=== PATIENT | female | born 1970 | race Caucasian/White ===

== ENCOUNTER 2021-01-05 11:32 | Emergency (ER) | payer BC, SELFPAY ==
[2021-01-05 11:35] VITALS: BP 139/71; PULSE 85; RESP 17; TEMP 36; O2SAT 96; BMI 34.3
--- NOTE | 2021-01-05 12:05 | US_ITS ---
STUDY: ABDOMINAL ULTRASOUND - RIGHT UPPER QUADRANT REASON FOR VISIT: Female, 50 years old. Right upper quadrant pain for 3 weeks TECHNIQUE: Ultrasound evaluation of the right upper quadrant was performed with real-time and static youngblood-scale imaging. TECHNICAL QUALITY: Adequate. COMPARISON: None. FINDINGS: Liver: The liver measures 18 cm. There is increased echogenicity of the liver. The bile ducts are within normal limits. There is hepatic color flow. The direction of portal flow is hepatopetal. There is no demonstrated mass lesion. Gallbladder: Normal distended gallbladder. The gallbladder wall measures 2 mm. There is a negative sonographic Huitron''s sign. There is no pericholecystic fluid. There are no gallstones. Common Bile Duct (C.B.D.): The common bile duct measures 4 mm. Pancreas: Normal size of the head, body and tail of the pancreas. There is normal echogenicity of the pancreas. There is no demonstrated pancreatic mass or cyst. Right Kidney: Normal size of the right kidney. The right kidney measures 10 x 5.2 x 4.2 cm. Normal renal cortex. The right cortex measures 1.7 cm. There is no demonstrated renal mass or cyst. There is no right hydronephrosis. US/Gallbladder IMPRESSION: 1. No acute findings. 2. Hepatomegaly and steatosis. Electronically Signed: Mounika Johnson MD at 14:52 EDT Tel , Service support ,
--- NOTE | 2021-01-05 12:07 | EX.ED.DYSGE1 ---
HPI History of Present Illness Chief Complaint: Flank Pain Informant: patient Narrative Narrative: 50-year-old female presenting with right side pain. Patient states this has been ongoing for the past 3 weeks. She went to urgent care and was told that she did not have a urinary tract infection. She was started on Pyridium which she states did not improve her symptoms. She has pain in her right abdomen that worsens with eating. She has a history of previous hysterectomy and appendectomy. She has discomfort when she tries to urinate, denies hematuria. She has had intermittent fevers. She has nausea, vomiting. She denies other complaints. PFSH PFSH Home Medications fluoxetine [Prozac] 10 mg PO DAILY 01/05/21 [History Last Taken Unknown] gabapentin 300 mg PO QHS PRN 01/05/21 [History Last Taken Unknown] hydrocodone-acetaminophen 1 tab PO Q6H PRN PRN 3 Days #10 tablet 01/05/21 [Rx Last Taken Unknown] ondansetron 4 mg PO Q8H PRN PRN #10 tab 01/05/21 [Rx Last Taken Unknown] trazodone 50 mg PO QHS 01/05/21 [History Last Taken Unknown] Allergy/AdvReac Type Severity Reaction Status Date / Time phenazopyridine Allergy Nausea/Vom/ Verified 01/05/21 11:34 [From Pyridium] Diarrhea Sulfa (Sulfonamide Allergy Hives Verified 01/05/21 11:34 Antibiotics) Surgical History (Updated 01/05/21 @ 12:23 by Silvia Villalobos) History of hysterectomy Hx of appendectomy Social History Smoking Status: Never smoker ROS [facility] ED Constitutional Constitutional ED: Reports fever(s) Eyes Eyes: Denies change in vision ENT ENT ED: Denies rhinorrhea or sore throat Cardiovascular Cardiovascular: Denies chest pain or palpitations Respiratory/Chest Respiratory/Chest: Denies cough or dyspnea Gastrointestinal Gastrointestinal: Reports abdominal pain, diarrhea, nausea and vomiting Genitourinary Genitourinary ED: Reports dysuria and urinary frequency; Denies hematuria Musculoskeletal Musculoskeletal: Denies myalgias Integumentary Denies rash Neurologic Neurologic: Denies headache(s) EXAM Physical Exam Const Vital Signs: 01/05/21 11:35 01/05/21 12:22 Temperature 96.8 F L Temperature Source Temporal Pulse Rate 85 Respiratory Rate 17 Respiratory Effort Normal Non-Labored Respiratory Pattern Normal Blood Pressure 139/71 H Blood Pressure Mean 93 Pulse Ox 96 Oxygen Delivery Method Room Air Positive well nourished and well developed General Appearance ED: well developed HEENT Reports normocephalic and head/scalp atraumatic Eyes PERRL and EOMs intact bilaterally Neck supple General: Negative for tenderness Chest Wall inspection of chest normal Resp normal respiratory effort and clear to auscultation bilaterally Cardio regular rate and regular rhythm GI non-distended GI Narrative: Right upper quadrant tenderness with no guarding or rebound Palpation: soft; Negative for guarding or rebound tenderness present no CVA tenderness Back/Spine no CVA tenderness Extremity normal to inspection Neuro oriented x3 Sensorium / Orientation: alert Psych mental status grossly normal MDM MDM MDM Narrative Medical decision making narrative: Patient was given morphine, Zofran, IV fluids. AST 46, ALT 68. Patient states her liver enzymes have been elevated in the past. Gallbladder ultrasound is unremarkable. On reevaluation she is resting comfortably. Advised to follow-up with Dr. Livingston. Advised return to ED if worsening complaints. Lab Data Attestation: I reviewed the patient's lab results. Labs: Laboratory Results - last 24 hr 01/05/21 01/05/21 01/05/21 12:20 12:20 13:20 WBC 8.8 RBC 4.94 Hgb 14.4 Hct 43.1 MCV 87.2 MCH 29.1 MCHC 33.4 RDW Std Deviation 39.2 RDW Coeff of Ingrid 12.2 Plt Count 321 MPV 10.6 Immature Gran % (Auto) 0.100 Neut % (Auto) 54.8 Lymph % (Auto) 35.7 Bond % (Auto) 6.6 Eos % (Auto) 2.1 Baso % (Auto) 0.7 Absolute Neuts (auto) 4.8 Absolute Lymphs (auto) 3.13 Nucleated RBC % 0 Sodium 141 Potassium 3.8 Chloride 109 H Carbon Dioxide 24.0 Anion Gap 8 BUN 11 Creatinine 0.74 Estim Creat Clear Calc 93.99 Est GFR (MDRD) Af Amer 107 Est GFR (MDRD) Non-Af 88 BUN/Creatinine Ratio 14.9 Glucose 87 Calcium 9.1 Total Bilirubin 0.50 AST 46 H ALT 68 H Alkaline Phosphatase 80 Total Protein 7.1 Albumin 3.6 Globulin 3.5 Albumin/Globulin Ratio 1.0 Lipase 82 Urine Color Yellow Urine Clarity Clear Urine pH 6.0 Ur Specific [place] 1.030 Urine Protein Negative Urine Glucose (UA) Normal Urine Ketones Negative Urine Occult Blood Negative Urine Nitrite Negative Urine Bilirubin Negative Urine Urobilinogen Normal Ur Leukocyte Esterase Negative Urine RBC 0 SEEN Urine WBC 0 SEEN Ur Squamous Epith Cells 0 SEEN Urine Bacteria 0 SEEN Urine Mucus 0 SEEN Radiography Diagnostic Testing: Radiology Impression Gallbladder Ultrasound 01/05/21 12:05 IMPRESSION: 1. No acute findings. 2. Hepatomegaly and steatosis. Electronically Signed: Mounika Johnson MD at 14:52 EDT Tel , Service support , Discharge Plan Triage Chief Complaint: Flank Pain ED Provider: Ana De La Cruz Dx/Rx/DC Orders Clinical Impression: Abdominal pain, RUQ Prescriptions: New hydrocodone-acetaminophen [hydrocodone-acetaminophen] 1 TABLET tablet 1 tab PO Q6H PRN PRN (Reason: Pain) 3 Days Qty: 10 RF: 0 ondansetron [ondansetron] 4 MG tablet 4 mg PO Q8H PRN PRN (Reason: Nausea) Qty: 10 RF: 0 No Action trazodone 50 mg Tablet 50 mg PO QHS RF: 0 fluoxetine [Prozac] 10 mg Tablet 10 mg PO DAILY RF: 0 gabapentin 300 mg Capsule 300 mg PO QHS PRN (Reason: Pain) RF: 0 Primary Care Provider: Care Physician,No Primary Referrals: Irene Livingston MD [STAFF PHYSICIAN] - Care Physician,No Primary [Primary Care Provider] - Disposition Disposition: Home, self care
[2021-01-05] MEDS: Ondansetron 4 MG/2 ML Vial IV (12:18)
[2021-01-05] MEDS: Morphine 4 MG/ML Syringe IV (12:18)
[2021-01-05 12:43] LABS: Absolute Lymphocyte Count 3.13 X10^3/uL (0.83-4.51); Absolute Neutrophil Count 4.8 X10^3/uL (2.0-7.7); Basophil# 0.06 X10^3/uL; Basophil% 0.7 % (0-1); Eosinophil# 0.18 X10^3/uL; Eosinophils% 2.1 % (0-5); Hematocrit 43.1 % (37-47); Hemoglobin 14.4 g/dL (12.0-15.0); Lymphocyte # 3.13 X10^3/ul (0.83-4.51); Lymphocyte % 35.7 % (19-41); Mean Corp Hgb Conc 33.4 g/dL (32-36); Mean Corpuscular Hgb 29.1 pg (27.0-32.0); Mean Corpuscular Volume 87.2 fL (81-99); Mean Platelet Vol. 10.6 fl (6.2-12.0); Monocyte# 0.58 X10^3/uL; Monocyte% 6.6 % (0-10); NRBC Flagged by Analyzer 0 % (0-5); Neutrophil % 54.8 % (47-70); Platelet Count 321 K/mm3 (150-450); RBC Distribution Width CV 12.2 % (11.6-14.6); RBC Distribution Width SD 39.2 fl (35.1-43.9); Red Blood Count 4.94 M/mm3 (4.2-5.4); White Blood Count 8.8 K/mm3 (4.4-11.0)
[2021-01-05 13:00] LABS: AST(SGOT) 46 U/L (15-37); Alanine Aminotransfer ALT/SGPT 68 U/L (13-56); Albumin, Serum 3.6 g/dL (3.2-5.0); Alkaline Phosphatase 80 U/L (45-117); Anion Gap 8 (5-15); BUN 11 mg/dL (7-18); BUN/Creat Ratio 14.9 RATIO (10-20); Calcium,Total 9.1 mg/dL (8.5-10.1); Chloride 109 mmol/L (98-107); Creatinine, Serum 0.74 mg/dL (0.55-1.02); EST Glomerular Filtration Rate 88 mL/min (>60); Est Glom Filt Rate - Afr Amer 107 mL/min (>60); Estimated Creatinine Clearance 93.99 ml/min; Globulin 3.5 g/dL (2.2-4.2); Glucose 87 mg/dL (74-106); Lipase 82 U/L (73-393); Potassium 3.8 mmol/L (3.5-5.1); Protein, Total 7.1 g/dL (6.4-8.2); Sodium Level 141 mmol/L (136-145)
[2021-01-05 13:25] LABS: Bacteria 0 SEEN /hpf (None Seen); Mucous, Urine 0 SEEN /hpf (<or=2+); Red Blood Cells-Urine 0 SEEN /hpf (0-5); Squamous Epithelial Cells - UA 0 SEEN /hpf (5-10); White Blood Cells 0 SEEN /hpf (0-5)
[2021-01-05 13:36] LABS: Color, Urine Yellow (Yellow); Glucose, Dipstick Normal (Normal); Ketone-Dipstick Negative (Negative); Leukocyte Esterase-Dipstick Negative /ul (Negative); Nitrite-Dipstick Negative (Negative); Occult Blood-Urine Negative /ul (Negative); Protein-Dipstick Negative (Negative); Urine Bilirubin Dipstick Negative (Negative); Urine Clarity Clear (Clear); Urine Urobilinogen Normal (Normal)
[2021-01-05 15:33] VITALS: BP 122/64; PULSE 56; RESP 16; O2SAT 99
== END 2021-01-05 15:34 | disposition home or self-care (01) ==
PROVIDERS: Emergency Provider Emergency Medicine
DX: R10.11 Right upper quadrant pain (principal); Z90.710 Acquired absence of both cervix and uterus; Z90.49 Acquired absence of other specified parts of digestive tract
CPT/HCPCS: 76705; 80053; 81001; 83690; 85025; 96361; 96374; 96375; 99283; J7030; J2405

== ENCOUNTER 2021-01-19 17:38 | Emergency (ER) | payer BC, SELFPAY ==
[2021-01-19 17:38] VITALS: BP 144/73; PULSE 60; RESP 22; TEMP 36.8; O2SAT 98; BMI 36.1
--- NOTE | 2021-01-19 17:55 | RAD_ITS ---
STUDY: X-RAY - RIGHT ELBOW REASON FOR EXAM: Female, 50 years old. trauma TECHNIQUE: 2 view(s) of the elbow. COMPARISON: None. FINDINGS: Extremely limited by extensive overlying artifact. Complete elbow dislocation. Ulna and radius are dorsal and lateral to normal position. No fractures are seen but fractures cannot be excluded because of the extreme degree of artifact. Diffuse soft tissue swelling. RAD/Elbow 2 Views IMPRESSION: Markedly limited by extreme artifact. Complete dislocation of the elbow. No gross displaced fractures. Electronically Signed: Hussain Holcomb MD at 19:19 EDT , Service support ,
--- NOTE | 2021-01-19 17:55 | RAD_ITS ---
STUDY: X-RAY - RIGHT HUMERUS REASON FOR EXAM: Female, 50 years old. trauma TECHNIQUE: 2 view(s) of the humerus. COMPARISON: None. FINDINGS: Limited by marked overlying artifact. Complete dislocation of the elbow. No gross displaced fractures. Marked soft tissue swelling. RAD/Humerus min 2 Views IMPRESSION: Markedly limited by severe overlying artifact. No gross fractures are seen. Electronically Signed: Hussain Holcomb MD at 19:21 EDT , Service support ,
--- NOTE | 2021-01-19 18:01 | EDS_ITS ---
HPI History of Present Illness HPI Narrative: 50-year-old female history of chronic pain on gabapentin. Was at home moving a grill when she fell landed awkwardly on her right arm complaining primarily of right elbow pain but also upper arm and forearm pain. Denies other injuries. Did not hit her head. No LOC. Chief Complaint: Upper Extremity Injury Informant: patient and spouse/S.O. Occured/Mechanism Mechanism/Context: Yes blunt trauma Onset/Context/Timing Onset: Today Context: Sudden Onset Timing: Continuous Quality of Pain: Sharp Current Severity: Moderate Maximum Severity: Severe Narrative Prior similar symptoms: No Recent Illness/Hospitalization: No PFSH PFSH Home Medications fluoxetine [Prozac] 10 mg PO DAILY 01/05/21 [History Last Taken Unknown] gabapentin 300 mg PO QHS PRN 01/05/21 [History Last Taken Unknown] trazodone 50 mg PO QHS 01/05/21 [History Last Taken Unknown] Allergy/AdvReac Type Severity Reaction Status Date / Time phenazopyridine Allergy Nausea/Vom/ Verified 01/19/21 17:45 [From Pyridium] Diarrhea Sulfa (Sulfonamide Allergy Hives Verified 01/05/21 11:34 Antibiotics) Surgical History History of hysterectomy Hx of appendectomy Social History Smoking Status: Never smoker ROS ROS ED ROS Narrative Patient denies recent illness. Review of Systems ROS Unobtainable: Denies due to encephalopathy Constitutional Constitutional ED: Denies frequent falls Eyes Eyes: Denies change in vision ENT ENT ED: Denies ear pain or sore throat Cardiovascular Cardiovascular: Denies chest pain or palpitations Respiratory/Chest Respiratory/Chest: Denies dyspnea Gastrointestinal Gastrointestinal: Denies abdominal pain, diarrhea, nausea or vomiting Genitourinary Genitourinary ED: Denies dysuria Musculoskeletal Musculoskeletal: Denies myalgias Integumentary Denies rash Neurologic Neurologic: Denies headache(s) Psychiatric Psychiatric: Denies depression Endocrine Endocrinology: Denies polyuria Hematologic/Lymphatic Hematologic/Lymphatic: Denies easy bruising Allergic/Immunologic Allergic/Immunologic ED: Denies urticaria EXAM Physical Exam Narrative Exam Narrative: Middle-aged female no acute distress. Vital signs stable afebrile. Complaint of pain in her right arm she is in air splint. H EENT exam atraumatic. Pupils round reactive light. Lungs are clear. Chest nontender. Abdomen soft nontender. Heart regular rhythm no murmur. Girdle intact. Left upper and both lower extremities are nontender normal range of motion no deformities. Back nontender. Right upper extremity in an air splint by the paramedics. Appears to have a deformity of the right elbow. Her right hand appears to be neurovascularly intact with cap refill and touch sensation. Const Vital Signs: 01/19/21 17:38 Temperature 98.3 F Temperature Source Oral Pulse Rate 60 Respiratory Rate 22 H Blood Pressure 144/73 H Blood Pressure Mean 96 Pulse Ox 98 Oxygen Delivery Method Room Air Positive well nourished and well developed General Appearance ED: well developed HEENT normocephalic and atraumatic; Negative for trauma or tenderness Eyes PERRL and EOMs intact bilaterally Neck full ROM and supple General: Negative for tenderness Chest Wall inspection of chest normal Resp normal respiratory effort and clear to auscultation bilaterally Cardio regular rate, regular rhythm and no murmurs GI non-tender, non-distended and no masses Auscultation: normoactive bowel sounds Palpation: soft Back/Spine no CVA tenderness Cervical Spine: Negative for cervical spine tenderness Thoracic Spine / Upper Back: Negative for thoracic spinal tenderness Extremity normal to inspection and full ROM Extremity Narrative: Extremities are unremarkable except the right upper extremity appears to have deformity to right elbow. She will remain in the air splint until the x-rays are obtained. Right hand appears to be neurovascularly intact. General Extremety ED: Negative for edema General Extremity: Negative for edema Neuro oriented x3 Sensorium / Orientation: alert, oriented to person, oriented to place and oriented to time Psych mental status grossly normal Skin Lesions: no lesions Rashes: no rashes MDM MDM MDM Narrative Medical decision making narrative: I suspect the patient either has a fractured or dislocated right elbow. X-rays of the right humerus, elbow and forearm are being obtained. She will be treated with IV morphine and Zofran for pain. Consciously sedated with IV propofol. Receiving oxygen and on the athletic monitor. Elbow was reduced. Seems still partially subluxed on the film and was resedated and rereduced. The dislocation appears unstable. Patient was placed in a posterior splint at about 80 degrees of flexion and some supination of the wrist. Repeat films were obtained and appears much improved. This was all discussed with Dr. Mehul Barragan of orthopedics who will see the patient in follow-up. He did review her last films after the splinting and the prereduction films. Patient be discharged to home to ice, elevate Motrin and [place] for pain. Procedures Upper Extremity Splints Upper Extremity Splint: Orthoglass and Long arm Splint Fabrication: Fabricated Location: Right Other Procedures Procedure(s): Conscious sedation for about 10 minutes by ER using propofol. Right elbow dislocation reduction by ER Discharge Plan Triage Chief Complaint: Upper Extremity Injury ED Provider: Ralph Maki Dx/Rx/DC Orders Prescriptions: No Action trazodone 50 mg Tablet 50 mg PO QHS RF: 0 fluoxetine [Prozac] 10 mg Tablet 10 mg PO DAILY RF: 0 gabapentin 300 mg Capsule 300 mg PO QHS PRN (Reason: Pain) RF: 0 Primary Care Provider: Care Physician,No Primary
[2021-01-19] MEDS: Ondansetron 4 MG/2 ML Vial IV ×2 (18:05→20:17)
[2021-01-19] MEDS: morphine 8 MG/ML Syringe IV ×2 (18:05→19:01)
--- NOTE | 2021-01-19 18:45 | RAD_ITS ---
STUDY: X-RAY - RIGHT RADIUS AND ULNA REASON FOR EXAM: Female, 50 years old. trauma TECHNIQUE: 2 view(s) of the forearm. COMPARISON: None. FINDINGS: Limited by extreme degree of overlying artifact. Dislocation at the elbow. Grossly normal appearance of the wrist. No gross fractures. IMPRESSION: No gross fractures of the radius and ulna although there is marked limitations from extreme overlying artifact. Electronically Signed: Hussain Holcomb MD at 19:20 EDT , Service support , RAD/Forearm 2 Views
[2021-01-19 19:22] VITALS: BP 132/74; PULSE 56; RESP 15; O2SAT 96
[2021-01-19 19:28] VITALS: BP 137/78; BP 139/70; BP 148/81; BP 156/85; PULSE 54; PULSE 55; PULSE 60; PULSE 68; RESP 17; RESP 18; O2SAT 100; O2SAT 94
--- NOTE | 2021-01-19 19:38 | RAD_ITS ---
STUDY: X-RAY - RIGHT ELBOW REASON FOR EXAM: Female, 50 years old. post reduction TECHNIQUE: Single view(s) of the elbow. COMPARISON: None. FINDINGS: A single oblique lateral view of the right elbow is seen. Continued complete dislocation of the elbow joints. Electronically Signed: Hussain Holcomb MD at 19:57 EDT , Service support , RAD/Elbow 2 Views
--- NOTE | 2021-01-19 19:47 | RAD_ITS ---
STUDY: X-RAY - RIGHT ELBOW REASON FOR EXAM: Female, 50 years old. reduction TECHNIQUE: 2 view(s) of the elbow. COMPARISON: Radiographs from earlier today. FINDINGS: Continued dislocation of the radiohumeral and ulnohumeral joints although positioning is improved prior exam. Tiny faint calcific densities anterior to the elbow joints are consistent with tiny fractures. Continued elbow effusion. IMPRESSION: Continued elbow dislocations although improved since prior study. RAD/Elbow 2 Views IMPRESSION: Normal x-ray examination of the elbow. Electronically Signed: Hussain Holcomb MD at 20:26 EDT , Service support ,
[2021-01-19 20:00] VITALS: BP 121/75; PULSE 51; RESP 16; O2SAT 95
[2021-01-19] MEDS: morphine 8 MG/ML Syringe 6 MG IV (20:18)
[2021-01-19 21:06] VITALS: BP 98/70; PULSE 62; RESP 18; O2SAT 94
--- NOTE | 2021-01-19 21:08 | RAD_ITS ---
STUDY: X-RAY - RIGHT ELBOW REASON FOR EXAM: Female, 50 years old. post reduction TECHNIQUE: 2 view(s) of the elbow. COMPARISON: Numerous prior radiographs of the same day. FINDINGS: Grossly normal appearance of the articulations at the elbow. No residual dislocation. No displaced fractures are seen. IMPRESSION: Reduction of previous dislocation. No major displaced fractures are seen. Electronically Signed: Hussain Holcomb MD at 21:34 EDT , Service support , RAD/Elbow 2 Views
[2021-01-19 21:32] VITALS: BP 106/58; PULSE 63; RESP 16; O2SAT 93
== END 2021-01-19 21:57 | disposition home or self-care (01) ==
PROVIDERS: Emergency Provider Emergency Medicine
DX: S53.104A Unspecified dislocation of right ulnohumeral joint, initial encounter (principal); W19.XXXA Unspecified fall, initial encounter; Y93.89 Activity, other specified; Y92.009 Unspecified place in unspecified non-institutional (private) residence as the place of occurrence of the external cause; Y99.9 Unspecified external cause status
CPT/HCPCS: 24600; 73060; 73070; 73090; 96374; 96375; 96376; 99152; 99153; 99285; A4216; J2405

== ENCOUNTER 2021-07-18 18:03 | Emergency (ER) | payer BC, SELFPAY ==
[2021-07-18 18:04] VITALS: BP 171/157; PULSE 111; RESP 18; TEMP 36.3; O2SAT 99; BMI 34.0
--- NOTE | 2021-07-18 18:51 | CT_ITS ---
STUDY: CT ABDOMEN AND PELVIS WITH CONTRAST REASON FOR EXAM: Female, 50 years old. Hemorrhagic colitis pain nausea vomiting diarrhea RADIATION DOSAGE (If Supplied By Facility): CTDIvol = ( 18.71 ) mGy, DLP = ( 1305.38 ) mGycm TECHNIQUE: CT images were obtained from the dome of the diaphragm to the symphysis pubis without oral contrast. IV 100mL [id number]-[id number] was administered. Sagittal and coronal images were reconstructed. Individualized dose optimization techniques were used for this CT. COMPARISON: None. FINDINGS: The visualized lung bases are unremarkable. The visualized portions of the heart are within normal limits. Liver is moderately enlarged with a subcentimeter segment 8 subcapsular benign cyst. Normal gallbladder and extrahepatic biliary system. Spleen is mildly enlarged. Normal pancreas. Normal bilateral adrenal glands. Normal right kidney. Normal left kidney. There is no intestinal obstruction. Bowel is normal. Appendix is removed. Normal abdominal aorta. Normal inferior vena cava. Normal retroperitoneum. Normal urinary bladder. Uterus is removed. Normal abdominal wall. Normal osseous structures. CT/Abdomen/Pelvis W IV Cont ONLY IMPRESSION: Unremarkable abdomen, no acute or chronic disease. Electronically Signed: Mounika Johnson MD at 20:00 EST Tel , Service support ,
[2021-07-18] MEDS: Morphine 4 MG/ML Syringe IV (19:01)
[2021-07-18] MEDS: Ondansetron 4 MG/2 ML Vial IV (19:01)
[2021-07-18 19:21] LABS: Absolute Lymphocyte Count 3.89 X10^3/uL (0.83-4.51); Absolute Neutrophil Count 7.5 X10^3/uL (2.0-7.7); Basophil# 0.09 X10^3/uL; Basophil% 0.7 % (0-1); Eosinophil# 0.15 X10^3/uL; Eosinophils% 1.2 % (0-5); Hematocrit 42.9 % (37-47); Hemoglobin 14.5 g/dL (12.0-15.0); Lymphocyte # 3.89 X10^3/ul (0.83-4.51); Lymphocyte % 30.8 % (19-41); Mean Corp Hgb Conc 33.8 g/dL (32-36); Mean Corpuscular Hgb 28.9 pg (27.0-32.0); Mean Corpuscular Volume 85.6 fL (81-99); Mean Platelet Vol. 10.4 fl (6.2-12.0); Monocyte# 0.95 X10^3/uL; Monocyte% 7.5 % (0-10); NRBC Flagged by Analyzer 0 % (0-5); Neutrophil # 7.53 X10^3/uL (2.7-7.7); Neutrophil % 59.6 % (47-70); Platelet Count 382 K/mm3 (150-450); RBC Distribution Width CV 12.5 % (11.6-14.6); RBC Distribution Width SD 38.8 fl (35.1-43.9); Red Blood Count 5.01 M/mm3 (4.2-5.4); White Blood Count 12.6 K/mm3 (4.4-11.0)
[2021-07-18 19:29] LABS: ALB/GLOB Ratio 0.9 RATIO (0.9-2.4); AST(SGOT) 40 U/L (15-37); Alanine Aminotransfer ALT/SGPT 63 U/L (13-56); Albumin, Serum 3.7 g/dL (3.2-5.0); Alkaline Phosphatase 105 U/L (45-117); Anion Gap 6 (5-15); BUN 9 mg/dL (7-18); Calcium,Total 9.2 mg/dL (8.5-10.1); Chloride 109 mmol/L (98-107); Creatinine, Serum 0.75 mg/dL (0.55-1.02); EST Glomerular Filtration Rate 87 mL/min (>60); Est Glom Filt Rate - Afr Amer 105 mL/min (>60); Estimated Creatinine Clearance 92.74 ml/min; Globulin 4.2 g/dL (2.2-4.2); Glucose 98 mg/dL (74-106); Lipase 114 U/L (73-393); Potassium 3.7 mmol/L (3.5-5.1); Protein, Total 7.9 g/dL (6.4-8.2); Sodium Level 139 mmol/L (136-145)
[2021-07-18] MEDS: metroNIDAZOLE 500 MG/100 ML BAG 100 MG IV (19:39)
[2021-07-18] MEDS: 0.9% Normal Saline 1,000 ML 1000 ML IV (19:39)
[2021-07-18 19:51] LABS: Lactic Acid 1.1 mmol/L (0.4-1.9)
--- NOTE | 2021-07-18 20:30 | EDS_ITS ---
HPI HPI - GI History of Present Illness Chief Complaint: Abd Pain Informant: patient Abdominal Pain/Flank Pain Onset: Today and Hours Context: Sudden Onset Timing: Continuous Quality: Aching and Cramping Location: Diffuse Current Severity: Mild Maximum Severity: Moderate Worsened by: - (Diarrhea) Relieved by: Nothing Nausea/Vomiting/Emesis GI Symptom: Positive for Nausea; Negative for Vomiting Diarrhea/Melena/Hematochezia GI Symptom: Positive for Diarrhea, Melena and Hematochezia Onset: Today and Hours Stool Quality: Positive for BRB per rectum; Negative for Loose Severity: Moderate Episodes: 3 Associated Symptoms Associated Symptoms: Negative for Dysuria, Frequency and Hematuria Narrative Narrative: Patient is a middle-aged woman who presents with diffuse abdominal pain associate with nausea. She now reports 3 bloody dark red bowel movements. First episode was several hours prior to presentation. She does report mild lightheadedness with standing. She denies shortness of breath. Denies chest disc omfort. Denies history of Crohn's disease or ulcerative colitis. She denies history of irritable bowel syndrome. She denies history of diverticulosis. She endorses history of depression. Prior similar symptoms: No Recent Illness/Hospitalization: No PFSH PFSH Medical History no medical history no medical history Home Medications fluoxetine [Prozac] 10 mg PO DAILY 01/05/21 [History Last Taken Unknown] gabapentin 300 mg PO QHS PRN 01/05/21 [History Last Taken Unknown] trazodone 50 mg PO QHS 01/05/21 [History Last Taken Unknown] hydrocodone-acetaminophen 1 tab PO Q4H PRN 5 Days #20 tab 01/19/21 [Rx Last Taken Unknown] Allergy/AdvReac Type Severity Reaction Status Date / Time phenazopyridine Allergy Nausea/Vom/ Verified 07/18/21 18:04 [From Pyridium] Diarrhea Sulfa (Sulfonamide Allergy Hives Verified 07/18/21 18:04 Antibiotics) Surgical History History of hysterectomy Hx of appendectomy Social History (Updated 07/18/21 @ 20:[address] Paul Holden MD) household members: spouse Smoking Status: Never smoker substance use type: does not use ROS ROS ED Constitutional Constitutional ED: Denies chills, fever(s), subjective, sweats or weight loss ENT ENT ED: Denies ear pain, rhinorrhea or sore throat Cardiovascular Cardiovascular: Denies chest pain, orthopnea, palpitations, paroxysmal nocturnal dyspnea or racing heartbeat Respiratory/Chest Respiratory/Chest: Denies cough, dyspnea, dyspnea on exertion, orthopnea or paroxysmal nocturnal dyspnea Gastrointestinal Gastrointestinal: Reports abdominal pain, diarrhea and nausea; Denies constipation or melena Genitourinary Genitourinary ED: Denies dysuria, hematuria or urinary frequency Musculoskeletal Musculoskeletal: Denies arthralgias, back pain, myalgias or neck pain Integumentary Denies rash Neurologic Neurologic: Reports weakness; Denies paresthesias Psychiatric Psychiatric: Reports depression Endocrine Endocrinology: Denies polydipsia, polyphagia or polyuria Hematologic/Lymphatic Hematologic/Lymphatic: Denies easy bleeding or easy bruising EXAM Physical Exam Const Vital Signs: 07/18/21 18:04 07/18/21 21:59 Temperature 97.4 F L Temperature Source Temporal Pulse Rate 111 H 78 Respiratory Rate 18 14 Blood Pressure 171/157 H 110/65 Blood Pressure Mean 161 80 Pulse Ox 99 97 Oxygen Delivery Method Room Air Room Air Positive well nourished, well developed and obese General Appearance ED: well developed and NAD; Negative for pallor Nutritional Appearance: obese HEENT Reports TM's clear and moist mucous membranes normocephalic and atraumatic Tympanic Membrane ED: Yes TM's clear Eyes PERRL and EOMs intact bilaterally General Eye ED: Negative for pale conjunctiva or scleral icterus Neck no lymphadenopathy, supple and no JVD General: Negative for tenderness Resp normal respiratory effort and clear to auscultation bilaterally GI no masses; Negative for non-tender or non-distended GI Narrative: There is no fissures or fistulas noted. There are external hemorrhoids. There is no active bright red blood. Rectal exam reveals maroon- colored material. Auscultation: hyperactive bowel sounds; Negative for normoactive bowel sounds Palpation: soft and tender; Negative for guarding, rigid, hepatomegaly, splenomegaly or rebound tenderness present Back/Spine no CVA tenderness Cervical Spine: Negative for cervical spine tenderness Thoracic Spine / Upper Back: Negative for thoracic spinal tenderness Lumbar Spine / Lower Back: Negative for lumbar spinal tenderness Extremity full ROM General Extremety ED: Negative for edema or tenderness General Extremity: Negative for edema Neuro CN's II-XII intact bilaterally and moves all extremities Sensorium / Orientation: alert, oriented to person, oriented to place and oriented to time Psych mental status grossly normal and thought process normal Skin no wounds General Skin Exam: Negative for jaundice or pallor Lesions: no lesions Rashes: no rashes MDM MDM MDM Narrative Medical decision making narrative: Patient presents with abdominal symptoms b loody diarrhea. She is tender concerned she may have ischemic colitis. Infectious colitis needs to be retained as well. CT of the abdomen was obtained as well as blood work CBC to assess H&H. Realizing that the H&H may not accommodate for 12 to 24 hours. White count is elevated 12.6. BMP to assess renal function and anion gap. Lactate to assess for adequacy of perfusion. Patient did receive a liter of normal saline. She was medicated with Zofran and morphine. She received 40 mg ciprofloxacin IV piggyback and 500 mg of metronidazole IV piggyback. Per radiology read there is no evidence of dive rticular disease either. Patient was reassessed at 2200. She states her pain has subsided significantly after receiving 4 mg of morphine and nausea improved with Zofran. Since patient does have maroon-colored blood hospitalist was called for admission and GI consult. Lab Data Attestation: I reviewed the patient's lab results. Labs: Laboratory Results - last 24 hr 07/18/21 07/18/21 07/18/21 18:30 18:30 19:00 WBC 12.6 H RBC 5.01 Hgb 14.5 Hct 42.9 MCV 85.6 MCH 28.9 MCHC 33.8 RDW Std Deviation 38.8 RDW Coeff of Ingrid 12.5 Plt Count 382 MPV 10.4 Immature Gran % (Auto) 0.200 Neut % (Auto) 59.6 Lymph % (Auto) 30.8 [place] % (Auto) 7.5 Eos % (Auto) 1.2 Baso % (Auto) 0.7 Absolute Neuts (auto) 7.5 Absolute Lymphs (auto) 3.89 Nucleated RBC % 0 Sodium 139 Potassium 3.7 Chloride 109 H Carbon Dioxide 24.0 Anion Gap 6 BUN 9 Creatinine 0.75 Estim Creat Clear Calc 92.74 Est GFR (MDRD) Af Amer 105 Est GFR (MDRD) Non-Af 87 BUN/Creatinine Ratio 12.0 Glucose 98 Lactic Acid 1.1 Calcium 9.2 Total Bilirubin 0.50 AST 40 H ALT 63 H Alkaline Phosphatase 105 Total Protein 7.9 Albumin 3.7 Globulin 4.2 Albumin/Globulin Ratio 0.9 Lipase 114 Radiography Diagnostic Testing: Clinical Impression(s) from Imaging Studies Abdomen/Pelvis CT 07/18/21 18:51 IMPRESSION: Unremarkable abdomen, no acute or chronic disease. Electronically Signed: Mounika Johnson MD at 20:00 EST Tel , Service support , Discharge Plan Triage Chief Complaint: Abd Pain ED Provider: Paul Holden Dx/Rx/DC Orders Clinical Impression: Acute lower gastrointestinal bleeding, Bloody diarrhea Prescriptions: No Action trazodone 50 mg Tablet 50 mg PO QHS RF: 0 fluoxetine [Prozac] 10 mg Tablet 10 mg PO DAILY RF: 0 gabapentin 300 mg Capsule 300 mg PO QHS PRN (Reason: Pain) RF: 0 hydrocodone-acetaminophen 5-325 mg tablet 1 tab PO Q4H PRN (Reason: pain) 5 Days Qty: 20 RF: 0 Primary Care Provider: Michael Barragan Referrals: Michael Barragan MD [Primary Care Provider] -
[2021-07-18] MEDS: Ciprofloxacin 400 MG/200 ML BAG 200 MG IV (20:38)
[2021-07-18 21:59] VITALS: BP 110/65; PULSE 78; RESP 14; O2SAT 97
--- NOTE | 2021-07-18 22:12 | HP.PCM.HOS_ITS ---
HPI - General General Date of Admission: 07/18/21 Date of Service: 07/18/21 Chief Complaint: N/V/D, eventually bloody. HPI Narrative The patient is a 50 y/o F w/ PMHx: Anxiety and Depression, Obesity who presents to the [facility] 07/18/21 with history of onset early in the morning at approximately 2 AM episode of nausea, emesis and at that time normal-appearing colored diarrhea with abdominal cramping which seemed to subside with AM rep orted mild amount of white blood on the toilet paper when she went to the bathroom but no stooling at that time with a recurrent episode at approximately noon with sensation of need to use the bathroom with bloody dark appearing stool at that time with a recurrent event in the evening eventually prompting ED evaluation. Patient did report associated lightheadedness but no dyspnea associated. She denies ever having had IBS prior. She notes having had prior EGD for GERD type symptoms. Patient notes that her for the last week has had Covid type symptoms but seems to have been improving recently and she believes that her son recently was also exposed to Covid. 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 She denies any recent fever, chills, headache, sore throat, body aches, cough or dyspnea. Patient has been vaccinated against COVID with Moderna series. She states that her son and have not been vaccinated. Patient of note does have hemorrhoids however she denied any pain at the rectal region or any enlargement of her hemorrhoids. Work-up in the ED included T 97.4, heart rate initially 111 with most recent repeat 78, BP initially 171/157 with most recent repeat 110/65, respiratory rate 18, 99% on room air, CBC with WC 12.6, hemoglobin 14.5, platelets 3 2 without marked shift, CMP with chloride 109, AST/LT 40/63 otherwise unremarkable, lipase 114, type and screen pending per ED, CT abdomen pelvis with no acute intra- abdominal findings. [facility] Medical History (Updated 07/18/21 @ 23:[address] Susanne Rojas MD) Anxiety and depression Obesity Medical History no medical history Home Medications fluoxetine [Prozac] 10 mg PO DAILY 01/05/21 [History Last Taken Unknown] gabapentin 300 mg PO QHS PRN 01/05/21 [History Last Taken Unknown] trazodone 50 mg PO QHS 01/05/21 [History Last Taken Unknown] hydrocodone-acetaminophen 1 tab PO Q4H PRN 5 Days #20 tab 01/19/21 [Rx Last Taken Unknown] Allergy/AdvReac Type Severity Reaction Status Date / Time phenazopyridine Allergy Nausea/Vom/ Verified 07/18/21 18:04 [From Pyridium] Diarrhea Sulfa (Sulfonamide Allergy Hives Verified 07/18/21 18:04 Antibiotics) Family History (Updated 07/18/21 @ 23:[address] Susanne Rojas MD) Mother Diabetes Cancer Father Diabetes Cancer Surgical History (Updated 07/18/21 @ 23:[address] Susanne Rojas MD) History of hysterectomy History of surgery on arm Hx of appendectomy Social History (Updated 07/18/21 @ 23:[address] Susanne Rojas MD) household members: spouse Smoking Status: Never smoker alcohol intake: never substance use type: does not use ROS ROS Narrative Admission Review of Systems: CONSTITUTIONAL: No weight loss, fever, chills, + weakness or fatigue. HEENT: Eyes: No visual loss, blurred vision, double vision or yellow sclerae. Ears, Nose, Throat: No hearing loss, sneezing, congestion, runny nose or sore throat. SKIN: No rash or itching, lesions, wounds. CARDIOVASCULAR: + Lightheadedness, No chest pain, chest pressure or chest discomfort, palpitations, edema, orthopnea, syncopal events. RESPIRATORY: No shortness of breath, cough or sputum, wheezing, hemoptysis. GASTROINTESTINAL: + anorexia, nausea, vomiting, diarrhea, abdominal pain, dark blood stools, worsened dyspepsia, No melena. GENITOURINARY: No dysuria, frequency, urgency or retention. NEUROLOGICAL: + lightheadedness. No headache, syncope, paralysis, ataxia, numbness or tingling in the extremities, focal weakness, change in bowel or bladder control, seizure. MUSCULOSKELETAL: + muscle, back pain, joint pain or stiffness. HEMATOLOGIC: + anemia, bleeding or bruising. LYMPHATICS: No enlarged nodes. No history of splenectomy. PSYCHIATRIC: + history of depression or anxiety. ENDOCRINOLOGIC: No reports of sweating, cold or heat intolerance. No polyuria or polydipsia. ALLERGIES: No history of asthma, hives, eczema or rhinitis. Vital Signs Vital Signs Vital Signs: 07/18/21 18:04 07/18/21 21:59 Temperature 97.4 F L Temperature Source Temporal Pulse Rate 111 H 78 Respiratory Rate 18 14 Blood Pressure 171/157 H 110/65 Blood Pressure Mean 161 80 Pulse Ox 99 97 Oxygen Delivery Method Room Air Room Air Weight Weight: 230 lb 2.601 oz Body Mass Index (BMI) 34.0 Physical Exam Narrative Physical Examination: General: Awake, alert, oriented x 3 and cooperative, seated upright in the ED bed, no obvious discomfort, mild irritability. Skin: Normal color, normal turgor, no icterus, no cyanosis. HEENT: AT/NC, EOMI, PERRLA, mildly dry MM, no carotid bruits or JVD noted. Lungs: Diminished, greater bases, appropriate effort no rales, ronchi or wheezing. Heart: Regular rate and rhythm; no gallop, rub audible. Abdomen: Soft, obese, no rebound or guarding, mild generalized discomfort, no obvious distention, distant mildly hyperactive bowel sounds, unable to discern HSM given habitus. Extremities: No cyanosis, clubbing, or edema. Neurological: Patient awake, alert, oriented as noted, cognitive function intact; pupils equally reactive to light and accommodation, cranial nerves II- XII grossly normal, moving all 4 extremities, no focal deficits, strength preserved. Psychiatric: Affect appears mildly irritable, fatigued, no acute evidence of depressive or anxiety feelings. Results Lab / Micro Data Result Diagrams: 07/18/21 18:30 07/18/21 18:30 Labs: Laboratory Results - last 24 hr 07/18/21 18:30: WBC 12.6 H, RBC 5.01, Hgb 14.5, Hct 42.9, MCV 85.6, MCH 28.9, MCHC 33.8, RDW Std Deviation 38.8, RDW Coeff of Ingrid 12.5, Plt Count 382, MPV 10.4, Immature Gran % (Auto) 0.200, Neut % (Auto) 59.6, Lymph % (Auto) 30.8, [place] % (Auto) 7.5, Eos % (Auto) 1.2, Baso % (Auto) 0.7, Absolute Neuts (auto) 7.5, Absolute Lymphs (auto) 3.89, Nucleated RBC % 0 07/18/21 18:30: Sodium 139, Potassium 3.7, Chloride 109 H, Carbon Dioxide 24.0, Anion Gap 6, BUN 9, Creatinine 0.75, Estim Creat Clear Calc 92.74, Est GFR (MDRD) Af Amer 105, Est GFR (MDRD) Non-Af 87, BUN/Creatinine Ratio 12.0, Glucose 98, Calcium 9.2, Total Bilirubin 0.50, AST 40 H, ALT 63 H, Alkaline Phosphatase 105, Total Protein 7.9, Albumin 3.7, Globulin 4.2, Albumin/Globulin Ratio 0.9, Lipase 114 07/18/21 19:00: Lactic Acid 1.1 Radiology Impression Abdomen/Pelvis CT 07/18/21 18:51 IMPRESSION: Unremarkable abdomen, no acute or chronic disease. Electronically Signed: Mounika Johnson MD at 20:00 EST Tel , Service support , Assessment & Plan Assessment/Plan (1) Bloody diarrhea: PLAN: The patient is a 50 y/o F w/ PMHx: Anxiety and Depression, Obesity who presents to the [facility] 07/18/21 with history of onset early in the morning at approximately 2 AM episode of nausea, emesis and at that time normal-appeari ng colored diarrhea with abdominal cramping eventually becoming dark and bloody prompting evaluation. 1. Acute GI Bleed w/ possibly infectious gastroenteritis: Will admit to medical surgical floor, maintain on IVFs, trend H+Hs, maintain n.p.o. status until clinically improved, maintain on IV PPI, if recurrent diarrhea will obtain C. difficile as well as enteric pathogen, to be cautious will also obtain Covid PCR given history of significant exposure and will request GI consultation given concern for concurrent GI bleed per discussion and preference of patient. 2. Elevated LFTs: Admission AST/ALT 40/63, potentially related with #1, will continue treatment and evaluation and repeat CMP in AM. 3. Anxiety and depression: We will continue patient home Prozac as well as nightly sleeping regimen, previously trazodone but notes she is on a new regimen, awaiting clarification. 4. Obesity: Weight loss and lifestyle changes encouraged. 5. DVT prophylaxis: SCDs, defer any chemoprophylaxis given acute presentation as noted. Charges/Coding Visit Charges OBSV E&M: 08134 Initial observation care L3
[2021-07-18 22:29] VITALS: BP 110/65; PULSE 78; RESP 14; TEMP 36.3; O2SAT 97
[2021-07-19 00:05] VITALS: PULSE 86
--- NOTE | 2021-07-19 00:13 | ED.RN ---
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 Pt. stated, I want to go home. take this out of me. Pointing to the IV. Nurse asked why is that. Pt. stated they didn't want to be here. Nurse said okay, let me talk to the doctor. Nurse brought back AMA form. Pt. refused a copy to take home. Pt. stated I don't need a copy. I'm not going to . My vitals are fine. I don't know why I'm even here. Pt. then walked out.
[2021-07-19 08:59] LABS: Probe Check PASS; Specimen Processing Control PASS
== END 2021-07-19 00:17 | disposition left against medical advice (07) ==
PROVIDERS: Family Medicine; Emergency Provider Emergency Medicine; PCP Family Medicine
DX: K92.1 Melena (principal); E66.9 Obesity, unspecified; Z90.710 Acquired absence of both cervix and uterus; Z90.89 Acquired absence of other organs
CPT/HCPCS: 74177; 80053; 83605; 83690; 85025; 86850; 86900; 86901; 87635; 96365; 96367; 96375; 99285; J7030; J7050; Q9967; U0005; A4216; J0744; J2405; U0003

== ENCOUNTER 2021-11-07 07:40 | Outpatient (CLI) | payer BC, SELFPAY ==
--- NOTE | 2021-11-07 08:01 | BI_ITS ---
MAMMOGRAPHY - BILATERAL SCREENING REASON FOR EXAM: Female, 51 years old. Routine annual screening examination. PERTINENT HISTORY: Aunt with breast cancer. TECHNIQUE: Digital bilateral breast naya (3D mammographic acquisition) in the CC and MLO projections. 2-D mediolateral oblique (MLO) and craniocaudad (CC) views of both breasts were obtained. CAD: Full Field Digital Mammography with Computer Added Detection was performed. COMPARISON: Comparison is made with prior outside examination dated 10/28/2015. FINDINGS: Breast Composition: The breasts are heterogeneously dense, which may obscure small masses. There are no dominant masses or suspicious calcifications. No other significant abnormalities are identified. There has been no significant change since the prior study. BI/SCRN MAMM (CAD)W/NAYA BILAT IMPRESSION: Stable bilateral screening mammogram. Yearly follow-up mammogram recommended. (A) ASSESSMENT CATEGORY: BIRADS Category 1: Negative. A letter regarding these results will be sent to the patient by the facility within 30 days. Approximately 10% of breast cancers are not detected by mammography. A normal mammogram should not delay biopsy of a clinically suspicious abnormality. [id number] Electronically Signed: Nitesh Rojas MD at 9:17 EST ,
== END 2021-11-07 23:59 | disposition home or self-care (01) ==
PROVIDERS: PCP Family Medicine; Visit Provider Nurse Practitioner Family
DX: Z12.31 Encounter for screening mammogram for malignant neoplasm of breast (principal); Z80.3 Family history of malignant neoplasm of breast
CPT/HCPCS: 77063; 77067

== ENCOUNTER → 2022-06-26 | Outpatient (CLI) | payer OTHER, SELFPAY ==
[2022-06-26 21:50] LABS: Absolute Lymphocyte Count 4.16 X10^3/uL (0.83-4.51); Absolute Neutrophil Count 5.6 X10^3/uL (2.0-7.7); Basophil% 0.9 % (0-1); Eosinophils% 2.8 % (0-5); Hematocrit 44.7 % (37-47); Hemoglobin 15.1 g/dL (12.0-15.0); Lymphocyte # 4.16 X10^3/ul (0.83-4.51); Lymphocyte % 38.2 % (19-41); Mean Corp Hgb Conc 33.8 g/dL (32-36); Mean Corpuscular Hgb 29.4 pg (27.0-32.0); Mean Corpuscular Volume 87.1 fL (81-99); Mean Platelet Vol. 10.9 fl (6.2-12.0); Monocyte# 0.68 X10^3/uL; Monocyte% 6.3 % (0-10); NRBC Flagged by Analyzer 0 % (0-5); Neutrophil # 5.61 X10^3/uL (2.7-7.7); Neutrophil % 51.5 % (47-70); Platelet Count 389 K/mm3 (150-450); RBC Distribution Width CV 12.6 % (11.6-14.6); RBC Distribution Width SD 39.8 fl (35.1-43.9); Red Blood Count 5.13 M/mm3 (4.2-5.4); White Blood Count 10.9 K/mm3 (4.4-11.0)
[2022-06-26 22:08] LABS: AST(SGOT) 110 U/L (15-37); Alanine Aminotransfer ALT/SGPT 111 U/L (13-56); Albumin, Serum 4.1 g/dL (3.2-5.0); Alkaline Phosphatase 137 U/L (45-117); Anion Gap 7 (5-15); BUN 10 mg/dL (7-18); Calcium,Total 9.1 mg/dL (8.5-10.1); Chloride 107 mmol/L (98-107); Cholesterol 250 mg/dL (200); Creatinine, Serum 0.62 mg/dL (0.55-1.02); EST Glomerular Filtration Rate 106 mL/min (>60); Est Glom Filt Rate - Afr Amer 128 mL/min (>60); Globulin 4.2 g/dL (2.2-4.2); Glucose 97 mg/dL (74-106); High Density Lipoprotein 49 mg/dL; Potassium 4.1 mmol/L (3.5-5.1); Protein, Total 8.3 g/dL (6.4-8.2); Sodium Level 138 mmol/L (136-145); T4 Free Direct 0.86 ng/dL (0.76-1.46); Thyroid Stim Hormone (TSH) 1.81 uIU/mL (0.358-3.74); Triglycerides 193 mg/dL; Very Low Density Lipoprotein 39 mg/dL (5-40)
[2022-06-29 08:12] LABS: PTHIN 106.3 pg/mL (18.4-80.1)
== END | disposition home or self-care (01) ==
PROVIDERS: PCP Family Medicine; Visit Provider Nurse Practitioner
DX: R63.5 Abnormal weight gain (principal); R03.0 Elevated blood-pressure reading, without diagnosis of hypertension
CPT/HCPCS: 80053; 80061; 83970; 84439; 84443; 85025

== ENCOUNTER → 2022-07-06 | Outpatient (CLI) | payer OTHER, SELFPAY ==
--- NOTE | 2022-07-06 07:12 | MRI_ITS ---
STUDY: MRI BRAIN WITH AND WITHOUT CONTRAST REASON FOR EXAM: Female, 51 years old. elevated PTHIN,large weight gain HTN, N V TECHNIQUE: Standardized multiplanar fat and water weighted pulse sequences were obtained. IV 23ml clariscan was administered for the contrast portion of the examination. COMPARISON: None. FINDINGS: Normal size of the ventricles and extra-axial spaces for the patient''s age. Normal white matter tracts of the supratentorial brain. Normal bilateral basal ganglia. Normal thalami. There is no extra-axial fluid accumulation. Normal flow voids within the major intracranial circulation suggesting patency by spin echo criteria. Normal venous enhancement. There is no enhancing intra-axial or extra-axial abnormality. There is mild asymmetric prominence of the right lateral aspect of the pituitary however there is homogeneous signal intensity and enhancement. Normal, infundibular stalk, optic chiasm and hypothalamus. Normal tectal plate and pineal gland. Normal midbrain, krzysztof and medulla. Normal cerebellum. Normal basal cisterns. Normal bilateral temporal bones. Normal bilateral internal auditory canals. No demonstrated orbital abnormality, within the constraints of a routine brain study. Normal visualized paranasal sinuses. Normal calvarium and skull base. Normal visualized soft tissue structures. Normal visualized upper cervical spine. Incidental finding of a small partially enhancing extradural lesion in the left middle cranial fossa approximately 2.35 x 1 cm of indeterminate etiology. Meningioma may be considered. Metastatic disease not entirely excluded. MRI/Brain W/WO Contrast IMPRESSION: Mild asymmetric appearance to the pituitary without well-defined nodule. Functioning microadenoma not entirely excluded Incidental finding of small extradural lesion in the left middle cranial fossa which partially enhances of uncertain etiology possibly meningioma although metastatic disease not entirely excluded.. CT of the brain with and without contrast utilizing bone windows would be helpful for further assessment Electronically Signed: Ahmet Gil MD at 16:50 EST ,
== END | disposition home or self-care (01) ==
PROVIDERS: PCP Nurse Practitioner; Referring Provider Nurse Practitioner; Visit Provider Nurse Practitioner
DX: D35.2 Benign neoplasm of pituitary gland (principal); R03.0 Elevated blood-pressure reading, without diagnosis of hypertension; R63.5 Abnormal weight gain
CPT/HCPCS: 70553; A9585

== ENCOUNTER → 2024-01-06 | Outpatient (CLI) | payer OTHER, SELFPAY | END | disposition home or self-care (01) | PROVIDERS: PCP Nurse Practitioner; Referring Provider Nurse Practitioner; Visit Provider Nurse Practitioner | DX: N30.90 Cystitis, unspecified without hematuria (principal) | CPT/HCPCS: 87086; 87088 ==

== ENCOUNTER → 2024-07-17 | Outpatient (CLI) | payer OTHER, SELFPAY ==
[2024-07-17 22:14] LABS: Absolute Lymphocyte Count 2.95 X10^3/uL (0.83-4.51); Absolute Neutrophil Count 4.7 X10^3/uL (2.0-7.7); Basophil# 0.07 X10^3/uL; Basophil% 0.9 % (0-1); Eosinophil# 0.11 X10^3/uL; Eosinophils% 1.3 % (0-5); Hematocrit 42.3 % (37-47); Hemoglobin 13.9 g/dL (12.0-15.0); Lymphocyte # 2.95 X10^3/ul (0.83-4.51); Lymphocyte % 35.9 % (19-41); Mean Corp Hgb Conc 32.9 g/dL (32-36); Mean Corpuscular Hgb 27.9 pg (27.0-32.0); Mean Corpuscular Volume 84.9 fL (81-99); Mean Platelet Vol. 10.8 fl (6.2-12.0); Monocyte# 0.42 X10^3/uL; Monocyte% 5.1 % (0-10); NRBC Flagged by Analyzer 0 % (0-5); Neutrophil # 4.65 X10^3/uL (2.7-7.7); Neutrophil % 56.6 % (47-70); Platelet Count 351 K/mm3 (150-450); RBC Distribution Width CV 13.1 % (11.6-14.6); RBC Distribution Width SD 39.8 fl (35.1-43.9); Red Blood Count 4.98 M/mm3 (4.2-5.4); White Blood Count 8.2 K/mm3 (4.4-11.0)
[2024-07-17 22:32] LABS: ALB/GLOB Ratio 1.3 RATIO (0.9-2.4); AST(SGOT) 23 U/L (15-37); Alanine Aminotransfer ALT/SGPT 30 U/L (13-56); Albumin, Serum 4.4 g/dL (3.2-5.0); Alkaline Phosphatase 79 U/L (45-117); Anion Gap 6 (5-15); BUN 11 mg/dL (7-18); BUN/Creat Ratio 13.9 RATIO (10-20); Calcium,Total 9.6 mg/dL (8.5-10.1); Chloride 111 mmol/L (98-107); Cholesterol 233 mg/dL (200); Creatinine, Serum 0.79 mg/dL (0.55-1.02); EST Glomerular Filtration Rate 80 mL/min (>60); Est Glom Filt Rate - Afr Amer 97 mL/min (>60); Globulin 3.4 g/dL (2.2-4.2); Glucose 109 mg/dL (74-106); High Density Lipoprotein 64 mg/dL; Potassium 3.7 mmol/L (3.5-5.1); Protein, Total 7.8 g/dL (6.4-8.2); Sodium Level 141 mmol/L (136-145); Triglycerides 131 mg/dL; Very Low Density Lipoprotein 26 mg/dL (5-40)
[2024-07-17 22:53] LABS: Hemoglobin A1c 5.4 % (3.8-5.6)
== END | disposition home or self-care (01) ==
PROVIDERS: PCP Nurse Practitioner; Referring Provider Nurse Practitioner; Visit Provider Nurse Practitioner
DX: R73.9 Hyperglycemia, unspecified (principal); F51.01 Primary insomnia; E78.00 Pure hypercholesterolemia, unspecified
CPT/HCPCS: 80053; 80061; 83036; 85025

== ENCOUNTER → 2024-11-24 | Outpatient (CLI) | payer OTHER, SELFPAY | END | disposition home or self-care (01) | PROVIDERS: PCP Nurse Practitioner; Referring Provider Nurse Practitioner; Visit Provider Nurse Practitioner | DX: N30.90 Cystitis, unspecified without hematuria (principal) | CPT/HCPCS: 87077; 87086; 87088; 87186 ==

== ENCOUNTER → 2024-12-11 | Outpatient (CLI) | payer OTHER, SELFPAY | END | disposition home or self-care (01) | LOC: MFPLAB 22:10 → LABSPEC 22:11 | PROVIDERS: PCP Nurse Practitioner; Referring Provider Nurse Practitioner; Visit Provider Nurse Practitioner | DX: N30.90 Cystitis, unspecified without hematuria (principal) | CPT/HCPCS: 87086; 87088 ==

== ENCOUNTER → 2025-07-11 | Outpatient (CLI) | payer OTHER, SELFPAY ==
--- OUTSIDE RECORDS SUMMARY | 2025-07-11 22:38 | XMS RPT_ITS | CCD ---
Author Organization [facility] CliniSymt Care Team Providers Care Slide Fastener Repairer Name Role Phone CHAS MCKENZIE Unavailable Unavailable SEVEN CAMERON Unavailable Unavailable IMCA Unavailable Unavailable MACCALLUMNIKHIL Unavailable Unavailable HERNAN FUNEZ Unavailable Unavailable HERNAN FUNEZ Unavailable Unavailable MACCALLUM, NIKHIL Lara Unavailable Unavailable HadamSamreen Unavailable Unavailable MacCallum, Nikhil Unavailable Unavailable MacCallum, Nikhil Lara Unavailable Unavailable Raul Cooper Unavailable Unavailable Vannesa Pereaerie A Unavailable Unavailable Mac AmauryNikhil Primary Care Provider Unavailable Primary Care Provider Michael Griffin MD Primary Care Provider Michael Barragan MD Primary Care Provider Rojas Loya CNP Primary Care Provider [phone] Nikhil Wetzel Unavailable [phone] Unavailable Unavailable Nikhil Wetzel MD Primary Care Provider [phone] Rashard, Dr. Nikhil Burroughs Primary Care Jaquelinev ailwillie Wetzel, Dr. Nikhil Burroughs Referring Unav ailable MD SAMREEN PEREA Attending Unavailabl e MacCallum, Dr. Nikhil Burroughs Referring Unav ailable MacCallum, Dr. Nikhil Burroughs Primary Care Jaquelinev MD SAMREEN Avelar Attending Unavailabl e MacCallum, Dr. Nikhil Burroughs Referring Unav ailable Ronnylum, Dr. Nikhil Burroughs Primary Care MD SAMREEN Kumar Attending Unavailabl e MacCallum, Dr. Nikhil Burroughs Referring Unav ailable MacCallum, Dr. Nikhil Burroughs Primary Care MD SAMREEN Kumar Attending UnavailMD SAMREEN Stauffer Attending Unavailabl e MacCallum, Dr. Nikhil Burroughs Primary Care Unav MD SAMREEN Avelar Referring Unavailabl e MACCALLUM, NIKHIL Lara Primary Care Unavailable Loya USER EXPERIENCE TEAM LEAD, Rojas Lara Primary Care Provider [phone] DANDY, BRENNAN A Attending Unavailable LOYA, ROJAS L Primary Care Unavailable DANDY, BRENNAN A Referring Unavailable LOYA, ROJAS L Primary Care Unavailable DANDY, BRENNAN A Referring Unavailable DANDY, BRENNAN A Attending Unavailable LOYA, ROJAS L Referring Unavailable LOYA, ROJAS L Primary Care Unavailable DANDY, BRENNAN A Attending Unavailable LOYA, ROJAS L Referring Unavailable LOYA, ROJAS L Primary Care Unavailable FREDA MCALLISTER Attending Unavailabl e Nikhil Wetzel MD Primary Care Provider Un available SAMREEN PEREA Attending Unavailable MACCALLUMNIKHIL Primary Care Unavailable SAMREEN PEREA Attending Unavailable MACCALLUMNIKHIL Primary Care Unavailable HADAMSAMREEN Attending Unavailable MACCALLUMNIKHIL Primary Care Unavailable MacNikhil levi MD Primary Care Provider Loya WASHCLOTH FOLDER-C, Rojas Primary Care Provider Loya WASHCLOTH FOLDER-C, Rojas Attending Provider Loya WASHCLOTH FOLDER-C, Rojas Referring Provider [phone] Ayaz Lucio Attending Provider [phone] Loya WASHCLOTH FOLDER, Rojas Referring Unavailable Loya WASHCLOTH FOLDER, Rojas Attending Unavailable Loya WASHCLOTH FOLDER, Rojas Primary Care Unavailable Loya WASHCLOTH FOLDER, Rojas Primary Care Unavailable Loya WASHCLOTH FOLDER, Rojas Referring Unavailable Loya WASHCLOTH FOLDER, Rojas Attending Unavailable Loya WASHCLOTH FOLDER, Rojas Primary Care Unavailable Loya WASHCLOTH FOLDER, Rojas Referring Unavailable Loya WASHCLOTH FOLDER, Rojas Attending Unavailable Loya WASHCLOTH FOLDER, Rojas Primary Care Unavailable Loya WASHCLOTH FOLDER, Rojas Referring Unavailable Ayaz Lucio Attending Unavailable Loya WASHCLOTH FOLDER, Rojas Referring Unavailable Loya WASHCLOTH FOLDER, Rojas Attending Unavailable Loya WASHCLOTH FOLDER, Rojas Primary Care Unavailable Allergies Allergy Classification Reported Allergen(s) Allergy Type Date of Onset Reaction(s) Facility Acetaminophen / oxyCODONE (1 source) Acetaminophen / oxyCODONE Drug Allergy 02-22-20 21 Other (See Comments) [facility] Phenazopyridine (3 sources) Phenazopyridine Drug Allergy 01-20-20 21 Hives, Nausea And Vomiting [facility] Sulfonamides (antibiotic) (3 sources) Sulfonamides (Antibiotic) Drug Allergy 08-26-20 06 Hives [facility] (12 sources) Sulfonamides (Antibiotic); Translations: [SULFA (SULFONAMIDE ANTIBIOTICS)] Propensity to adverse reactions (disorder) 08-26-20 06 [facility] (11 sources) Sulfonamides (Antibiotic); Translations: [sulfa] Allergy to drug (finding) [facility] Work Phone: (14 sources) Acetaminophen / oxyCODONE; Translations: [OXYCODONE-ACETAMI NOPHEN] Drug Allergy 02-22-20 21 Other (See Comments), Other [facility] (20 sources) Phenazopyridine; Translations: [PHENAZOPYRIDINE] Drug Allergy 01-20-20 [facility] (15 sources) Sulfonamides (Antibiotic) Propensity to adverse reactions to drug 08-26-20 06 [facility] (10 sources) oxyCODONE; Translations: [OXYCODONE] Drug Allergy 01-08-[address] [facility] (1 source) Phenazopyridine Drug Allergy 07-18-20 [facility] Repository Medications Current Medications Medication Drug Class(es) Dates Sig (Normalized) Sig (Original) acetaminophen 500 mg oral tablet (7 sources) Start: 01-07-2023 End: 01-17-2023 take 2 tablets by mouth every eight hours acetaminophen (Tylenol Extra Strength) 500 MG tablet Take 2 tablets (1,000 mg) by mouth in the morning and 2 tablets (1,000 mg) at noon and 2 tablets (1,000 mg) before bedtime. Do all this for 10 days. 60 tablet 0 01/07/2023 01/17/2023 Active Start: 01-07-2023 End: 01-07-2023 acetaminophen (Ofirmev) inje ction Start: 03-24-2021 acetaminophen (TYLENOL) tablet 1,000 mg Start: 02-19-2021 take 2 tablets by mo uth three times daily as needed for pain acetaminophen (TYLENOL) 500 MG tablet Take 2 tablets by mouth 3 times daily as needed for Pain 180 tablet 0 02/19/2021 Active Start: 02-19-2021 acetaminophen (TYLENOL) tablet 1,000 mg amoxicillin 875 mg / clavulanate 125 mg oral tablet (5 sources) Penicillin-class Antibacterial Start: 12-11-2024 Amoxicillin-Pot Clavulanate 875-125 mg tablet Active 1 {tbl} PO TWICE A DAY December 11, 2024 12:00am Start: 10-26-2022 End: 12-17-2022 Amoxicillin-Pot Clavulanate 875-125 mg tablet Discontinued 1 {tbl} PO TWICE A DAY October 26, 2022 1:00am December 17, 2022 5:10pm ciprofloxacin 500 mg oral tablet (6 sources) Quinolone Antimicrobial Start: 11-24-2024 take 1 tablet by mouth twice daily Ciprofloxacin Hcl (Cipro) 500 mg tablet Active 500 mg PO TWICE A DAY November 24, 2024 12:00am Start: 01-06-2024 End: 07-17-2024 take 1 tablet by mouth twice daily Ciprofloxacin Hcl (Cipro) 500 mg tablet Discontinued 500 mg PO TWICE A DAY January 06, 2024 12:00am July 17, 2024 4:38pm ergocalciferol 1.25 mg oral capsule (1 source) Provitamin D2 Compound Start: 06-15-2023 End: 10-05-2023 take 1 capsule by mouth every week ergocalciferol (Vitamin D-2) 1.25 MG (13800 UT) capsule Indications: Vitamin D deficiency Take 1 capsule (50,000 Units) by mouth 1 (one) time per week. 12 capsule 1 06/15/2023 10/05/2023 Discontinued (Side effects) fluconazole 150 mg oral tablet (5 sources) Azole Antifungal Start: 12-11-2024 Fluconazole 150 mg tablet Active 150 mg PO Every 3 Days December 11, 2024 12:00am december repeat second dose 72 hrs after first dose if symptoms persist Start: 11-23-2022 End: 12-17-2022 Fluconazole 150 mg tablet Di scontinued 150 mg PO Every 3 Days November 23, 2022 12:00am December 17, 2022 5:11pm may repeat second dose 72 hrs after first dose if symptoms persist 1 ml hydrALAZINE hydrochloride 20 mg/ml injection (2 sources) Arteriolar Vasodilator Start: 03-24-2021 hydrALAZINE (APRESOLINE) injection 5 mg Start: 02-19-2021 hydrALAZINE (A PRESOLINE) injection 5 mg ibuprofen 600 mg oral tablet (2 sources) Nonsteroidal Anti-inflammatory Drug Start: 02-19-2021 take 1 tablet by mouth three times daily as needed for pain ibuprofen (ADVIL;MOTRIN) 600 MG tablet Take 1 tablet by mouth 3 times daily as needed for Pain 90 tablet 0 02/19/2021 Active labetalol hydrochloride 5 mg/ml injectable solution (2 sources) beta-Adrenergic Jacky Start: 03-24-2021 labetalol (NORMODYNE;TRANDATE ) injection 5 mg Start: 02-19-2021 labetalol (NOR MODYNE;TRANDATE) injection 5 mg 2 ml midazolam 1 mg/ml injection (1 source) Benzodiazepine Start: 03-24-2021 midazolam (KAM SED) injection 2 mg oxyCODONE hydrochloride 5 mg oral tablet (2 sources) Opioid Agonist Start: 03-20-2021 End: 03-27-2021 oxyCODONE (ROXICODONE) 5 MG immediate release tablet Indications: Closed fracture dislocation of elbow, right, with routine healing, subsequent encounter Take 1 tablet by mouth every 6 hours as needed for Pain for up to 7 days. Intended supply: 7 days. Take lowest dose possible to manage pain 28 tablet 0 03/20/2021 03/27/2021 Active Start: 02-19-2021 End: 02-26-2021 oxyCODONE (ROXICODONE) 5 MG immediate release tablet Indications: Closed fracture dislocation of right elbow with routine healing, subsequent encounter Take 1 tablet by mouth every 6 hours as needed for Pain for up to 7 days. Intended supply: 7 days. Take lowest dose possible to manage pain 28 tablet 0 02/19/2021 02/26/2021 Active 24 hr phentermine 15 mg / topiramate 92 mg extended release oral capsule (20 sources) Sympathomimetic Amine Anorectic Start: 05-19-2024 take 30-30.9 capsules by mouth once daily phentermine-topiramate (Qsymia) 11.25-69 mg capsule, ER multiphase 24 hr Indications: Class 1 obesity due to excess calories with serious comorbidity and body mass index (BMI) of 30.0 to 30.9 in adult Take 1 capsule by mouth once daily. 30 capsule 2 05/19/2024 Active Start: 05-05-2024 take 1 capsule by mo uth once daily phentermine-topiramate (Qsymia) 3.75-23 mg capsule, ER multiphase 24 hr Indications: Obesity without serious comorbidity, unspecified classification, unspecified obesity type Take 1 capsule by mouth once daily. 30 capsule 05/05/2024 Active Start: 10-05-2023 End: 09-08-2024 take 30-30.9 capsules by mouth once daily phentermine-topiramate (Qsymia) 15-92 mg capsule, ER multiphase 24 hr Indications: Prediabetes , Class 1 obesity due to excess calories without serious comorbidity with body mass index (BMI) of 30.0 to 30.9 in adult Take 1 capsule by mouth once daily. 30 capsule 3 08/09/2024 09/08/2024 Active Start: 08-17-2023 take 30-30.9 capsule s by mouth once daily phentermine-topiramate (Qsymia) 11.25-69 mg capsule, ER multiphase 24 hr Indications: Class 1 obesity due to excess calories with serious comorbidity and body mass index (BMI) of 30.0 to 30.9 in adult Take 1 capsule by mouth once daily. 30 capsule 2 08/17/2023 Active Start: 09-07-2022 End: 12-11-2024 Phentermine-Topiramate (Qsym ia) 7.5-46 mg capsule, ER multiphase 24 hr Discontinued 1 NMA PO DAILY October 26, 2022 1:00am December 11, 2024 6:21pm Start: 09-07-2022 take 1 capsule by mo uth once daily Qsymia 3.75-23 MG Oral Capsule Extended Release 24 Hour TAKE 1 CAPSULE Daily Quantity: 14 Refills: 0 Ordered: 07-Sep-2022 Samreen Perea MD Start : 07-Sep-2022 Active bmi 38 Start: 09-07-2022 take 1 capsule by mo uth once daily Qsymia 11.25-69 MG Oral Capsule Extended Release 24 Hour TAKE 1 CAPSULE Daily Quantity: 1 Refills: 2 Ordered: 23-Apr-2023 Samreen Perea MD Start : 07-Sep-2022 Active bmi 38 Start: 10-02-2019 take 1 capsule by [facility] once daily Qsymia 7.5-46 MG Oral Capsule Extended Release 24 Hour TAKE 1 CAPSULE Daily Quantity: 30 Refills: 0 Samreen Perea MD Start : 02-Oct-2019 Active Start: 10-02-2019 take 1 capsule by [facility] once daily Qsymia 3.75-23 MG Oral Capsule Extended Release 24 Hour TAKE 1 CAPSULE Daily Quantity: 14 Refills: 0 Samreen Perea MD Start : 02-Oct-2019 Active 1 ml promethazine hydrochloride 25 mg/ml injection (2 sources) Phenothiazine Start: 03-24-2021 End: 03-24-2021 promethazine (PHENERGAN) injection 6.25 mg Start: 02-19-2021 End: 02-19-2021 promethazine (PHENERGAN) inj ection 6.25 mg semaglutide, weight loss, (Wegovy) 0.25 mg/0.5 mL pen injector (2 sources) Start: 05-05-2024 semaglutide, w eight loss, (Wegovy) 0.25 mg/0.5 mL pen injector Indications: Obesity without serious comorbidity, unspecified classification, unspecified obesity type Inject 0.25 mg under the skin every 7 days. 2 mL 05/05/2024 Active traMADol hydrochloride 50 mg oral tablet (2 sources) Opioid Agonist Start: 01-07-2023 End: 01-12-2023 take 1 tablet by mouth every six hours as needed for pain traMADol (Ultram) 50 MG tablet Indications: Closed fracture dislocation of right elbow joint, sequela Take 1 tablet (50 mg) by mouth every 6 hours as needed for severe pain (7-10) for up to 5 days. 20 tablet 0 01/07/2023 01/12/2023 Active zolpidem tartrate 10 mg oral tablet (20 sources) gamma-Aminobut yric Acid-ergic Agonist Start: 06-26-2022 End: 01-30-2025 take 1 tablet by mouth at bedtime Zolpidem (Ambien) 10 mg tablet Active 10 mg PO AT BEDTIME January 30, 2025 5:49pm Start: 10-23-2020 take 1-2 tablets by mouth at bedtime as needed Zolpidem Tartrate 5 MG Oral Tablet TAKE 1 TO 2 TABLETS BY MOUTH AT BEDTIME NEEDED Quantity: 60 Refills: 2 Ordered: 23-Oct-2020 Nikhil Wetzel MD Start : 23-Oct-2020 Active Completed/Discontinued Medications Medication Drug Class(es) Dates Sig (Normalized) Sig (Original) acetaminophen 325 mg / HYDROcodone bitartrate 5 mg oral tablet (4 sources) Opioid Agonist Start: 01-19-2021 End: 06-26-2022 Hydrocodone-Acetami nophen 5-325 mg tablet Discontinued 1 {tbl} PO Q4H as needed for pain 16 01January 19, 2021 June 26, 2022 4:21pm Start: 01-19-2021 End: 06-26-2022 take 1 tablet by mouth every four hours Hydrocodone-Acetaminophen Discontinued 1 TABLET PO Q4H 16 01January 19, 2021 June 26, 2022 3:21pm ALPRAZolam 0.25 mg disintegrating oral tablet (3 sources) Benzodiazepine Start: 01-07-2023 End: 01-07-2023 ALPRAZolam (Xanax) disintegrating tablet 0.25 mg Start: 03-24-2021 ALPRAZolam (NI RAVAM) dissolvable tablet 0.25 mg calcium chloride 0.0014 meq/ ml / potassium chloride 0.004 meq/ml / sodium chloride 0.103 meq/ml / sodium lactate 0.028 meq/ml injectable solution (7 sources) Start: 01-07-2023 End: 01-07-2023 lactated ringers infusion Start: 03-24-2021 lactated ringe rs infusion Start: 02-19-2021 lactated ringe rs infusion ceFAZolin 2000 mg injection (2 sources) Cephalosporin Antibacterial Start: 01-07-2023 End: 01-07-2023 ceFAZolin in dextrose 4% (Ancef) IVPB 2,000 mg Start: 03-24-2021 End: 03-24-2021 ceFAZolin (ANCEF) 2000 mg in dextrose 4 % 100 mL IVPB (premix) 1 ml dexamethasone phosphate 10 mg/ml injection (1 source) Corticosteroid Start: 01-07-2023 End: 01-07-2023 dexAMETHasone (PF) (Decadron) injection dexmedetomidine (Precedex) injection (1 source) Start: 01-07-2023 End: 01-07-2023 dexmedetomidine (Precedex) injection 1 ml diphenhydrAMINE hydrochloride 50 mg/ml cartridge (4 sources) Histamine-1 Receptor Antagonist Start: 01-07-2023 End: 01-07-2023 diphenhydrAMINE (BENADryl) injection 12.5 mg Start: 03-24-2021 End: 03-24-2021 diphenhydrAMINE (BENADRYL) i njection 12.5 mg Start: 02-19-2021 End: 02-19-2021 diphenhydrAMINE (BENADRYL) i njection 12.5 mg doxepin hydrochloride 100 mg oral capsule (19 sources) Tricyclic Antidepressant Start: 03-03-2022 End: 06-26-2022 take 1 capsule by mouth at bedtime Doxepin 100 mg capsule Discontinued 100 mg PO AT BEDTIME June 26, 2022 12:00am June 26, 2022 4:31pm Start: 12-02-2021 take 1 capsule by mo uth once daily doxepin (SINEQUAN) 100 MG capsule Take 1 capsule by mouth nightly 90 capsule 0 12/02/2021 Active Start: 03-19-2021 take 1 capsule by mo uth once daily doxepin (SINEQUAN) 100 MG capsule Take 1 capsule by mouth nightly 30 capsule 0 03/19/2021 Active DULoxetine 30 mg delayed release oral capsule (15 sources) Serotonin and Norepinephrine Reuptake Inhibitor Start: 06-09-2023 End: 07-17-2024 take 1 capsule by mouth once daily Duloxetine 30 mg capsule,delayed release(DR/EC) Discontinued 30 mg PO DAILY October 01, 2023 2:16pm July 17, 2024 4:40pm 10 ml esmolol hydrochloride 10 mg/ml injection (1 source) beta-Adrenergic Jacky Start: 01-07-2023 End: 01-07-2023 esmolol (Brevibloc) injection esomeprazole 20 mg delayed release oral capsule (17 sources) Proton Pump Inhibitor Start: 11-30-2019 take 1 capsule by mouth once daily NexIUM 24HR 20 MG Oral Capsule Delayed Release TAKE 1 CAPSULE ONCE DAILY. Quantity: 0 Refills: 0 Ordered: 30-Nov-2019 DO Start : 30-Nov-2019 Active Start: 01-16-2010 esomeprazole m ag trihydrate(NEXIUM 40 MG CAP) Take one(1) capsule daily. 0 01/16/2010 Active take 10 mg by mouth once daily before breakfast esomeprazole (NexIUM) 10 MG packet Take 10 mg by mouth every morning (before breakfast). Active Comment on above: Take one(1) capsule daily. famotidine 20 mg oral tablet (4 sources) Histamine-2 Receptor Antagonist Start: 01-07-2023 End: 01-07-2023 famotidine (Pepcid) tablet 20 mg Start: 03-24-2021 End: 03-24-2021 famotidine (PEPCID) tablet 2 0 mg Start: 02-19-2021 End: 02-19-2021 famotidine (PEPCID) tablet 2 0 mg 2 ml fentaNYL 0.05 mg/ml injection (6 sources) Opioid Agonist Start: 01-07-2023 End: 01-07-2023 fentaNYL (Sublimaze) injection 50 mcg Start: 01-07-2023 End: 01-07-2023 fentaNYL (Sublimaze) injecti on 25 mcg Start: 03-24-2021 fentaNYL (SUBL IMAZE) injection 50 mcg Start: 03-24-2021 fentaNYL (SUBL IMAZE) injection 25 mcg FLUoxetine 10 mg oral tablet (20 sources) Serotonin Reuptake Inhibitor Start: 03-03-2022 take 1 capsule by mouth once daily FLUoxetine (PROzac) 20 MG capsule Take 1 capsule by mouth daily. 03/03/2022 Active Start: 12-02-2021 take 1 capsule by mo ut once daily FLUoxetine (PROZAC) 20 MG capsule Take 1 capsule by mouth daily 90 capsule 0 12/02/2021 Active Start: 03-19-2021 take 1 capsule by mo uth once daily FLUoxetine (PROZAC) 20 MG capsule Take 1 capsule by mouth daily 30 capsule 1 03/19/2021 Active Start: 01-05-2021 End: 06-09-2023 take 1 tablet by mouth once daily Fluoxetine 10 mg tablet Discontinued 10 mg PO DAILY June 26, 2022 4:32pm June 09, 2023 4:18pm Start: 10-24-2018 take 1 capsule by mo ut once daily FLUoxetine HCl - 10 MG Oral Capsule TAKE 1 CAPSULE BY MOUTH EVERY DAY Quantity: 90 Refills: 3 Ordered: 19-Dec-2020 Nikhil Wetzel MD Start : 24-Oct-2018 Active gabapentin 300 mg oral capsule (20 sources) Anti-epileptic Agent Start: 06-09-2023 End: 07-17-2024 take 2 capsules by mouth at bedtime Gabapentin 300 mg capsule Discontinued 600 mg PO AT BEDTIME 180 January 06, 2024 3:20pm July 17, 2024 4:43pm Start: 01-07-2023 gabapentin (Ne urontin) capsule 100 mg Start: 03-24-2021 gabapentin (NE URONTIN) capsule 100 mg Start: 02-14-2019 End: 06-09-2023 take 1 capsule by mouth at bedtime as needed for pain Gabapentin 300 mg Capsule Discontinued 300 mg PO AT BEDTIME as needed for Pain January 05, 2021 12:00am June 26, 2022 4:33pm Start: 02-14-2019 take 1 capsule by [facility] three times daily Gabapentin 300 MG Oral Capsule take 1 capsule by mouth 3 times a day Quantity: 75 Refills: 1 Ordered: 14-Feb-2021 Nikhil Wetzel MD Start : 14-Feb-2019 Active gadoterate Meglumine (DOTARE M) 5 MMOL/10ML injection 3-60 mL (2 sources) Start: 08-08-2023 End: 08-08-2023 gadoterate Meglumine (DOTARE M) 5 MMOL/10ML injection 3-60 mL Start: 08-16-2022 End: 08-16-2022 gadoterate Meglumine (DOTARE M) 5 MMOL/10ML injection 3-60 mL 1 ml HYDROmorphone hydrochloride 1 mg/ml cartridge (6 sources) Opioid Agonist Start: 01-07-2023 End: 01-07-2023 HYDROmorphone (Dilaudid) 1 MG/ML injection - Pyxis ADS Override Pull Start: 01-07-2023 End: 01-07-2023 HYDROmorphone (Dilaudid) inj ection 0.5 mg Start: 03-24-2021 HYDROmorphone (DILAUDID) injection 0.5 mg Start: 03-24-2021 HYDROmorphone (DILAUDID) injection 0.25 mg hydrOXYzine hydrochloride 10 mg oral tablet (18 sources) Antihistamine Start: 06-09-2023 End: 11-24-2024 take 1 tablet by mouth three to four times daily as needed for anxiety Hydroxyzine Hcl 10 mg tablet Discontinued 10 mg PO 3 to 4 times per day as needed for anxiety October 01, 2023 2:16pm July 17, 2024 4:43pm 2 ml ketorolac tromethamine 30 mg/ml prefilled syringe (3 sources) Nonsteroidal Anti-inflammatory Drug, Cyclooxygenase Inhibitor Start: 02-08-2019 Ketorolac Tromethamine 60 MG/2ML Intramuscular Solution INJECT 2 ML Intramuscular Refills: 0 Nikhil Wetzel MD Start : 08-Feb-2019 Admin Requested labetalol (Normodyne,Trandate ) injection 5 mg (2 sources) Start: 01-07-2023 End: 01-07-2023 labetalol (Normodyne,Trandat e) injection 5 mg 10 ml lidocaine hydrochloride 20 mg/ml injection (3 sources) Antiarrhythmic, Amide Local Anesthetic Start: 01-07-2023 End: 01-07-2023 lidocaine PF (Xylocaine) 2 % injection Start: 03-24-2021 End: 03-24-2021 lidocaine PF 1 % injection 1 mL Start: 02-19-2021 End: 02-19-2021 lidocaine PF 1 % injection 1 mL 1 ml LORazepam 2 mg/ml injection (20 sources) Benzodiazepine Start: 01-07-2023 End: 01-07-2023 LORazepam (Ativan) injection 0.5 mg Start: 07-09-2022 End: 12-17-2022 take 1 tablet by mouth once daily as needed for anxiety Lorazepam 0.5 mg tablet Discontinued 0.5 mg PO DAILY as needed for anxiety July 09, 2022 1:00am December 17, 2022 5:11pm Start: 02-19-2021 LORazepam (ATI VAN) injection 0.5 mg 1 ml meperidine hydrochloride 25 mg/ml cartridge (3 sources) Opioid Agonist Start: 01-07-2023 End: 01-07-2023 meperidine (Demerol) injection 12.5 mg Start: 03-24-2021 meperidine (DE MEROL) injection 12.5 mg 2 ml ondansetron 2 mg/ml injection (5 sources) Serotonin-3 Receptor Antagonist Start: 01-07-2023 End: 01-07-2023 ondansetron (Zofran) injection 4 mg Start: 01-07-2023 End: 01-07-2023 ondansetron (Zofran) injecti on Start: 03-24-2021 End: 03-24-2021 ondansetron (ZOFRAN) injecti on 4 mg Start: 02-19-2021 End: 02-19-2021 ondansetron (ZOFRAN) injecti on 4 mg 20 ml propofol 10 mg/ml injection (1 source) General Anesthetic Start: 01-07-2023 End: 01-07-2023 Propofol (Diprivan) injection rimegepant 75 mg disintegrating oral tablet (6 sources) Start: 12-22-2022 End: 01-06-2024 take 1 tablet by mouth once as needed for headache Rimegepant (Nurtec Odt) 75 mg tablet,disintegra ting Discontinued 75 mg PO ONCE as needed for migraine headache December 22, 2022 12:00am January 06, 2024 3:18pm as a single dose rocuronium bromide 10 mg/ml injectable solution (1 source) Nondepolarizing Neuromuscular Jacky Start: 01-07-2023 End: 01-07-2023 rocuronium (ZeMuron) injection 20 ml sodium chloride 9 mg/ml injection (20 sources) Start: 08-08-2023 End: 08-08-2023 Sodium chloride (PF) 0.9 % injection 1-100 mL Start: 01-07-2023 End: 01-07-2023 sodium chloride 0.9 % bolus 500 mL Start: 01-07-2023 End: 01-07-2023 sodium chloride 0.9 % infusi on Start: 01-07-2023 End: 01-07-2023 sodium chloride 0.9% (NS) fl ush 10 mL Start: 08-16-2022 End: 08-16-2022 Sodium chloride (PF) 0.9 % i njection 1-100 mL Start: 01-01-2022 0.9 % sodium c hloride infusion Start: 03-24-2021 End: 03-24-2021 0.9 % sodium chloride bolus Start: 03-24-2021 0.9 % sodium c hloride infusion Start: 03-24-2021 sodium chlorid e flush 0.9 % injection 5-40 mL Start: 02-19-2021 End: 02-19-2021 0.9 % sodium chloride bolus Start: 02-19-2021 0.9 % sodium c hloride infusion Start: 02-19-2021 sodium chlorid e flush 0.9 % injection 5-40 mL 2 ml sugammadex 100 mg/ml injection (1 source) Start: 01-07-2023 End: 01-07-2023 sugammadex (Bridion) injection traZODone hydrochloride 50 mg oral tablet (20 sources) Serotonin Reuptake Inhibitor Start: 06-18-2023 End: 11-24-2024 take 1 tablet by mouth at bedtime Trazodone 50 mg tablet Discontinued 50 mg PO AT BEDTIME July 17, 2024 4:41pm November 24, 2024 3:32pm Start: 01-05-2021 End: 06-26-2022 take 1 tablet by mouth at bedtime Trazodone 50 mg Tablet Discontinued 50 mg PO AT BEDTIME January 05, 2021 12:00am June 26, 2022 4:22pm Start: 10-24-2018 take 1 tablet by pat th at bedtime traZODone HCl - 100 MG Oral Tablet take 1 tablet by mouth at bedtime Quantity: 90 Refills: 3 Ordered: 09-Jul-2020 Nikhil Wetzel MD Start : 24-Oct-2018 Active Comment on above: Take 50 mg by mouth daily at bedtime. Problems Active Problems Problem Classification Problem Date Documented Da te Episodic/Chronic Abdominal pain (4 sources) Right upper quadrant pain; Translations: [Right upper quadrant pain] 01-06-2021 Episodic Anxiety disorders (17 sources) Anxiety; Translations: [Anxiety disorder, unspecified] Onset: 1 03-19-2021 Chronic Diabetes mellitus without complication (20 sources) Hyperglycemia; Translations: [Other abnormal glucose] Onset: 3 Episodic Disorders of lipid metabolism (3 sources) Hypercholesterolemia; Translations: [Pure hypercholesterolemia, unspecified] 07-17-2024 Chronic Esophageal disorders (12 sources) Gastroesophageal reflux disease without esophagitis; Translations: [Gastro-esophageal reflux disease without esophagitis] Onset: 2 06-14-2022 Chronic Fracture of upper limb (8 sources) Closed fracture dislocation elbow joint ; Translations: [Unspecified fracture of lower end of right humerus, subsequent encounter for fracture with routine healing] Episodic Gastrointestinal hemorrhage (4 sources) Acute lower gastrointestinal hemorrhage; Translations: [Gastrointestinal hemorrhage, unspecified] 07-18-2021 Episodic Genitourinary symptoms and ill-defined conditions (5 sources) Dysuria; Translations: [Dysuria] 01-06-2024 Episodic Headache; including migraine (6 sources) Refractory migraine without aura; Translations: [Migraine without aura, intractable, without status migrainosus] 12-17-2022 Chronic Joint disorders and dislocations; trauma-related (8 sources) Dislocation of elbow joint; Translations: [Unspecified dislocation of right ulnohumeral joint, initial encounter] 01-19-2021 Episodic Malaise and fatigue (4 sources) Fatigue; Translations: [Other fatigue] 06-26-2022 Episodic Menopausal disorders (4 sources) Menopausal symptom; Translations: [Menopausal and female climacteric states] Onset: 7 04-16-2017 Chronic Miscellaneous mental health disorders (14 sources) Primary insomnia; Translations: [Primary insomnia] Onset: 1 03-19-2021 Chronic Mood disorders (20 sources) Mild depression; Translations: [Recurrent major depression in partial remission] Onset: 1 03-19-2021 Chronic Nausea and vomiting (4 sources) Nausea and vomiting; Translations: [Nausea with vomiting, unspecified] 06-29-2022 Episodic Nutritional deficiencies (14 sources) Vitamin D deficiency; Translations: [Unspecified vitamin D deficiency] Onset: 3 Chronic Other and unspecified benign neoplasm (5 sources) Neoplasm of meninges; Translations: [Benign neoplasm of meninges, unspecified] 08-08-2023 Chronic Other and unspecified benign neoplasm (2 sources) Benign neoplasm of meninges, unspecified; Translations: [Benign neoplasm of meninges, unspecified] Onset: 3 Chronic Other and unspecified benign neoplasm (4 sources) Pituitary adenoma; Translations: [Benign neoplasm of pituitary gland] 06-29-2022 Episodic Comment on above: discussed with liudmila Bone and ordered MRI with and without contrast.stop all meds except for the ones needed . Will call with results izzy when arrive Other circulatory disease (4 sources) Elevated blood-pressure reading without diagnosis of hypertension; Translations: [Elevated blood-pressure reading, without diagnosis of hypertension] 06-26-2022 Episodic Other connective tissue disease (3 sources) Bursitis; Translations: [Bursopathy, unspecified] 06-09-2023 Episodic Other endocrine disorders (2 sources) Disorder of pituitary gland; Translations: [Disorder of pituitary gland, unspecified] Chronic Other endocrine disorders (2 sources) Disorder of pituitary gland, unspecified; Translations: [Disorder of pituitary gland, unspecified] Onset: 3 Chronic Other endocrine disorders (7 sources) Hormone increase; Translations: [Unspecified endocrine disorder] Episodic Other gastrointestinal disorders (4 sources) Hemorrhagic diarrhea ; Translations: [Diarrhea, unspecified] 07-18-2021 Episodic Other liver diseases (20 sources) Steatosis of liver; Translations: [Other chronic nonalcoholic liver disease] Onset: 2 06-14-2022 Chronic Other nutritional; endocrine; and metabolic disorders (16 sources) Obesity; Translations: [Obesity, unspecified] Onset: 3 10-05-2023 Chronic Other nutritional; endocrine; and metabolic disorders (2 sources) Obesity caused by energy imbalance; Translations: [Class 1 obesity due to excess calories without serious comorbidity with body mass index (BMI) of 30.0 to 30.9 in adult] 08-09-2024 Chronic Other nutritional; endocrine; and metabolic disorders (2 sources) Other obesity due to excess calories; Translations: [Other obesity due to excess calories] Onset: 3 Chronic Other nutritional; endocrine; and metabolic disorders (2 sources) Body mass index (BMI) 30.0-30.9, adult; Translations: [Body mass index (BMI) 30.0-30.9, adult] Onset: 3 Chronic Other nutritional; endocrine; and metabolic disorders (2 sources) Obesity, unspecified; Translations: [Obesity, unspecified] Onset: 3 Chronic Other nutritional; endocrine; and metabolic disorders (4 sources) Abnormal weight gain; Translations: [Abnormal weight gain] 06-26-2022 Episodic Other screening for suspected conditions (not mental disorders or infectious disease) (20 sources) Liver function tests abnormal; Translations: [Measurement finding above reference range] Onset: 3 05-11-2023 Episodic Other upper respiratory infections (3 sources) Acute maxillary sinusitis; Translations: [Acute maxillary sinusitis, unspecified] 10-26-2022 Episodic Otitis media and related conditions (3 sources) Acute right otitis media; Translations: [Otitis media, unspecified, right ear] 10-26-2022 Episodic Residual codes; unclassified (20 sources) Insomnia; Translations: [Insomnia, unspecified] Onset: 3 05-11-2023 Episodic Comment on above: Added by Problem Lis t Migration; 2013-08-05; Unclassified (1 source) Unknown / UNK(Unknown) Onset: 7 Unclassified (1 source) Obesity, class 1; Translations: [Obesity, class 1] Onset: 3 Urinary tract infections (4 sources) Cystitis; Translations: [Cystitis, unspecified without hematuria] Onset: 5 01-06-2024 Episodic Past or Other Problems Problem Classification Problem Date Documented Date Episodic/Chronic Immunizations and screening for infectious disease (1 source) Other specified abnormal immunological findings in serum; Translations: [OTH SPEC ABN IMMUNLGIC FIND SERUM] Onset: 06-26-2017 Episodic Mood disorders (4 sources) Mood disorders Onset: 07-30-2022 Resolved: 08-20-2022 07-30-2022 Other and unspecified benign neoplasm (12 sources) Adenomatous polyp of rectum; Translations: [Benign neoplasm of rectum] Onset: 01-02-2022 06-14-2022 Episodic Other nervous system disorders (11 sources) Postoperative pain ; Translations: [Other acute postprocedural pain] Onset: 02-22-2021 02-22-2021 Episodic Other non-traumatic joint disorders (2 sources) Pain in unspecified joint; Translations: [PAIN IN UNSPECIFIED JOINT] Onset: 06-26-2017 Episodic Spondylosis; intervertebral disc disorders; other back problems (11 sources) Bilateral sciatica; Translations: [Sciatica] Onset: 05-11-2023 05-11-2023 Episodic Spondylosis; intervertebral disc disorders; other back problems (3 sources) Bilateral sciatica; Translations: [Bilateral sciatica] Superficial injury; contusion (12 sources) Abrasion of right ear, initial encounter; Translations: [Abrasion or friction burn of face, neck, and scalp except eye, without mention of infection] Onset: 03-03-2022 06-14-2022 Episodic Unclassified (1 source) Sprain of unspecified ligament of left ankle, initial encounter Onset: 08-17-2017 Unclassified (1 source) Obesity, class 1; Translations: [Obesity, class 1] Onset: 08-09-2024 NEGATED: Highlighted row has not occurred!Residual codes; unclassified (16 sources) Disease Episodic Results Test Name Value Interpretation Reference Range Facility Urine Cultureon 12-13-2024 [facility] Mixed Gram Pos Gram Neg Org [place] Count 80,000-100,000 [facility] Mixed contaminants. Submit a new specimen if indicated. Normal [facility] Comment on above: Performed By: #### M 100.2200 #### [facility] [address] [place], [address] Laboratory - Chemistry and C hemistry - challengeOrdered By: Rojas Loay on 12-11-2024 Bilirubin Ql (U) Negative [facility] Glucose Ql (U) Negative [facility] Ketones Ql (U) Negative [facility] pH (U) 6.0 [pH] [facility] Specific gravity (U) [Rel density] <1.005 [facility] Urobilinogen (U) [Mass/Vol] 0.7655277 mg/dL [facility] Laboratory - Hematology and Cell countsOrdered By: Rojas Loya on 12-11-2024 Hemoglobin Ql (U) Negative [facility] Laboratory - Specimen inform ationOrdered By: Rojas Loya on 12-11-2024 Clarity (U) Clear [facility] Color (U) YELLOW [facility] Laboratory - UrinalysisOrder ed By: Rojas Loya on 12-11-2024 Nitrite Ql (U) Negative [facility] Protein Ql (U) Negative [facility] No Panel InformationOrdered By: Rojas Loya on 12-11-2024 Urine Leukocytes Negatve [facility] Urine Non-Hemolyzed Blood [facility] Urine cultureOrdered By: Hiram Loya on 12-11-2024 Bacteria identified Cx Nom (U) Mixed Gram Pos & Gram Neg Org Abnormal [facility] Office Visit Reporton 2024 Office Visit Report [facility] [address] [place] [address] OFFICE VISIT Date of Service: 11/28/24 MR#: [id number] Acct: [id number] Patient: IRENE VILLAGRAN Rep #: [id number] : 1970 Provider: THANG Lopez Age/Sex: 54/F [place] [facility] Status: Signed Intake Vital Signs 11/24/24 15:30 11/28/24 08:26 Height 5 ft 5 ft Intake Visit Reasons: HAIR COLLECTION DRUG SCREEN/SELF PAY Allergies Sulfa (Sulfonamide Antibiotics) Allergy (Verified 07/18/21 18:04) Hives Office Procedures [facility] Billing Sheet Testing Hair Collection Drug Screen: Yes 12/04/24 0644 Date Ayaz DESIR Cosigner Signature: Date (if applicable) CC: Normal [facility] Urine Cultureon 11-27-2024 [facility] Escherichia coli [place] Count 11,000-25,000 Escherichia coli: REACTION Ampicillin Islt PETERSON 4 Ampicillin+Sulbac Islt PETERSON <=2 S Cefepime Islt PETERSON <=0.12 S cefTRIAXone Islt PETERSON <=0.25 S Ciprofloxacin Islt PETERSON <=0.06 S B-Lactamase Extended Susc Islt NEG Gentamicin Islt PETERSON <=1 S levoFLOXacin Islt PETERSON <=0.12 S Meropenem Islt PETERSON <=0.25 S Nitrofurantoin Islt PETERSON <=16 S Pip+Tazo Islt PETERSON <=4 S TMP SMX Islt PETERSON <=20 S Normal [facility] Comment on above: Performed By: #### M 100.3550 #### [facility] [address] [place], [address] Laboratory - Chemistry and C hemistry - challengeOrdered By: Rojas Loya on 11-24-2024 Bilirubin Ql (U) Negative [facility] Glucose Ql (U) Negative [facility] Ketones Ql (U) Negative [facility] pH (U) 6.0 [pH] [facility] Specific gravity (U) [Rel density] 1.020 [facility] Urobilinogen (U) [Mass/Vol] 0.0536251 mg/dL [facility] Laboratory - Hematology and Cell countsOrdered By: Rojas Loya on 11-24-2024 Hemoglobin Ql (U) Negative [facility] Laboratory - Specimen inform ationOrdered By: Rojas Loya on 11-24-2024 Clarity (U) Clear [facility] Color (U) [place] [facility] Laboratory - UrinalysisOrder ed By: Rojas Loya on 11-24-2024 Nitrite Ql (U) Positive [facility] Protein Ql (U) Negative [facility] No Panel InformationOrdered By: Rojas Loya on 11-24-2024 Urine Leukocytes Positive [facility] Urine Non-Hemolyzed Blood Negative [facility] Urine cultureOrdered By: Hiram Loya on 11-24-2024 Bacteria identified Cx Nom (U) Escherichia coli Abnormal [facility] 36on 08-29-2024 36 S: Patient spoke wit h [facility] nurse regarding sore throat. B: Onset of symptoms 08/23/24. MELVIN 03/20. A: Nasal congestion, R ear pain, sore throat, headache, 101.0 last night. Taking Meli [place] day and night severe cold med. R: Referred to for eval, No available appointments today. Patient understands care advice. No further needs at this time. Patient instructed to call back with new or worsening symptoms. Reason for Disposition All other earaches (Exceptions: Brief ear pain lasting < 1 hour, and earache occurring during air travel.) Protocols used: [id number] Normal [facility] CBC W/Diff, Automatedon 11-1 Absolute Lymph 2.95 X10 3/uL Normal 0.83-4.51 [facility] Comment on above: Performed By: #### L 100.0100, L500.4100, L500.4050, [id number] #### [facility] [address] [place], [address] Absolute Neut 4.7 X10 3/uL Normal 2.0-7.7 [facility] Comment on above: Performed By: #### L 100.0100, L500.4100, L500.4050, [id number] #### [facility] [address] [place], [address] Basophils/100 WBC (Bld) 0.9 % Normal 0-1 [facility] Comment on above: Performed By: #### L 100.0100, L500.4100, L500.4050, [id number] #### [facility] [address] [place], [address] Eosinophils/100 WBC (Bld) 1.3 % Normal 0-5 [facility] Comment on above: Performed By: #### L 100.0100, L500.4100, L500.4050, [id number] #### [facility] [address] [place], [address] Erythrocyte distribution width (RBC) [Ratio] 13.1 % Normal 11.6-14.6 [facility] Comment on above: Performed By: #### L 100.0100, L500.4100, L500.4050, [id number] #### [facility] [address] [place], [address] Hematocrit (Bld) [Volume fraction] 42.3 % Normal 37-47 [facility] Comment on above: Performed By: #### L 100.0100, L500.4100, L500.4050, [id number] #### [facility] [address] [place], [address] Hemoglobin (Bld) [Mass/Vol] 13.9 g/dL Normal 12.0-15.0 [facility] Comment on above: Performed By: #### L 100.0100, L500.4100, L500.4050, [id number] #### [facility] [address] [place], [address] IG% 0.200 Normal 0.0-0.9 [facility] Comment on above: Result Comment: IG% - Immature Granulocytes (promyelocytes, myelocytes and metamyelocytes) > 1% indicates that a LEFT SHIFT is Present. Performed By: #### L 100.0100, L500.4100, L500.4050, [id number] #### [facility] [address] [place], [address] Lymphocytes/100 WBC (Bld) 35.9 % Normal 19-41 [facility] Comment on above: Performed By: #### L 100.0100, L500.4100, L500.4050, [id number] #### [facility] [address] [place], [address] MCH (RBC) [Entitic mass] 27.9 pg Normal 27.0-32.0 [facility] Comment on above: Performed By: #### L 100.0100, L500.4100, L500.4050, [id number] #### [facility] [address] [place], [address] MCHC (RBC) [Mass/Vol] 32.9 g/dL Normal 32-36 [facility] Comment on above: Performed By: #### L 100.0100, L500.4100, L500.4050, [id number] #### [facility] [address] [place], [address] MCV (RBC) [Entitic vol] 84.9 fL Normal 81-99 [facility] Comment on above: Performed By: #### L 100.0100, L500.4100, L500.4050, [id number] #### [facility] [address] [place], [address] Monocytes/100 WBC (Bld) 5.1 % Normal 0-10 [facility] Comment on above: Performed By: #### L 100.0100, L500.4100, L500.4050, [id number] #### [facility] [address] [place], [address] Neutrophils/100 WBC (Bld) 56.6 % Normal 47-70 [facility] Comment on above: Performed By: #### L 100.0100, L500.4100, L500.4050, [id number] #### [facility] [address] [place], [address] Nucleated RBC (Bld) [#/Vol] 0 10*3/uL Normal 0-5 [facility] Comment on above: Performed By: #### L 100.0100, L500.4100, L500.4050, [id number] #### [facility] [address] [place], [address] Platelet mean volume (Bld) [Entitic vol] 10.8 fL Normal 6.2-12.0 [facility] Comment on above: Performed By: #### L 100.0100, L500.4100, L500.4050, [id number] #### [facility] [address] [place], [address] Platelets (Bld) [#/Vol] 351 10*3/uL Normal 150-450 [facility] Comment on above: Performed By: #### L 100.0100, L500.4100, L500.4050, [id number] #### [facility] [address] [place], [address] RBC (Bld) [#/Vol] 4.98 10*6/uL Normal 4.2-5.4 [facility] Comment on above: Performed By: #### L 100.0100, L500.4100, L500.4050, [id number] #### [facility] [address] [place], [address] RDW SD 39.8 fl Normal 35.1-43.9 [facility] Comment on above: Performed By: #### L 100.0100, L500.4100, L500.4050, [id number] #### [facility] [address] [place], [address] WBC (Bld) [#/Vol] 8.2 10*3/uL Normal 4.4-11.0 [facility] Comment on above: Performed By: #### L 100.0100, L500.4100, L500.4050, [id number] #### [facility] [address] [place], [address] Comprehensive Metabolic Prof [place] 07-17-2024 Albumin [Mass/Vol] 4.4 g/dL Normal 3.2-5.0 [facility] Comment on above: Performed By: #### L 100.0100, L500.4100, L500.4050, [id number] #### [facility] [address] [place], [address] Albumin/Globulin [Mass ratio] 1.3 {ratio} Normal 0.9-2.4 [facility] Comment on above: Performed By: #### L 100.0100, L500.4100, L500.4050, [id number] #### [facility] [address] [place], [address] ALK P 79 U/L Normal 45-117 [facility] Comment on above: Performed By: #### L 100.0100, L500.4100, L500.4050, [id number] #### [facility] [address] [place], [address] ALT [Catalytic activity/Vol] 30 U/L Normal 13-56 [facility] Comment on above: Performed By: #### L 100.0100, L500.4100, L500.4050, [id number] #### [facility] [address] [place], [address] AST [Catalytic activity/Vol] 23 U/L Normal 15-37 [facility] Comment on above: Performed By: #### L 100.0100, L500.4100, L500.4050, [id number] #### [facility] [address] [place], [address] Bilirubin [Mass/Vol] 0.60 mg/dL Normal 0.20-1.00 [facility] Comment on above: Result Comment: For patients on eltrombopag therapy, use of Dimension Stevenson TBIL is not recommended. Performed By: #### L 100.0100, L500.4100, L500.4050, [id number] #### [facility] [address] [place], [address] BUN/CRE 13.9 RATIO Normal 10-20 [facility] Comment on above: Performed By: #### L 100.0100, L500.4100, L500.4050, [id number] #### [facility] [address] [place], [address] CA,Total 9.6 mg/dL Normal 8.5-10.1 [facility] Comment on above: Performed By: #### L 100.0100, L500.4100, L500.4050, [id number] #### [facility] [address] [place], [address] Chloride [Moles/Vol] 111 mmol/L High 98-107 [facility] Comment on above: Performed By: #### L 100.0100, L500.4100, L500.4050, [id number] #### [facility] [address] [place], [address] CO2 [Moles/Vol] 23.0 mmol/L Normal 21.0-32.0 [facility] Comment on above: Performed By: #### L 100.0100, L500.4100, L500.4050, [id number] #### [facility] [address] [place], [address] Creatinine [Mass/Vol] 0.79 mg/dL Normal 0.55-1.02 [facility] Comment on above: Result Comment: The validity of the calculated GFR GFRAA in patients over 70 years has not been determined. Clinical correlation is essential. Performed By: #### L 100.0100, L500.4100, L500.4050, [id number] #### [facility] [address] [place], [address] EST GFR - AA 97 mL/min Normal >60 [facility] Comment on above: Result Comment: Afri can Serbian GFR Calc Performed By: #### L 100.0100, L500.4100, L500.4050, [id number] #### [facility] [address] [place], [address] GAP 6 Normal 5-15 [facility] Comment on above: Performed By: #### L 100.0100, L500.4100, L500.4050, [id number] #### [facility] [address] [place], [address] GFR/1.73 sq M.predicted among non-blacks MDRD (S/P/Bld) [Vol rate/Area] 80 mL/min/{1.73_m2} Normal >60 [facility] Comment on above: Result Comment: Non- GFR Calc Performed By: #### L 100.0100, L500.4100, L500.4050, [id number] #### [facility] [address] [place], [address] Globulin (S) [Mass/Vol] 3.4 g/dL Normal 2.2-4.2 [facility] Comment on above: Performed By: #### L 100.0100, L500.4100, L500.4050, [id number] #### [facility] [address] [place], [address] Glucose [Mass/Vol] 109 mg/dL High 74-106 [facility] Comment on above: Result Comment: Fast ing Glucose result from 100 to 125 mg/dL suggests IMPAIRED HOMEOSTASIS per A.D.A. criteria. Performed By: #### L 100.0100, L500.4100, L500.4050, [id number] #### [facility] [address] [place], [address] Potassium [Moles/Vol] 3.7 mmol/L Normal 3.5-5.1 [facility] Comment on above: Performed By: #### L 100.0100, L500.4100, L500.4050, [id number] #### [facility] [address] [place], [address] Sodium [Moles/Vol] 141 mmol/L Normal 136-145 [facility] Comment on above: Performed By: #### L 100.0100, L500.4100, L500.4050, [id number] #### [facility] [address] [place], [address] T PROT 7.8 g/dL Normal 6.4-8.2 [facility] Comment on above: Performed By: #### L 100.0100, L500.4100, L500.4050, [id number] #### [facility] [address] [place], [address] Urea nitrogen [Mass/Vol] 11 mg/dL Normal - [facility] Comment on above: Performed By: #### L 100.0100, L500.4100, L500.4050, [id number] #### [facility] [address] [place], [address] Hemoglobin A1con 07-17-2024 HbA1c (Bld) [Mass fraction] 5.4 % Normal 3.8-5.6 [facility] Comment on above: Result Comment: Norm al < 5.7 % Prediabetic 5.7 - 6.4 % Diabetic >or= 6.5 % Please note range changes. Performed By: #### L 100.0100, L500.4100, L500.4050, [id number] #### [facility] [address] [place], [address] Lipid Profileon 07-17-2024 Cholesterol [Mass/Vol] 233 mg/dL High 200 [facility] Comment on above: Result Comment: <200 mg/dL Desirable 200-240 mg/dL Borderline >240 mg/dL High Risk Performed By: #### L 100.0100, L500.4100, L500.4050, [id number] #### [facility] [address] [place], [address] Cholesterol in HDL [Mass/Vol] 64 mg/dL Normal [facility] Comment on above: Result Comment: The drugs N-Acetylcysteine and Metamizole may falsely depress this assay. Reference Range HDL <40 mg/dL Low HDL Cholesterol HDL >or= 60 mg/dL High HDL Cholesterol Performed By: #### L 100.0100, L500.4100, L500.4050, [id number] #### [facility] [address] [place], [address] Cholesterol in LDL [Mass/Vol] 143 mg/dL High 0-130 [facility] Comment on above: Performed By: #### L 100.0100, L500.4100, L500.4050, [id number] #### [facility] [address] [place], [address] Cholesterol in VLDL [Mass/Vol] 26 mg/dL Normal 5-40 [facility] Comment on above: Performed By: #### L 100.0100, L500.4100, L500.4050, [id number] #### [facility] [address] [place], [address] Triglyceride [Mass/Vol] 131 mg/dL Normal [facility] Comment on above: Result Comment: The drugs N-Acetylcysteine and Metamizole may falsely depress this assay. Serum Triglycerides Reference Interval Normal <150 mg/dL Borderline high 150 - 199 mg/dL High 200 - 499 mg/dL Very High > or = 500 mg/dL Performed By: #### L 100.0100, L500.4100, L500.4050, L501.9985 #### [facility] [address] [place], [address] Urine Cultureon 01-08-2024 [facility] Mixed Gram Positive Organisms [place] Count 25,000-50,000 MIXC Mixed contaminants. Submit a new specimen if indicated. Normal [facility] Comment on above: Performed By: #### M 100.2200 #### [facility] [address] [place], [address] MRI BRAIN WITH AND WITHOUT C ONTRASTon 08-10-2023 MRI BRAIN WITH AND WITHOUT CONTRAST EXAM: MRI BRAIN WITH AND WITHOUT CONTRAST COMPARISON: Prior MRI brain and pituitary 08-16-2022 and 07-06-2022 CLINICAL INDICATIONS: Hx small meningioma, follow up exam Technique: High-resolution multiplanar MR images were obtained through the brain both before and after intravenous contrast Images obtained on a 1.5 T magnet FINDINGS: No acute intracranial hemorrhage, infarction, mass, or mass-effect. There are no focal or diffuse parenchymal lesions. No abnormal extra-axial enhancement. No meningioma is seen. Sella turcica is normal in size. Gland is normal in signal intensity and enhancement. Suprasellar cistern appears normal. Ventricles are normal in size and position. No hydrocephalus. No cerebellar tonsillar ectopia. No extra-axial collections. DWI: No abnormal restricted diffusion or acute infarction SWI: No microbleeds Paranasal sinuses, mastoids, and middle ear complexes are clear. After contrast administration there is no abnormal parenchymal, ependymal, or leptomeningeal enhancement. IMPRESSION: 1. No acute intracranial hemorrhage, infarction, mass, or mass-effect 2. Essentially normal MRI of the brain 3. No extra-axial meningioma is seen. 4. No macroadenoma. Amarilis Casiano M.D. This report has been electronically signed and verified by the Radiologist whose name is printed above. / This report contains privileged and confidential information and is intended solely for the use of the individual or entity to which it is addressed. If you are not the intended recipient of this report, you are hereby notified that any copying, distribution, dissemination or action taken in relation to the contents of this report is strictly prohibited and may be unlawful. If you have received this report in error, please notify the sender immediately at [phone] and permanently delete the original report and destroy any copies or printouts. Normal [facility] Calcidiolon 06-14-2023 25-hydroxyvitamin D3 [Mass/Vol] 14 ng/mL Low 30-100 [facility] Comment on above: Order Comment: Defic iency: < 20 ng/ml Insufficiency: 20-29 ng/ml Sufficiency: 30-100 ng/ml This assay accurately quantifies the sum of Vitamin D3, 25-Hydroxy and Vitamin D2,25-Hydroxy. Performed By: #### 1 989-3 #### DEUCE Lara ([id number]) [facility] ([facility]) [address] [place] [address] Comprehensive metabolic 2000 panelon 06-14-2023 Albumin BCP dye [Mass/Vol] 4.7 g/dL Normal 3.4-5.0 [facility] Comment on above: Performed By: #### 2 4323-8 #### DEUCE Lara ([id number]) [facility] ([facility]) [address] [place] [address] ALP [Catalytic activity/Vol] 70 U/L Normal 33-110 [facility] Comment on above: Performed By: #### 2 4323-8 #### DEUCE Lara ([id number]) [facility] ([facility]) [address] [place] [address] ALT With P-5'-P [Catalytic activity/Vol] 14 U/L Normal 7-45 [facility] Comment on above: Result Comment: Flaquita ents treated with Sulfasalazine may generate falsely decreased results for ALT. Performed By: #### 2 4323-8 #### DEUCE Lara ([id number]) [facility] ([facility]) [address] [place] [address] Anion gap [Moles/Vol] 13 mmol/L Normal 10-20 [facility] Comment on above: Performed By: #### 2 4323-8 #### DEUCE Lara ([id number]) [facility] ([facility]) [address] [place] [address] AST With P-5'-P [Catalytic activity/Vol] 15 U/L Normal 9-39 [facility] Comment on above: Performed By: #### 2 4323-8 #### DEUCE Lara ([id number]) [facility] ([facility]) [address] [place] [address] Bilirubin [Mass/Vol] 0.5 mg/dL Normal 0.0-1.2 [facility] Comment on above: Performed By: #### 2 4323-8 #### DEUCE Lara ([id number]) [facility] ([facility]) [address] [place] [address] Calcium [Mass/Vol] 9.7 mg/dL Normal 8.6-10.6 [facility] Comment on above: Performed By: #### 2 4323-8 #### DEUCE Lara ([id number]) [facility] ([facility]) [address] [place] [address] Chloride [Moles/Vol] 108 mmol/L High 98-107 [facility] Comment on above: Performed By: #### 2 4323-8 #### DEUCE Lara ([id number]) [facility] ([facility]) [address] [place] [address] CO2 [Moles/Vol] 23 mmol/L Normal 21-32 [facility] Comment on above: Performed By: #### 2 4323-8 #### DEUCE Lara ([id number]) [facility] ([facility]) [address] [place] [address] Creatinine [Mass/Vol] 0.75 mg/dL Normal 0.50-1.05 [facility] Comment on above: Performed By: #### 2 4323-8 #### DEUCE Lara ([id number]) [facility] ([facility]) [address] [place] [address] GFR/1.73 sq M.predicted MDRD (S/P/Bld) [Vol rate/Area] mL/min/{1.73_m2} Normal >60 [facility] Comment on above: Result Comment: Calc ulations of estimated GFR are performed using the 2020 CKD-EPI Study Refit equation without the race variable for the IDMS-Traceable creatinine methods. https://jasn.asnjournals.org/content/early/ASN.183083 6054 Performed By: #### 2 4323-8 #### DEUCE Lara ([id number]) [facility] ([facility]) [address] [place] [address] Glucose [Mass/Vol] 85 mg/dL Normal 74-99 [facility] Comment on above: Performed By: #### 2 4323-8 #### DEUCE Lara ([id number]) [facility] ([facility]) [address] [place] [address] Potassium [Moles/Vol] 4.4 mmol/L Normal 3.5-5.3 [facility] Comment on above: Performed By: #### 2 4323-8 #### DEUCE Lara ([id number]) [facility] ([facility]) [address] [place] [address] Protein [Mass/Vol] 7.0 g/dL Normal 6.4-8.2 [facility] Comment on above: Performed By: #### 2 4323-8 #### DEUCE Lara ([id number]) [facility] ([facility]) [address] [place] [address] Sodium [Moles/Vol] 140 mmol/L Normal 136-145 [facility] Comment on above: Performed By: #### 2 4323-8 #### DEUCE Lara ([id number]) [facility] ([facility]) [address] [place] [address] Urea nitrogen [Mass/Vol] 13 mg/dL Normal 6-23 [facility] Comment on above: Performed By: #### 2 4323-8 #### DEUCE Lara ([id number]) [facility] ([facility]) [address] [place] [address] HbA1c (Bld) [Mass fraction]o n 06-14-2023 Average glucose Estimated from glycated hemoglobin (Bld) [Mass/Vol] 100 mg/dL Normal Not Established [facility] Comment on above: Order Comment: Diagn osis of Diabetes-Adults Non-Diabetic: < or = 5.6% Increased risk for developing diabetes: 5.7-6.4% Diagnostic of diabetes: > or = 6.5% Monitoring of Diabetes Age (y)....................... Therapeutic Goal (%) Adults: >18.........................<7.0 Pediatrics: 13-18...................<7.5 Pediatrics: 7-12....................<8.0 Pediatrics: 0-6..................... 7.5-8.5 [employer]. Diabetes Care 33(S1)Aug 2009 Performed By: #### 4 548-4 #### DEUCE Lara ([id number]) [facility] ([facility]) [address] [place], [place] [id number] Hemoglobin A1c/Hemoglobin.to elizabeth 06-14-2023 HbA1c (Bld) [Mass fraction] 5.1 % Normal see below [facility] Comment on above: Order Comment: Diagn osis of Diabetes-Adults Non-Diabetic: < or = 5.6% Increased risk for developing diabetes: 5.7-6.4% Diagnostic of diabetes: > or = 6.5% Monitoring of Diabetes Age (y)....................... Therapeutic Goal (%) Adults: >18.........................<7.0 Pediatrics: 13-18...................<7.5 Pediatrics: 7-12....................<8.0 Pediatrics: 0-6..................... 7.5-8.5 [employer]. Diabetes Care 33(S1)Aug 2009 Performed By: #### 4 548-4 #### DEUCE Lara ([id number]) [facility] ([facility]) [address] [place] [address] Office Visiton 03-16-2023 Follow-up visit Diagnoses/Problems Obesity (278.00) (E66.9) Prediabetes (790.29) (R73.03) Vitamin D deficiency (268.9) (E55.9) Patient Discussion/Summary follow up in 3 months keep up the good work!! continue qsymia Provider Impressions 52-year-old here for evaluation of weight gain/obesity also with fatty liver pre dm d def. We reviewed her course. Will continue qsymia and keep up efforts with eating and exercise. She is doing great and now down 50 lbs Follow up in 3 months. Reassured her she is doing great. Labs last time looked great beyond d She is to call with concerns. Chief Complaint patient is here for a follow up to weight gain--cmb History of Present Eqdalbk54-clso-kmg here for f/u weight gain fatty liver Pre dm and d def. Since last visit still doing great on qsymia...down another 20 lbs. Doing fine on it at step up dose, tolerating it ok. On d 2000 iu a day .She denies any chest pain, shortness of breath, nausea, vomiting, diarrhea, constipation, fevers, or chills I have personally reviewed the OARRS report for Tamara Villagran. This report is scanned into the electronic medical record. I have considered the risks of abuse, dependence, addiction and diversion. I believe that it is clinically appropriate for Tamara Villagran to be prescribed this medication. I have reviewed her OARRS that includes Vape/THC products. I do not feel this will interfere with her appropriate usage of qsymia. 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 Mild depression (311) (F32.A) Obesity (278.00) (E66.9) Prediabetes (790.29) (R73.03) Vitamin D deficiency (268.9) (E55.9) Surgical History History of Appendectomy History of Hysterectomy Social History Never smoker No alcohol use Single Allergies sulfa Recorded By: Silvia Salas; 10/10/2013 3:07:12 PM Current Meds Medication NameInstruction FLUoxetine HCl - 10 MG Oral CapsuleTAKE 1 CAPSULE BY MOUTH EVERY DAY Gabapentin 300 MG Oral Capsuletake 1 capsule by mouth 3 times a day Ketorolac Tromethamine 60 MG/2ML Intramuscular SolutionINJECT 2 ML Intramuscular NexIUM 24HR 20 MG Oral Capsule Delayed ReleaseTAKE 1 CAPSULE ONCE DAILY. Qsymia 11.25-69 MG Oral Capsule Extended Release 24 HourTAKE 1 CAPSULE Daily Qsymia 3.75-23 MG Oral Capsule Extended Release 24 HourTAKE 1 CAPSULE Daily Zolpidem Tartrate 5 MG Oral TabletTAKE 1 TO 2 TABLETS BY MOUTH AT BEDTIME NEEDED Vitals Vital Signs Recorded: [id number] 11:23AM Heart Rate76 Lpjxormtily21 Esvcqkbm063 Munqkugje55 Height5 ft 8 in Pckbvj796 lb 6.4 oz BMI Npzbmuxwrt70.78 kg/m2 BSA Calculated2.05 Physical Exam CONSTITUTIONAL: Overweight female in no acute distress HEENT: Moist mucus membranes, Eyes: no proptosis, no lid lag, no lid retraction NECK: Normal thyroid gland. No cervical lymphadenopathy CHEST: Clear to auscultation bilaterally HEART: Regular rate and rhythm. No murmurs, rubs, or gallops ABDOMEN: Benign SKIN: Normal EXT: No clubbing, cyanosis, edema NEUROLOGIC: Normal reflexes bilaterally, no tremor Signatures Electronically signed by : Samreen Perea MD; Mar 16 2023 11:39AM EST (Author) Normal [facility] Airwayon 01-07-2023 ANATOLIY Gayle CRNA 01/07/2023 7:47 AM Airway Date/Time: 01/07/2023 7:32 AM Urgency: scheduled Airway not difficult General Information and Staff Patient location during procedure: Procedural Anesthesiologist: Vern Gilbert MD Resident/SHIP'S CARPENTER: ANATOLIY Gayle CRNA Performed: [employer] Indications and Patient Condition Indications for airway management: anesthesia Sedation level: Asleep Preoxygenated: yes Patient position: sniffing MILS not maintained throughout Mask difficulty assessment: 1 - vent by mask Final Airway Details Final airway type: endotracheal airway Successful airway: ETT Cuffed: yes Successful intubation technique: direct laryngoscopy Facilitating devices/methods: intubating stylet Endotracheal tube insertion site: oral Blade: Gutierrez Blade size: #3 ETT size (mm): 7.0 Cormack-Lehane Classification: grade IIa - partial view of glottis Placement verified by: chest auscultation and capnometry Measured from: lips ETT to lips (cm): 21 Number of attempts at approach: 1 Ventilation between attempts: BVM Number of other approaches attempted: 0 [facility] XR Wrist - right 3 Viewson 0 12-22-2022 3v right wrist show no acute findings. [facility] Radiology Study observation (narrative) [facility] COMPREHENSIVE PANELon 2022 Albumin [Mass/Vol] 4.7 g/dL Normal 3.4 - 5.0 [facility] Comment on above: Performed By: #### C MP #### [facility] [address] [place] [address] ALP [Catalytic activity/Vol] 92 U/L Normal 33 - 110 [facility] Comment on above: Performed By: #### C MP #### [facility] [address] [place] [address] ALT [Catalytic activity/Vol] 39 U/L Normal 7 - 45 [facility] Comment on above: Result Comment: Flaquita ents treated with Sulfasalazine may generate falsely decreased results for ALT. Performed By: #### C MP #### [facility] [address] [place] [address] Anion gap [Moles/Vol] 12 mmol/L Normal 10 - 20 [facility] Comment on above: Performed By: #### C MP #### [facility] [address] [place] [address] AST [Catalytic activity/Vol] 31 U/L Normal 9 - 39 [facility] Comment on above: Performed By: #### C MP #### [facility] [address] [place] [address] Bilirubin [Mass/Vol] 0.9 mg/dL Normal 0.0 - 1.2 [facility] Comment on above: Performed By: #### C MP #### [facility] [address] [place] [address] Calcium [Mass/Vol] 10.1 mg/dL Normal 8.6 - 10.6 [facility] Comment on above: Performed By: #### C MP #### [place] [address] [place] [address] Chloride [Moles/Vol] 111 mmol/L High 98 - 107 [facility] Comment on above: Performed By: #### C MP #### [facility] [address] [place] [address] Creatinine [Mass/Vol] 0.81 mg/dL Normal 0.50 - 1.05 [facility] Comment on above: Performed By: #### C MP #### [facility] [address] [place] [address] GFR/1.73 sq M.predicted among non-blacks MDRD (S/P/Bld) [Vol rate/Area] 87 mL/min/{1.73_m2} Normal >90 [facility] Comment on above: Result Comment: CALC ULATIONS OF ESTIMATED GFR ARE PERFORMED USING THE 2020 CKD-EPI STUDY REFIT EQUATION WITHOUT THE RACE VARIABLE FOR THE IDMS-TRACEABLE CREATININE METHODS. https://jasn.asnjournals.org/content/early/ASN.278737 9095 Performed By: #### C MP #### [facility] [address] [place] [address] Glucose [Mass/Vol] 99 mg/dL Normal 74 - 99 [facility] Comment on above: Performed By: #### C MP #### [facility] [address] [place] [address] HCO3 (Bld) [Moles/Vol] 24 mmol/L Normal 21 - 32 [facility] Comment on above: Performed By: #### C MP #### [facility] [address] [place] [address] Potassium [Moles/Vol] 4.4 mmol/L Normal 3.5 - 5.3 [facility] Comment on above: Performed By: #### C MP #### [facility] [address] [place] [address] Protein [Mass/Vol] 7.1 g/dL Normal 6.4 - 8.2 [facility] Comment on above: Performed By: #### C MP #### [facility] [address] [place] [address] Sodium [Moles/Vol] 143 mmol/L Normal 136 - 145 [facility] Comment on above: Performed By: #### C MP #### [facility] [address] [place] [address] Urea nitrogen [Mass/Vol] 11 mg/dL Normal 6 - 23 [facility] Comment on above: Performed By: #### C MP #### [facility] [address] [place] [address] HEMOGLOBIN A1Con 12-14-2022 Glucose [Mass/Vol] 108 mg/dL Normal [facility] Comment on above: Performed By: #### H BA1E #### [facility] [address] [place] [address] HbA1c (Bld) [Mass fraction] 5.4 % Normal [facility] Comment on above: Result Comment: Diag nosis of Diabetes-Adults Non-Diabetic: < or = 5.6% Increased risk for developing diabetes: 5.7-6.4% Diagnostic of diabetes: > or = 6.5% . Monitoring of Diabetes Age (y) Therapeutic Goal (%) Adults: >18 <7.0 Pediatrics: 13-18 <7.5 7-12 <8.0 0- 6 7.5-8.5 [employer]. Diabetes Care 33(S1), Aug 2009. Performed By: #### H BA1E #### [facility] [address] [place] [address] Hemoglobin A1Con 12-14-2022 Glucose [Mass/Vol] 108 mg[facility] Work Phone: HbA1c (Bld) [Mass fraction] 5.4 % [facility] DO Work Phone: Comment on above: Diagnosis of Diabete s-Adults Non-Diabetic: < or = 5.6% Increased risk for developing diabetes: 5.7-6.4% Diagnostic of diabetes: > or = 6.5%. Monitoring of Diabetes Age (y) Therapeutic Goal (%) Adults: >18 <7.0 Pediatrics: 13-18 <7.5 7-12 <8.0 0- 6 7.5-8.5 [employer]. Diabetes Care 33(S1), Aug 2009. Laboratory - Chemistry and C hemistry - challengeon 12-14-2022 Albumin BCP dye [Mass/Vol] 4.7 g/dL 3.4 - 5.0 [facility] 100 DO Work Phone: ALP [Catalytic activity/Vol] 92 U/L 33 - 110 [facility] 100 DO Work Phone: ALT With P-5'-P [Catalytic activity/Vol] 39 U/L 7 - 45 [place] [address] DO Work Phone: Comment on above: Patients treated wit h Sulfasalazine may generate falsely decreased results for ALT. Anion gap [Moles/Vol] 12 mmol/L 10 - 20 [facility] 100 DO Work Phone: AST With P-5'-P [Catalytic activity/Vol] 31 U/L 9 - 39 [facility] 100 DO Work Phone: Bilirubin [Mass/Vol] 0.9 mg/dL 0.0 - 1.2 [facility] 100 DO Work Phone: Calcium [Mass/Vol] 10.1 mg/dL 8.6 - 10.6 [facility] 100 DO Work Phone: Chloride [Moles/Vol] 111 mmol/L above high threshold 98 - 107 [facility] 100 DO Work Phone: CO2 [Moles/Vol] 24 mmol/L 21 - 32 [facility] 100 DO Work Phone: Creatinine [Mass/Vol] 0.81 mg/dL See Below [facility] 100 DO Work Phone: Comment on above: Reference Range: 0.5 0 - 1.05 Glucose [Mass/Vol] 99 mg/dL 74 - 99 [facility] 100 DO Work Phone: Potassium [Moles/Vol] 4.4 mmol/L 3.5 - 5.3 [facility] 100 DO Work Phone: Protein [Mass/Vol] 7.1 g/dL 6.4 - 8.2 [facility] 100 DO Work Phone: Sodium [Moles/Vol] 143 mmol/L 136 - 145 [facility] 100 DO Work Phone: Urea nitrogen [Mass/Vol] 11 mg/dL 6 - 23 [facility] 100 DO Work Phone: No Panel Informationon 12-14 87 {mL/min/1.73m2} >90 [facility] 100 DO Work Phone: Comment on above: CALCULATIONS OF CANDY MATED GFR ARE PERFORMED USING THE 2020 CKD-EPI STUDY REFIT EQUATION WITHOUT THE RACE VARIABLE FOR THE IDMS-TRACEABLE CREATININE METHODS.https://jasn.asnjournals.org/content/early// N.2596585602 Office Visiton 12-14-2022 Follow-up visit Diagnoses/Problems Prediabetes (790.29) (R73.03) Vitamin D deficiency (268.9) (E55.9) Obesity (278.00) (E66.9) Orders Prediabetes Comprehensive Metabolic Panel; Status:Active; Requested for:[id number]; Hemoglobin A1C; Status:Active; Requested for:[id number]; Vitamin D deficiency Vitamin D 25-Hydroxy; Status:Active; Requested for:[id number]; Patient Discussion/Summary blood work today follow up in 3 months keep up the good work!! continue qsymia Provider Impressions 52-year-old here for evaluation of weight gain/obesity also with fatty liver pre dm d def. We reviewed her course.. Will continue qsymia and keep up efforts with eating and exercise as tolerated Follow up in 3 months. Reassured her she is doing great. labs today.She is to call with concerns. Chief Complaint Patient here for Qysmia follow visit History of Present Rryzzag89-xcrk-dds here for f/u weight gain fatty liver Pre dm and d def. Since last visit still doing great on qsymia...down another 7 lbs. Doing fine on the qsymia, tolerating it ok. On d 1999 iu a day .She denies any chest pain, shortness of breath, nausea, vomiting, diarrhea, constipation, fevers, or chills I have personally reviewed the OARRS report for Tamara Villagran. This report is scanned into the electronic medical record. I have considered the risks of abuse, dependence, addiction and diversion. I believe that it is clinically appropriate for Tamara Villagran to be prescribed this medication. I have reviewed her OARRS that includes Vape/THC products. I do not feel this will interfere with her appropriate usage of qsymia. Review of Systems comprehensive review of systems otherwise negative Active Problems Bilateral sciatica (724.3) (M54.31,M54.32) Elevated liver function tests (790.6) (R79.89) Elevated parathyroid hormone (259.9) (E34.9) Fatty liver (571.8) (K76.0) Hyperglycemia (790.29) (R73.9) Insomnia (780.52) (G47.00) Added by Problem List Migration; 2013-08-05 Mild depression (311) (F32.A) Obesity (278.00) (E66.9) Prediabetes (790.29) (R73.03) Vitamin D deficiency (268.9) (E55.9) Surgical History History of Appendectomy History of Hysterectomy Social History Never smoker No alcohol use Single Allergies sulfa Recorded By: Silvia Salas; 10/10/2013 3:07:12 PM Current Meds Medication NameInstruction FLUoxetine HCl - 10 MG Oral CapsuleTAKE 1 CAPSULE BY MOUTH EVERY DAY Gabapentin 300 MG Oral Capsuletake 1 capsule by mouth 3 times a day Ketorolac Tromethamine 60 MG/2ML Intramuscular SolutionINJECT 2 ML Intramuscular LORazepam 0.5 MG Oral TabletTAKE 1 TABLET BY MOUTH EVERY DAY NEEDED FOR ANXIETY NexIUM 24HR 20 MG Oral Capsule Delayed ReleaseTAKE 1 CAPSULE ONCE DAILY. Qsymia 3.75-23 MG Oral Capsule Extended Release 24 HourTAKE 1 CAPSULE Daily Qsymia 7.5-46 MG Oral Capsule Extended Release 24 HourTAKE 1 CAPSULE Daily Zolpidem Tartrate 5 MG Oral TabletTAKE 1 TO 2 TABLETS BY MOUTH AT BEDTIME NEEDED Vitals Vital Signs Recorded: [id number] 11:43AM Powzgxulhix34 F Heart Rate84 Cpofkibqfcw70 Hslylmin157 Gwgfpnzxl34 Height5 ft 8 in Nopicb654 lb BMI Fcozllakva88.06 kg/m2 BSA Calculated2.14 Physical Exam CONSTITUTIONAL: Overweight female in no acute distress HEENT: Moist mucus membranes, Eyes: no proptosis, no lid lag, no lid retraction NECK: Normal thyroid gland. No cervical lymphadenopathy CHEST: Clear to auscultation bilaterally HEART: Regular rate and rhythm. No murmurs, rubs, or gallops ABDOMEN: Benign SKIN: Normal EXT: No clubbing, cyanosis, edema NEUROLOGIC: Normal reflexes bilaterally, no tremor Signatures Electronically signed by : Samreen Perea MD; Dec 14 2022 12:00PM EST (Author) Normal [facility] VITAMIN D, 25-HYDROXYon 11-28 VITAMIN D, 25-HYDROXY 17 ng/mL Abnormal [facility] Comment on above: Result Comment: . DEFICIENCY: < 20 NG/ML INSUFFICIENCY: 20-29 NG/ML SUFFICIENCY: 30-100 NG/ML THIS ASSAY ACCURATELY QUANTIFIES THE SUM OF VITAMIN D3, 25-HYDROXY AND VIT D2,25-HYDROXY. Performed By: #### V TDOH #### [facility] [address] [place] [address] Vitamin D 25-Hydroxyon 12-14 25-hydroxyvitamin D3 [Mass/Vol] 17 ng/mL Abnormal [facility] Work Phone: Comment on above: .DEFICIENCY: < 20 NG /MLINSUFFICIENCY: 20-29 NG/MLSUFFICIENCY: 30-100 NG/MLTHIS ASSAY ACCURATELY QUANTIFIES THE SUM OFVITAMIN D3, 25-HYDROXY AND VIT D2,25-HYDROXY. Office Visiton 11-16-2022 Follow-up visit Diagnoses/Problems Prediabetes (790.29) (R73.03) Vitamin D deficiency (268.9) (E55.9) Fatty liver (571.8) (K76.0) Patient Discussion/Summary continue qsymia follow up in one month keep up efforts on eating and exercise Provider Impressions 52-year-old here for evaluation of weight gain also with fatty liver pre dm d def. We reviewed her course.. Will continue qsymia and keep up efforts with eating and exercise as tolerated Follow up in one month Next visit will do labs and move out f/u visit.She is to call with concerns. Chief Complaint patient is here for a follow up to weight gain--cmb History of Present Wcpdzwk58-ksef-hwq here for f/u weight gain fatty liver Pre dm and d def. Since last visit doing great on qsymia....really intensified eating efforts....down 13 lbs. Doing fine on the qsymia, tolerating it much better lately. On d 1999 iu a day .She denies any chest pain, shortness of breath, nausea, vomiting, diarrhea, constipation, fevers, or chills I have personally reviewed the OARRS report for Tamara Villagran. This report is scanned into the electronic medical record. I have considered the risks of abuse, dependence, addiction and diversion. I believe that it is clinically appropriate for Tamara Villagran to be prescribed this medication. I have reviewed her OARRS that includes Vape/THC products. I do not feel this will interfere with her appropriate usage of qsymia. Review of Systems comprehensive review of systems otherwise negative Active Problems Bilateral sciatica (724.3) (M54.31,M54.32) Elevated liver function tests (790.6) (R79.89) Elevated parathyroid hormone (259.9) (E34.9) Fatty liver (571.8) (K76.0) Hyperglycemia (790.29) (R73.9) Insomnia (780.52) (G47.00) Added by Problem List Migration; 2013-08-05 Mild depression (311) (F32.A) Obesity (278.00) (E66.9) Prediabetes (790.29) (R73.03) Vitamin D deficiency (268.9) (E55.9) Surgical History History of Appendectomy History of Hysterectomy Social History Never smoker No alcohol use Single Allergies sulfa Recorded By: Silvia Salas; 10/10/2013 3:07:12 PM Current Meds Medication NameInstruction FLUoxetine HCl - 10 MG Oral CapsuleTAKE 1 CAPSULE BY MOUTH EVERY DAY Gabapentin 300 MG Oral Capsuletake 1 capsule by mouth 3 times a day Ketorolac Tromethamine 60 MG/2ML Intramuscular SolutionINJECT 2 ML Intramuscular LORazepam 0.5 MG Oral TabletTAKE 1 TABLET BY MOUTH EVERY DAY NEEDED FOR ANXIETY NexIUM 24HR 20 MG Oral Capsule Delayed ReleaseTAKE 1 CAPSULE ONCE DAILY. Qsymia 3.75-23 MG Oral Capsule Extended Release 24 HourTAKE 1 CAPSULE Daily Qsymia 7.5-46 MG Oral Capsule Extended Release 24 HourTAKE 1 CAPSULE Daily Zolpidem Tartrate 5 MG Oral TabletTAKE 1 TO 2 TABLETS BY MOUTH AT BEDTIME NEEDED Vitals Vital Signs Recorded: 16Nov2022 11:14AM Ycbyimhabxb39.1 F Heart Rate76 Dkwedrxpkdq93 Yhrylufq701 Hvozjtspk57 Height5 ft 8 in Bgfcss098 lb BMI Xnyowswhry72.12 kg/m2 BSA Calculated2.17 Physical Exam CONSTITUTIONAL: Overweight female in no acute distress HEENT: Moist mucus membranes, Eyes: no proptosis, no lid lag, no lid retraction NECK: Normal thyroid gland. No cervical lymphadenopathy CHEST: Clear to auscultation bilaterally HEART: Regular rate and rhythm. No murmurs, rubs, or gallops ABDOMEN: Benign SKIN: Normal EXT: No clubbing, cyanosis, edema NEUROLOGIC: Normal reflexes bilaterally, no tremor Signatures Electronically signed by : Samreen Perea MD; Nov 16 2022 11:31AM EST (Author) Normal [employer] Office Visiton 10-19-2022 Follow-up visit Diagnoses/Problems Prediabetes (790.29) (R73.03) Vitamin D deficiency (268.9) (E55.9) Obesity (278.00) (E66.9) Patient Discussion/Summary continue qsymia follow up in one month work on eating and exercise Provider Impressions 51-year-old here for evaluation of weight gain also with fatty liver pre dm d def. We reviewed her course.. Will continue qsymia and keep up efforts with eating and exercise as tolerated Follow up in one month She is to call with concerns. Chief Complaint patient is here for a follow up to with gain--cmb History of Present Hwdqmxj03-aiks-ffh here for f/u weight gain fatty liver Pre dm and d def. Since last visit started qsymia....doing great and down 10 lbs. feels fine. Initially a little sick on it but doing fine now. started d 1999 iu a day .She denies any chest pain, shortness of breath, nausea, vomiting, diarrhea, constipation, fevers, or chills I have personally reviewed the OARRS report for Tamara Villagran. This report is scanned into the electronic medical record. I have considered the risks of abuse, dependence, addiction and diversion. I believe that it is clinically appropriate for Tamara Villagran to be prescribed this medication. I have reviewed her OARRS that includes Vape/THC products. I do not feel this will interfere with her appropriate usage of qsymia. Review of Systems comprehensive review of systems otherwise negative Active Problems Bilateral sciatica (724.3) (M54.31,M54.32) Elevated liver function tests (790.6) (R79.89) Elevated parathyroid hormone (259.9) (E34.9) Fatty liver (571.8) (K76.0) Hyperglycemia (790.29) (R73.9) Insomnia (780.52) (G47.00) Added by Problem List Migration; 2013-08-05 Mild depression (311) (F32.A) Obesity (278.00) (E66.9) Surgical History History of Appendectomy History of Hysterectomy Social History Never smoker No alcohol use Single Allergies sulfa Recorded By: Silvia Salas; 10/10/2013 3:07:12 PM Current Meds Medication NameInstruction FLUoxetine HCl - 10 MG Oral CapsuleTAKE 1 CAPSULE BY MOUTH EVERY DAY Gabapentin 300 MG Oral Capsuletake 1 capsule by mouth 3 times a day Ketorolac Tromethamine 60 MG/2ML Intramuscular SolutionINJECT 2 ML Intramuscular LORazepam 0.5 MG Oral TabletTAKE 1 TABLET BY MOUTH EVERY DAY NEEDED FOR ANXIETY NexIUM 24HR 20 MG Oral Capsule Delayed ReleaseTAKE 1 CAPSULE ONCE DAILY. Qsymia 3.75-23 MG Oral Capsule Extended Release 24 HourTAKE 1 CAPSULE Daily Qsymia 7.5-46 MG Oral Capsule Extended Release 24 HourTAKE 1 CAPSULE Daily Zolpidem Tartrate 5 MG Oral TabletTAKE 1 TO 2 TABLETS BY MOUTH AT BEDTIME NEEDED Vitals Vital Signs Recorded: [id number] 10:07AM Yvzxkchudcu74.4 F Heart Rate92 Fwohydegwqm23 Lgbuxztl024 Lrizcjlqv75 Height5 ft 8 in Qqagio574 lb 9.6 oz BMI Fmakixmrxe76.04 kg/m2 BSA Calculated2.22 Physical Exam CONSTITUTIONAL: Overweight female in no acute distress HEENT: Moist mucus membranes, Eyes: no proptosis, no lid lag, no lid retraction NECK: Normal thyroid gland. No cervical lymphadenopathy CHEST: Clear to auscultation bilaterally HEART: Regular rate and rhythm. No murmurs, rubs, or gallops ABDOMEN: Benign SKIN: Normal EXT: No clubbing, cyanosis, edema NEUROLOGIC: Normal reflexes bilaterally, no tremor Signatures Electronically signed by : Samreen Perea MD; Oct 19 2022 10:32AM EST (Author) Normal [employer] COMPREHENSIVE PANELon 2022 Albumin [Mass/Vol] 4.6 g/dL Normal 3.4 - 5.0 [facility] Comment on above: Performed By: #### C MP #### [facility] [address] [place] [address] ALP [Catalytic activity/Vol] 102 U/L Normal 33 - 110 [facility] Comment on above: Performed By: #### C MP #### [facility] [address] [place] [address] ALT [Catalytic activity/Vol] 65 U/L High 7 - 45 [facility] Comment on above: Result Comment: Flaquita ents treated with Sulfasalazine may generate falsely decreased results for ALT. Performed By: #### C MP #### [facility] [address] [place] [address] Anion gap [Moles/Vol] 12 mmol/L Normal 10 - 20 [facility] Comment on above: Performed By: #### C MP #### [facility] [address] [place] [address] AST [Catalytic activity/Vol] 49 U/L High 9 - 39 [facility] Comment on above: Performed By: #### C MP #### [facility] [address] [place] [address] Bilirubin [Mass/Vol] 0.5 mg/dL Normal 0.0 - 1.2 [facility] Comment on above: Performed By: #### C MP #### [facility] [address] [place] [address] Calcium [Mass/Vol] 9.5 mg/dL Normal 8.6 - 10.6 [facility] Comment on above: Performed By: #### C MP #### [facility] [address] [place] [address] Chloride [Moles/Vol] 106 mmol/L Normal 98 - 107 [facility] Comment on above: Performed By: #### C MP #### [facility] [address] [place] [address] Creatinine [Mass/Vol] 0.67 mg/dL Normal 0.50 - 1.05 [facility] Comment on above: Performed By: #### C MP #### [facility] [address] [place] [address] eGFR FEMALE >90 Normal >90 [facility] Comment on above: Result Comment: CALC ULATIONS OF ESTIMATED GFR ARE PERFORMED USING THE 2020 CKD-EPI STUDY REFIT EQUATION WITHOUT THE RACE VARIABLE FOR THE IDMS-TRACEABLE CREATININE METHODS. https://jasn.asnjournals.org/content/early//ASN.111961 6761 Performed By: #### C MP #### [facility] [address] [place] [address] Glucose [Mass/Vol] 208 mg/dL High 74 - 99 [facility] Comment on above: Performed By: #### C MP #### [facility] [address] [place] [address] HCO3 (Bld) [Moles/Vol] 25 mmol/L Normal 21 - 32 [facility] Comment on above: Performed By: #### C MP #### [facility] [address] [place] [address] Potassium [Moles/Vol] 4.3 mmol/L Normal 3.5 - 5.3 [facility] Comment on above: Performed By: #### C MP #### [facility] [address] [place] [address] Protein [Mass/Vol] 7.0 g/dL Normal 6.4 - 8.2 [facility] Comment on above: Performed By: #### C MP #### [facility] [address] [place] [address] Sodium [Moles/Vol] 139 mmol/L Normal 136 - 145 [facility] Comment on above: Performed By: #### C MP #### [facility] [address] [place] [address] Urea nitrogen [Mass/Vol] 12 mg/dL Normal 6 - 23 [facility] Comment on above: Performed By: #### C MP #### [facility] [address] [place] [address] HEMOGLOBIN A1Con 09-07-2022 Glucose [Mass/Vol] 134 mg/dL Normal [facility] Comment on above: Performed By: #### H BA1E #### [facility] [address] [place] [address] HbA1c (Bld) [Mass fraction] 6.3 % Abnormal [facility] Comment on above: Result Comment: Diag nosis of Diabetes-Adults Non-Diabetic: < or = 5.6% Increased risk for developing diabetes: 5.7-6.4% Diagnostic of diabetes: > or = 6.5% . Monitoring of Diabetes Age (y) Therapeutic Goal (%) Adults: >18 <7.0 Pediatrics: 13-18 <7.5 7-12 <8.0 0- 6 7.5-8.5 [employer]. Diabetes Care 33(S1), Aug 2009. Performed By: #### H BA1E #### [facility] [address] [place] [address] Hemoglobin A1Con 09-07-2022 Glucose [Mass/Vol] 134 mg/dL [facility] Work Phone: HbA1c (Bld) [Mass fraction] 6.3 % Abnormal [facility] Work Phone: Comment on above: Diagnosis of Diabete s-Adults Non-Diabetic: < or = 5.6% Increased risk for developing diabetes: 5.7-6.4% Diagnostic of diabetes: > or = 6.5%. Monitoring of Diabetes Age (y) Therapeutic Goal (%) Adults: >18 <7.0 Pediatrics: 13-18 <7.5 7-12 <8.0 0- 6 7.5-8.5 [employer]. Diabetes Care 33(S1), Aug 2009. Laboratory - Chemistry and C hemistry - challengeon 09-07-2022 Albumin BCP dye [Mass/Vol] 4.6 g/dL 3.4 - 5.0 [facility] DO Work Phone: ALP [Catalytic activity/Vol] 102 U/L 33 - 110 [facility] DO Work Phone: ALT With P-5'-P [Catalytic activity/Vol] 65 U/L above high threshold 7 - 45 [facility] Work Phone: Comment on above: Patients treated wit h Sulfasalazine may generate falsely decreased results for ALT. Anion gap [Moles/Vol] 12 mmol/L 10 - 20 [facility] Work Phone: AST With P-5'-P [Catalytic activity/Vol] 49 U/L above high threshold 9 - 39 [facility] Work Phone: Bilirubin [Mass/Vol] 0.5 mg/dL 0.0 - 1.2 [facility] [facility] DO Work Phone: Calcium [Mass/Vol] 9.5 mg/dL 8.6 - 10.6 -[facility] [facility] DO Work Phone: Chloride [Moles/Vol] 106 mmol/L 98 - 107 [facility] [facility] DO Work Phone: CO2 [Moles/Vol] 25 mmol/L 21 - 32 [facility] Work Phone: Creatinine [Mass/Vol] 0.67 mg/dL See Below [facility] DO Work Phone: Comment on above: Reference Range: 0.5 0 - 1.05 Glucose [Mass/Vol] 208 mg/dL above high threshold 74 - 99 [facility] DO Work Phone: Potassium [Moles/Vol] 4.3 mmol/L 3.5 - 5.3 [facility] DO Work Phone: Protein [Mass/Vol] 7.0 g/dL 6.4 - 8.2 [facility] DO Work Phone: Sodium [Moles/Vol] 139 mmol/L 136 - 145 [facility] DO Work Phone: Urea nitrogen [Mass/Vol] 12 mg/dL 6 - 23 -[facility] DO Work Phone: No Panel Informationon 09-07 >90 >90 -[facility] DO Work Phone: Comment on above: CALCULATIONS OF CANDY MATED GFR ARE PERFORMED USING THE 2020 CKD-EPI STUDY REFIT EQUATION WITHOUT THE RACE VARIABLE FOR THE IDMS-TRACEABLE CREATININE METHODS.https://jasn.asnjournals.org/content/early// N.0855015096 Office Visiton 09-07-2022 Follow-up visit Diagnoses/Problems Elevated parathyroid hormone (259.9) (E34.9) Hyperglycemia (790.29) (R73.9) Obesity (278.00) (E66.9) Orders Elevated parathyroid hormone Comprehensive Metabolic Panel; Status:Active; Requested for:07Sep2022; Parathormone Intact, Serum; Status:Active; Requested for:07Sep2022; Vitamin D 25-Hydroxy; Status:Active; Requested for:07Sep2022; Hyperglycemia Hemoglobin A1C; Status:Active; Requested for:07Sep2022; Obesity Start: Qsymia 3.75-23 MG Oral Capsule Extended Release 24 Hour; TAKE 1 CAPSULE Daily Formulary Override Reason: Drug has been unsuccessful in the past Start: Qsymia 7.5-46 MG Oral Capsule Extended Release 24 Hour; TAKE 1 CAPSULE Daily Formulary Override Reason: Drug has been unsuccessful in the past Patient Discussion/Summary labs today restart qsymia follow up in one month work on eating and exercise Provider Impressions 51-year-old here for evaluation of weight gain also with fatty liver and hyperglycemia as well as increased pth. We reviewed her course.. Will restart qsymia and do labs for pth and recheck a1c today.. Continue to work on eating and exercise as tolerated Follow up in one month She is to call with concerns. Chief Complaint Patient is here for weight gain--cmb History of Present Tlenwkk79-xjuj-xxo here for f/u weight gain fatty liver and hyperglycemia. Since last visit in 11/2019 went off qsymia. Now up 20 lbs and very frustrated. Saw Silviano Loya CNP and was sent for basic labs that showed elevated PTH....advised to have pit mri for ? reason. MRI showed asymmetry....referred to [facility].....MRI repeated and negative and full pituitary labs all normal. 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 Tracked eating but still no success. .She denies any chest pain, shortness of breath, nausea, vomiting, diarrhea, constipation, fevers, or chills I have personally reviewed the OARRS report for Tamara Villagran. This report is scanned into the electronic medical record. I have considered the risks of abuse, dependence, addiction and diversion. I believe that it is clinically appropriate for Tamara Villagran to be prescribed this medication. I have reviewed her OARRS that includes Vape/THC products. I do not feel this will interfere with her appropriate usage of qsymia. Review of Systems comprehensive review of systems otherwise negative Active Problems Bilateral sciatica (724.3) (M54.31,M54.32) Elevated liver function tests (790.6) (R79.89) Fatty liver (571.8) (K76.0) Hyperglycemia (790.29) (R73.9) Insomnia (780.52) (G47.00) Added by Problem List Migration; 2013-08-05 Mild depression (311) (F32.A) Obesity (278.00) (E66.9) Surgical History History of Appendectomy History of Hysterectomy Social History Never smoker No alcohol use Single Allergies sulfa Recorded By: Silvia Salas; 10/10/2013 3:07:12 PM Current Meds Medication NameInstruction FLUoxetine HCl - 10 MG Oral CapsuleTAKE 1 CAPSULE BY MOUTH EVERY DAY Gabapentin 300 MG Oral Capsuletake 1 capsule by mouth 3 times a day Ketorolac Tromethamine 60 MG/2ML Intramuscular SolutionINJECT 2 ML Intramuscular LORazepam 0.5 MG Oral TabletTAKE 1 TABLET BY MOUTH EVERY DAY NEEDED FOR ANXIETY NexIUM 24HR 20 MG Oral Capsule Delayed ReleaseTAKE 1 CAPSULE ONCE DAILY. traZODone HCl - 100 MG Oral Tablettake 1 tablet by mouth at bedtime Zolpidem Tartrate 5 MG Oral TabletTAKE 1 TO 2 TABLETS BY MOUTH AT BEDTIME NEEDED Vitals Vital Signs Recorded: 07Sep2022 10:29AM Iwhxjeypnee21.2 F Heart Rate83 Xxitehyflpu02 Duqzighh612 Cmnmafspg36 Height5 ft 8 in Rdjhah697 lb BMI Fbpfwbious23.47 kg/m2 BSA Calculated2.26 Physical Exam CONSTITUTIONAL: Overweight female in no acute distress HEENT: Moist mucus membranes, Eyes: no proptosis, no lid lag, no lid retraction NECK: Normal thyroid gland. No cervical lymphadenopathy CHEST: Clear to auscultation bilaterally HEART: Regular rate and rhythm. No murmurs, rubs, or gallops ABDOMEN: Benign SKIN: Normal EXT: No clubbing, cyanosis, edema NEUROLOGIC: Normal reflexes bilaterally, no tremor Signatures Electronically signed by : Samreen Perea MD; Sep 07 2022 11:06AM EST (Author) Normal [employer] PARATHYROID HORMONE,INTACTon 09-07-2022 PARATHYROID HORMONE,INTACT 52.3 pg/mL Normal 18.5 - 88.0 [facility] Comment on above: Performed By: #### P TH #### [facility] [address] [place] [address] [place] Parathormone Intact, Serumon 09-07-2022 Parathyrin.intact [Mass/Vol] 52.3 pg/mL See Below [facility] DO Work Phone: Comment on above: Reference Range: 18. 5 - 88.0 VITAMIN D, 25-HYDROXYon VITAMIN D, 25-HYDROXY 21 ng/mL Abnormal [facility] Comment on above: Result Comment: . DEFICIENCY: < 20 NG/ML INSUFFICIENCY: 20-29 NG/ML SUFFICIENCY: 30-100 NG/ML THIS ASSAY ACCURATELY QUANTIFIES THE SUM OF VITAMIN D3, 25-HYDROXY AND VIT D2,25-HYDROXY. Performed By: #### V TDOH #### [facility] [address] [place] [address] Vitamin D 25-Hydroxyon 09-07 25-hydroxyvitamin D3 [Mass/Vol] 21 ng/mL Abnormal [facility] DO Work Phone: Comment on above: .DEFICIENCY: < 20 NG /MLINSUFFICIENCY: 20-29 NG/MLSUFFICIENCY: 30-100 NG/MLTHIS ASSAY ACCURATELY QUANTIFIES THE SUM OFVITAMIN D3, 25-HYDROXY AND VIT D2,25-HYDROXY. MRI PITUITARY WITH AND WITHO UT CONTRASTon 08-20-2022 MRI PITUITARY WITH AND WITHOUT CONTRAST EXAM: MRI PITUITARY WITH AND WITHOUT CONTRAST, 08/16/2022 10:46 AM COMPARISON: No prior studies available for comparison. CLINICAL INDICATIONS: Pituitary lesion. Possible surgery. E23.7:Pituitary lesion Age: 51 years Gender: Female TECHNIQUE: Precontrast sagittal T1-weighted and coronal T1-weighted and T2-weighted and postcontrast sagittal and coronal T1-weighted, thin-section images were obtained through the region of the sella with attention to the pituitary gland. Type: gadoterate Meglumine (DOTAREM) 5 MMOL/10ML injection 3-60 mL Dose: 25 mL FINDINGS: The sella is normal in size. The pituitary gland is normal in height. No focal pituitary lesion is convincingly identified. The pituitary stalk is midline and unremarkable. The optic chiasm and suprasellar cistern appear unremarkable. Cavernous sinuses appear normal. No significant signal abnormality is identified in the remainder of the visualized brain. Ventricles are normal in size. High-riding left jugular bulb. Extracranial structures are otherwise unremarkable. IMPRESSION: No convincing pituitary abnormality. High-riding left jugular bulb. Normal [facility] GROWTH HORMONEOrdered By: Vanessa Correa on 08-06-2022 Interpretation and review of laboratory results Normal [facility] Somatotropin [Mass/Vol] ng/mL NINF - 8.00 ng/mL [facility] INSULIN-LIKE GROWTH FACTOR 1 Ordered By: Tanja Miranda on 08-05-2022 Insulin-like growth factor-I [Mass/Vol] 83.8 ng/mL 53.0 - 234.0 ng/mL [facility] Interpretation and review of laboratory results Normal [facility] ACTHOrdered By: Braden Feng on 07-31-2022 Corticotropin (P) [Mass/Vol] 15.4 pg/mL 9.0 - 50.0 pg/mL [facility] Interpretation and review of laboratory results Normal [facility] CALCIUMon 07-30-2022 Calcium [Mass/Vol] 9.3 mg/dL 8.6 - 10. 5 mg/dL [facility] Interpretation and review of laboratory results Normal [facility] CORTISOLon 07-30-2022 Cortisol [Mass/Vol] 10.48 ug/dL [facility] Interpretation and review of laboratory results Normal [facility] FSHon 07-30-2022 Follitropin Qn 76.3 m[IU]/mL mIU/mL [facility] Comment on above: Reference Range: Adult Male: <18.1 mIU/Ml Adult Female: Follicular: 2.5-10.2 mIU/Ml Midcycle: 3.4-33.4 mIU/Ml Luteal: 1.5-9.1 mIU/mL : <0.3 mIU/mL Post Menopausal: 23.0-116.3 mIU/mL [facility] 07-30-2022 Lutropin Qn 67.76 m[IU]/mL mIU/mL [facility] Comment on above: Reference Range: Females: Follicular phase 1.9-12.5 mIU/Ml Midcycle peak 8.7-76.3 mIU/Ml Luteal phase 0.5-16.9 mIU/Ml <0.1-1.5 mIU/Ml Postmenopausal 15.9-54.0 mIU/Ml Contraceptives 0.7-5.6 mIU/Ml Males: 20 - 70 years 1.5-9.3 mIU/Ml > 70 years 3.1-4.6 mIU/Ml Children: <0.1-6.0 mIU/Ml No Panel Informationon 07-30 [facility] PROLACTINon 07-30-2022 Prolactin [Mass/Vol] 19.7 ng/mL [facility] Comment on above: Reference Range: Females Non: 2.8-29.2 ng/mL : 9.7-208.5 ng/mL Postmenopausal: 1.8-20.3 ng/mL <2 years: 3.3-14.7 ng/mL 2-5 years: 1.0-12.8 ng/mL 6-10 years: 1.2-11.4 ng/mL 11-17 years: 1.4-14.3 ng/mL Males: 2.1-17.7 ng/mL [facility] PTH INTACTOrdered By: Lin Pace on 07-30-2022 Interpretation and review of laboratory results Abnormal [facility] Parathyrin.intact [Mass/Vol] 73.4 pg/mL High 14.0 - 72.0 pg/mL [facility] T4 FREEon 07-30-2022 Free T4 [Mass/Vol] 0.94 ng/dL 0.89 - 1. 76 ng/dL [facility] Interpretation and review of laboratory results Normal [facility] TSHon 07-30-2022 Interpretation and review of laboratory results Normal [facility] TSH Qn 2.059 m[IU]/L [facility] VITAMIN D (25-HYDROXY,TOTAL) on 07-30-2022 Interpretation and review of laboratory results Abnormal [facility] Vitamin D+Metabolites [Mass/Vol] 14.7 ng/mL Low 30.0 - 100.0 ng/mL [facility] Comment on above: <10 Deficiency 10-29 Insufficiency 30-100 Optimal Level >100 Possible Toxicity Vitamin D values hav e been shown to be falsely decreased in lipemic samples and should be interpreted with caution. [facility] Absolute lymphocyte counton 06-26-2022 Lymphocytes Auto (Unsp spec) [#/Vol] 4.16 10*3/uL 0.83-4.51 [facility] Work Phone: Basophil percentageon 2021 Basophils/100 WBC (Bld) 0.9 % 0-1 [facility] Work Phone: Bilirubin [Mass/Vol] 0.40 mg/dL 0.20-1.00 [facility] Work Phone: Comment on above: For patients on eltr ombopag therapy, use of Dimension Stevenson TBIL is not recommended. Chloride [Moles/Vol] 107 mmol/L 98-107 [facility] Work Phone: Cholesterol [Mass/Vol] 250 mg/dL <200 [facility] Work Phone: [phone] Comment on above: <200 mg/dL Desirable 200-240 mg/dL Borderline >240 mg/dL High Risk Eosinophils/100 WBC (Bld) 2.8 % 0-5 [facility] Work Phone: Glucose [Mass/Vol] 97 mg/dL 74-106 [facility] Work Phone: [phone] Neutrophils (Bld) [#/Vol] 5.6 10*3/uL 2.0-7.7 [facility] Work Phone: Neutrophils/100 WBC (Bld) 51.5 % 47-70 [facility] Work Phone: Potassium [Moles/Vol] 4.1 mmol/L 3.5-5.1 [facility] Work Phone: Protein [Mass/Vol] 8.3 g/dL 6.4-8.2 [facility] Work Phone: Sodium [Moles/Vol] 138 mmol/L 136-145 [facility] Work Phone: Triglyceride [Mass/Vol] 193 mg/dL <199 [facility] Work Phone: Comment on above: The drugs N-Acetylcy steine and Metamizole may falsely depress this assay.Serum Triglycerides Reference Interval Normal <150 mg/dL Borderline high 150 - 199 mg/dL High 200 - 499 mg/dL Very High > or = 500 mg/dL WBC (Bld) [#/Vol] 10.9 10*3/uL 4.4-11.0 [facility] Work Phone: Blood erythrocytes count (nu mber/volume)on 06-26-2022 RBC (Bld) [#/Vol] 5.13 10*6/uL 4.2-5.4 [facility] Work Phone: Blood hemoglobin measurement (mass/volume)on 06-26-2022 Hemoglobin (Bld) [Mass/Vol] 15.1 g/dL 12.0-15.0 [facility] Work Phone: Blood lymphocytes/100 leukoc yteson 06-26-2022 Lymphocytes/100 WBC (Bld) 38.2 % 19-41 [facility] Work Phone: Blood monocytes/100 leukocyt eson 06-26-2022 Monocytes/100 WBC (Bld) 6.3 % 0-10 [facility] Work Phone: Blood platelet mean volumeon 06-26-2022 Platelet mean volume (Bld) [Entitic vol] 10.9 fL 6.2-12.0 [facility] Work Phone: Determination of erythrocyte mean corpuscular volume (MCV)on 06-26-2022 MCV (RBC) [Entitic vol] 87.1 fL 81-99 [facility] Work Phone: Hematocrit Auto (Bld) [Volum e fraction]on 06-26-2022 Hematocrit (Bld) [Volume fraction] 44.7 % 37-47 [facility] Work Phone: Laboratory - Chemistry and C hemistry - challengeon 06-26-2022 ALP [Catalytic activity/Vol] 137 U/L 45-117 [facility] Work Phone: ALT [Catalytic activity/Vol] 111 U/L 13-56 [facility] Work Phone: CO2 [Moles/Vol] 24.0 mmol/L 21.0-32.0 [facility] Work Phone: Free T4 [Mass/Vol] 0.86 ng/dL 0.76-1.46 [facility] Work Phone: Globulin (S) [Mass/Vol] 4.2 g/dL 2.2-4.2 [facility] Work Phone: Urea nitrogen/Creatinine [Mass ratio] 16.0 mg/mg 10-20 [facility] Work Phone: Laboratory - Hematology and Cell countson 06-26-2022 Erythrocyte distribution width (RBC) [Entitic vol] 39.8 fL 35.1-43.9 [facility] Work Phone: Erythrocyte distribution width (RBC) [Ratio] 12.6 % 11.6-14.6 [facility] Work Phone: Immature granulocytes/100 WBC (Bld) 0.300 % 0.0-0.9 [facility] Work Phone: Comment on above: IG% - Immature Granu locytes (promyelocytes, myelocytes and metamyelocytes) > 1% indicates that a LEFT SHIFT is Present. MCH (RBC) [Entitic mass] 29.4 pg 27.0-32.0 [facility] Work Phone: Nucleated RBC/100 WBC (Bld) [Ratio] 0 % 0-5 [facility] Work Phone: MCHC Auto (RBC) [Mass/Vol]on 06-26-2022 MCHC (RBC) [Mass/Vol] 33.8 g/dL 32-36 [facility] Work Phone: No Panel Informationon 06-26 Estimated GFR (MDRD) Amer 128 mL/min >60 [facility] Work Phone: Comment on above: GFR Calc Estimated GFR (MDRD) Non-Af Amer 106 mL/min >60 [facility] Work Phone: Comment on above: Non- GFR Calc Parathyroid Hormone (Intact) 106.3 pg/mL 18.4-80.1 [facility] Work Phone: Thyroid Stimulating Hormone (TSH) 1.81 uIU/mL 0.358-3.74 [facility] Work Phone: Platelets bldon 06-26-2022 Platelets (Bld) [#/Vol] 389 10*3/uL 150-450 [facility] Work Phone: Serum or plasma albumin sherry urement (mass/volume)on 06-26-2022 Albumin [Mass/Vol] 4.1 g/dL 3.2-5.0 [facility] Work Phone: Serum or plasma albumin/glob ulin mass ratioon 06-26-2022 Albumin/Globulin [Mass ratio] 1.0 {ratio} 0.9-2.4 [facility] Work Phone: Serum or plasma calcium sherry urement (mass/volume)on 06-26-2022 Calcium [Mass/Vol] 9.1 mg/dL 8.5-10.1 [facility] Work Phone: Serum or plasma cholesterol in HDL measurement (mass/volume)on 06-26-2022 Cholesterol in HDL [Mass/Vol] 49 mg/dL >40 [facility] Work Phone: Comment on above: The drugs N-Acetylcy steine and Metamizole may falsely depress this assay. Reference Range HDL <40 mg/dL Low HDL Cholesterol HDL >or= 60 mg/dL High HDL Cholesterol Serum or plasma cholesterol in VLDL measurement (mass/volume)on 06-26-2022 Cholesterol in VLDL [Mass/Vol] 39 mg/dL 5-40 [facility] Work Phone: Serum or plasma creatinine m easurement (mass/volume)on 06-26-2022 Creatinine [Mass/Vol] 0.62 mg/dL 0.55-1.02 [facility] Work Phone: Comment on above: The validity of the calculated GFR & GFRAA in patients over 70 years has not been determined. Clinical correlation is essential. Serum or plasma low density lipoprotein (LDL) cholesterol measurement (mass/volume)on 06-26-2022 Cholesterol in LDL [Mass/Vol] 162 mg/dL 0-130 [facility] Work Phone: Serum or plasma urea nitroge n measurement (mass/volume)on 06-26-2022 Urea nitrogen [Mass/Vol] 10 mg/dL 7-18 [facility] Work Phone: Thin prep Papanicolaou smear with manual screeningon 06-26-2022 Thin prep Papanicolaou smear with manual screening 110 U/L 1537 [facility] Work Phone: Thin prep Papanicolaou smear with manual screening 7 5-15 [facility] Work Phone: HM COLONOSCOPYon 01-01-2022 Ordered by an unspecified provider. [facility] ENDOSCOPY REPORTon 2021 Ordered by an unspecified provider. [facility] Surgical Pathologyon 022 Surgical Pathology [id number] [facility] PATHOLOGY AND LABORATORY MEDICINE [address] [place] [address] [phone] Fax - FINAL SURGICAL PATHOLOGY REPORT NAME: IRENE VILLAGRAN : 1970 51 Y F BILLING NO.: [id number] LOCATION: [facility] PROCEDURE 01/01/2022 DATE: SURGEON: TORIN SKINNER MD RECEIVED 01/01/2022 DATE: ATTENDING: TORIN SKINNER MD REPORT DATE: 01/06/2022 COPIES TO: DIAGNOSIS: A. STOMACH, ANTRUM, BIOPSY - MILD CHRONIC INACTIVE GASTRITIS Comment: Negative for H. pylori, intestinal metaplasia, dysplasia, or malignancy B. 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 Much of the polyp shows increased cytologic atypia. There is a small area of cribriforming, compatible with focal high-grade dysplasia. The specimen has fragmented somewhat on sectioning and processing, limiting interpretation of the margin. Where interpretable, the margin of excision appears negative for high-grade dysplasia. Invasive malignancy is not identified. HCK/HCK Signature> YEYO VEGA M.D. CLINICAL INFORMATION: Follow-up gastroesophageal reflux disease SPECIMEN: (A) GASTRIC BIOPSY (B) COLON POLYP, BIOPSY GROSS DESCRIPTION: A. Received in formalin labeled stomach antrum are multiple fragments of pink-bush tissue that aggregate to 0.4 x 0.3 x 0.2 cm. The specimen is completely submitted as is in one cassette. B. Received in formalin labeled rectum polyp is a polypoid segment of pink tissue that measures 1 x 0.5 x 0.3 cm. The specimen is bisected and completely submitted in one cassette. CJPT/JAF Disclaimer: The following statement applies to all immunohistochemistry, in situ hybridization, molecular studies, and immunofluorescence testing. The use of one or more reagents in the above tests is regulated as an analyte specific reagent (ASR). These tests were developed and their performance characteristics determined by the clinical laboratories of [facility]. They have not been cleared by the US Food and Drug Administration (FDA). The FDA has determined that such clearance or approval is not necessary. All the above immunostains were performed on paraffin embedded tissue. Appropriate positive and negative controls (where applicable) were run in parallel with the patient's specimen; these controls showed expected staining pattern, with acceptable intensity of staining. Immunohistochemical assays have not been validated on decalcified tissues. Results should be interpreted with caution given the raised possibility of false negativity on decalcified specimens. Case reviewed at [facility] [address] [place] [address]. DEPARTMENT OF PATHOLOGY AND LABORATORY MEDICINE [place], [place] [address] [email or web address] [email or web address] [facility] XR ELBOW MINIMUM 3 VIEWS RIG HTon 04-12-2021 XR ELBOW MINIMUM 3 VIEWS RIGHT ORIGINAL EXAMINATION: THREE XRAY VIEWS OF THE RIGHT ELBOW 04/12/2021 12:35 am COMPARISON: CT right elbow 01/23/2021 HISTORY: ORDERING SYSTEM PROVIDED HISTORY: Pain Reason for Exam: pain FINDINGS: A prosthetic radial head is demonstrated. The hardware appears intact with no evidence of loosening and is in appropriate alignment with the capitellum. There is a lucency extending longitudinally through the medial epicondyle which could represent a nondisplaced fracture.. Numerous osseous fragments are seen within the joint space which may be related to prior injury versus dystrophic calcification. Elevation of the fat pads suggests a large joint effusion. No dislocation. Lucencies through the distal humerus and proximal ulna from prior hardware. IMPRESSION: Lucency extending through the medial epicondyle of the humerus could represent a nondisplaced fracture, correlation with patient physical exam findings is suggested. If there is further clinical concern, a CT of the elbow could be considered. Nondisplaced fracture through the medial epicondyle. No dislocation. The radial head prosthesis is intact and in appropriate alignment with no evidence of loosening. Large joint effusion. I have personally reviewed the images of this examination and agree with the resident's findings and interpretation. Interpreted by: Brennan Sarabia Preliminary Report By: Irina Paul Electronically signed By Brennan Sarabia Dictated Date: 04/12/2021 12:52:51 AM Prelim Date: 04/12/2021 1:01:14 AM Sign Date: 04/12/2021 1:11:30 AM Ordering Provider: GREGORIO LEON [facility] ([place]) OPERATIVE REPORTOrdered By: Scanning on 03-24-2021 [facility] Work Phone: Op Noteon 03-24-[address] [facility] [address] [address] Dept: [phone] Loc: [phone] Operative Report Patient Name: Irene Gutierrez Date of : 1970 Date of Surgery: 03/25/21 Pre-operative diagnosis: Right elbow fracture dislocation Post-operative diagnosis: Same Procedure(s): Removal external fixator right elbow under anesthesia Surgeon: Seven Gutierrez M.D. Engine Lathe Operator(s): Arun Enriquez M.D. and Ino Daniel M.D. Anesthesia: General EBL: Minimal IVF: Crystalloid Clinical History/Indication for Surgery The patient is a 50 y.o. year old female who was presents for planned removal of her external fixator from right elbow. Pt was given opportunity to ask questions and consider her options. She ultimately elected to proceed with surgery. No guarantees were given or implied. Operative Narration The patient was identified in the pre-operative holding area. The surgical site was identified and marked. Informed consent was obtained. The patient was then brought to the operating room and placed supine on the operating table. Anesthesia was administered and care of the head, neck, and airway was maintained by the anesthesia staff throughout the entire procedure. All bony prominences were identified and padded. The frame was loosened by loosening all the nuts of the frame. Lateral fluoro was utilized and under live imaging the elbow was put through a range of motion and at no time was any instability seen. The clamps were then removed followed by the pins using a T-handled prabhjot. Final images were saved at max flexion and max extension. A compressive dressing was applied followed by a sling. Once the patient was awakened from anesthesia, they were transported to the PACU in stable condition, having tolerated surgery well with no immediate complications. Postoperative Plan PT for elbow ROM This operative report was prepared and signed by Seven Gutierrez MD at 03/25/21, 7:50 PM Normal [facility] OPERATIVE REPORTOrdered By: 3m Scanning on 02-19-2021 [facility] Work Phone: Op Noteon 02-19-[address] [facility] [address] [id number] Dept: [phone] Loc: [phone] Operative Report Patient Name: Irene Gutierrez Date of : 1970 Date of Surgery: 02/19/21 Pre-operative diagnosis: Right terrible triad elbow fracture dislocation Post-operative diagnosis: Same Procedure(s): Revision open reduction internal fixation of right terrible triad elbow fracture dislocation with application of elbow spanning external fixator and radial head replacement Surgeon: Seven Gutierrez M.D. Engine Lathe Operator(s): Arun Enriquez M.D. and Rosaura Hutchison M.D. Anesthesia: General EBL: Minimal IVF: Crystalloid Medications: Two grams of Cefazolin were given. Implants: Synthes RHR, large ex fix Clinical History/Indication for Surgery The patient is a 50 y.o. year old female who was presents for operative treatment of the right terrible triad elbow fracture dislocation which was repaired 2 weeks ago but patient presented to the office at first postoperative visit with gross failure of her repair and redislocation of the elbow. Recommendation was made for revision ORIF with repair of damaged structures and application of elbow spanning external fixator to maintain reduction. We discussed this will result in significant stiffness which will require extensive physical therapy bracing and potentially even scar excision in the future but priority acutely was for stability of the elbow. Pt was given opportunity to ask questions and consider her options. She ultimately elected to proceed with surgery. No guarantees were given or implied. Operative Narration The patient was identified in the pre-operative holding area. The surgical site was identified and marked. Informed consent was obtained. The patient was then brought to the operating room and placed supine on the operating table. Anesthesia was administered and care of the head, neck, and airway was maintained by the anesthesia staff throughout the entire procedure. All bony prominences were identified and padded. A tourniquet was applied to the operative extremity which was then prepped and draped in the usual sterile fashion. A surgical timeout was performed. Antibiotics were confirmed to have been given. After exsanguination the tourniquet was inflated. The previous lateral incision was opened and the prior lateral collateral ligament repair was found to be grossly failed. The suture anchors were intact and the sutures were still tied and intact to the anchor however these have pulled through the tissue. The coronoid suture repair had completely failed. The elbow was redislocated in a posterior position. The radial head now had a much larger defect given additional impaction which had occurred secondary to the redislocation. Because of this the decision was made to perform a radial head replacement. A small oscillating saw was used to cut the radial neck with appropriate retraction in place. A small separate subcutaneous incision was made over the ulnar shaft to allow drilling into the coronoid base 2 separate tunnels were made and a #2 Ethibond was weaved into the anterior capsule and both limbs of the suture were then pulled through the coronoid base and were ultimately tied over the ulnar shaft to reapproximate the anterior capsule to the anterior coronoid. The radial head was sized and ultimately placed with a 6.5 mm stem and a 19+3 radial head. 2 separate suture anchors were placed into the lateral epicondyle these were used to imbricate and repair of the lateral ligamentous and fascial structures back to the lateral distal humerus. 0 Vicryl was used to close the remaining capsule and fascia. To ulnar shaft external fixator pins were placed. These were 4 mm pins. 2 lateral distal humerus pins were placed. These were 5 mm pins which were predrilled. The most distal pin was placed through the open incision and the second pin was placed percutaneously through a separate stab incision. X-ray confirmed the appropriate depth of all pins and that the elbow was concentrically reduced. The external fixator was assembled with all bars and clamps locked tightly. The skin incision was irrigated and closed with 2-0 Vicryl and bela on skin a bulky compressive dressing was then applied and the patient was extubated and taken to PACU in stable condition. Postoperative Plan F/u 2wks This operative report was prepared and signed by Seven Gutierrez MD at 02/19/21, 6:42 PM Normal [facility] CT ELBOW W/O CONTRAST RIGHTo n 01-24-2021 CT ELBOW W/O CONTRAST RIGHT ORIGINAL CT ELBOW W/O CONTRAST RIGHT CLINICAL STATEMENT: LATERAL DISC LOCATION RIGHT ULNOHUMERAL JOINT COMPARISON: None FINDINGS: This exam was performed according to our departmental dose-optimization program which includes automated exposure control, adjustment of the mA and/or kVp according to patient size and/or use of iterative reconstruction technique where applicable. Numerous fracture fragments seen within and around the joint spaces of the elbow. There appears to be a comminuted fracture along the lateral side of the radial head with some displaced bone fragments. The radial head is aligned with the capitellum. The ulna and trochlea appear aligned. There are small fracture fragments displaced from the coronoid process of the ulna. There is likely a fracture through the supracondylar portion of the humerus as noted on the sagittal reformatted images, image 43. There is mild angulation of the medial humeral condylar process. There appear to be small fracture fragments arising from the medial humeral condyle/trochlea A joint effusion visualized. IMPRESSION: 1. Numerous small fracture fragments within and around the joint space. There appear to be fractures involving the radial head, coronoid process of the ulna and distal humerus. The evaluation is suboptimal due to positioning difficulties Interpreted By: Mehul Nugent MD Preliminary Report By: Mehul Nugent MD Electronically Signed By: Mehul Nugent MD Dictated Date: 01/24/2021 9:38:52 AM Prelim Date: 01/24/2021 9:38:52 AM Sign Date: 01/24/2021 9:53:17 AM Ordering Provider:Ayaz Barragan [facility] ([place] CNCOon 03-27-2019 CNCO Letter Text Normal [facility] CNCOon 03-01-2019 CNCO Letter Text Normal [facility] CNOVon 02-28-2019 CNOV Office Visit (NUAGAK ) IRENE GUTIERREZ ([id number]) 1970 F Date Time Provider Department 02/28/19 1:40 PM CARL ROBERTSON During your visit today, we recorded the following information about you: Pulse Respiration Blood pressure Weight 79/minute 17/minute 114/74 100.2 kg Height 1.753 m Carl Robertson MD 03/20/2019 6:00 PM Signed NEUROSURGERY NEW PATIENT PCP: Nikhil San MD REFERRING PROVIDER: self Final recommendations will be communicated back to the requesting physician by way of the shared medical record, or letter to requesting physician via [place] mail. CHIEF COMPLAINT: bilateral sciatica pain, buldging disc SUBJECTIV HISTORY OF PRESENT ILLNESS: Irene Gutierrez is a 48 year old right-handed female presenting mother. Patient c/o lower back pain since beginning of January. Patient went to PCP and her gave her lumbar sterios injection without effectiveness so he ordered an MRI lumbar. He reported to her she had a buldging disc at L4-5. She self referred herself r/t he did not give any orders for anything. Patient has had history of lower back pain since 2005 fall off and on. Patient has a history of spinal fractures in 2015 and 2016 r/t falls. Patient has had 3 steroid injections in the last to lower spine with effective results. No recent PT. No pain management. Denies bowel or bladder incontinence or retention. PAIN EVALUATION 02/28/2019 Pain Level: 10 Pain Location: ? both legs lower back pain both legs lower back pain Description: Numbness;Burning numbness in back/both legs burn numbness in back/both legs burn Duration Units: Weeks Frequency: Continuous Intervention: ? nothinhg helps with pain nothinhg helps with pain ACTIVE PROBLEM LIST Symptomatic Menopausal Or Female Climacteric States PAST MEDICAL HISTORY Diagnosis Date - Female infertility of unspecified origin - GERD (gastroesophageal reflux disease) - Headache - Hemorrhoids PAST SURGICAL HISTORY Procedure Laterality Date - LAPAROSCOPIC APPENDECTOMY 08/2016 c/b postop abscess req CT-drainage - S PK LAVH [id number] 2010 RSO FAMILY HISTORY Problem Relation Age of Onset - Hypertension Maternal Grandmother - Diabetes Maternal Grandmother - Breast Cancer Maternal Aunt - Cancer Maternal Grandfather prostate and bone - Cervical Cancer Sister Social History Socioeconomic History Marital status: Single Spouse name: Vern Number of children: 1 Years of education: 12 Highest education level: Not on file Social Needs Financial resource strain: Not on file Food insecurity - worry: Not on file Food insecurity - inability: Not on file Transportation needs - medical: Not on file Transportation needs - non-medical: Not on file Occupational History 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 Other Topics Concerns: Service: Not Asked Blood Transfusions: Not Asked Caffeine Concern: Not Asked Occupational Exposure: Not Asked Hobby Hazards: Not Asked Sleep Concern: Not Asked Stress Concern: Not Asked Weight Concern: Not Asked Special Diet: Not Asked Back Care: Not Asked Exercise: Yes active, not formal Bike Helmet: Not Asked Seat Belt: Not Asked Self-Exams: Not Asked Social History Narrative Not on file ALLERGIES Allergen Reactions - Sulfa (Sulfonamide * REVIEW OF SYSTEMS: Review of Systems Eyes: Negative for blurred vision. Respiratory: Positive for shortness of breath.? Cardiovascular: Negative for chest pain. Negative for leg swelling. Gastrointestinal: Negative for constipation, positive for diarrhea, nausea?and negative forvomiting. Genitourinary: Negative for dysuria. Skin: Negative for itching. Neurological: Positive for headaches. Negative for dizziness, tingling?and weakness. Endo/Heme/Allergies: Negative for bruising/bleeding easily. Psychiatric/Behavioral : Negative for depression?and suicidal ideas. ROS entered by: Aleyda Orta RN OBJECTIVE: PHYSICAL EXAM BP 114/74 Pulse 79 Resp 17 Ht 5' 9 (1.75m) Wt 221 lb (100.2kg) SpO2 96% LMP 01/01/2010 BMI 32.62 kg/(m2). GENERAL APPEARANCE: Well nourished, well developed, and no apparent distress. NEURO PSYCH: Patient oriented to person, place, and time. Mood pleasant. Benign affect. CARDIOVASCULAR: Palpable pulses. No edema noted. No varicosities. RESPIRATORY: Unlabored respirations, no audible wheezes MUSCULOSKELETAL VISUAL INSPECTION CERVICAL: WNL THORACIC: WNL LUMBAR: WNL PALPATION: No tenderness to palpation MUSCLE BULK: Normal and symmetrical in the upper AND lower extremities. MUSCLE TONE: Normal. MOTOR: 5/5 in all muscle groups. SENSORY: Normal sensory exam GAIT: Normal. Able to walk on toes and heels. Able to do tandem. Romberg negative. REFLEXES: +2 to bilateral U/L extremities. LONG TRACT SIGNS: No clonus . No Hoffmans. STRAIGHT LEG TEST: Ipsilateral: Negative. Contralateral: Negative. DATA REVIEW Imaging and outside records reviewed Images reviewed with the patient MRI [place] 02/10/2019 Does not demonstrate any areas of central or foraminal stenosis. ASSESSMENT/PLAN 1. Chronic left-sided low back pain, unspecified whether sciatica present 48-year-old woman with a history of old thoracic fracture secondary to fall in 2017. Presents with them worsening back pain as well as radiation to bilateral thighs. MRI of lumbar spine is unremarkable with no area of central foraminal stenosis. This study however does not go high enough to include injured levels. We will arrange for a CT of thoracic spine to reassess the fracture. I have asked the patient to bring her old imaging to be able to compare. In the meantime I am also sending her to physical therapy as well as pain management team's to help manage her pain. I will see her back once the CT and x-rays are completed. - CONSULT TO PAIN MGT ANESTHESIA - CONSULT TO PHYSICAL THERAPY - XR THORACIC LIMITED 2V AP/LAT; Future - XR LUMBAR MOTION 4V AP/LAT/ FLEX/EXT; Future 2. Closed fracture of thoracic vertebra, unspecified fracture morphology, unspecified thoracic vertebral level, sequela As above 3. Other fracture of unspecified thoracic vertebra, initial encounter for closed fracture (HCC) As above - CT THORACIC SPINE WO IVCON; Future Carl Robertson MD Thank you for the consult. The majority of the visit was spent counseling and/or coordinating care for the patient. The patient was counseled regarding above. Total face to face time was 45 minutes. Referring Provider: NIKHIL SAN [[id number]] Allergies As of Date: 02/28/2019 Noted Allergy Reaction SULFA (SULFONAMIDE ANTIBIOTICS) 08/26/2006 Date Reviewed: 02/28/2019 Reviewed by: Carl Robertson - Fully Assessed Reason for Visit: New Patient Evaluation [154] Cmt: Discuss MRI done at [facility] Primary Visit Diagnosis:Chronic left-sided low back pain, unspecified whether sciatica present [M54.5, G89.29] Other Visit Diagnoses:Closed fracture of thoracic vertebra, unspecified fracture morphology, unspecified thoracic vertebral level, sequela [S22.009S] Other fracture of unspecified thoracic vertebra, initial encounter for closed fracture (HCC) [S22.008A] Order(s):CONSULT TO PAIN MGT ANESTHESIA [292506] Order #: [id number]: 1 CONSULT TO PHYSICAL THERAPY [9032] Order #: [id number]: 1 CT THORACIC SPINE WO IVCON [3608780] Order #: [id number] FUTURE XR THORACIC LIMITED 2V AP/LAT [0524719] Order #: [id number] FUTURE XR LUMBAR MOTION 4V AP/LAT/ FLEX/EXT [5621299] Order #: [id number] FUTURE Prescriptions as of 02/28/2019 Sig: FLUOXETINE 10 MG CAPSULE Take 10 mg by mouth once sabiha* TRAZODONE 50 MG TABLET Take 50 mg by mouth daily at * NAPROXEN 375 MG TABLET Take 1 tablet by mouth twice * Patient not taking: Reported on 02/28/2019 NEXIUM 40 MG CAPSULE,DELAYED * Take one(1) capsule daily. Problem List As Of Date 02/28/2019 Noted Resolved Symptomatic menopausal or female climacteric st*INVALID FOR* Disposition: Return in about 2 weeks (around 03/14/2019). Follow-up and Disposition History Recorded Encounter Status:Closed by CARL ROBERTSON on 03/20/19 [facility] [place] 02-28-2019 [facility] Telephone (MICHAELGlaukos) IRENE GUTIERREZ ([id number]) 1970 F Date Time Provider Department 02/28/19 CARL ROBERTSON During your visit today, we recorded the following information about you: Oralia Adhikari 02/28/2019 3:03 PM Signed A request was submitted to the referral team to schedule the patient for physical therapy/pain management. Oralia Adhikari 05/11/2019 3:44 PM Signed Allergies As of Date: 02/28/2019 Noted Allergy Reaction SULFA (SULFONAMIDE ANTIBIOTICS) 08/26/2006 Date Reviewed: 02/28/2019 Reviewed by: Carl Robertson - Fully Assessed Reason for Visit: Internal Referrals/resources [908] Cmt: Pain Mgmt/Physical Therapy Prescriptions as of 02/28/2019 Sig: FLUOXETINE 10 MG CAPSULE Take 10 mg by mouth once sabiha* NAPROXEN 375 MG TABLET Take 1 tablet by mouth twice * Patient not taking: Reported on 02/28/2019 TRAZODONE 50 MG TABLET Take 50 mg by mouth daily at * NEXIUM 40 MG CAPSULE,DELAYED * Take one(1) capsule daily. Problem List As Of Date 02/28/2019 Noted Resolved Symptomatic menopausal or female climacteric st*INVALID FOR* Encounter Status:Closed by ORALIA ADHIKARI on 02/28/19 [facility] 02-28-2019 PROGRESS HNO ID: [id number] Author: Carl Robertson Service: ? Author Type: Physician Type: Progress Notes Filed: 03/20/2019 6:00 PM Note Text: NEUROSURGERY NEW PATIENT PCP: Nikhil San MD REFERRING PROVIDER: self Final recommendations will be communicated back to the requesting physician by way of the shared medical record, or letter to requesting physician via US mail. CHIEF COMPLAINT: bilateral sciatica pain, buldging disc SUBJECTIV HISTORY OF PRESENT ILLNESS: Irene Gutierrez is a 48 year old right-handed female presenting mother. Patient c/o lower back pain since beginning of January. Patient went to PCP and her gave her lumbar sterios injection without effectiveness so he ordered an MRI lumbar. He reported to her she had a buldging disc at L4-5. She self referred herself r/t he did not give any orders for anything. Patient has had history of lower back pain since 2005 fall off and on. Patient has a history of spinal fractures in 2015 and 2017 r/t falls. Patient has had 3 steroid injections in the last to lower spine with effective results. No recent PT. No pain management. Denies bowel or bladder incontinence or retention. PAIN EVALUATION 02/28/2019 Pain Level: 10 Pain Location: ? both legs lower back pain both legs lower back pain Description: Numbness;Burning numbness in back/both legs burn numbness in back/both legs burn Duration Units: Weeks Frequency: Continuous Intervention: ? nothinhg helps with pain nothinhg helps with pain ACTIVE PROBLEM LIST Symptomatic Menopausal Or Female Climacteric States PAST MEDICAL HISTORY Diagnosis Date - Female infertility of unspecified origin - GERD (gastroesophageal reflux disease) - Headache - Hemorrhoids PAST SURGICAL HISTORY Procedure Laterality Date - LAPAROSCOPIC APPENDECTOMY 08/2016 c/b postop abscess req CT-drainage - S PK LAVH [id number] 2010 RSO FAMILY HISTORY Problem Relation Age of Onset - Hypertension Maternal Grandmother - Diabetes Maternal Grandmother - Breast Cancer Maternal Aunt - Cancer Maternal Grandfather prostate and bone - Cervical Cancer Sister Social History Socioeconomic History Marital status: Single Spouse name: Vern Number of children: 1 Years of education: 12 Highest education level: Not on file Social Needs Financial resource strain: Not on file Food insecurity - worry: Not on file Food insecurity - inability: Not on file Transportation needs - medical: Not on file Transportation needs - non-medical: Not on file Occupational History 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 Other Topics Concerns: Service: Not Asked Blood Transfusions: Not Asked Caffeine Concern: Not Asked Occupational Exposure: Not Asked Hobby Hazards: Not Asked Sleep Concern: Not Asked Stress Concern: Not Asked Weight Concern: Not Asked Special Diet: Not Asked Back Care: Not Asked Exercise: Yes active, not formal Bike Helmet: Not Asked Seat Belt: Not Asked Self-Exams: Not Asked Social History Narrative Not on file ALLERGIES Allergen Reactions - Sulfa (Sulfonamide * REVIEW OF SYSTEMS: Review of Systems Eyes: Negative for blurred vision. Respiratory: Positive for shortness of breath.? Cardiovascular: Negative for chest pain. Negative for leg swelling. Gastrointestinal: Negative for constipation, positive for diarrhea, nausea?and negative forvomiting. Genitourinary: Negative for dysuria. Skin: Negative for itching. Neurological: Positive for headaches. Negative for dizziness, tingling?and weakness. Endo/Heme/Allergies: Negative for bruising/bleeding easily. Psychiatric/Behavioral : Negative for depression?and suicidal ideas. ROS entered by: Aleyda Orta RN OBJECTIVE: PHYSICAL EXAM BP 114/74 Pulse 79 Resp 17 Ht 5' 9 (1.75m) Wt 221 lb (100.2kg) SpO2 96% LMP 01/01/2010 BMI 32.62 kg/(m2). GENERAL APPEARANCE: Well nourished, well developed, and no apparent distress. NEURO PSYCH: Patient oriented to person, place, and time. Mood pleasant. Benign affect. CARDIOVASCULAR: Palpable pulses. No edema noted. No varicosities. RESPIRATORY: Unlabored respirations, no audible wheezes MUSCULOSKELETAL VISUAL INSPECTION CERVICAL: WNL THORACIC: WNL LUMBAR: WNL PALPATION: No tenderness to palpation MUSCLE BULK: Normal and symmetrical in the upper AND lower extremities. MUSCLE TONE: Normal. MOTOR: 5/5 in all muscle groups. SENSORY: Normal sensory exam GAIT: Normal. Able to walk on toes and heels. Able to do tandem. Romberg negative. REFLEXES: +2 to bilateral U/L extremities. LONG TRACT SIGNS: No clonus . No Hoffmans. STRAIGHT LEG TEST: Ipsilateral: Negative. Contralateral: Negative. DATA REVIEW Imaging and outside records reviewed Images reviewed with the patient MRI [place] 02/10/2019 Does not demonstrate any areas of central or foraminal stenosis. ASSESSMENT/PLAN 1. Chronic left-sided low back pain, unspecified whether sciatica present 48-year-old woman with a history of old thoracic fracture secondary to fall in 2017. Presents with them worsening back pain as well as radiation to bilateral thighs. MRI of lumbar spine is unremarkable with no area of central foraminal stenosis. This study however does not go high enough to include injured levels. We will arrange for a CT of thoracic spine to reassess the fracture. I have asked the patient to bring her old imaging to be able to compare. In the meantime I am also sending her to physical therapy as well as pain management team's to help manage her pain. I will see her back once the CT and x-rays are completed. - CONSULT TO PAIN MGT ANESTHESIA - CONSULT TO PHYSICAL THERAPY - XR THORACIC LIMITED 2V AP/LAT; Future - XR LUMBAR MOTION 4V AP/LAT/ FLEX/EXT; Future 2. Closed fracture of thoracic vertebra, unspecified fracture morphology, unspecified thoracic vertebral level, sequela As above 3. Other fracture of unspecified thoracic vertebra, initial encounter for closed fracture (HCC) As above - CT THORACIC SPINE WO IVCON; Future Carl Robertson MD Thank you for the consult. The majority of the visit was spent counseling and/or coordinating care for the patient. The patient was counseled regarding above. Total face to face time was 45 minutes. Normal [facility] ANKLE 3V AP/LAT/OBL LEFTon 1 2-19-2017 ANKLE 3V AP/LAT/OBL LEFT Performed at [facility] APPROVED BY: Mary Garcia MD EXAM TITLE: ANKLE 3V AP/LAT/OBL LEFT DATE: 08/17/2017 18:20 INDICATION: Left ankle pain secondary to injury COMPARISON: None. FINDINGS: There is no fracture or dislocation. Joint spaces are maintained. The soft tissues are normal. IMPRESSION: Within normal limits. Normal [facility] FOOT 3V AP/LAT/OBL LEFTon FOOT 3V AP/LAT/OBL LEFT Performed at [facility] APPROVED BY: Mary Garcia MD EXAM TITLE: FOOT 3V AP/LAT/OBL LEFT DATE: 08/17/2017 18:20 INDICATION: Left foot pain secondary to injury COMPARISON: None. FINDINGS: There is no fracture or dislocation. Joint spaces are preserved and the soft tissues are normal. IMPRESSION: Within normal limits Normal [facility] C3 Complementon 06-25-2017 C3, Complement 185 mg/dL High 90-180 [facility] Comment on above: Result Comment: Test Performed by [facility],[address] [place] [address]BgynyefDarin Bone M.D., Ph.D., Director of [phone], CLIA [id number] Performed By: #### E SR ####[place] [id number] [place] - ASSISTANT HEAD CASHIER Antibodyon 017 ASSISTANT HEAD CASHIER Antibody <1.0 Normal <1.0 [facility] Comment on above: Result Comment: Test Performed by [facility],[address] [place] [address] 19[address]AuraxzxDarin Bone M.D., Ph.D., Director of [phone], CLIA [id number] Performed By: #### C BCDIFF ####[address] [address] [place]KE - Sm ([place]) Antibodyon 06-25-2017 Sm Antibody <1.0 Normal <1.0 [facility] Comment on above: Result Comment: Test Performed by [facility],[place],[address] [place], [place] [address]JwemyzbDarin Bone M.D., Ph.D., Director of [phone], CLIA [id number] Performed By: #### C BCDIFF ####[address] [address] Anti DNA DSon 06-23-2017 DNA (DS) Antibody 1 IU/mL Normal <=4 [facility] Comment on above: Result Comment: Valu e Interpretation or=10 IU/mL: PositiveTest Performed by [facility],[place],[address] [place] [address]GjgwaleDarin Bone M.D., Ph.D., Director of [phone], CLIA [id number] Performed By: #### C BCDIFF ####[address] [address] C4 Complementon 06-23-2017 C4, Serum 32 mg/dL Normal 16-47 [facility] Comment on above: Result Comment: Test Performed by [facility],[address] [place] [address]GbmmrdkDarin Bone M.D., Ph.D., Director of [phone], CLIA [id number] Performed By: #### Bryan BCDIFF ####[address] [address] CCP IgG Abon 06-23-2017 Cyclic Citrullinated Peptide (CCP)Ab IgG <16 Normal <20 [facility] Comment on above: Result Comment: Nega tive: <20Weak Positive: 20 - 39Moderate Positive: 40 - 59Strong Positive: >59Test Performed by [facility],[place],[address] [place], [place] [address]FostfcdDarin Bone M.D., Ph.D., Director of [phone], CLIA [id number] Performed By: #### C BCDIFF ####[place] [id number] [place] [address] Rheumatoid Factoron 06-23-20 17 Rheumatoid Factor 9 IU/mL Normal <14 [facility] Comment on above: Result Comment: Test Performed by [employer],[address] [place] [address]95[address]UbqgegrDarin Bone M.D., Ph.D., Director of [phone], CLIA [id number] Performed By: #### C BCDIFF ####[place] [address] ANAon 06-20-2017 Additional Testing SEE BELOW Normal [facility] Comment on above: Result Comment: Not indicatedTest Performed by [employer]),[employer] [place],[address] [place] [address]TigllpvDarin Bone M.D., Ph.D., Director of [phone], CLIA [id number] Performed By: #### C BCDIFF ####[place] [address] JONATHAN Screen, IFA Negative Normal [facility] Comment on above: Result Comment: JONATHAN IFA is a first line screen for detecting thepresence of up to approximately 150 autoantibodies invarious autoimmune diseases. A negative JONATHAN IFA resultsuggests JONATHAN-associated autoimmune diseases are notpresent at this time.Visit Physician FAQs for interpretation of allantibodies in the [place], prevalence, and associationwith diseases at:[email or web address] Performed By: #### C BCDIFF ####[place] [address] ANCA Screen with Reflex to T iteron 06-20-2017 ANCA Screen Negative Normal Negative [facility] Comment on above: Result Comment: ANCA Screen includes evaluation for p-ANCA, c-ANCA andatypical p-ANCA. A positive ANCA screen reflexes totiter and pattern(s), e.g., cytoplasmic pattern(c-ANCA), perinuclear pattern (p-ANCA), or atypicalp-ANCA pattern. c-ANCA and p-ANCA are observed invasculitis, whereas atypical p-ANCA is observed in IBD(Inflammatory Bowel Disease). Atypical p-ANCA isdetected in about 55% to 80% of patients withulcerative colitis but only 5% to 25% of patients withCrohn's disease.Test Performed by [employer],[address] [place] [address]LguapjuDarin Bone M.D., Ph.D., Director of [phone], CLIA [id number] Performed By: #### E SR ####[place] [address] Hepatitis C Antibodyon 06-20 Additional Testing SEE BELOW Normal [facility] Comment on above: Result Comment: Not indicatedTest Performed by [employer] [place],[address] [place] [address] 880[address]CqktttqDarin Bone M.D., Ph.D., Director of [phone], CLIA [id number] Performed By: #### C BCDIFF ####[place] [address] Hepatitis C Antibody Nonreactive Normal Nonreactive [facility] Comment on above: Performed By: #### C BCDIFF ####[place] [id number] Signal to Cutoff 0.04 ratio Normal <1.00 [facility] Comment on above: Performed By: #### C BCDIFF ####[place] [id number] Anti Smooth Muscle Abon 05-31 Actin Antibody IgG <20 Normal <20 [facility] Comment on above: Result Comment: Refe rence Range: <20 U: Negative>or=20 U: PositiveAntibodies recognizing actin are the main componentof smooth muscle antibodies associated with auto-immune liver disease. Actin antibodies are found inapproximately 75% of patients with autoimmunehepatitis (AIH) type 1, approximately 65% of patientswith autoimmune cholangitis, approximately 30% ofpatients with primary biliary cirrhosis andapproximately 2% of healthy controls. High values areclosely correlated with AIH type 1.Test Performed by [employer] [place],[facility] [place] [facility],[address] [place] [address]85[address]Vakujhasanti Bone M.D., Ph.D., Director of [phone], [facility] [id number] Performed By: #### C BCDIFF ####[address] [address] BROOKE - Extractable Nuclear Ab son 06-18-2017 ASSISTANT HEAD CASHIER Antibodies <0.2 Normal 0.0-0.9 [facility] Comment on above: Order Comment: Lab D irector: Raoul Lovett PhD, Phone: [phone] Performed By: #### C BCDIFF ####[address] [address] [place] Antibodies <0.2 Normal 0.0-0.9 [facility] Comment on above: Order Comment: Lab D irector: Raoul Lovett PhD, Phone: [phone] Performed By: #### C BCDIFF ####[address] [address] CBC with Diffon 06-16-2017 Basophils Auto #/vol (Bld) 0.1 x(10)3/cumm Normal 0.0-0.1 [facility] Comment on above: Performed By: #### C BCDIFF ####[address] [address] Basophils/100 WBC Auto (Bld) 1.0 % Normal 0.0-1.0 [facility] Comment on above: Performed By: #### C BCDIFF ####[address] [address] Eosinophils 0.1 x(10)3/cumm Normal 0.0-0.4 [facility] Comment on above: Performed By: #### C BCDIFF ####[facility] [address] [place] [address] Eosinophils/100 leukocytes 1.7 % Normal 0.0-6.1 [facility] Comment on above: Performed By: #### C BCDIFF ####[facility] [place] [address] Erythrocyte distribution width Auto Ratio (RBC) 12.9 % Normal 11.1-15.3 [facility] Comment on above: Performed By: #### C BCDIFF ####[facility] [place] [address] Erythrocyte morphology Normal [facility] Comment on above: Performed By: #### C BCDIFF ####[address] [address] Erythrocytes (RBC) 4.93 X(10)6/cumm Normal 3.90-5.10 [facility] Comment on above: Performed By: #### C BCDIFF ####[address] [address] Erythrocytes (RBC) Normal [facility] Comment on above: Performed By: #### C BCDIFF ####[address] [address] Hematocrit (HCT) 41.7 % Normal 34.6-45.0 [facility] Comment on above: Performed By: #### C BCDIFF ####[address] [address] Hemoglobin mass conc (Bld) 14.2 g/dL Normal 11.5-15.5 [facility] Comment on above: Performed By: #### C BCDIFF ####[address] [address] Lymphocytes 3.9 x(10)3/cumm High 0.8-2.9 [facility] Comment on above: Performed By: #### C BCDIFF ####[address] [address] Lymphocytes/100 leukocytes 44.5 % High 12.2-42.6 [facility] Comment on above: Performed By: #### C BCDIFF ####[address] [address] MCH 28.8 pg Normal 27.2-33.6 [facility] Comment on above: Performed By: #### C BCDIFF ####[address] [address] MCHC mass conc (RBC) 34.1 g/dL Normal 32.9-35.3 [facility] Comment on above: Performed By: #### C BCDIFF ####[place] [address] MCV 84.6 fL Normal 81.3-96.7 [facility] Comment on above: Performed By: #### C BCDIFF ####[place] [address] Monocytes 0.5 x(10)3/cumm Normal 0.2-0.8 [facility] Comment on above: Performed By: #### C BCDIFF ####[place] [id number] Monocytes/100 leukocytes 5.9 % Normal 3.3-11.6 [facility] Comment on above: Performed By: #### C BCDIFF ####[place] [id number] Neutrophils 4.1 x(10)3/cumm Normal 1.3-7.4 [facility] Comment on above: Performed By: #### C BCDIFF ####[place] [id number] Platelet mean volume (PMV) 9.0 fL Normal 6.4-10.0 [facility] Comment on above: Performed By: #### C BCDIFF ####[place] [id number] Platelets 379 x(10)3/cumm High 138-367 [facility] Comment on above: Performed By: #### C BCDIFF ####[address] [address] Plt Morph Normal [facility] Comment on above: Performed By: #### C BCDIFF ####[facility] [place] [address] Segmented Neutrophils/100 leukocytes 46.9 % Normal 44.9-78.8 [facility] Comment on above: Performed By: #### C BCDIFF ####[address] [address] WBC (Leukocytes) 8.8 x(10)3/cumm Normal 3.6-10.3 [facility] Comment on above: Performed By: #### C BCDIFF ####[facility] [place] [address] WBC Morph Normal [facility] Comment on above: Performed By: #### C BCDIFF ####[address] [address] Comprehensive Metabolic Pane [facility] 06-16-2017 Alanine aminotransferase (ALT) 111 U/L [facility] 12-78 [facility] Comment on above: Performed By: #### C MP ####[address] [address] Albumin 4.7 g/dL Normal 3.4-5.0 [facility] Comment on above: Performed By: #### C MP ####[address] [address] Alkaline phosphatase (ALP) 87 U/L Normal 45-117 [facility] Comment on above: Performed By: #### C MP ####[address] [address] Anion gap 13 mmol/L Normal [facility] Comment on above: Performed By: #### C MP ####[address] [address] Aspartate aminotransferase (AST) 61 U/L High 15-37 [facility] Comment on above: Performed By: #### C MP ####[address] [address] Bili, Total 0.5 mg/dL Normal 0.2-1.0 [facility] Comment on above: Performed By: #### C MP ####[address] [address] C02 24 mmol/L Normal 21-32 [facility] Comment on above: Performed By: #### C MP ####[address] [address] Calcium 10.0 mg/dL Normal 8.5-10.1 [facility] Comment on above: Performed By: #### C MP ####[address] [address] Chloride 103 mmol/L Normal 98-107 [facility] Comment on above: Performed By: #### C MP ####[place] [id number] Creatinine 0.86 mg/dL Normal 0.60-1.30 [facility] Comment on above: Performed By: #### C MP ####[place] [id number] eGFR (non-black) mL/min/{1.73_m2} Normal >=60 [facility] Comment on above: Performed By: #### C MP ####[address] [address] Glucose mass conc 79 mg/dL Normal 74-106 [facility] Comment on above: Performed By: #### C MP ####[address] [address] Potassium molar conc 4.0 mmol/L Normal 3.5-5.1 [facility] Comment on above: Performed By: #### C MP ####[address] [address] Prot Total 8.7 gm/dL High 6.4-8.2 [facility] Comment on above: Performed By: #### C MP ####[address] [address] Sodium 140 mmol/L Normal 136-145 [facility] Comment on above: Performed By: #### C MP ####[address] [place], [place] [address] Urea nitrogen 13 mg/dL Normal - [facility] Comment on above: Performed By: #### C MP ####[place] [address] Sed Rate - Westergrenon 05-30 Sed Rate 12 mm/hr Normal 0-20 [facility] Comment on above: Performed By: #### E SR ####[place] [address] Urinalysison 06-16-2017 Bili Qual Negative Normal NEGATIVE [facility] Comment on above: Performed By: #### U A ####[place] [address] Blood Negative Normal NEGATIVE [facility] Comment on above: Performed By: #### U A ####[place] [address] Glucose mass conc Norm Normal NORMAL [facility] Comment on above: Performed By: #### U A ####[place] [id number] pH of blood 5 [pH] Normal 5.0-9.0 [facility] Comment on above: Performed By: #### U A ####[place] [id number] Prot Urine Negative Normal NEGATIVE [facility] Comment on above: Performed By: #### U A ####[place] [address] SG 1.020 Normal 1.005-1.030 [facility] Comment on above: Performed By: #### U A ####[address] [address] Urine, character Hazy Normal [facility] Comment on above: Performed By: #### U A ####[place] [id number] Urine, color Yellow [facility] Comment on above: Performed By: #### U A ####[place] [id number] Urine, ketones presence 50 mg/dL Abnormal NEGATIVE [facility] Comment on above: Performed By: #### U A ####[facility] [place] [address] Urine, nitrite presence Negative Normal NEGATIVE [facility] Comment on above: Performed By: #### U A ####[facility] [place] [id number] Urine, urobilinogen Norm Normal NORMAL [facility] Comment on above: Performed By: #### U A ####[facility] [place] [address] WBC (Leukocytes) Negative Normal NEGATIVE [facility] Comment on above: Performed By: #### U A ####[address] [address] XR Ankle left 3 plus viewon 06-16-2017 XR Ankle left 3 plus view LEFT FOOT AND ANKLE:CLINICAL INDICATION: Pain for one year with positive antinuclear antibody.TECHNIQUE: AP, Lat, Oblique foot plus AP, lateral and oblique ankleCOMPARISON: None.FINDINGS: There is no evidence for fracture or dislocation. No bone lesion isidentified. There is no soft tissue abnormality.IMPRESSION : Normal left foot and ankle.RIGHT FOOT AND ANKLE:TECHNIQUE: AP, Lat, Oblique foot plus AP, lateral and oblique ankleCOMPARISON: None.FINDINGS: There is no evidence for fracture or dislocation. No bone lesion isidentified. There is no soft tissue abnormality.IMPRESSION : Normal right foot and ankle.BILATERAL HANDS:TECHNIQUE: PA, Lat, and oblique views of the right and left handCOMPARISON: None.FINDINGS: There is no fracture or dislocation. No arthritic change isidentified. No bone lesion is identified. There is no soft tissue abnormality.IMPRESSION : Normal hands.Report Dictated on Workstation: [id number] cated by: Sally Patel: 06/17/2017 04:17Read by: Yonatan RAE: 06/17/2017 04:20 Normal [facility] XR Ankle right 3 viewson XR Ankle right 3 views LEFT FOOT AND ANKLE:CLINICAL INDICATION: Pain for one year with positive antinuclear antibody.TECHNIQUE: AP, Lat, Oblique foot plus AP, lateral and oblique ankleCOMPARISON: None.FINDINGS: There is no evidence for fracture or dislocation. No bone lesion isidentified. There is no soft tissue abnormality.IMPRESSION : Normal left foot and ankle.RIGHT FOOT AND ANKLE:TECHNIQUE: AP, Lat, Oblique foot plus AP, lateral and oblique ankleCOMPARISON: None.FINDINGS: There is no evidence for fracture or dislocation. No bone lesion isidentified. There is no soft tissue abnormality.IMPRESSION : Normal right foot and ankle.BILATERAL HANDS:TECHNIQUE: PA, Lat, and oblique views of the right and left handCOMPARISON: None.FINDINGS: There is no fracture or dislocation. No arthritic change isidentified. No bone lesion is identified. There is no soft tissue abnormality.IMPRESSION : Normal hands.Report Dictated on Workstation: [id number] cated by: Sally Patel: 06/17/2017 04:17Read by: AHMET PATEL, KATEYate: 06/17/2017 04:20 [facility] XR Foot Left complete 3 plus viewson 06-16-2017 XR Foot Left complete 3 plus views LEFT FOOT AND ANKLE:CLINICAL INDICATION: Pain for one year with positive antinuclear antibody.TECHNIQUE: AP, Lat, Oblique foot plus AP, lateral and oblique ankleCOMPARISON: None.FINDINGS: There is no evidence for fracture or dislocation. No bone lesion isidentified. There is no soft tissue abnormality.IMPRESSION : Normal left foot and ankle.RIGHT FOOT AND ANKLE:TECHNIQUE: AP, Lat, Oblique foot plus AP, lateral and oblique ankleCOMPARISON: None.FINDINGS: There is no evidence for fracture or dislocation. No bone lesion isidentified. There is no soft tissue abnormality.IMPRESSION : Normal right foot and ankle.BILATERAL HANDS:TECHNIQUE: PA, Lat, and oblique views of the right and left handCOMPARISON: None.FINDINGS: There is no fracture or dislocation. No arthritic change isidentified. No bone lesion is identified. There is no soft tissue abnormality.IMPRESSION : Normal hands.Report Dictated on Workstation: [id number] cated by: Sally Patel: 06/17/2017 04:17Read by: AHMET PATEL, KATEYate: 06/17/2017 04:20 [facility] XR Foot Right complete 3 plu s viewson 06-16-2017 XR Foot Right complete 3 plus views LEFT FOOT AND ANKLE:CLINICAL INDICATION: Pain for one year with positive antinuclear antibody.TECHNIQUE: AP, Lat, Oblique foot plus AP, lateral and oblique ankleCOMPARISON: None.FINDINGS: There is no evidence for fracture or dislocation. No bone lesion isidentified. There is no soft tissue abnormality.IMPRESSION : Normal left foot and ankle.RIGHT FOOT AND ANKLE:TECHNIQUE: AP, Lat, Oblique foot plus AP, lateral and oblique ankleCOMPARISON: None.FINDINGS: There is no evidence for fracture or dislocation. No bone lesion isidentified. There is no soft tissue abnormality.IMPRESSION : Normal right foot and ankle.BILATERAL HANDS:TECHNIQUE: PA, Lat, and oblique views of the right and left handCOMPARISON: None.FINDINGS: There is no fracture or dislocation. No arthritic change isidentified. No bone lesion is identified. There is no soft tissue abnormality.IMPRESSION : Normal hands.Report Dictated on Workstation: [id number] cated by: Sally Patel: 06/17/2017 04:17Read by: Yonatan RAE: 06/17/2017 04:20 [facility] XR Hand Left 3 plus viewson 06-16-2017 XR Hand Left 3 plus views LEFT FOOT AND ANKLE:CLINICAL INDICATION: Pain for one year with positive antinuclear antibody.TECHNIQUE: AP, Lat, Oblique foot plus AP, lateral and oblique ankleCOMPARISON: None.FINDINGS: There is no evidence for fracture or dislocation. No bone lesion isidentified. There is no soft tissue abnormality.IMPRESSION : Normal left foot and ankle.RIGHT FOOT AND ANKLE:TECHNIQUE: AP, Lat, Oblique foot plus AP, lateral and oblique ankleCOMPARISON: None.FINDINGS: There is no evidence for fracture or dislocation. No bone lesion isidentified. There is no soft tissue abnormality.IMPRESSION : Normal right foot and ankle.BILATERAL HANDS:TECHNIQUE: PA, Lat, and oblique views of the right and left handCOMPARISON: None.FINDINGS: There is no fracture or dislocation. No arthritic change isidentified. No bone lesion is identified. There is no soft tissue abnormality.IMPRESSION : Normal hands.Report Dictated on Workstation: [id number] cated by: Sally Patel: 06/17/2017 04:17Read by: KATEY RAEate: 06/17/2017 04:20 [facility] XR Hand Right 3 plus viewson 06-16-2017 XR Hand Right 3 plus views LEFT FOOT AND ANKLE:CLINICAL INDICATION: Pain for one year with positive antinuclear antibody.TECHNIQUE: AP, Lat, Oblique foot plus AP, lateral and oblique ankleCOMPARISON: None.FINDINGS: There is no evidence for fracture or dislocation. No bone lesion isidentified. There is no soft tissue abnormality.IMPRESSION : Normal left foot and ankle.RIGHT FOOT AND ANKLE:TECHNIQUE: AP, Lat, Oblique foot plus AP, lateral and oblique ankleCOMPARISON: None.FINDINGS: There is no evidence for fracture or dislocation. No bone lesion isidentified. There is no soft tissue abnormality.IMPRESSION : Normal right foot and ankle.BILATERAL HANDS:TECHNIQUE: PA, Lat, and oblique views of the right and left handCOMPARISON: None.FINDINGS: There is no fracture or dislocation. No arthritic change isidentified. No bone lesion is identified. There is no soft tissue abnormality.IMPRESSION : Normal hands.Report Dictated on Workstation: [id number] cated by: Sally Patel: 06/17/2017 04:17Read by: Yonatan RAE: 06/17/2017 04:20 [facility] Otheron 09-21-2016 CONVERTED CLINICAL HISTORY OPERATIVE PROCEDURE: Laparoscopic appendectomy CLINICAL INFORMATION: Acute appendicitis [facility] CONVERTED ELECTRONIC SIGNATURE BRADEN COSTELLO M.D.,PATHOLOGIST (Electronic signature on file) Final Signed Out: 09/21/2016 13:47 [facility] CONVERTED FINAL DIAGNOSIS FINAL DIAGNOSIS: APPENDIX, APPENDECTOMY - ACUTE APPENDICITIS WITH SEROSITIS. [facility] CONVERTED GROSS DESCRIPTION GROSS DESCRIPTION: Appendix Received in formalin labeled appendix is a specimen consisting of an appendix with stapled margin of resection measuring 6.0 cm in length and 1.8 cm in maximum width. The stapled margin is inked black. The serosa appears dull brown and diffusely ischemic. A defect in the wall is present 3.5 cm from the stapled margin of resection. The wall of the appendix appears fibrotic and thickened. The lumen is dilated up to 1.0 cm with fecalith material. The fecalith material comprises the entire lumen down to the distal tip. [employer] sections consisting of the inked line of resection sectioned from defect and bivalved distal tip is submitted in formalin in cassettes 1 and 2. [facility] CONVERTED ORDERING PROVIDER Ordering Provider: AHMET SHELBY [facility] Vital Signs Date Time Vital Sign Value Performing Clinician Facility 01-30-2025 20:24-0400 Body height 175.26 cm Rojas Loya [employer] Work Phone: [facility] 01-30-2025 20:24-0400 Body mass index (BMI) [Ratio] 28.9 kg/m2 Rojas Loya [employer] Work Phone: [facility] 01-30-2025 20:24-0400 Body temperature 98.1 [degF] Rojas Loya [employer] Work Phone: [facility] 01-30-2025 20:24-0400 Body weight 88.9 kg Rojas Loya [employer] Work Phone: [facility] 01-30-2025 20:24-0400 Diastolic blood pressure 60 mm[Hg] Rojas Loya [employer] Work Phone: [facility] 01-30-2025 20:24-0400 Heart rate 71 /min Rojas Loya [employer] Work Phone: [facility] 01-30-2025 20:24-0400 Respiratory rate 18 /min Rojas Loya [employer] Work Phone: [facility] 01-30-2025 20:24-0400 SaO2% (BldA) [Mass fraction] 98 % Rojas Loya [employer] Work Phone: [facility] 01-30-2025 20:24-0400 Systolic blood pressure 115 mm[Hg] Rojas Loya [employer] Work Phone: [facility] 12-11-2024 18:20-0400 Body height 175.26 cm Rojas Loya [employer] Work Phone: [facility] 12-11-2024 18:20-0400 Body mass index (BMI) [Ratio] 29 kg/m2 Rojas Loya [employer] Work Phone: [facility] 12-11-2024 18:20-0400 Body temperature 97.8 [degF] Rojas Loya [employer] Work Phone: [facility] 12-11-2024 18:20-0400 Body weight 89.35 kg Rojas Loya [employer] Work Phone: [facility] 12-11-2024 18:20-0400 Diastolic blood pressure 60 mm[Hg] Rojas Loya [employer] Work Phone: [facility] 12-11-2024 18:20-0400 Heart rate 57 /min Rojas Loya [employer] Work Phone: [facility] 12-11-2024 18:20-0400 Respiratory rate 18 /min Rojaseric Loya [employer] Work Phone: [facility] 12-11-2024 18:20-0400 SaO2% (BldA) [Mass fraction] 99 % Rojas Loya [employer] Work Phone: [facility] 12-11-2024 18:20-0400 Systolic blood pressure 100 mm[Hg] Rojas Loya [employer] Work Phone: [facility] 11-28-2024 08:26-0400 Body height 152.4 cm Rojas Loya [employer] Work Phone: [facility] 11-24-2024 15:30-0400 Body mass index (BMI) [Ratio] 36.3 kg/m2 Rojas Loya [employer] Work Phone: [facility] 11-24-2024 15:30-0400 Body temperature 97.5 [degF] Rojas Loya [employer] Work Phone: [facility] 11-24-2024 15:30-0400 Body weight 84.36 kg Rojas Loya [employer] Work Phone: [facility] 11-24-2024 15:30-0400 Diastolic blood pressure 60 mm[Hg] Rojas Loya [employer] Work Phone: [facility] 11-24-2024 15:30-0400 Heart rate 68 /min Rojas Loya [employer] Work Phone: [facility] 11-24-2024 15:30-0400 Respiratory rate 18 /min Rojas Loya [employer] Work Phone: [facility] 11-24-2024 15:30-0400 SaO2% (BldA) [Mass fraction] 99 % Rojas Loya [employer] Work Phone: [facility] 11-24-2024 15:30-0400 Systolic blood pressure 115 mm[Hg] Rojas Loya [employer] Work Phone: [facility] 08-09-2024 11:59-0500 Body height 172.7 cm Samreen Perea MD Work Phone: [facility] 08-09-2024 11:59-0500 Body mass index (BMI) [Ratio] 29.41 kg/m2 Samreen Perea MD Work Phone: [facility] 08-09-2024 11:59-0500 Body weight 87.73 kg Samreen Perea MD Work Phone: [facility] 08-09-2024 11:59-0500 Diastolic blood pressure 64 mm[Hg] Samreen Perea MD Work Phone: [facility] 08-09-2024 11:59-0500 Heart rate 76 /min Samreen Perea MD Work Phone: [facility] 08-09-2024 11:59-0500 Respiratory rate 16 /min Samreen Perea MD Work Phone: [facility] 08-09-2024 11:59-0500 Systolic blood pressure 124 mm[Hg] Samreen Perea MD Work Phone: [facility] 05-05-2024 11:45-0400 Body height 172.7 cm Samreen Perea MD Work Phone: [facility] 05-05-2024 11:45-0400 Body mass index (BMI) [Ratio] 30.32 kg/m2 Samreen Perea MD Work Phone: [facility] 05-05-2024 11:45-0400 Body weight 90.45 kg Samreen Perea MD Work Phone: [facility] 05-05-2024 11:45-0400 Diastolic blood pressure 70 mm[Hg] Samreen Perea MD Work Phone: [facility] 05-05-2024 11:45-0400 Heart rate 80 /min Samreen Perea MD Work Phone: [facility] 05-05-2024 11:45-0400 Respiratory rate 16 /min Samreen Perea MD Work Phone: [facility] 05-05-2024 11:45-0400 Systolic blood pressure 124 mm[Hg] Samreen Perea MD Work Phone: [facility] 10-05-2023 11:50-0500 Body height 172.7 cm Samreen Perea MD Work Phone: [facility] 10-05-2023 11:50-0500 Body mass index (BMI) [Ratio] 28.4 kg/m2 Samreen Perea MD Work Phone: [facility] 10-05-2023 11:50-0500 Body weight 84.73 kg Samreen Perea MD Work Phone: [facility] 10-05-2023 11:50-0500 Diastolic blood pressure 68 mm[Hg] Samreen Perea MD Work Phone: [facility] 10-05-2023 11:50-0500 Heart rate 78 /min Samreen Perea MD Work Phone: [facility] 10-05-2023 11:50-0500 Respiratory rate 16 /min Samreen Perea MD Work Phone: [facility] 10-05-2023 11:50-0500 Systolic blood pressure 132 mm[Hg] Samreen Perea MD Work Phone: [facility] 01-26-2023 08:19-0400 Body height 175.3 cm Seven Gutierrez MD Work Phone: [facility] 01-26-2023 08:19-0400 Body mass index (BMI) [Ratio] 31.01 kg/m2 Seven Gutierrez MD Work Phone: [facility] 01-26-2023 08:19-0400 Body weight 95.25 kg Seven Gutierrez MD Work Phone: [facility] 01-07-2023 10:30-0400 Diastolic blood pressure 57 mm[Hg] Seven Gutierrez MD Work Phone: [facility] 01-07-2023 10:30-0400 Heart rate 60 /min Seven Gutierrez MD Work Phone: [facility] 01-07-2023 10:30-0400 Respiratory rate 11 /min Seven Gutierrez MD Work Phone: [facility] 01-07-2023 10:30-0400 Systolic blood pressure 111 mm[Hg] Seven Gutierrez MD Work Phone: [facility] 01-07-2023 10:00-0400 SaO2% (BldA) [Mass fraction] 94 % Seven Gutierrez MD Work Phone: [facility] 01-07-2023 08:19-0400 Body temperature 97.39 [degF] Seven Gutierrez MD Work Phone: [facility] 01-07-2023 06:03-0400 Body height 175.3 cm Seven Gutierrez MD Work Phone: [facility] 01-07-2023 06:03-0400 Body mass index (BMI) [Ratio] 31.75 kg/m2 Seven Gutierrez MD Work Phone: [facility] 01-07-2023 06:03-0400 Body weight 97.52 kg Seven Gutierrez MD Work Phone: [facility] 12-22-2022 08:29-0400 Body height 175.3 cm Seven Gutierrez MD Work Phone: [facility] 12-22-2022 08:29-0400 Body mass index (BMI) [Ratio] 36.18 kg/m2 Seven Gutierrez MD Work Phone: [facility] 12-22-2022 08:29-0400 Body temperature 97.3 [degF] Seven Gutierrez MD Work Phone: [facility] 12-22-2022 08:29-0400 Body weight 111.13 kg Seven Gutierrez MD Work Phone: [facility] 12-22-2022 08:29-0400 Diastolic blood pressure 77 mm[Hg] Seven Gutierrez MD Work Phone: [facility] 12-22-2022 08:29-0400 Heart rate 81 /min Seven Gutierrez MD Work Phone: [facility] 12-22-2022 08:29-0400 Systolic blood pressure 113 mm[Hg] Seven Gutierrez MD Work Phone: [facility] 12-14-2022 11:43-0400 Body height 172.72 cm [facility]hil Wetzel [facility] Work Phone: 12-14-2022 11:43-0400 Body mass index (BMI) [Ratio] 34.06 kg/m2 Nikhil Wetzel [facility] Work Phone: 12-14-2022 11:43-0400 Body surface area Derived from formula 2.14 m2 Nikhil Velazcom Work Phone: [facility] DO Work Phone: 12-14-2022 11:43-0400 Body temperature 96 [degF] Nikhil Jeffersonlum [facility] Work Phone: 12-14-2022 11:43-0400 Body weight 101.61 kg Nikhil Jeffersonlum [facility] DO Work Phone: 12-14-2022 11:43-0400 Diastolic blood pressure 82 mm[Hg] Nikhil Velazcom [facility] Work Phone: 12-14-2022 11:43-0400 Heart rate 84 /min Nikhil Jeffersonlum [facility] DO Work Phone: 12-14-2022 11:43-0400 Respiratory rate 18 /min Nikhil Jeffersonlum [facility] DO Work Phone: 12-14-2022 11:43-0400 Systolic blood pressure 130 mm[Hg] Nikhil Velazcom Work [facility]: [facility] Work Phone: 11-16-2022 11:14-0400 Body height 172.72 cm Nikhil Velazcom Work Phone: [facility] [facility] DO Work Phone: 11-16-2022 11:14-0400 Body mass index (BMI) [Ratio] 35.12 kg/m2 Nikhil Jeffersonlum Work Phone: [facility] DO Work Phone: 11-16-2022 11:14-0400 Body surface area Derived from formula 2.17 m2 Nikhil Jeffersonlum Work Phone: [facility] Work Phone: 11-16-2022 11:14-0400 Body temperature 97.1 [degF] Nikhil Lara Ronnylum Work [facility]: [facility] Work Phone: 11-16-2022 11:14-0400 Body weight 104.78 kg Nikhil Jeffersonlum Work Phone: [facility] DO Work Phone: 11-16-2022 11:14-0400 Diastolic blood pressure 76 mm[Hg] Nikhil Lara Ronnylum Work Phone: [facility] DO Work Phone: 11-16-2022 11:14-0400 Heart rate 76 /min Nikhil Jeffersonlum Work Phone: [facility] DO Work Phone: 11-16-2022 11:14-0400 Respiratory rate 16 /min Nikhil Jane Jeffersonlum Work Phone: [facility] DO Work Phone: 11-16-2022 11:14-0400 Systolic blood pressure 122 mm[Hg] Nikhil Jane Wetzel Work Phone: [facility] DO Work Phone: 10-19-2022 10:07-0500 Body height 172.72 cm Nikhil Lara JomarGaspersantoslinwood Work Phone: [facility] Work Phone: 10-19-2022 10:07-0500 Body mass index (BMI) [Ratio] 37.04 kg/m2 Nikhil Jane Rashard Work [facility]: [facility] Work Phone: 10-19-2022 10:07-0500 Body surface area Derived from formula 2.22 m2 Nikhil Wetzel Work Phone: [facility] Work Phone: 10-19-2022 10:07-0500 Body temperature 97.4 [degF] Nikhil Lara Rashard Work Phone: [facility] DO Work Phone: 10-19-2022 10:07-0500 Body weight 110.5 kg Nikhil Lara Rashard Work Phone: [facility] DO Work Phone: 10-19-2022 10:07-0500 Diastolic blood pressure 70 mm[Hg] Nikhil Wetzel Work [facility] Work Phone: 10-19-2022 10:07-0500 Heart rate 92 /min Nikhil Jeffersonlum Work Phone: [facility] Work Phone: 10-19-2022 10:07-0500 Respiratory rate 16 /min Nikhil Jeffersonlum Work Phone: [facility] Work Phone: 10-19-2022 10:07-0500 Systolic blood pressure 132 mm[Hg] Nikhil Jeffersonlum Work Phone: [facility] [facility] [facility] DO Work Phone: 09-07-2022 10:29-0500 Body height 172.72 cm Nikhil HadleyCallum Work Phone: [facility] Work Phone: 09-07-2022 10:29-0500 Body mass index (BMI) [Ratio] 38.47 kg/m2 Nikhil HadleyCallum Work Phone: [facility] Work Phone: 09-07-2022 10:29-0500 Body surface area Derived from formula 2.26 m2 Nikhil HadleyCallum Work Phone: [facility] Work Phone: 09-07-2022 10:29-0500 Body temperature 96.2 [degF] Nikhil HadleyCallum Work Phone: [facility] Work Phone: 09-07-2022 10:29-0500 Body weight 114.76 kg Nikhil HadleyCallum Work Phone: [facility] Work Phone: 09-07-2022 10:29-0500 Diastolic blood pressure 82 mm[Hg] Nikhil Lara MacCallum Work Phone: [facility] Work Phone: 09-07-2022 10:29-0500 Heart rate 83 /min Nikhil Lara MacCallum Work Phone: [facility] Work Phone: 09-07-2022 10:29-0500 Respiratory rate 16 /min Nikhil Lara MacCallum Work Phone: [facility] [facility] Work Phone: 09-07-2022 10:29-0500 Systolic blood pressure 122 mm[Hg] Nikhil HadleyCallum Work Phone: [facility] Work Phone: 08-16-2022 09:53-0500 Diastolic blood pressure 72 mm[Hg] Brennan Pineda MD Work Phone: [facility] 08-16-2022 09:53-0500 Heart rate 84 /min Brennan Pineda MD Work Phone: [facility] 08-16-2022 09:53-0500 Systolic blood pressure 138 mm[Hg] Brennan Pineda MD Work Phone: [facility] 08-16-2022 09:46-0500 Body height 172.7 cm Brennan Pineda MD Work Phone: [facility] 07-30-2022 11:26-0500 Body height 172.7 cm Brennan Pineda MD Work Phone: [facility] 07-30-2022 11:26-0500 Body mass index (BMI) [Ratio] 38.77 kg/m2 Brennan Pineda MD Work Phone: [facility] 07-30-2022 11:26-0500 Body temperature 97.81 [degF] Brennan Pineda MD Work Phone: [facility] 07-30-2022 11:26-0500 Body weight 115.67 kg Brennan Pineda MD Work Phone: [facility] 07-30-2022 11:26-0500 Diastolic blood pressure 73 mm[Hg] Brennan Pineda MD Work Phone: [facility] 07-30-2022 11:26-0500 Heart rate 88 /min Brennan Pineda MD Work Phone: [facility] 07-30-2022 11:26-0500 Respiratory rate 20 /min Brennan Pineda MD Work Phone: [facility] 07-30-2022 11:26-0500 SaO2% (BldA) [Mass fraction] 98 % Brennan Pineda MD Work Phone: [facility] Comment on above: room air 07-30-2022 11:26-0500 Systolic blood pressure 132 mm[Hg] Brennan Pineda MD Work Phone: [facility] 06-26-2022 16:16-0400 Body height 175.26 cm [facility] Work Phone: 06-26-2022 16:16-0400 Body mass index (BMI) [Ratio] 37.6 kg/m2 [facility] Work Phone: 06-26-2022 16:16-0400 Body temperature 98.1 [degF] [facility] Work Phone: 06-26-2022 16:16-0400 Body weight 115.66 kg [facility] Work Phone: 06-26-2022 16:16-0400 Diastolic blood pressure 90 mm[Hg] [facility] Work Phone: 06-26-2022 16:16-0400 Heart rate 92 /min [facility] Work Phone: 06-26-2022 16:16-0400 Respiratory rate 18 /min [facility] Work Phone: 06-26-2022 16:16-0400 SaO2% (BldA) [Mass fraction] 98 % [facility] Work Phone: 06-26-2022 16:16-0400 Systolic blood pressure 162 mm[Hg] [facility] Work Phone: 01-01-2022 13:25-0400 Diastolic blood pressure 92 mm[Hg] Torin Skinner MD Work Phone: [facility] 01-01-2022 13:25-0400 Heart rate 76 /min Torin Skinner MD Work Phone: [facility] 01-01-2022 13:25-0400 Respiratory rate 18 /min Torin Skinner MD Work Phone: [facility] 01-01-2022 13:25-0400 SaO2% (BldA) [Mass fraction] 98 % Torin Skinner MD Work Phone: [facility] 01-01-2022 13:25-0400 Systolic blood pressure 127 mm[Hg] Torin Skinner MD Work Phone: [facility] 01-01-2022 13:05-0400 Body temperature 98.01 [degF] Torin Skinner MD Work Phone: [facility] 01-01-2022 10:02-0400 Body height 175.3 cm Torin Skinner MD Work Phone: [facility] 01-01-2022 10:02-0400 Body mass index (BMI) [Ratio] 34.7 kg/m2 Torin Skinner MD Work Phone: [facility] 05-05-2022 10:02-0400 Body weight 106.59 kg Torin Skinner MD Work Phone: [facility] 03-24-2021 10:39-0400 Diastolic blood pressure 84 mm[Hg] Seven Gutierrez MD Work Phone: [facility] Work Phone: 03-24-2021 10:39-0400 Heart rate 70 /min Seven Gutierrez MD Work Phone: [facility] Work Phone: 03-24-2021 10:39-0400 Respiratory rate 17 /min Seven Gutierrez MD Work Phone: [facility] Work Phone: 03-24-2021 10:39-0400 SaO2% (BldA) [Mass fraction] 92 % Seven Gutierrez MD Work Phone: [facility] Work Phone: 03-24-2021 10:39-0400 Systolic blood pressure 132 mm[Hg] Seven Gutierrez MD Work Phone: [facility] Work Phone: 03-24-2021 09:48-0400 Body temperature 97 [degF] Seven Gutierrez MD Work Phone: [facility] Work Phone: 03-24-2021 08:55-0400 Body height 175.3 cm Seven Gutierrez MD Work Phone: [facility] Work Phone: 03-24-2021 08:55-0400 Body mass index (BMI) [Ratio] 33.82 kg/m2 Seven Gutierrez MD Work Phone: [facility] Work Phone: 03-24-2021 08:55-0400 Body weight 103.87 kg Seven Gutierrez MD Work Phone: [facility] Work Phone: 02-19-2021 11:30-0400 Diastolic blood pressure 74 mm[Hg] Seven Gutierrez MD Work Phone: [facility] Work Phone: 02-19-2021 11:30-0400 Heart rate 67 /min Seven Gutierrez MD Work Phone: [facility] Work Phone: 02-19-2021 11:30-0400 Respiratory rate 16 /min Seven Gutierrez MD Work Phone: [facility] Work Phone: 02-19-2021 11:30-0400 SaO2% (BldA) [Mass fraction] 96 % Seven Gutierrez MD Work Phone: [facility] Work Phone: 02-19-2021 11:30-0400 Systolic blood pressure 110 mm[Hg] Seven Gutierrez MD Work Phone: [facility] Work Phone: 02-19-2021 10:35-0400 Body temperature 97.5 [degF] Seven Gutierrez MD Work Phone: [facility] Work Phone: 02-19-2021 07:38-0400 Body height 175.3 cm Seven Gutierrez MD Work Phone: [facility] Work Phone: 02-19-2021 07:38-0400 Body mass index (BMI) [Ratio] 33.97 kg/m2 Seven Gutierrez MD Work Phone: [facility] Work Phone: 02-19-2021 07:38-0400 Body weight 104.33 kg Seven Gutierrez MD Work Phone: [facility] Work Phone: Encounters Encounter Date Encounter Type Care Provider Facility Start: 01-30-2025 End: 01-30-2025 ambulatory Rojas Loya W[employer]CLOTH FOLDER-C Work Phone: [facility] Work Phone: Start: 12-11-2024 End: 12-11-2024 ambulatory Rojas Loya W[employer] FOLDER-C Work Phone: [facility] Work Phone: Start: 12-11-2024 End: 12-11-2024 Patient encounter procedure Rojas Loya WASHCL[employer] FOLDER-C -Laboratory, Specimen Work Phone: Start: 12-11-2024 End: 12-11-2024 ambulatory Rojas Loya WASHCLOTH FOLDER Facility:[facility] Start: 11-28-2024 End: 11-28-2024 Patient encounter procedure Ayaz Yoder [facility] Work Phone: Start: 11-28-2024 End: 11-28-2024 ambulatory Rojas Loya WASHCLOTH FOLDER [facility] Start: 11-24-2024 End: 11-24-2024 ambulatory Rojas Loya WASHCLOTH FOLDER-C Work Phone: [facility] Work Phone: Start: 11-24-2024 End: 11-24-2024 Patient encounter procedure Rojas Loya NP-C -Laboratory, Specimen Work Phone: Start: 11-24-2024 End: 11-24-2024 ambulatory Rojas Loya WASHCLOTH FOLDER Facility:[facility] Start: 08-29-2024 End: 08-29-2024 ambulatory Nguyen Mazariegos Clinical Communication Start: 08-29-2024 End: 08-29-2024 Patient encounter procedure Nguyen Mazariegos Clinical Communication Start: 08-09-2024 End: 08-09-2024 ambulatory [facility] Start: 08-09-2024 End: 08-09-2024 Office outpatient visit 15 minutes Samreen Perea MD Work Phone: [facility] Comment on above: Prediabetes (Primary Dx); Vitamin D deficiency; Class 1 obesity due to excess calories without serious comorbidity with body mass index (BMI) of 30.0 to 30.9 in adult Start: 07-17-2024 End: 07-17-2024 ambulatory Rojas Loya WASHCLOTH FOLDER Facility:[facility] Start: 05-05-2024 End: 05-05-2024 ambulatory [facility] Start: 05-05-2024 End: 05-05-2024 Office outpatient visit 15 minutes Samreen Perea MD Work Phone: [facility] Comment on above: Obesity without seri ous comorbidity, unspecified classification, unspecified obesity type (Primary Dx) Start: 01-06-2024 End: 01-06-2024 ambulatory Rojas Loya WASHCLOTH FOLDER Facility:[facility] Start: 10-05-2023 End: 10-05-2023 ambulatory [facility] Start: 10-05-2023 End: 10-05-2023 Office outpatient visit 25 minutes Samreen Perea MD Work Phone: [facility] Comment on above: Obesity without seri ous comorbidity, unspecified classification, unspecified obesity type (Primary Dx); Vitamin D deficiency; Prediabetes Start: 08-16-2023 ambulatory ROJAS LOYA Facil ity:[facility] Start: 08-08-2023 ambulatory ROJAS LOYA Facil ity:[facility] Start: 08-08-2023 End: 08-08-2023 Subsequent hospital visit by physician Brennan Pineda MD Work Phone: [facility] Comment on above: Canceled (Cancel Nicole son Not Listed - Please provide detailed information) Arrived Start: 06-14-2023 End: 06-15-2023 ambulatory NIKHIL [facility] Start: 04-23-2023 AUDIT Nikhil Lara [facility] allum Work Phone: [facility] Work Phone: Start: 03-16-2023 ambulatory MD SAMREEN PEREA Fa cility:[id number] Start: 01-26-2023 End: 01-26-2023 Postop follow up visit related to original px Seven Gutierrez MD Work Phone: [facility] Comment on above: Closed fracture of d istal ends of right radius and ulna with routine healing, subsequent encounter (Primary Dx); Closed fracture dislocation of right elbow with routine healing, subsequent encounter Start: 01-08-2023 AUDIT Nikhil Harris allum Work Phone: [facility] DO Work Phone: Start: 01-07-2023 End: 01-07-2023 Anesthesia consultation Vern Gilbert MD Work Phone: [facility] Start: 01-07-2023 End: 01-07-2023 Subsequent hospital visit by physician Seven Gutierrez MD Work Phone: [facility] Comment on above: Closed fracture disl ocation of right elbow joint, sequela (Primary Dx) Start: 12-25-2022 ambulatory Aleksey Catherine PA-C Work Phone: [facility] Start: 12-23-2022 Telephone encounter Seven nickerson MD Work Phone: [facility] Comment on above: Surgery Scheduling Start: 12-22-2022 End: 12-22-2022 Office outpatient visit 15 minutes Seven Gutierrez MD Work Phone: [facility] Comment on above: Closed fracture of d istal ends of right radius and ulna with routine healing, subsequent encounter (Primary Dx); Closed fracture dislocation of right elbow with routine healing, subsequent encounter Start: 12-14-[address] Nikhil Velazco Facility:[id number] Start: 11-26-2022 AUDIT Nikhil Harris allum [facility] Work Phone: Start: 11-16-2022 Office outpatient vi sit 25 minutes Nikhil Wetzel [facility] Work Phone: Start: 11-16-[address] Nikhil Wetzel Facility:[id number] Start: 10-22-2022 AUDIT Nikhil Harris allum Work Phone: [facility] 100 DO Work Phone: Start: 10-19-[address] Nikhil Singer MacCallum Facility:[id number] Start: 10-06-2022 AUDIT Nikhil Jane Harris allum Work Phone: [facility] 100 DO Work Phone: Start: 09-07-2022 Chart Update Nikhil Jane Harris allum Work Phone: [facility] 100 DO Work Phone: Start: 09-07-[address] Nikhil Singer MacCallum Facility:[id number] Start: 09-07-2022 Office outpatient vi sit 25 minutes Nikhil Wetzel Work Phone: [facility] Work Phone: Start: 08-20-2022 ambulatory ROJAS Velazquez ity:[facility] Start: 08-16-2022 End: 08-16-2022 Subsequent hospital visit by physician Brennan Pineda MD Work Phone: [facility] Comment on above: Arrived Start: 07-30-2022 End: 07-30-2022 [facility] Brennan Pineda MD Work Phone: [facility] Comment on above: Pituitary lesion (Pr imary Dx) Start: 07-06-2022 End: 07-06-2022 ambulatory [facility] Work Phone: Start: 07-06-2022 End: 07-06-2022 Patient encounter procedure [facility] Start: 06-26-2022 End: 06-26-2022 Patient encounter procedure [facility]-Laboratory, Specimen Start: 01-01-2022 End: 01-01-2022 Subsequent hospital visit by physician Torin Skinner MD Work Phone: [facility] Comment on above: Arrived Start: 03-24-2021 End: 03-24-2021 Subsequent hospital visit by physician Seven Gutierrez MD Work Phone: [facility] Comment on above: Closed fracture disl ocation of right elbow with routine healing, subsequent encounter (Primary Dx) Start: 02-19-2021 End: 02-19-2021 Subsequent hospital visit by physician Seven Gutierrez MD Work Phone: [facility] Comment on above: Closed fracture disl ocation of right elbow with routine healing, subsequent encounter (Primary Dx) Start: 11-30-2019 Patient encounter procedure Samreen Hadam [facility] Work Phone: Start: 10-31-2019 Patient encounter procedure Samreen Hadam -[facility] Work Phone: Start: 10-02-2019 Patient encounter procedure Samreen Hadam [facility] Work Phone: Start: 02-08-2019 Patient encounter procedure Samreen Hadam -[facility] Work Phone: Start: 10-24-2018 Patient encounter procedure Samreen Hadam -[facility] Work Phone: Start: 01-31-2018 Patient encounter procedure Samreen Hadam -[facility] Work Phone: Start: 12-01-2017 Ambulatory SEVEN CAMERON Facilit y:[facility] Start: 08-17-2017 End: 08-17-2017 Emergency department patient visit CHAS MCKENZIE Facility:[facility] Start: 06-16-2017 End: 06-17-2017 Ambulatory HERNAN FUNEZ Facility:[facility] Start: 09-18-2016 End: 09-18-2016 Patient encounter procedure Ahmet Milner (Hist) Vince Work Phone: [facility] Start: 09-18-2016 Results Only Ahmet Milner (His t) Vince Work Phone: [facility] Procedures Date Procedure Procedure Detail Performing Clinician Start: 12-11-2024 Urine culture Rojas villalobos W[employer] F[employer]DER-C Work Phone: Start: 11-24-2024 Urine culture Rojas villalobos [employer]-C Work Phone: Start: 06-14-2023 Comprehensive metabo lic 2000 panel - Serum or Plasma NIKHIL JEFFERSONLUM Start: 06-14-2023 Hemoglobin A1c/Hemoglobin.total in Blood NIKHIL HADLEYCALLUM Start: 06-14-2023 VITAMIN D 25-HYDROXY,TOTAL NIKHIL HADLEYCALLUM Start: 01-07-2023 [place] AN ELECTIVE ENDOT MARA AIRWAY Hoa Hamilton [employer]ER - [employer] Work Phone: Start: 12-22-2022 Radex wrist complete minimum 3 views Seven Gutierrez MD Work Phone: Start: 07-30-2022 Cortisol total Marlena M P mariangel PA-C Work Phone: Start: 07-06-2022 MRI of brain with contrast Start: 06-26-2022 Lipid 1996 panel - S virgilio or Plasma Seven Gutierrez MD Work Phone: Start: 01-01-2022 End: 01-01-2022 Colonoscopy Physician Generic Start: 01-01-2022 ENDOSCOPY REPORT Phy sician Generic Start: 11-14-2021 Mammography Seven balderrama MD Work Phone: Start: 03-24-2021 OPERATIVE REPORT 3m Sca nning Start: 02-19-2021 OPERATIVE REPORT 3m Sca nning Start: 01-31-2018 Colonoscopy Samreen rivera MD Work Phone: Start: 09-18-2016 CONVERTED SURGICAL PATHOLOGY Ahmet Milner (Hist) Usjairo Work Phone: Start: 10-28-2015 Mammography Ahmet gill Appendectomy Samreen Hadam Hysterectomy Samreen Hadam Plan of Treatment Date Care Activity Detail Author Start: 2044 RSV Immunization for Adults (1 - 1-dose 75+ series) RSV Immunization for Adults (1 - 1-dose 75+ series) [employer] Start: 01-02-2032 Screening for malign ant neoplasm of colon [facility] Start: 02-01-2028 Screening for malign ant neoplasm of colon [facility] Start: 06-26-2027 Lipid panel Lipid Panel [facility] Start: 06-14-2026 Diabetes mellitus screening Diabetes Screening [facility] Start: 12-14-2025 Diabetes mellitus screening Diabetes Screening [facility] Start: 08-07-2025 End: 08-07-2025 Patient encounter procedure 08/07/2025 9:00 AM EST Office Visit [facility] [address] [phone] Samreen Perea MD [address] [facility], [address] [address] [facility] Start: 05-08-2025 End: 05-08-2025 Patient encounter procedure 05/08/2025 9:00 AM EDT Office Visit [facility] [address] [phone] Samreen Perea MD [address] [facility], [address] [address] [facility] Start: 02-06-2025 End: 02-06-2025 Patient encounter procedure 02/06/2025 9:00 AM EDT Office Visit [facility] [address] [phone] Samreen Perea MD [address] [facility], [address] [address] [facility] Start: 11-07-2024 End: 11-07-2024 Patient encounter procedure 11/07/2024 12:00 PM EDT Office Visit [facility] [address] [phone] Samreen Perea MD [address] [facility], [address] [address] [facility] Start: 06-14-2024 Hemoglobin A1c measurement Diabetes: Hemoglobin A1C [facility] Start: 04-30-2024 COVID-19 Vaccine ( season) COVID-19 Vaccine ( season) [facility] Start: 04-30-2024 COVID-19 Vaccine () COVID-19 Vaccine () [facility] Start: 04-30-2024 Influenza vaccination Influenza Vacc ine (#1) [facility] Start: 02-03-2024 End: 02-03-2024 Patient encounter procedure 02/03/2024 8:15 AM EDT Office Visit [facility] [address] [phone] Samreen Perea MD [address] [facility], [address] [address] [facility] Start: 12-20-2023 DTaP/Tdap/Td vaccine (2 - Td or Tdap) DTaP/Tdap/Td vaccine (2 - Td or Tdap) [facility] Start: 12-20-2023 DTaP/Tdap/Td Vaccine s (2 - Td or Tdap) DTaP/Tdap/Td Vaccines (2 - Td or Tdap) [facility] Start: 12-20-2023 Tetanus vaccination TETANUS U [facility] Start: 11-08-2023 Screening for malign ant neoplasm of breast Breast cancer screen [facility] Start: 10-05-2023 End: 10-05-2024 25-hydroxyvitamin D3 [Mass/volume] in Serum or Plasma Vitamin D 25-Hydroxy,Total (for eval of Vitamin D levels) Lab Routine Vitamin D deficiency Expected: 10/05/2023 (Approximate), Expires: 10/05/2024 [facility] Service Area Work Phone: Comment on above: Expected: 10/05/2023 (Approximate), Expires: 10/05/2024 Start: 10-05-2023 End: 10-05-2024 Comprehensive metabolic 2000 panel - Serum or Plasma Comprehensive Metabolic Panel Lab Routine Vitamin D deficiency Expected: 10/05/2023 (Approximate), Expires: 10/05/2024 [facility] Work Phone: Comment on above: Expected: 10/05/2023 (Approximate), Expires: 10/05/2024 Start: 08-16-2023 End: 08-16-2023 Patient encounter procedure 08/16/2023 12:30 PM EST Office Visit [facility] [address] [place] [phone] Freda Mcallister N, [employer]IL[employer]WARE CLE[employer]ER[employer] [address] [place] [address] [facility] Start: 06-14-2023 FUV, Provider: Samreen Perea, Status: Pen, Time: 11:45 AM FUV, Provider: Samreen Perea, Status: Pen, Time: 11:45 AM [facility] Work Phone: Start: 04-30-2023 COVID-19 VACCINE ( season) COVID[facility]19 VACCINE ( season) [facility] Start: 04-30-2023 Influenza vaccination [facility] Start: 03-16-2023 FUV, Provider: Samreen Perea, Status: Pen, Time: 11:00 AM FUV, Provider: Samreen Perea, Status: Pen, Time: 11:00 AM [facility] Work Phone: Start: 03-03-2023 Hepatitis C screening Hepatitis C Sc [facility] Comment on above: Postponed from 10/13 (Patient Refused) Start: 03-03-2023 HIV screening HIV Screening [facility] Comment on above: Postponed from 10/13 (Patient Refused) Start: 01-26-2023 End: 01-26-2023 Patient encounter procedure 01/26/2023 Office Visit Orthopedic Surgery Seven Gutierrez MD [address] [place], [place] [id number] [facility] Start: 01-26-2023 End: 01-26-2023 Documentation procedure 01/26/2023 Documentation Orthopedic Surgery [facility] Start: 01-07-2023 End: 01-07-2023 Admission to same day surgery center 01/07/2023 Surgery Procedural Seven Gutierrez MD [address] [place], [place] [id number] REMOVAL SYNTHES RADIAL HEAD REPLAEMENT FROM RIGHT ELBOW [ (CPT )] [facility] Comment on above: REMOVAL SYNTHES RADI AL HEAD REPLAEMENT FROM RIGHT ELBOW [ (CPT )] Start: 01-07-2023 End: 01-07-2023 Removal implant deep REMOVAL OF IMPLANT ARM DEEP Unspecified fracture of the lower end of right radius, subsequent encounter for closed fracture with routine healing Unspecified fracture of lower end of right humerus, subsequent encounter for fracture with routine healing 01/07/2023 7:30 AM EDT [facility] Start: 01-07-2023 Subsequent hospital visit by physician 01/07/2023 Hospital Encounter Procedural Seven Gutierrez MD [address] [place] [address] [facility] Start: 12-14-2022 FUV, Provider: Samreen Perea, Status: Pen, Time: 11:15 AM FUV, Provider: Samreen Perea, Status: Pen, Time: 11:15 AM [facility] Work Phone: Start: 11-16-2022 FUV, Provider: Samreen Perea, Status: Pen, Time: 11:15 AM FUV, Provider: Samreen Perea, Status: Pen, Time: 11:15 AM [facility] Work Phone: Start: 11-14-2022 Screening for malign ant neoplasm of breast Mammogram [facility] Start: 10-21-2022 Depression Monitoring Depression [facility] Start: 10-21-2022 Influenza vaccination Flu vacc ine (Season Ended) [facility] Comment on above: Postponed from 04/30 (Patient Refused) Start: 10-19-2022 FUV, Provider: Samreen Perea, Status: Pen, Time: 9:45 AM FUV, Provider: Samreen Perea, Status: Pen, Time: 9:45 AM [facility] Work Phone: Start: 08-20-2022 End: 08-20-2022 Patient encounter procedure 08/20/2022 Office Visit Neurologic Surgery Brennan Pineda MD [address] [place] [address] [facility] Department of Neurological Surgery Start: 08-16-2022 Subsequent hospital visit by physician 08/16/2022 Hospital Encounter Magnetic Resonance Imaging Brennan Pineda MD [address] [place] [phone] [facility] Start: 07-30-2022 End: 07-30-2023 MR Brain and Pituitary and Sella turcica WO and W contrast IV MRI PITUITARY WITH AND WITHOUT CONTRAST Imaging Routine Pituitary lesion Expected: 07/30/2022, Expires: 07/30/2023 [facility] Comment on above: Expected: 07/30/2022 , Expires: 07/30/2023 Start: 04-30-2022 Influenza vaccination INFLUENZA VACC INE (#1) [facility] Start: 10-28-2021 Hepatitis C screening Hepatitis C sc reen [employer] Work Phone: Comment on above: Postponed from 10/13 (Patient Refused) Start: 10-28-2021 HIV screening HIV screen [employer] Work Phone: Comment on above: Postponed from 10/13 (Patient Refused) Start: 05-21-2021 COVID-19 Vaccine (3 - Booster for Moderna series) COVID-19 Vaccine (3 - Booster for Moderna series) [facility] Start: 05-14-2021 Shingles Vaccine (2 of 2) Shingles Vaccine (2 of 2) [employer] Work Phone: Start: 04-30-2021 Influenza vaccination S [facility] Work Phone: Start: 04-08-2021 End: 04-08-2021 Patient encounter procedure 04/08/2021 Office Visit Orthopedic Surgery Seven Gutierrez MD [address] [place] [address] [place] [id number] [phone] [facility] [place] Start: 02-13-2021 COVID-19 Vaccine (3 - Booster for Moderna series) COVID-19 Vaccine (3 - Booster for Moderna series) [facility] Start: 04-30-2020 Influenza vaccination INFLUENZA (#1) [facility] Start: 2019 Pneumococcal Vaccine : 50+ Years (1 of 1 - PCV) Pneumococcal Vaccine: 50+ Years (1 of 1 - PCV) [facility] Start: 2019 Screening for malign ant neoplasm of breast Breast cancer screen [employer] Work Phone: Start: 2019 Screening for malign ant neoplasm of colon Colon cancer screen colonoscopy [employer] Work Phone: Start: 2019 Shingles Vaccine (1 of 2) Shingles Vaccine (1 of 2) [facility] Work Phone: Start: 2019 SHINGRIX VACCINE (1 of 2) SHINGRIX VACCINE (1 of 2) [facility] Start: 2019 Tuberculosis screening COLOREC CHICHI CANCER SCREENING,SEE MODIFIER [facility] Start: 09-24-2019 DIABETES SCREEN DIABETES SCREEN [facility] Start: 10-27-2016 Mammography MAMMOGRAM [facility] Start: 01-16-2015 HPV TESTING HPV TESTING [facility] Start: 01-16-2015 PAP TESTING PAP TESTING [facility] Start: 2014 LIPID SCREEN LIPID SCREEN [facility] Start: 2014 Screening for malign ant neoplasm of colon [facility] Start: 2009 Diabetes screen Diabetes screen [facility] Work Phone: Start: 2009 Lipid panel [facility] Start: 2009 Screening for malign ant neoplasm of breast [facility] Start: 2004 Diabetes screen Diabetes screen [facility] Start: 1990 Screening for malign ant neoplasm of cervix [facility] Start: 1988 DTaP/Tdap/Td vaccine (1 - Tdap) DTaP/Tdap/Td vaccine (1 - Tdap) [facility] Work Phone: Start: 1988 Hepatitis A Vaccines (1 of 2 - Risk 2-dose series) Hepatitis A Vaccines (1 of 2 - Risk 2-dose series) [facility] Start: 1988 Hepatitis B Vaccines (1 of 3 - 19+ 3-dose series) Hepatitis B Vaccines (1 of 3 - 19+ 3-dose series) [facility] Start: 1988 Urine microalbumin profile DTAP,TDAP,TD (1 - Tdap) [facility] Start: 1987 HEPATITIS C SCREENING HEPATITIS C [facility] Start: 1987 Hepatitis C screening S [facility] Start: 1987 HIV SCREENING HIV SCREENING [facility] Start: 1984 HIV screening [facility] Start: 1981 COVID-19 Vaccine (1) COVID-19 Vaccin e (1) [facility] Work Phone: Start: 1981 Depression Monitoring Depression Mon itoring [facility] Start: 1981 Depresssion Monitoring Depresssion M onitoring [facility] Start: 1970 Hepatitis A Vaccines (1 of 2 - Risk 2-dose series) Hepatitis A Vaccines (1 of 2 - Risk 2-dose series) [facility] Start: 1970 MMR Vaccines (1 of 1 - Standard series) MMR Vaccines (1 of 1 - Standard series) [facility] Start: 04-12-1970 COVID-19 VACCINE (#1) COVID-19 VACCI NE (#1) [facility] Start: 1969 Hepatitis B vaccination HEP B VACCINE (1 of 3 - 3-dose series) [facility] Start: 1969 Hepatitis B Vaccines (1 of 3 - 3-dose series) Hepatitis B Vaccines (1 of 3 - 3-dose series) [facility] Start: 1969 Hepatitis C screening O [facility] Start: 1969 HIV screening HIV Screening [facility] Start: 1969 Lipid panel Lipid Panel [facility] Start: 1969 Screening for malign ant neoplasm of colon [facility] Start: 1969 Yearly Adult Physical Yearly Adult P hysical [facility] End: 03-24-2021 Creatinine [Mass/volume] in Serum or Plasma Creatinine, serum Lab STAT One Time for 1 Occurrences starting 03/24/2021 until 03/24/2021 [employer] Work Phone: Comment on above: One Time for 1 Occur rences starting 03/24/2021 until 03/24/2021 End: 02-19-2021 FL Greater Than 1 Hour FL Greater Than 1 Hour Imaging Routine Once for 1 Occurrences starting 02/19/2021 until 02/19/2021 [employer] Work Phone: Comment on above: Once for 1 Occurrenc es starting 02/19/2021 until 02/19/2021 FL Greater Than 1 Hour FL Greate r Than 1 Hour Imaging Routine 02/19/2021 9:04 AM EDT [employer] Work Phone: End: 03-24-2021 FL LESS THAN 1 HOUR FL LESS THAN 1 HOUR Imaging Routine Once for 1 Occurrences starting 03/24/2021 until 03/24/2021 [employer] Work Phone: Comment on above: Once for 1 Occurrenc es starting 03/24/2021 until 03/24/2021 FL LESS THAN 1 HOUR FL LESS THAN 1 HOUR Imaging Routine 03/24/2021 8:27 AM EDT [facility] Work Phone: End: 02-19-2021 Intermittent pulse oximetry Pulse Oximetry Spot Check Respiratory Care Routine One Time for 1 Occurrences starting 02/19/2021 until 02/19/2021 [facility] Work Phone: Comment on above: One Time for 1 Occur rences starting 02/19/2021 until 02/19/2021 End: 03-24-2021 Intermittent pulse oximetry Pulse Oximetry Spot Check Respiratory Care Routine One Time for 1 Occurrences starting 03/24/2021 until 03/24/2021 [facility] Work Phone: Comment on above: One Time for 1 Occur rences starting 03/24/2021 until 03/24/2021 End: 08-16-2022 MR Brain and Pituitary and Sella turcica WO and W contrast IV [facility] Comment on above: 1 Occurrences starti ng 08/16/2022 until 08/16/2022 End: 08-08-2023 MR Brain WO and W contrast IV [facility] Comment on above: 1 Occurrences starti ng 08/08/2023 until 08/08/2023 Nasal Cannula Oxygen Nasal Cannu la Oxygen Respiratory Care Routine As Needed until discontinued starting 03/24/2021 [facility] Work Phone: Comment on above: As Needed until disc ontinued starting 03/24/2021 Nonrebreather mask oxygen Nonrebreather mask oxygen Respiratory Care Routine As Needed until discontinued starting 03/24/2021 [facility] Work Phone: Comment on above: As Needed until disc ontinued starting 03/24/2021 Oxygen therapy [[facility] Data Set] [facility] Work Phone: Comment on above: Daily until disconti nued starting 02/19/2021 As Needed until disc ontinued starting 03/24/2021 Daily until disconti nued starting 03/24/2021 Phase I & II - meter ed glucose [facility] Work Phone: Comment on above: As Needed until disc ontinued starting 02/19/2021 As Needed until disc ontinued starting 03/24/2021 End: 03-24-2021 Potassium w/ Reflex to Magnesium Potassium w/ Reflex to Magnesium Lab Routine One Time for 1 Occurrences starting 03/24/2021 until 03/24/2021 [facility] Work Phone: Comment on above: One Time for 1 Occur rences starting 03/24/2021 until 03/24/2021 End: 03-24-2021 , urine POCT , urine POCT Point of Care Testing Routine One Time for 1 Occurrences starting 03/24/2021 until 03/24/2021 [facility] Work Phone: Comment on above: One Time for 1 Occur rences starting 03/24/2021 until 03/24/2021 End: 03-24-2021 Protime-INR Protime-INR Lab STAT One Time for 1 Occurrences starting 03/24/2021 until 03/24/2021 [facility] Work Phone: Comment on above: One Time for 1 Occur rences starting 03/24/2021 until 03/24/2021 Spirometry panel [facility] Work Phone: Comment on above: Q1H PRN until discon tinued starting 02/19/2021 Q1H PRN until discon tinued starting 03/24/2021 End: 01-01-2022 Surgical Pathology [facility] Work Phone: Comment on above: Once for 1 Occurrenc es starting 01/01/2022 until 01/01/2022 Immunizations Immunization Date Immunization Notes Care Provider Fa cili 05-28-2021 zoster vaccine recombinant Torin Skinner MD Work Phone: [facility] Work Phone: 03-19-2021 zoster vaccine recombinant Seven Gutierrez MD Work Phone: [facility] 12-19-2020 COVID-19, Moderna, P F, 100mcg/0.5mL Seven Gutierrez MD Work Phone: [facility] Work Phone: 11-21-2020 COVID-19, Moderna, P F, 100mcg/0.5mL Seven Gutierrez MD Work Phone: [facility] 12-19-2013 tetanus toxoid, redu raji diphtheria toxoid, and acellular pertussis vaccine, adsorbed Seven Gutierrez MD Work Phone: [facility] Work Phone: Payers Date Payer Category Payer Self-pay [id number] [id number] 10-28-2022 Managed Care (Private) MEDICAL M MNUAL SUPER MED [id number] 05-30-2022 Commercial Managed C [facility] MMO SUPERMED [id number] 08-30-2021 Unknown [id number] 08-30-2021 Unknown [id number]. [id number] 06-23-2020 Unknown [id number]. [id number] 08-30-2016 Private Health Insurance [facility] MEDICA CHOICE PLUS [id number] 08/30/2016-Present Indemnity [id number]. [id number] 1970 Unknown [id number] 2.16.840.1.980124.3.579.2. 356 1969 Unknown [id number] 2.16.840.1.228873.3.579.2. 356 1969 Unknown [id number] 2.16.840.1.317801.3.579.2. 356 1969 Unknown [id number] 2.16.840.1.607915.3.579.2. 356 1969 Unknown [id number] 2.16.840.1.542469.3.579.2. 356 1969 Unknown [id number] 2.16.840.1.778350.3.579.2. 1245 1969 Unknown [id number] 2.16.840.1.215739.3.579.2. 1244 1969 Unknown [id number] 2.16.840.1.830080.3.579.2. 1244 1969 Unknown [id number] 2.16.840.1.440818.3.579.2. 1244 08-30-1960 Unknown [id number] Unknown [id number] 2.16.840.1.310816.3.579.2. 594 Unknown [id number] 2.16.840.1.035848.3.579.2. 594 Unknown [id number] 2.16.840.1.003351.3.579.2. 594 Unknown [id number] 2.16.840.1.275238.3.579.2. 594 Private Health Insurance [id number] Unknown [id number] 2.16.840.1.456399.3.579.2. 462 Unknown [id number] 2.16.840.1.239728.3.579.2. 462 Unknown [id number] 2.16.840.1.362128.3.579.2. 462 Unknown [id number] 2.16.840.1.956140.3.579.2. 462 Unknown [id number] 2.16.840.1.097003.3.579.2. 462 Social History Date Type Detail Facility Start: 05-20-2016 End: 11-28-2024 Tobacco smoking status NHIS Never smoker [facility] Start: 05-20-2016 Alcohol intake Current drinke r of alcohol (finding) [facility] Start: 04-03-2016 Tobacco Comment denies use of tobacc o [facility] Start: 05-20-2016 Alcohol Comment denies use of alcohol,states socially drinks [facility] Start: 1970 Sex Assigned At Not on file [facility] Start: 02-19-2021 End: 06-14-2023 Tobacco use and exposure Never used [facility] Start: 12-22-2021 End: 08-09-2024 Exposure to SARS-CoV-2 (event) Not sure [facility] Start: 03-24-2021 End: 01-26-2023 Alcohol intake Ex-drinker (finding) [facility] Work Phone: Start: 10-28-2020 History SDOH Physica l Activity DPW 0 [facility] Work Phone: Start: 10-28-2020 History SDOH Financial 4 [facility] Work Phone: Start: 10-28-2020 History SDOH Food Worry 1 [facility] Work Phone: Start: 10-28-2020 History SDOH Transport Med 2 [facility] Work Phone: Start: 10-28-2020 Alcohol Comment once monthly [facility] Work Phone: Start: 06-26-2022 Tobacco smoking status NHIS Unknown if ever smoked [facility] Work Phone: Start: 06-26-2022 Non-smoker [facility] Start: 1970 Sex Assigned At Female W [facility] Start: 08-06-2022 End: 08-16-2022 Exposure to SARS-CoV-2 (event) Unable to assess [facility] Start: 08-20-2022 End: 01-26-2023 No alcohol use No alcohol use [facility] Start: 08-20-2022 End: 01-26-2023 Tobacco use panel [facility] Adolescent depressio n screening assessment 0 [facility] Start: 04-04-2024 Gender identity Identifies as female gender (finding) [facility] Start: 03-30-2022 End: 12-14-2024 Sex Female (finding) [facility] NEGATED: Highlighted row - - [facility] Work Phone: Functional Status Date Assessment Result Facility NEGATED: Highlighted row Functional performance Functional status health issues are not documented [facility] Work Phone: Mental Status Date Assessment Result Facility NEGATED: Highlighted row Cognitive function [Interpretation] Cognitive status health issues are not documented [facility] Work Phone: Clinical Notes 11-29-2019 to 01-30-2025 Note Date & Type Note Facility 01-30-2025 Progress note Note Date/Time January 30, 2025 8:26pm [facility] [address] [place] [address] OFFICE VISIT Date of Service: 01/30/25 MR#: [id number] Acct: [id number] Name: IRENE VILLAGRAN Rep #: [id number] : 1970 Provider: OSCAR Loya Age/Sex: 54/F Location: [facility] Status: Signed Intake Vital Signs 12/11/24 18:20 01/30/25 20:24 Height 5 ft 9 in 5 ft 9 in Weight: 197 lb 196 lb BMI 29.0 28.9 BP 100/60 115/60 Blood Pressure Location Rt brachial Rt brachial Position Sitting Sitting Respiration 18 18 Temp 97.8 F 98.1 F Temp Source Surface Surface Pulse 57 L 71 Pulse Source Doppler Doppler Pulse Oximetry (%) 99 98 Oxygen Delivery Method room air room air Intake Visit Reasons: medication refills Accompanied by: Self Is patient in pain?: No Allergies Sulfa (Sulfonamide Antibiotics) Allergy (Verified 07/18/21 18:04) Hives Medications ?Medication ?Instructions ?Recorded ?Confirmed ?Type duloxetine 30 mg capsule,delayed 30 mg PO DAILY #90 ca ps 07/17/24 01/30/25 Rx release gabapentin 300 mg capsule 600 mg (2 x 300 mg) PO QHS n erve 07/17/24 01/30/25 Rx pain in Arm and back #180 caps ciprofloxacin HCl 500 mg tablet 500 mg PO BID #14 tabs 11/24/24 01/30/25 Rx (Cipro) hydroxyzine HCl 10 mg tablet 10 mg PO TID-QID PRN anxi ety #90 11/24/24 01/30/25 Rx tabs trazodone 50 mg tablet 50 mg PO QHS PRN 11/24/24 History amoxicillin 875 mg-potassium 1 tab PO BID #14 tabs 01/30/25 Rx clavulanate 125 mg tablet fluconazole 150 mg tablet 150 mg PO Q3D #2 tabs 01/30/25 Rx zolpidem 10 mg tablet (Ambien) 10 mg PO QHS insomnia # 30 tabs 01/30/25 01/30/25 Rx Is last menstrual period known: No Post menopausal: Yes Patient : No PFSH Medical History Migraines Obesity Anxiety and depression Surgical History History of surgery on arm Hx of appendectomy History of hysterectomy Family History Mother Diabetes Father Diabetes Cancer Aunt Breast cancer Social History household members: spouse Smoking Status: Never smoker alcohol intake: never substance use type: does not use HPI HPI HPI HPI: IRENE VILLAGRAN, is a 54 F who presents to the office today for medication refill for her Ambien. No other concerns doing well works from home. ROS Const Constitutional: No anorexia, body ache, chills, excessive sweating, fatigue, fever(s), frequent falls, headache(s), decreased energy, malaise, night sweats, snoring, weakness, weight change, sleep problems, abnormal sleep pattern, changein appetite or other Eyes Eyes: No blurry vision, change in vision, double vision, discharge, dry eyes, bulging eyes, floaters, visual disturbances, eye pain, Light sensitivity, spots in vision, tunnel vision or other ENT ENT: No abnormal hearing, ear or mastoid pain, ear discharge, ear pressure, hearing loss, tinnitus, dizziness/vertigo, balance problems, nosebleed/epistaxis, nasal congestion, nasal obstruction, nose pain, sinus pressure, sinus pain, nasal discharge, post nasal drip, headache(s), facial pain, dental pain, dry mouth, difficulty swallowing, bad breath, hoarseness, lip swelling, mouth lesions, mouth pain, neck pain, sore throat, tongue swelling, throat swelling or other Resp Respiratory: No cough, change in phlegm color, chest congestion, excessive phlegm production, hemoptysis, pain on inspiration, shortness of breath, pain with cough, snoring, stridor, wheezing or other Cardio Cardiology: No chest pain at rest, chest pain with exertion, leg pain with exertion, excessive sweating, shortness of breath, dyspnea on exertion, generalized swelling, irregular heart rhythm, lightheadedness, orthopnea, radiating jaw, neck or arm pain, fast heart rate, slow heart rate, palpitations or other Gastro GI: No abdominal pain, No belching, No bloating, No change in bowel habits, No change in stool character, No coffee ground emesis, No constipation, No cramping, No diarrhea, No heartburn, No Difficulty Swallowing, No feeling full early, No excessive flatus, No incontinent of stools, No Vomiting blood/hematemesis, No Blood in stool, No loose stools, No Black,tarry stools, Nonausea/dyspepsia, No pain with swallowing, No vomiting, No hemorrhoids, No rectal pain and No other Genitourinary: No difficulty urinating, burning urination, painful urination, urinary frequency, urinary urgency or blood in urine Musc Musculoskeletal: No abnormal gait, joint pain, back pain, deformity, joint swelling, limited range of motion, loss of height, muscle cramps, muscle weakness, decreased muscle mass, myalgias, neck pain, numbness, radiating pain into limb, stiffness, tingling, restless legs, leg pain with exertion or other Skin Skin: No acne, hair loss in leg, change in hair, nail changes, boil, change in skin color, dry skin, redness, excessive hair growth, yellowing of the eye, lesions, itchy eyes, rash, skin pain, skin ulcer, sores, skin swelling, wounds or other Breast Breast: No other Neuro Neurology: No abnormal gait, abnormal hearing, abnormal movements, abnormal speech, behavioral changes, confusion, unsteady gait/balance, dizziness, weakness, frequent falls, headache(s), lack of coordination, loss of vision, memory loss, numbness, tingling, visual disturbances, restless legs, fainting, tremor(s) or other Psych Psychiatric: No abnormal sleep pattern, No lack of enjoyment, No anxiety, No behavioral changes, No change in appetite, No confusion, No depression, No difficulty concentrating, No hopelessness, No irritability, No memory loss, No mood swings, No panic attacks, No paranoia, No Thoughts of harming yourself/Others, No hallucinations and No other Endo Endo: No excessive sweating, No fatigue and No other Aller/Imm Allergy/Immunologic: No itchy eyes, lip swelling, throat swelling, tongue swelling or wheezing Exam Const Constitutional: Yes cooperative and Yes healthy appearing Orientation: Yes alert, awake and oriented x3 HENMT Head: Yes normocephalic Neck Neck: normal visual inspection Eyes General: Yes appearance normal, both eyes and all related structures Resp Effort & Inspection: No stridor Auscultation: Yes clear to auscultation bilaterally Cardio Palpitation: Yes normal PMI Rate: Yes regular rate Rhythm: Yes regular rhythm GI Palpation: Yes soft and no hepatosplenomegaly Rectal Exam: No hemorrhoids General: Yes bladder normal to inspection; No CVA tenderness Musc Cervical Spine: Yes cervical ROM normal Thoracic/Lumbar Spine: Yes thoracic and lumbar spine normal to inspection Skin General: no rashes or lesions noted Lesions: Yes no lesions Extrem General: Yes normal to inspection Neuro General: Yes CN's II-XI intact bilaterally, alert, oriented x3 and deep tendon reflexes 2+ bilaterally Cranial Nerves: Yes CN's II-XI intact bilaterally Speech: Yes speech normal Gait: Yes normal gait Motor: No weakness Psych Appearance: Positive grossly normal Mood: Positive congruent mood Affect: Positive normal affect Speech and Movement: Yes speech and movement normal Attitude: Yes cooperative Thought Process: Yes normal Thought Content: Yes normal Judgment: Yes judgment good Coding Level of Care Code Off vis,est,level 3 Diagnoses Primary insomnia F51.01 Insomnia type: primary Anxiety F41.9 Assessment and Plan Assessment and Plan (1) Insomnia: Status: Acute Qualifiers: Insomnia type: primary Qualified Code(s): F51.01 - Primary insomnia (2) Anxiety: Status: Acute Medications: New zolpidem (Ambien) 10 mg PO QHS 30 tabs 5RF insomnia Patient Instructions: TAke the medication as prescribed follow up as needed 01/30/252025 <Electronically signed by Rojas Teague on [facility]STENS[facility]-C> Date _ Rojas Loya NP, NP-C CC: ~ [facility] Work Phone: 1(423) 497-245506-03-2025 Progress noteAfter Hours Family Medicine [address] [place] [address] OFFICE VISIT Date of Service: 01/30/25 MR#: [id number] Acct: [id number] Name: IRENE VILLAGRAN Rep #: [id number] : 1970 Provider: OSCAR Loya Age/Sex: 54/F Location: [facility] Status: Signed Intake Vital Signs 12/11/24 18:20 01/30/25 20:24 Height 5 ft 9 in 5 ft 9 in Weight: 197 lb 196 lb BMI 29.0 28.9 BP 100/60 115/60 Blood Pressure Location Rt brachial Rt brachial Position Sitting Sitting Respiration 18 18 Temp 97.8 F 98.1 F Temp Source Surface Surface Pulse 57 L 71 Pulse Source Doppler Doppler Pulse Oximetry (%) 99 98 Oxygen Delivery Method room air room air Intake Visit Reasons: medication refills Accompanied by: Self Is patient in pain?: No Allergies Sulfa (Sulfonamide Antibiotics) Allergy (Verified 07/18/21 18:04) Hives Medications ?Medication ?Instructions ?Recorded ?Confirmed ?Type duloxetine 30 mg capsule,delayed 30 mg PO DAILY #90 ca ps 07/17/24 01/30/25 Rx release gabapentin 300 mg capsule 600 mg (2 x 300 mg) PO QHS n erve 07/17/24 01/30/25 Rx pain in Arm and back #180 caps ciprofloxacin HCl 500 mg tablet 500 mg PO BID #14 tabs 11/24/24 01/30/25 Rx (Cipro) hydroxyzine HCl 10 mg tablet 10 mg PO TID-QID PRN anxi ety #90 11/24/24 01/30/25 Rx tabs trazodone 50 mg tablet 50 mg PO QHS PRN 11/24/24 History amoxicillin 875 mg-potassium 1 tab PO BID #14 tabs 01/30/25 Rx clavulanate 125 mg tablet fluconazole 150 mg tablet 150 mg PO Q3D #2 tabs 01/30/25 Rx zolpidem 10 mg tablet (Ambien) 10 mg PO QHS insomnia # 30 tabs 01/30/25 01/30/25 Rx Is last menstrual period known: No Post menopausal: Yes Patient : No PFSH Medical History Migraines Obesity Anxiety and depression Surgical History History of surgery on arm Hx of appendectomy History of hysterectomy Family History Mother Diabetes Father Diabetes Cancer Aunt Breast cancer Social History household members: spouse Smoking Status: Never smoker alcohol intake: never substance use type: does not use HPI HPI HPI HPI: IRENE VILLAGRAN, is a 54 F who presents to the office today for medication refill for her Ambien. No other concerns doing well works from home. ROS Const Constitutional: No anorexia, body ache, chills, excessive sweating, fatigue, fever(s), frequent falls, headache(s), decreased energy, malaise, night sweats, snoring, weakness, weight change, sleep problems, abnormal sleep pattern, changein appetite or other Eyes Eyes: No blurry vision, change in vision, double vision, discharge, dry eyes, bulging eyes, floaters, visual disturbances, eye pain, Light sensitivity, spots in vision, tunnel vision or other ENT ENT: No abnormal hearing, ear or mastoid pain, ear discharge, ear pressure, hearing loss, tinnitus,dizziness/vertigo, balance problems, nosebleed/epistaxis, nasal congestion, nasal obstruction, nosepain, sinus pressure, sinus pain, nasal discharge, post nasal drip, headache(s), facial pain, dental pain, dry mouth, difficulty swallowing, bad breath, hoarseness, lip swelling, mouth lesions, mouthpain, neck pain, sore throat, tongue swelling, throat swelling or other Resp Respiratory: No cough, change in phlegm color, chest congestion, excessive phlegm production, hemoptysis, pain on inspiration, shortness of breath, pain with cough, snoring, stridor, wheezing or other Cardio Cardiology: No chest pain at rest, chest pain with exertion, leg pain with exertion, excessive sweating, shortness of breath, dyspnea on exertion, generalized swelling, irregular heart rhythm, lightheadedness, orthopnea, radiating jaw, neck or arm pain, fast heart rate, slow heart rate, palpitations or other Gastro GI: No abdominal pain, No belching, No bloating, No change in bowel habits, No change in stool character, No coffee ground emesis, No constipation, No cramping, No diarrhea, No heartburn, No Difficulty Swallowing, No feeling full early, No excessive flatus, No incontinent of stools, No Vomiting bloo d/hematemesis, No Blood in stool, No loose stools, No Black,tarry stools, Nonausea/dyspepsia, No pain with swallowing, No vomiting, No hemorrhoids, No rectal pain and No other Genitourinary: No difficulty urinating, burning urination, painful urination, urinary frequency, urinary urgency or blood in urine Musc Musculoskeletal: No abnormal gait, joint pain, back pain, deformity, joint swelling, limited range of motion, loss of height, muscle cramps, muscle weakness, decreased muscle mass, myalgias, neck pain, numbness, radiating pain into limb, stiffness, tingling, restless legs, leg pain with exertion orother Skin Skin: No acne, hair loss in leg, change in hair, nail changes, boil, change in skin color, dry skin, redness, excessive hair growth, yellowing of the eye, lesions, itchy eyes, rash, skin pain, skin ulcer, sores, skin swelling, wounds or other Breast Breast: No other Neuro Neurology: No abnormal gait, abnormal hearing, abnormal movements, abnormal speech, behavioral changes, confusion, unsteady gait/balance, dizziness, weakness, frequent falls, headache(s), lack of coordination, loss of vision, memory loss, numbness, tingling, visual disturbances, restless legs, fainting, tremor(s) or other Psych Psychiatric: No abnormal sleep pattern, No lack of enjoyment, No anxiety, No behavioral changes, Nochange in appetite, No confusion, No depression, No difficulty concentrating, No hopelessness, No irritability, No memory loss, No mood swings, No panic attacks, No paranoia, No Thoughts of harming yo urself/Others, No hallucinations and No other Endo Endo: No excessive sweating, No fatigue and No other Aller/Imm Allergy/Immunologic: No itchy eyes, lip swelling, throat swelling, tongue swelling or wheezing Exam Const Constitutional: Yes cooperative and Yes healthy appearing Orientation: Yes alert, awake and oriented x3 HENMT Head: Yes normocephalic Neck Neck: normal visual inspection Eyes General: Yes appearance normal, both eyes and all related structures Resp Effort & Inspection: No stridor Auscultation: Yes clear to auscultation bilaterally Cardio Palpitation: Yes normal PMI Rate: Yes regular rate Rhythm: Yes regular rhythm GI Palpation: Yes soft and no hepatosplenomegaly Rectal Exam: No hemorrhoids General: Yes bladder normal to inspection; No CVA tenderness Musc Cervical Spine: Yes cervical ROM normal Thoracic/Lumbar Spine: Yes thoracic and lumbar spine normal to inspection Skin General: no rashes or lesions noted Lesions: Yes no lesions Extrem General: Yes normal to inspection Neuro General: Yes CN's II-XI intact bilaterally, alert, oriented x3 and deep tendon reflexes 2+ bilaterally Cranial Nerves: Yes CN's II-XI intact bilaterally Speech: Yes speech normal Gait: Yes normal gait Motor: No weakness Psych Appearance: Positive grossly normal Mood: Positive congruent mood Affect: Positive normal affect Speech and Movement: Yes speech and movement normal Attitude: Yes cooperative Thought Process: Yes normal Thought Content: Yes normal Judgment: Yes judgment good Coding Level of Care Code Off vis,est,level 3 Diagnoses Primary insomnia F51.01 Insomnia type: primary Anxiety F41.9 Assessment and Plan Assessment and Plan (1) Insomnia: Status: Acute Qualifiers: Insomnia type: primary Qualified Code(s): F51.01 - Primary insomnia (2) Anxiety: Status: Acute Medications: New zolpidem (Ambien) 10 mg PO QHS 30 tabs 5RF insomnia Patient Instructions: TAke the medication as prescribed follow up as needed 01/30/252025 on 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 _ Rojas Loya [employer] W[employer]-C CC: ~ [facility]03-28-2025 Evaluation note* Diagnosis Onset Date Resolution Status Admit Date Anxiety acute November 24 3:18pm Cystitis acute November 24 3:18pm [facility] Work Phone: 1([phone]) 339-520803-28-2025 Evaluation note* Diagnosis Onset Date Resolution Status Admit Date Anxiety acute November 24 3:18pm Cystitis acute November 24 3:18pm Cystitis acute December 11 5:57pm Frequency of urination acute Ap 2024 5:57pm [facility] Work Phone: [phone] Evaluation note* Diagnosis Onset Date Resolution Status Admit Date Anxiety acute November 24 3:18pm Cystitis acute November 24 3:18pm Cystitis acute December 11 5:57pm Frequency of urination acute Ap ril 2024 5:57pm Anxiety acute January 30, 2025 5:45pm Insomnia acute January 30, 2025 5:45pm [facility] Work Phone: [phone] 215-572412-31-2024 Telephone encounter Note* Telephone Encounter - Nguyen Cardona RN - 08/29/2024 9:46 AM EST S: Patient spoke with [facility] nurse regarding sore throat. B: Onset of symptoms 08/23/24. MELVIN 03/20. A: Nasal congestion, R ear pain, sore throat, headache, 101.0 last night. Taking [place] day and night severe cold med. R: Referred to for eval, No available appointments today. Patient understands care advice. No further needs at this time. Patient instructed to call back with new or worsening symptoms. Reason for Disposition All other earaches (Exceptions: Brief ear pain lasting < 1 hour, and earache occurring during air travel.) Protocols used: [id number] [id number] Miscellaneous Notes* Telephone Encounter - Nguyen Cardona RN - 08/29/2024 9:46 AM EST S: Patient spoke with [facility] nurse regarding sore throat. B: Onset of symptoms 08/23/24. MELVIN 03/20. A: Nasal congestion, R ear pain, sore throat, headache, 101.0 last night. Taking Meli [place] day and night severe cold med. R: Referred to for eval, No available appointments today. Patient understands care advice. No further needs at this time. Patient instructed to call back with new or worsening symptoms. Reason for Disposition All other earaches (Exceptions: Brief ear pain lasting < 1 hour, and earache occurring during air travel.) Protocols used: [id number] documented in this [facility]12-11-2024 Evaluation + Plan note* Assessment & Plan Note - Samreen Perea MD - 08/09/2024 11:30 AM EST Associated Problem(s): Prediabetes Labs when able Continue qsymia but increase dose Follow up in 3 months [facility] Work Phone: [phone] Evaluation + Plan note* Assessment & Plan Note - Samreen Perea MD - 08/09/2024 11:30 AM ESTAssociated Problem(s): Vitamin D deficiency Recheck due [facility] Work Phone: 1([phone] 375-327812-11-2024 Evaluation + Plan note* Assessment & Plan Note - Samreen Perea MD - 08/09/2024 11:30 AM ESTAssociated Problem(s): Obesity Orders: phentermine-topiramate (Qsymia) 15-92 mg capsule, ER multiphase 24 hr; Take 1 capsule by mouth oncedaily. [facility] Work Phone: 1([phone]) 100-516012-11-2024 History of Present illness Narrative* Samreen Perea MD - 08/09/2024 11:30 AM EST Endocrinology: Follow up visit Subjective Patient ID: Irene Colvin is a 53 y.o. female who presents for Prediabetes and Obesity. PCP: Nikhil Wetzel MD HPI Since last visit tried to get wegovy but not covered so back on qsymia Down 6 lbs, working on eating and activity I have personally reviewed the OARRS report for TP . This is recorded in the EMR. I have consideredthe risks of abuse, dependence, addiction, and diversion. I believe that it is clinically appropriate for TP to be prescribed this medication. Review of Systems Constitutional: Negative for chills, fatigue and fever. Respiratory: Negative for cough and shortness of breath. Cardiovascular: Negative for chest pain and palpitations. Gastrointestinal: Negative for diarrhea, nausea and vomiting. Neurological: Negative for headaches. Patient Active Problem List Diagnosis Bilateral sciatica Elevated liver function tests Elevated parathyroid hormone Hyperglycemia Mild depression Obesity Prediabetes Vitamin D deficiency Steatosis of liver Symptomatic menopausal or female climacteric states Recurrent major depressive disorder, in partial remission ([facility]) Insomnia Primary insomnia Gastroesophageal reflux disease without esophagitis Anxiety Adenomatous rectal polyp Abrasion of right ear canal Home Meds: Current Outpatient Medications Medication Instructions DULoxetine (CYMBALTA) 30 mg, Daily gabapentin (Neurontin) 300 mg capsule 1 capsule, Nightly PRN hydrOXYzine HCL (Atarax) 10 mg tablet TAKE 1 TABLET BY MOUTH 3 TO 4 TIMES PER DAY NEEDED FOR ANXIETY Nurtec ODT 75 mg tablet,disintegrating TAKE 1 TABLET BY MOUTH ONCE NEEDED FOR MIGRAINE HEADACHE A SINGLE DOSE phentermine-topiramate (Qsymia) 11.25-69 mg capsule, ER multiphase 24 hr 1 capsule, oral, Daily phentermine-topiramate (Qsymia) 15-92 mg capsule, ER multiphase 24 hr 1 capsule, oral, Daily phentermine-topiramate (Qsymia) 3.75-23 mg capsule, ER multiphase 24 hr 1 capsule, oral, Daily traZODone (DESYREL) 50 mg, Nightly Wegovy 0.25 mg, subcutaneous, Every 7 days zolpidem (AMBIEN) 10 mg, Nightly PRN Allergies Allergen Reactions Oxycodone Other Unable to sleep Oxycodone-Acetaminophen Other Other reaction(s): Other (See Comments) Unable to go to sleep Unable to go to sleep Sulfa (Sulfonamide Antibiotics) Hives Last time had she was 17 Last time had she was 17 Last time had she was 17 Phenazopyridine Hives and Nausea And Vomiting pyridium Objective Vitals: 08/09/24 1159 BP: 124/64 Pulse: 76 Resp: 16 Vitals: 08/09/24 1159 Weight: 87.7 kg (193 lb 6.4 oz) Body mass index is 29.41 kg/m . Physical Exam Constitutional: Appearance: Normal appearance. She is overweight. HENT: Head: Normocephalic and atraumatic. Neck: Thyroid: No thyroid mass, thyromegaly or thyroid tenderness. Cardiovascular: Rate and Rhythm: Normal rate and regular rhythm. Heart sounds: No murmur heard. No gallop. Pulmonary: Effort: Pulmonary effort is normal. Breath sounds: Normal breath sounds. Abdominal: Palpations: Abdomen is soft. Comments: benign Neurological: General: No focal deficit present. Mental Status: She is alert and oriented to person, place, and time. Deep Tendon Reflexes: Reflexes are normal and symmetric. Psychiatric: Behavior: Behavior is cooperative. Labs: Lab Results Component Value Date HGBA1C 5.1 06/14/2023 No results found for: PR1, THYROIDPAB, TSI Assessment/Plan Assessment & Plan Prediabetes Labs when able Continue qsymia but increase dose Follow up in 3 months Vitamin D deficiency Recheck due Class 1 obesity due to excess calories without serious comorbidity with body mass index (BMI) of 30.0 to 30.9 in adult Orders: phentermine-topiramate (Qsymia) 15-92 mg capsule, ER multiphase 24 hr; Take 1 capsule by mouth oncedaily. Electronically signed by: Samreen Perea MD 08/09/24 12:37 PM documented in this [facility] Work Phone: 1(908) 519-996812-11-2024 Miscellaneous Notes* Assessment & Plan Note - Samreen Perea MD - 08/09/2024 11:30 AM ESTAssociated Problem(s): Prediabetes Labs when able Continue qsymia but increase dose Follow up in 3 months * Assessment & Plan Note - Samreen Perea MD - 08/09/2024 11:30 AM EST Associated Problem(s): Vitamin D deficiency Recheck due * Assessment & Plan Note - Samreen Perea MD - 08/09/2024 11:30 AM EST Associated Problem(s): Obesity Orders: phentermine-topiramate (Qsymia) 15-92 mg capsule, ER multiphase 24 hr; Take 1 capsule by mouth oncedaily. [facility]: 1([phone]) [phone] Evaluation + Plan note* Assessment & Plan Note - Samreen Perea MD - 05/05/2024 11:30 AM EDTAssociated Problem(s): Obesity Orders: semaglutide, weight loss, (Wegovy) 0.25 mg/0.5 mL pen injector; Inject 0.25 mg under the skin every7 days. discussed options: wegovy vs qsymia Will put in wegovy to check coverage, if not feasible will start back on qsymia [facility] Work Phone: [phone] 565-566809-06-2024 History of Present illness Narrative* Samreen Perea MD - 05/05/2024 11:30 AM EDT Endocrinology: Follow up visit Subjective Patient ID: Irene Colvin is a 53 y.o. female who presents for Prediabetes and Obesity. PCP: Nikhil Wetzel MD HPI Here for follow up obesity Since last visit went off qsymia but then regained 13 lbs in 3 months Now wants to discuss options Still working on eating and activity Review of Systems Constitutional: Negative for chills, fatigue and fever. Respiratory: Negative for cough and shortness of breath. Cardiovascular: Negative for chest pain and palpitations. Gastrointestinal: Negative for diarrhea, nausea and vomiting. Neurological: Negative for headaches. Patient Active Problem List Diagnosis Bilateral sciatica Elevated liver function tests Elevated parathyroid hormone Hyperglycemia Mild depression Obesity Prediabetes Vitamin D deficiency Steatosis of liver Symptomatic menopausal or female climacteric states Recurrent major depressive disorder, in partial remission ([facility]) Insomnia Primary insomnia Gastroesophageal reflux disease without esophagitis Anxiety Adenomatous rectal polyp Abrasion of right ear canal Home Meds: Current Outpatient Medications Medication Instructions DULoxetine (CYMBALTA) 30 mg, oral, Daily gabapentin (Neurontin) 300 mg capsule 1 capsule, oral, Nightly PRN hydrOXYzine HCL (Atarax) 10 mg tablet TAKE 1 TABLET BY MOUTH 3 TO 4 TIMES PER DAY NEEDED FOR ANXIETY Nurtec ODT 75 mg tablet,disintegrating TAKE 1 TABLET BY MOUTH ONCE NEEDED FOR MIGRAINE HEADACHE A SINGLE DOSE phentermine-topiramate (Qsymia) 11.25-69 mg capsule, ER multiphase 24 hr 1 capsule, oral, Daily phentermine-topiramate (Qsymia) 15-92 mg capsule, ER multiphase 24 hr 1 capsule, oral, Daily traZODone (DESYREL) 50 mg, oral, Nightly zolpidem (AMBIEN) 10 mg, oral, Nightly PRN Allergies Allergen Reactions Oxycodone Other Unable to sleep Oxycodone-Acetaminophen Other Other reaction(s): Other (See Comments) Unable to go to sleep Unable to go to sleep Sulfa (Sulfonamide Antibiotics) Hives Last time had she was 17 Last time had she was 17 Last time had she was 17 Phenazopyridine Hives and Nausea And Vomiting pyridium Objective Vitals: 05/05/24 1145 BP: 124/70 Pulse: 80 Resp: 16 Vitals: 05/05/24 1145 Weight: 90.4 kg (199 lb 6.4 oz) Body mass index is 30.32 kg/m . Physical Exam Constitutional: Appearance: Normal appearance. She is overweight. HENT: Head: Normocephalic and atraumatic. Neck: Thyroid: No thyroid mass, thyromegaly or thyroid tenderness. Cardiovascular: Rate and Rhythm: Normal rate and regular rhythm. Heart sounds: No murmur heard. No gallop. Pulmonary: Effort: Pulmonary effort is normal. Breath sounds: Normal breath sounds. Abdominal: Palpations: Abdomen is soft. Comments: benign Neurological: General: No focal deficit present. Mental Status: She is alert and oriented to person, place, and time. Deep Tendon Reflexes: Reflexes are normal and symmetric. Psychiatric: Behavior: Behavior is cooperative. Labs: Lab Results Component Value Date HGBA1C 5.1 06/14/2023 No results found for: PR1, THYROIDPAB, TSI Assessment/Plan Assessment & Plan Obesity without serious comorbidity, unspecified classification, unspecified obesity type Orders: semaglutide, weight loss, (Wegovy) 0.25 mg/0.5 mL pen injector; Inject 0.25 mg under the skin every7 days. discussed options: wegovy vs qsymia Will put in wegovy to check coverage, if not feasible will start back on qsymia Electronically signed by: Samreen Perea MD 05/05/24 11:45 AM [facility] Work Phone: [phone]) [phone] Instructions* Patient Instructions* Samreen Perea MD - 05/05/2024 11:30 AM EDT Wegovy will be called in for you: message when ready to increase dose of if too expensive Follow up in 3-4 months Call or message with concerns [facility] Work Phone: [phone]) [phone] Miscellaneous Notes* Assessment & Plan Note - Samreen Perea MD - 05/05/2024 11:30 AM EDTAssociated Problem(s): Obesity Orders: semaglutide, weight loss, (Wegovy) 0.25 mg/0.5 mL pen injector; Inject 0.25 mg under the skin every7 days. discussed options: wegovy vs qsymia Will put in wegovy to check coverage, if not feasible will start back on qsymia [facility] Work Phone: [phone]) 361-456002-06-2024 History of Present illness Narrative* Samreen Perea MD - 10/05/2023 11:45 AM EST Endocrinology: Follow up visit Subjective Patient ID: Irene Villagran is a 52 y.o. female who presents for Prediabetes and Obesity. PCP: Nikhil Wetzel MD HPI Since last visit went on a cruise but had a flu like illness shortly after the cruise started. Had no fun. Just now back to exercise. Discouraged by weight loss. Would like to increase dose of qsymia Switched to d prescription strength last time but not able to tolerate it I have personally reviewed the OARRS report for TP . This is recorded in the EMR. I have consideredthe risks of abuse, dependence, addiction, and diversion. I believe that it is clinically appropriate for TP to be prescribed this medication. Review of Systems Constitutional: Negative for chills, fatigue and fever. Respiratory: Negative for cough and shortness of breath. Cardiovascular: Negative for chest pain and palpitations. Gastrointestinal: Negative for diarrhea, nausea and vomiting. Neurological: Negative for headaches. Patient Active Problem List Diagnosis Bilateral sciatica Elevated liver function tests Elevated parathyroid hormone Hyperglycemia Mild depression Obesity Prediabetes Vitamin D deficiency Steatosis of liver Symptomatic menopausal or female climacteric states Recurrent major depressive disorder, in partial remission (CMS/HCC) Insomnia Primary insomnia Gastroesophageal reflux disease without esophagitis Anxiety Adenomatous rectal polyp Abrasion of right ear canal Home Meds: Current Outpatient Medications Medication Instructions DULoxetine (CYMBALTA) 30 mg, oral, Daily ergocalciferol (VITAMIN D-2) 50,000 Units, oral, Weekly gabapentin (Neurontin) 300 mg capsule 1 capsule, oral, Nightly PRN hydrOXYzine HCL (Atarax) 10 mg tablet TAKE 1 TABLET BY MOUTH 3 TO 4 TIMES PER DAY NEEDED FOR ANXIETY Nurtec ODT 75 mg tablet,disintegrating TAKE 1 TABLET BY MOUTH ONCE NEEDED FOR MIGRAINE HEADACHE A SINGLE DOSE phentermine-topiramate (Qsymia) 11.25-69 mg capsule, ER multiphase 24 hr 1 capsule, oral, Daily traZODone (DESYREL) 50 mg, oral, Nightly zolpidem (AMBIEN) 10 mg, oral, Nightly PRN Allergies Allergen Reactions Oxycodone Other Unable to sleep Oxycodone-Acetaminophen Other Other reaction(s): Other (See Comments) Unable to go to sleep Unable to go to sleep Sulfa (Sulfonamide Antibiotics) Hives Last time had she was 17 Last time had she was 17 Last time had she was 17 Phenazopyridine Hives and Nausea And Vomiting pyridium Objective Vitals: 10/05/23 1150 BP: 132/68 Pulse: 78 Resp: 16 Vitals: 10/05/23 1150 Weight: 84.7 kg (186 lb 12.8 oz) Body mass index is 28.4 kg/m . Physical Exam Constitutional: Appearance: Normal appearance. She is overweight. HENT: Head: Normocephalic and atraumatic. Neck: Thyroid: No thyroid mass, thyromegaly or thyroid tenderness. Cardiovascular: Rate and Rhythm: Normal rate and regular rhythm. Heart sounds: No murmur heard. No gallop. Pulmonary: Effort: Pulmonary effort is normal. Breath sounds: Normal breath sounds. Abdominal: Palpations: Abdomen is soft. Comments: benign Neurological: General: No focal deficit present. Mental Status: She is alert and oriented to person, place, and time. Deep Tendon Reflexes: Reflexes are normal and symmetric. Psychiatric: Behavior: Behavior is cooperative. Labs: Lab Results Component Value Date HGBA1C 5.1 06/14/2023 No results found for: PR1, THYROIDPAB, TSI Assessment/Plan Problem List Items Addressed This Visit Obesity - Primary Prediabetes Vitamin D deficiency Relevant Orders Vitamin D 25-Hydroxy,Total (for eval of Vitamin D levels) Comprehensive Metabolic Panel Obesity/predm: Increase qsymia dose Work on eating and exericse D def: Switch to otc d 4000 international units a day Follow up in 3 months Electronically signed by: Samreen Perea MD 10/05/23 12:24 PM documented in this [facility] Work Phone: 1(419) 544-911102-06-2024 Instructions* Patient Instructions* Samreen Perea MD - 10/05/2023 11:45 AM EST Increase qsymia dose Switch to over the counter d 4000 international units a day Follow up in3 months Work on eating and activity [facility] Work Phone: 1(398) 386-990105-30-2023 History of Present illness Narrative* Seven Gutierrez MD - 01/26/2023 8:20 AM EDT Subjective: Irene is post op from [facility] of right radial head repleacement. Pain is absent. She has no new complaints. She is feeling 100% better with the hardware out. Her pins and needle feeling has subsided. Review of Systems Objective: Ht 5' 9 (1.753 m) Wt 210 lb (95.3 kg) BMI 31.01 kg/m Incision(s): healing well. Swelling is mild. Elbow ROM 10-120, 40 ofsupination with mostly full pronation. X-rays: 2 views right elbow show interval removal of the radial head replacement. Heterotopic ossification is unchanged. Prior coronoid fracture is healed and unchanged. Elbow remains well reduced. Assessment 1. Closed fracture of distal ends of right radius and ulna with routine healing, subsequent encounter 2. Closed fracture dislocation of right elbow with routine healing, subsequent encounter No orders of the defined types were placed in this encounter. Irene will continue with activity as tolerated. Follow up as needed. Electronically signed by Seven Gutierrez M.D. 01/26/2023 at 8:28 AM. documented in this [facility]05-11-2023 Miscellaneous Notes* Perioperative Nursing Note - Maximino Ayon RN - 01/07/2023 10:45 AM EDT 1045 Discharge information given to the patient. Patient and family verbalized understanding of information. All questions were answered before discharge. Patient ambulated, denies dizziness or nausea. Tolerating PO fluids and crackers. Vital signs are stable. Patient has changed and is being discharged home in a wheelchair with valuables. * Perioperative Nursing Note - Maximino Ayon RN - 01/07/2023 9:10 AM EDT Family to the bedside. * Op Note - Seven Gutierrez MD - 01/07/2023 7:28 AM EDT Images from the original note were not included. [facility] [address] [address] Dept: [phone] Loc: [phone] Operative Report Patient Name: Irene Villagran Date of : 1970 Date of Surgery: 01/07/23 Pre-operative diagnosis: Painful and loose right radial head replacement Post-operative diagnosis: Same Procedure(s): 1. Removal right radial head replacement Surgeon: Seven Gutierrez M.D. Engine Lathe Operator(s): Edgar Suarez M.D. and Desean Mancuso M.D. Anesthesia: General EBL: Minimal IVF: Crystalloid Medications: Ancef 2 grams IV Clinical History/Indication for Surgery The patient is a 52 y.o. year old female who was presents for elective removal of a painful radial head replacement. Typical indications for this surgery were reviewed. Risks of surgery in general were reviewed including, but not limited to, infection, need for additional procedures, persistent pain, refracture, damage to normal structures as well as medical complications such as SD, stroke, PE, DVT, and even . Pt was given opportunity to ask questions and consider her options. She ultimately elected to proceed with surgery. No guarantees were given or implied. Operative Narration The patient was identified in the pre-operative holding area. The surgical site was identified and marked. Informed consent was obtained. The patient was then brought to the operating room and placedsupine on the operating table. Anesthesia was administered and care of the head, neck, and airway was maintained by the anesthesia staff throughout the entire procedure. All bony prominences were identified and padded. The arm was prepped and draped in the usual sterile fashion. A surgical timeout was performed. Antibiotics were confirmed to have been given. After exsanguination the tourniquet was inflated. The previous incision was opened and taken to fascia. The previous interval could be seen with the retained suture. This was opened as was the thick scar and capsule. The radial head was grossly loose and removed easily. Elbow ROM showed good stability. Wounds were irrigated, closed and sterile compressive dressing applied. Once the patient was awakened from anesthesia, they were transported to the PACU in stable condition, having tolerated surgery well with no obvious complications. This operative report was prepared and signed by Seven Gutierrez MD at 01/07/23, 8:01 AM documented in this [facility]05-11-2023 Note* Perioperative Nursing Note - Maximino Ayon RN - 01/07/2023 10:45 AM EDT 1045 Discharge information given to the patient. Patient and family verbalized understanding of information. All questions were answered before discharge. Patient ambulated, denies dizziness or nausea. Tolerating PO fluids and crackers. Vital signs are stable. Patient has changed and is being discharged home in a wheelchair with valuables. [id number] Note* Perioperative Nursing Note - Maximino Ayon RN - 01/07/2023 10:45 AM EDT 1045 Discharge information given to the patient. Patient and family verbalized understanding of information. All questions were answered before discharge. Patient ambulated, denies dizziness or nausea. Tolerating PO fluids and crackers. Vital signs are stable. Patient has changed and is being discharged home in a wheelchair with valuables. [facility] [id number] Note* Addendum Note - ANATOLIY Rao CRNA - 01/07/2023 9:44 AM EDT Addendum created 01/07/23 0944 by ANATOLIY Rao CRNA Order list changed, Pharmacy for encounter modified [id number] Miscellaneous Notes* Addendum Note - ANATOLIY Rao CRNA - 01/07/2023 9:44 AM EDT Addendum created 01/07/2344 by ANATOLIY Rao CRNA Order list changed, Pharmacy for encounter modified * Anesthesia Discharge Note - ANATOLIY Gayle CRNA - 01/07/2023 8:23 AM EDT Patient: Irene Villagran Procedure Summary Date: 01/07/23 Room / Location: [address] Operating Room Anesthesia Start: 727 Anesthesia Stop: 815 Procedure: REMOVAL SYNTHES RADIAL HEAD REPLACEMENT FROM RIGHT ELBOW (Right: Elbow) Diagnosis: Unspecified fracture of the lower end of right radius, subsequent encounter for closed fracture with routine healing Unspecified fracture of lower end of right humerus, subsequent encounter for fracture with routine healing (Unspecified fracture of the lower end of right radius, subsequent encounter for closed fracture with routine healing [S52.501D]) (Unspecified fracture of lower end of right humerus, subsequent encounter for fracture with routinehealing [S42.401D]) Surgeons: Seven Gutierrez MD Responsible Provider: Vern Gilbert MD Anesthesia Type: general ASA Status: 2 Anesthesia Type: general Vitals Value Taken Time BP 114/89 01/07/2319 Temp 36.3 C (97.4 F) 01/07/23818 Pulse 84 01/07/23820 Resp 16 01/07/23818 SpO2 94 % 01/07/23820 Vitals shown include unvalidated device data. Anesthesia Post Evaluation Patient location during evaluation: PACU Patient participation: complete - patient participated Level of consciousness: awake and alert Pain management: satisfactory to patient Airway patency: patent Dental Injury: no Cardiovascular status: acceptable, blood pressure returned to baseline and hemodynamically stable Respiratory status: acceptable and spontaneous ventilation Hydration status: euvolemic Nausea/Vomiting: controlled No notable events documented. Patient can be discharged once all PACU criteria has been met. documented in this [facility]05-11-2023 Procedure anesthesia Narrative* Procedure Summary Procedure Name Responsible Anesthesiologist Anesthesia Start Time Anesthesia Stop Time REMOVAL SYNTHES RADIAL HEAD REPLACEMENT FROM RIGHT ELBOW (Right: Elbow) Vern Gilbert MD 01/07/23 0728 01/07/23 0816 Events Date Time Event Comment 01/07/2023 0657 AN Preop Started 0711 0728 In Room 0728 An Start 0731 An Start Data 0732 An Induction The patient was reevaluated immediately before moderate or deep sedation use and before anesthesia induction. 0738 An Intubation 0738 Anesthesia Ready 0748 Proc Start 0808 Proc Fin 0814 An Extubation - Spontaneous ventilation - Patient suctioned - Airway removed without difficulty - Spontaneous ventilation maintained 0816 an stop data 0816 An Stop 0817 Out of Room Meds Name Total lidocaine PF (Xylocaine-MPF) local injec tion 2 % 100 mg propofol (Diprivan) injection 10 mg/mL 2 00 mg rocuronium (ZeMuron) 50 mg/5 mL injectio n 50 mg dexAMETHasone (Decadron) PF injection 10 mg/mL 10 mg acetaminophen (Ofirmev) injection 1,000 mg ondansetron (Zofran) 2 mg/mL injection 4 mg sugammadex (Bridion) 200 mg/2 mL injecti on 400 mg esmolol (Brevibloc) injection 20 mg dexmedetomidine (Precedex) 40 mcg in sod ium chloride 0.9 % 10 mL injection 12 mcg ceFAZolin in dextrose 4% (Ancef) IVPB 2, 000 mg 2,000 mg lactated Ringer's (LR) infusion 700 mL * Agents Name O2 Air Isoflurane * Blood No blood administrations on file. Lines, Drains, and Airways Type Details Placement Removal Wound/Incision 01/07/23; 804; N; Incision; Elbow; Anterior, Right; incision sutured and covered with xerform, 4x4s cast padding and steris 01/07/23 08 by Deya Aguilar RN Peripheral IV Placement Date: 01/07/23; Placement Time: 618; Catheter Size: 20 G; Orientation: Left; Location: Hand; Site Prep: Alcohol; Insertion Attempts: 1; Patient Tolerance: Tolerated well; Removal Date: 01/07/23; Removal Time: 1045 01/07/23 0619 by Giselle Claros RN 01/07/23 1045 by Maximino Ayon RN ETT Placement Date: 01/07/23; Placement Time: 0732 (created via procedure documentation); Mask Ventilation: 1; Technique: Direct laryngoscopy; Type: ETT - single; Single Lumen Tube Size: 7 mm; Cuffed: Yes; Laryngoscope: Gutierrez; Blade Size: 3; Location: Oral; Grade View: Grade IIa; Insertion Attempts: 1; Placement Verification: Auscultation, Capnometry; Removal Date: 01/07/23; Removal Time: 0801/07/23 0732 by ANATOLIY Gayle CRNA 01/07/23 0814 by ANATOLIY Gayle CRNA documented in this encounter [facility] [id number] Note* Perioperative Nursing Note - Maximino Ayon RN - 01/07/2023 9:10 AM EDT Family to the bedside. [facility] [id number] Note* Perioperative Nursing Note - Maximino Ayon RN - 01/07/2023 9:10 AM EDT Family to the bedside. [facility] [id number] Note* Anesthesia Discharge Note - ANATOLIY Gayle CRNA - 01/07/2023 8:23 AM EDT Patient: Irene Villagran Procedure Summary Date: 01/07/23 Room / Location: [address] Operating Room Anesthesia Start: 727 Anesthesia Stop: 815 Procedure: REMOVAL SYNTHES RADIAL HEAD REPLACEMENT FROM RIGHT ELBOW (Right: Elbow) Diagnosis: Unspecified fracture of the lower end of right radius, subsequent encounter for closed fracture with routine healing Unspecified fracture of lower end of right humerus, subsequent encounter for fracture with routine healing (Unspecified fracture of the lower end of right radius, subsequent encounter for closed fracture with routine healing [S52.501D]) (Unspecified fracture of lower end of right humerus, subsequent encounter for fracture with routinehealing [S42.401D]) Surgeons: Seven Gutierrez MD Responsible Provider: Vern Gilbert MD Anesthesia Type: general ASA Status: 2 Anesthesia Type: general Vitals Value Taken Time BP 114/89 01/07/23818 Temp 36.3 C (97.4 F) 01/07/23818 Pulse 84 01/07/23820 Resp 16 01/07/23818 SpO2 94 % 01/07/23820 Vitals shown include unvalidated device data. Anesthesia Post Evaluation Patient location during evaluation: PACU Patient participation: complete - patient participated Level of consciousness: awake and alert Pain management: satisfactory to patient Airway patency: patent Dental Injury: no Cardiovascular status: acceptable, blood pressure returned to baseline and hemodynamically stable Respiratory status: acceptable and spontaneous ventilation Hydration status: euvolemic Nausea/Vomiting: controlled No notable events documented. Patient can be discharged once all PACU criteria has been met. [facility]05-11-2023 Anesthesiology Postoperative evaluation and management note* Anesthesia Postprocedure Evaluation - ANATOLIY Gayle CRNA - 01/07/2023 8:22 AM EDT Patient: Irene Villagran Procedure Summary Date: 01/07/23 Room / Location: [address] Operating Room Anesthesia Start: 727 Anesthesia Stop: 815 Procedure: REMOVAL SYNTHES RADIAL HEAD REPLACEMENT FROM RIGHT ELBOW (Right: Elbow) Diagnosis: Unspecified fracture of the lower end of right radius, subsequent encounter for closed fracture with routine healing Unspecified fracture of lower end of right humerus, subsequent encounter for fracture with routine healing (Unspecified fracture of the lower end of right radius, subsequent encounter for closed fracture with routine healing [S52.501D]) (Unspecified fracture of lower end of right humerus, subsequent encounter for fracture with routinehealing [S42.401D]) Surgeons: Seven Gutierrez MD Responsible Provider: Vern Gilbert MD Anesthesia Type: general ASA Status: 2 Anesthesia Type: general Vitals Value Taken Time BP 114/89 01/07/23 0819 Temp 36.3 C (97.4 F) 01/07/23 08 Pulse 90 01/07/23 0820 Resp 16 01/07/23 0819 SpO2 92 % 01/07/23819 Vitals shown include unvalidated device data. Anesthesia Post Evaluation Patient location during evaluation: PACU Patient participation: complete - patient participated Level of consciousness: awake and alert Pain management: satisfactory to patient Multimodal analgesia pain management approach Airway patency: patent Two or more strategies used to mitigate risk of obstructive sleep apnea Cardiovascular status: acceptable and hemodynamically stable Respiratory status: acceptable and spontaneous ventilation Hydration status: acceptable No notable events documented. MIPS #430 PONV Patient received an inhalational anesthetic (4554F) Patient exhibits three or more risk factors for PONV (4556F) Patient received at leaset 2 prophylactic Rx PONV anti-emtic agents of different classes preop and/or intraop (G9775) MIPS # 424 Perioperative Temperature Management Anesthesia time was 60 minutes or longer (4255F) Anesthesai administered was General (inhalational or TIVA) or Neuraxial block (X0424) At least one body temperature greater than 95.8F/35.5C achieved within the 30 mins immediately prior to or the 15 minutes immediately following anesthesia end time (G9771) MIPS #477 Multimodal Pain Management Not emergent case Patient was administered multimodal pain management (two or more drugs and/or interventions excluding systemic opioids) in the periopeartive period occurring at some time between 6 hours prior to anesthesia start time until discharged from PACU (G2148) MIPS #404 Anesthesiology Smoking Abstinence The patient is not a current smoker (e.g. cigarette, cigar, pipe, e- cigarette/vaping/marijuana) If no stop here (XX404) I completed my handoff to the receiving clinician during which we: 1. Identified the patient 2. Identified the responsible provider 3. Reviewed the pertinent medical history 4. Discussed the surgical course 5. Reviewed intra-op anesthesia management and issues during anesthesia 6. Set expectations for post-procedure period 7. Allowed opportunity for questions and acknowledgement of understanding. [employer] Phone: 1(125) 779-255405-11-2023 Surgical operation note* Anesthesia Postprocedure Evaluation - Hoa NortonANATOLIY - [employer] - 01/07/2023 8:22 AM EDT Patient: Irene Villagran Procedure Summary Date: 01/07/23 Room / Location: [address] Operating Room Anesthesia Start: 727 Anesthesia Stop: 815 Procedure: REMOVAL SYNTHES RADIAL HEAD REPLACEMENT FROM RIGHT ELBOW (Right: Elbow) Diagnosis: Unspecified fracture of the lower end of right radius, subsequent encounter for closed fracture with routine healing Unspecified fracture of lower end of right humerus, subsequent encounter for fracture with routine healing (Unspecified fracture of the lower end of right radius, subsequent encounter for closed fracture with routine healing [S52.501D]) (Unspecified fracture of lower end of right humerus, subsequent encounter for fracture with routinehealing [S42.401D]) Surgeons: Seven Gutierrez MD Responsible Provider: Vern Gilbert MD Anesthesia Type: general ASA Status: 2 Anesthesia Type: general Vitals Value Taken Time BP 114/89 01/07/23 0819 Temp 36.3 C (97.4 F) 01/07/23 0819 Pulse 90 01/07/23 0820 Resp 16 01/07/23 0819 SpO2 92 % 01/07/23 0820 Vitals shown include unvalidated device data. Anesthesia Post Evaluation Patient location during evaluation: PACU Patient participation: complete - patient participated Level of consciousness: awake and alert Pain management: satisfactory to patient Multimodal analgesia pain management approach Airway patency: patent Two or more strategies used to mitigate risk of obstructive sleep apnea Cardiovascular status: acceptable and hemodynamically stable Respiratory status: acceptable and spontaneous ventilation Hydration status: acceptable No notable events documented. MIPS #430 PONV Patient received an inhalational anesthetic (2054F) Patient exhibits three or more risk factors for PONV (7256F) Patient received at leaset 2 prophylactic Rx PONV anti-emtic agents of different classes preop and/or intraop (G9775) MIPS # 424 Perioperative Temperature Management Anesthesia time was 60 minutes or longer (2615F) Anesthesai administered was General (inhalational or TIVA) or Neuraxial block (X0424) At least one body temperature greater than 95.8F/35.5C achieved within the 30 mins immediately prior to or the 15 minutes immediately following anesthesia end time (G9771) MIPS #477 Multimodal Pain Management Not emergent case Patient was administered multimodal pain management (two or more drugs and/or interventions excluding systemic opioids) in the periopeartive period occurring at some time between 6 hours prior to anesthesia start time until discharged from PACU (G2148) MIPS #404 Anesthesiology Smoking Abstinence The patient is not a current smoker (e.g. cigarette, cigar, pipe, e- cigarette/vaping/marijuana) If no stop here (XX404) I completed my handoff to the receiving clinician during which we: 1. Identified the patient 2. Identified the responsible provider 3. Reviewed the pertinent medical history 4. Discussed the surgical course 5. Reviewed intra-op anesthesia management and issues during anesthesia 6. Set expectations for post-procedure period 7. Allowed opportunity for questions and acknowledgement of understanding. * Anesthesia Procedure Notes - ANATOLIY Gayle CRNA - 01/07/2023 7:45 AM EDT Associated Order(s): Airway Airway Date/Time: 01/07/2023 7:32 AM Urgency: scheduled Airway not difficult General Information and Staff Patient location during procedure: Procedural Anesthesiologist: Vern Gilbert MD Resident/[employer]: ANATOLIY Gayle CRNA Performed: [employer] Indications and Patient Condition Indications for airway management: anesthesia Sedation level: Asleep Preoxygenated: yes Patient position: sniffing MILS not maintained throughout Mask difficulty assessment: 1 - vent by mask Final Airway Details Final airway type: endotracheal airway Successful airway: ETT Cuffed: yes Successful intubation technique: direct laryngoscopy Facilitating devices/methods: intubating stylet Endotracheal tube insertion site: oral Blade: Gutierrez Blade size: #3 ETT size (mm): 7.0 Cormack-Lehane Classification: grade IIa - partial view of glottis Placement verified by: chest auscultation and capnometry Measured from: lips ETT to lips (cm): 21 Number of attempts at approach: 1 Ventilation between attempts: BVM Number of other approaches attempted: 0 * Anesthesia Preprocedure Evaluation - ANATOLIY Rao CRNA - 01/04/2023 11:46 AM EDT Patient: Irene Villagran Procedure Information Date/Time: 01/07/23729 Procedure: REMOVAL SYNTHES RADIAL HEAD REPLAEMENT FROM RIGHT ELBOW (Right: Elbow) Location: [facility] OR [address] [place] [address] Operating Room Surgeons: Seven Gutierrez MD Relevant Problems GI (+) Gastroesophageal reflux disease without esophagitis /Renal (+) Steatosis of liver Neuro/Psych (+) Anxiety (+) Recurrent major depressive disorder, in partial remission (HCC) Past Medical History: Past Medical History: No date: Anxiety No date: Insomnia Past Surgical History: Past Surgical History: No date: APPENDECTOMY 08/2016: APPENDECTOMY 10/10/2021: BLEPHAROPTOSIS REPAIR; Bilateral 01/01/2022: COLONOSCOPY Comment: EGD/colonoscopy 02/06/2021: ELBOW FRACTURE SURGERY; Right Comment: ORIF (open reduction internal fixation) R elbow by Dr. Gutierrez 01/2021: ELBOW SURGERY; Right No date: HYSTERECTOMY 03/24/2021: OTHER SURGICAL HISTORY Comment: removal of Ex -fix right elbow 2009: TOTAL VAGINAL HYSTERECTOMY Comment: has one ovary but no cervix Social History: TOBACCO: reports that she has never smoked. She has never used smokeless tobacco. ETOH: reports that she does not currently use alcohol. Social History Substance and Sexual Activity Drug Use Never Family History: Family History Problem Relation Name Age of Onset High Blood Pressure Maternal Grandmother Diabetes Maternal Grandmother Breast cancer Mother's Sister Cancer Maternal Grandfather Parkinsonism Mother Aydee Marroquin COPD Mother Aydee Marroquin Screening: unknown Clinical information reviewed: Physical Exam Airway Mallampati: III TM distance: >3 FB Neck ROM: full Mouth Open: normalendotracheal tube not in place Cardiovascular Dental dentition normal Pulmonary Abdominal Anesthesia Plan ASA 2 general (Chart info Needs verified if patient can take tylenol) The patient is not a current smoker. Anesthetic plan and risks discussed with patient. patient is NPO Short ERAS HOLLY Screening Labs: No results found for: WBC, HGB, HCT, MCV, PLT No results found for: NA, K, CL, CO2, BUN, CREATININE, GLUCOSE, CALCIUM, PROT, BILIRUBINFL, ALKPHOS, AST, ALT, EGFR, GLOB No echocardiogram results found for the past 14 days No results found for this or any previous visit. documented in this [facility]05-11-2023 Hospital Discharge instructions* Discharge Instructions* Edgar Suarez MD - 01/07/2023 8:20 AM EDT General Orthopedic Discharge Instructions The following instructions have been prepared to help you when you leave the hospital. These guidelines are for the post-surgery period. Activity: Ease into normal activity as tolerated. Medications: see medication instructions. Please be sure to read and understand the information provided by your pharmacy. Ask your Pharmacist if any questions. Wound Care and Hygiene: -Wash hands before touching or changing dressings -Do Not touch incision -Leave dressing until post-op day 2 and reapply dressing if wound is draining. If wound is dry, youmay leave dressing off -May shower starting post-op day 3 -Leave steri strips applied until they fall off own their own Call Your Doctor for: -Excessive bleeding/swelling of incision -Fever with temperature above 100 F Anesthesia Precautions: -Do Not operate any vehicle (automobile, bicycle, motorcycle) or power tools for 24 hours -Do Not drink alcoholic beverages for 24 hours -As precaution to prevent post-operative nausea and vomiting, start your diet with liquids, then progress to light foods. If tolerated, resume normal diet. Contact your surgeon's office (Dr. Gutierrez), to set up an appointment in 2 weeks, or if you have anyproblems or questions. documented in this [facility]05-11-2023 Anesthesiology procedure note * Anesthesia Procedure Notes - ANATOLIY Gayle CRNA - 01/07/2023 7:45 AM EDTAssociated Order(s): Airway Airway Date/Time: 01/07/2023 7:32 AM Urgency: scheduled Airway not difficult General Information and Staff Patient location during procedure: Procedural Anesthesiologist: Vern Gilbert MD Resident/[employer]PENTER: ANATOLIY Gayle CRNA Performed: [employer] Indications and Patient Condition Indications for airway management: anesthesia Sedation level: Asleep Preoxygenated: yes Patient position: sniffing MILS not maintained throughout Mask difficulty assessment: 1 - vent by mask Final Airway Details Final airway type: endotracheal airway Successful airway: ETT Cuffed: yes Successful intubation technique: direct laryngoscopy Facilitating devices/methods: intubating stylet Endotracheal tube insertion site: oral Blade: Gutierrez Blade size: #3 ETT size (mm): 7.0 Cormack-Lehane Classification: grade IIa - partial view of glottis Placement verified by: chest auscultation and capnometry Measured from: lips ETT to lips (cm): 21 Number of attempts at approach: 1 Ventilation between attempts: BVM Number of other approaches attempted: 0 [id number] Attending History and physical note* Seven Gutierrez MD - 01/07/2023 7:28 AM EDT H&P reviewed. The patient was examined and there are no changes to the H&P. Source Note - Seven Gutierrez MD - 12/22/2022 8:20 AM EDT Subjective: Irene is approximately 21 months s/p ORIF right olecranon fracture dislocation DOS:7.26.21. This was treated with ORIF of the olecranon and replacement of radial head. Pain is moderate . Here today for an increase in pain that started about 3 months ago, the pain is not associated with a new injury. It has gradually gotten worse. Pain radiates from elbow to wrist. She notes nerve pain in the forearm as well but not the fingers. She feels this may come from her neck. She had partial radial nerve/PIN injury on EMG with her injury previously. Review of Systems Objective: BP 113/77 Pulse 81 Temp 36.3 C (97.3 F) Ht 5' 9 (1.753 m) Wt 245 lb (111 kg) BMI 36.18 kg/m Incision: healed. There is no drainage or erythema. Skin is warm, dry and intact. Elbow ROM shows flexion: 130, extension: 10, pronation: 80, supination: 80. Wrist and finger ROM full. Sensation is grossly intact to all digits. Motor strength intact from shoulder to fingers. Capillary refill is brisk to all digits. XRAYS: 2v right elbow show the fracture remains well-aligned and unchanged from intra-operative films. Hardware/implants remain intact with loosening of the radial head prosthesis. There is HO about the elbow. 3v right wrist show no acute findings. Assessment 1. Closed fracture of distal ends of right radius and ulna with routine healing, subsequent encounter 2. Closed fracture dislocation of right elbow with routine healing, subsequent encounter Plan Orders Placed This Encounter Procedures XR wrist 3+ views right Irene may be having symptoms related to the loos radial head implant. We discussed there really isn't a reliable way to test for this other than remove it to see how much it helps her symptoms. She likely is having some residual nerve pain as well. Her motor function has completely returned. We discussed repeating EMG/NCS but she eants to try to remove the implant to see how much this helps her pain. Follow up if symptoms worsen or fail to improve. with 2v elbow. Electronically signed by Seven Gutierrez M.D. 12/22/2022 at 7:55 PM. Surgery Scheduling Instructions Location: [facility] Duration: 60 minutes Type: Outpatient Anesthesia: GA Position: supine Table: Regular Radiology: Large C-Arm CPT Code: 44552 Procedure: Removal Synthes radial head replacement from right elbow Follow-up: 2wks 2v elbow [facility] [employer] Work Phone: 1(668) 144-220505-11-2023 Note* Op Note - Seven Guiterrez MD - 01/07/2023 7:28 AM EDT Images from the original note were not included. [facility] OR [address] [facility] [address] Dept: [phone] Loc: [phone] Operative Report Patient Name: Irene Villagran Date of : 1970 Date of Surgery: 01/07/23 Pre-operative diagnosis: Painful and loose right radial head replacement Post-operative diagnosis: Same Procedure(s): 1. Removal right radial head replacement Surgeon: Seven Gutierrez M.D. Engine Lathe Operator(s): Edgar Suarez M.D. and Desean Mancuso M.D. Anesthesia: General EBL: Minimal IVF: Crystalloid Medications: Ancef 2 grams IV Clinical History/Indication for Surgery The patient is a 52 y.o. year old female who was presents for elective removal of a painful radial head replacement. Typical indications for this surgery were reviewed. Risks of surgery in general were reviewed including, but not limited to, infection, need for additional procedures, persistent pain, refracture, damage to normal structures as well as medical complications such as SD, stroke, PE, DVT, and even . Pt was given opportunity to ask questions and consider her options. She ultimately elected to proceed with surgery. No guarantees were given or implied. Operative Narration The patient was identified in the pre-operative holding area. The surgical site was identified and marked. Informed consent was obtained. The patient was then brought to the operating room and placedsupine on the operating table. Anesthesia was administered and care of the head, neck, and airway was maintained by the anesthesia staff throughout the entire procedure. All bony prominences were identified and padded. The arm was prepped and draped in the usual sterile fashion. A surgical timeout was performed. Antibiotics were confirmed to have been given. After exsanguination the tourniquet was inflated. The previous incision was opened and taken to fascia. The previous interval could be seen with the retained suture. This was opened as was the thick scar and capsule. The radial head was grossly loose and removed easily. Elbow ROM showed good stability. Wounds were irrigated, closed and sterile compressive dressing applied. Once the patient was awakened from anesthesia, they were transported to the PACU in stable condition, having tolerated surgery well with no obvious complications. This operative report was prepared and signed by Seven Gutierrez MD at 01/07/23, 8:01 AM [facility]05-11-2023 Note* Op Note - Seven Gutierrez MD - 01/07/2023 7:28 AM EDT Images from the original note were not included. [facility] MA[facility] OR [address] [facility] [id number] Dept: [phone] Loc: [phone] Operative Report Patient Name: Irene Villagran Date of : 1970 Date of Surgery: 01/07/23 Pre-operative diagnosis: Painful and loose right radial head replacement Post-operative diagnosis: Same Procedure(s): 1. Removal right radial head replacement Surgeon: Seven Gutierrez M.D. Engine Lathe Operator(s): Edgar Suarez M.D. and Desean Mancuso M.D. Anesthesia: General EBL: Minimal IVF: Crystalloid Medications: Ancef 2 grams IV Clinical History/Indication for Surgery The patient is a 52 y.o. year old female who was presents for elective removal of a painful radial head replacement. Typical indications for this surgery were reviewed. Risks of surgery in general were reviewed including, but not limited to, infection, need for additional procedures, persistent pain, refracture, damage to normal structures as well as medical complications such as SD, stroke, PE, DVT, and even . Pt was given opportunity to ask questions and consider her options. She ultimately elected to proceed with surgery. No guarantees were given or implied. Operative Narration The patient was identified in the pre-operative holding area. The surgical site was identified and marked. Informed consent was obtained. The patient was then brought to the operating room and placedsupine on the operating table. Anesthesia was administered and care of the head, neck, and airway was maintained by the anesthesia staff throughout the entire procedure. All bony prominences were identified and padded. The arm was prepped and draped in the usual sterile fashion. A surgical timeout was performed. Antibiotics were confirmed to have been given. After exsanguination the tourniquet was inflated. The previous incision was opened and taken to fascia. The previous interval could be seen with the retained suture. This was opened as was the thick scar and capsule. The radial head was grossly loose and removed easily. Elbow ROM showed good stability. Wounds were irrigated, closed and sterile compressive dressing applied. Once the patient was awakened from anesthesia, they were transported to the PACU in stable condition, having tolerated surgery well with no obvious complications. This operative report was prepared and signed by Seven Gutierrez MD at 01/07/23, 8:01 AM [facility] [id number] History and physical note* Seven Gutierrez MD - 01/07/2023 7:28 AM EDT H&P reviewed. The patient was examined and there are no changes to the H&P. Source Note - Seven Gutierrez MD - 12/22/2022 8:20 AM EDT Subjective: Irene is approximately 21 months s/p ORIF right olecranon fracture dislocation DOS:7.26.21. This was treated with ORIF of the olecranon and replacement of radial head. Pain is moderate . Here today for an increase in pain that started about 3 months ago, the pain is not associated with a new injury. It has gradually gotten worse. Pain radiates from elbow to wrist. She notes nerve pain in the forearm as well but not the fingers. She feels this may come from her neck. She had partial radial nerve/PIN injury on EMG with her injury previously. Review of Systems Objective: BP 113/77 Pulse 81 Temp 36.3 C (97.3 F) Ht 5' 9 (1.753 m) Wt 245 lb (111 kg) BMI 36.18 kg/m Incision: healed. There is no drainage or erythema. Skin is warm, dry and intact. Elbow ROM shows flexion: 130, extension: 10, pronation: 80, supination: 80. Wrist and finger ROM full. Sensation is grossly intact to all digits. Motor strength intact from shoulder to fingers. Capillary refill is brisk to all digits. XRAYS: 2v right elbow show the fracture remains well-aligned and unchanged from intra-operative films. Hardware/implants remain intact with loosening of the radial head prosthesis. There is HO about the elbow. 3v right wrist show no acute findings. Assessment 1. Closed fracture of distal ends of right radius and ulna with routine healing, subsequent encounter 2. Closed fracture dislocation of right elbow with routine healing, subsequent encounter Plan Orders Placed This Encounter Procedures XR wrist 3+ views right Irene may be having symptoms related to the loos radial head implant. We discussed there really isn't a reliable way to test for this other than remove it to see how much it helps her symptoms. She likely is having some residual nerve pain as well. Her motor function has completely returned. We discussed repeating EMG/NCS but she eants to try to remove the implant to see how much this helps her pain. Follow up if symptoms worsen or fail to improve. with 2v elbow. Electronically signed by Seven Gutierrez M.D. 12/22/2022 at 7:55 PM. Surgery Scheduling Instructions Location: [facility] Duration: 60 minutes Type: Outpatient Anesthesia: GA Position: supine Table: Regular Radiology: Large C-Arm CPT Code: 77742 Procedure: Removal Synthes radial head replacement from right elbow Follow-up: 2wks 2v elbow documented in this [facility]05-08-2023 Anesthesiology Preoperative evaluation and management note* Anesthesia Preprocedure Evaluation - Susan Dominique APRN - [facility] - 01/04/2023 11:46 AM EDT Patient: Irene Villagran Procedure Information Date/Time: 01/07/23729 Procedure: REMOVAL SYNTHES RADIAL HEAD REPLAEMENT FROM RIGHT ELBOW (Right: Elbow) Location: [address] Operating Room Surgeons: Seven Gutierrez MD Relevant Problems GI (+) Gastroesophageal reflux disease without esophagitis /Renal (+) Steatosis of liver Neuro/Psych (+) Anxiety (+) Recurrent major depressive disorder, in partial remission (HCC) Past Medical History: Past Medical History: No date: Anxiety No date: Insomnia Past Surgical History: Past Surgical History: No date: APPENDECTOMY 08/2016: APPENDECTOMY 10/10/2021: BLEPHAROPTOSIS REPAIR; Bilateral 01/01/2022: COLONOSCOPY Comment: EGD/colonoscopy 02/06/2021: ELBOW FRACTURE SURGERY; Right Comment: ORIF (open reduction internal fixation) R elbow by Dr. Gutierrez 01/2021: ELBOW SURGERY; Right No date: HYSTERECTOMY 03/24/2021: OTHER SURGICAL HISTORY Comment: removal of Ex -fix right elbow 2010: TOTAL VAGINAL HYSTERECTOMY Comment: has one ovary but no cervix Social History: TOBACCO: reports that she has never smoked. She has never used smokeless tobacco. ETOH: reports that she does not currently use alcohol. Social History Substance and Sexual Activity Drug Use Never Family History: Family History Problem Relation Name Age of Onset High Blood Pressure Maternal Grandmother Diabetes Maternal Grandmother Breast cancer Mother's Sister Cancer Maternal Grandfather Parkinsonism Mother Aydee Marroquin COPD Mother Aydee Marroquin Screening: unknown Clinical information reviewed: Physical Exam Airway Mallampati: III TM distance: >3 FB Neck ROM: full Mouth Open: normalendotracheal tube not in place Cardiovascular Dental dentition normal Pulmonary Abdominal Anesthesia Plan ASA 2 general (Chart info Needs verified if patient can take tylenol) The patient is not a current smoker. Anesthetic plan and risks discussed with patient. patient is NPO Short ERAS HOLLY Screening Labs: No results found for: WBC, HGB, HCT, MCV, PLT No results found for: NA, K, CL, CO2, BUN, CREATININE, GLUCOSE, CALCIUM, PROT, BILIRUBINFL, ALKPHOS, AST, ALT, EGFR, GLOB No echocardiogram results found for the past 14 days No results found for this or any previous visit. [id number] Telephone encounter Note* Telephone Encounter - Aleksey Catherine PA-C - 12/25/2022 9:20 AM EDT PAT orders done [employer] Work Phone: [phone] [phone] Miscellaneous Notes* Telephone Encounter - Aleksey Catherine PA-C - 12/25/2022 9:20 AM EDT PAT orders done * Telephone Encounter - Charlotte Guevara - 12/24/2022 3:59 PM EDT Case # [id number] * Telephone Encounter - Charlotte Guevara - 12/24/2022 10:49 AM EDT No PA Required for OP CPT code 18471 per [employer]ending sale to [facility] web portal. * Telephone Encounter - Charlotte Guevara - 12/24/2022 9:52 AM EDT Please enter PAT orders: [facility] PAT: H&P Surgery: 01/07/23 @ 7:30am, Case # Procedure: Removal Synthes radial head replacement from right elbow DX: Closed fracture of distal ends of right radius and ulna with routine healing, subsequent encounter - S52.501D, S52.601D Closed fracture dislocation of right elbow with routine healing, subsequent encounter - S42.401D Anesthesia: GA Insurance: [place] Allergies: Oxycodone-acetaminophen, Sulfa Antibiotics, Penazopyridine Additional Equipment: Ancef 2 Surgery Scheduling Instructions Location: [facility] Duration: 60 minutes (75 mins) Type: Outpatient Anesthesia: GA Position: supine Table: Regular Radiology: Large C-Arm CPT Code: 11956 Procedure: Removal Synthes radial head replacement from right elbow Follow-up: 2wks 2v elbow * Telephone Encounter - Wendy Keyes - 12/23/2022 4:34 PM EDT Name of caller: Irene Contact phone number: [phone] Relationship to Patient: Self Provider: Robbie Practice: Ortho Chief Complaint/Reason for Call: Pt called in to see if surgery has been scheduled for her rt elbow. Pt states she needs to give her work notice for when this will be. Please advise. Best time of day caller can be reached: Any Patient advised that office/PCP has 24-48 business hours to return their call: No documented in this encounterSThe University of Toledo Medical [id number] Telephone encounter Note* Telephone Encounter - Charlotte Guevara - 12/24/2022 3:59 PM EDT Case # [id number] [facility] [id number] Miscellaneous Notes* Telephone Encounter - Charlotte Guevara - 12/24/2022 3:59 PM EDT Case # [id number] * Telephone Encounter - Charlotte Guevara - 12/24/2022 10:49 AM EDT No PA Required for OP CPT code 31014 per [email or web address] web portal. * Telephone Encounter - Charlotte Guevara - 12/24/2022 9:52 AM EDT Please enter PAT orders: [facility] PAT: H&P Surgery: . 01/07/23 @ 7:30am, Case # Procedure: Removal Synthes radial head replacement from right elbow DX: Closed fracture of distal ends of right radius and ulna with routine healing, subsequent encounter - S52.501D, S52.601D Closed fracture dislocation of right elbow with routine healing, subsequent encounter - S42.401D Anesthesia: GA Insurance: [employer] [place] Allergies: Oxycodone-acetaminophen, Sulfa Antibiotics, Penazopyridine Additional Equipment: Ancef 2 Surgery Scheduling Instructions Location: [facility] Duration: 60 minutes (75 mins) Type: Outpatient Anesthesia: GA Position: supine Table: Regular Radiology: Large C-Arm CPT Code: 40803 Procedure: Removal Synthes radial head replacement from right elbow Follow-up: 2wks 2v elbow * Telephone Encounter - Wendy Keyes - 12/23/2022 4:34 PM EDT Name of caller: Irene Contact phone number: [phone] Relationship to Patient: Self Provider: Robbie Practice: Ortho Chief Complaint/Reason for Call: Pt called in to see if surgery has been scheduled for her rt elbow. Pt states she needs to give her work notice for when this will be. Please advise. Best time of day caller can be reached: Any Patient advised that office/PCP has 24-48 business hours to return their call: No documented in this encounterSThe University of Toledo Medical [id number] Telephone encounter Note* Telephone Encounter - Charlotte Guevara - 12/24/2022 10:49 AM EDT No PA Required for OP CPT code 40[address] [place] web portal. [facility] [id number] Telephone encounter Note* Telephone Encounter - Charlotte Guevara - 12/24/2022 9:52 AM EDT Please enter PAT orders: LUIS PAT: H&P Surgery: Th. 01/07/23 @ 7:30am, Case # Procedure: Removal Synthes radial head replacement from right elbow DX: Closed fracture of distal ends of right radius and ulna with routine healing, subsequent encounter - S52.501D, S52.601D Closed fracture dislocation of right elbow with routine healing, subsequent encounter - S42.401D Anesthesia: GA Insurance: [employer] [place] Allergies: Oxycodone-acetaminophen, Sulfa Antibiotics, Penazopyridine Additional Equipment: Ancef 2 Surgery Scheduling Instructions Location: [facility] Duration: 60 minutes (75 mins) Type: Outpatient Anesthesia: GA Position: supine Table: Regular Radiology: Large C-Arm CPT Code: 41609 Procedure: Removal Synthes radial head replacement from right elbow Follow-up: 2wks 2v elbow [facility] [id number] Telephone encounter Note* Telephone Encounter - Wendy Keyes - 12/23/2022 4:34 PM EDT Name of caller: Irene Contact phone number: [phone] Relationship to Patient: Self Provider: Robbie Practice: Ortho Chief Complaint/Reason for Call: Pt called in to see if surgery has been scheduled for her rt elbow. Pt states she needs to give her work notice for when this will be. Please advise. Best time of day caller can be reached: Any Patient advised that office/PCP has 24-48 business hours to return their call: No [id number] History of Present illness Narrative* Seven Gutierrez MD - 12/22/2022 8:20 AM EDT Subjective: Irene is approximately 21 months s/p ORIF right olecranon fracture dislocation DOS:7. This was treated with ORIF of the olecranon and replacement of radial head. Pain is moderate . Here today for an increase in pain that started about 3 months ago, the pain is not associated with a new injury. It has gradually gotten worse. Pain radiates from elbow to wrist. She notes nerve pain in the forearm as well but not the fingers. She feels this may come from her neck. She had partial radial nerve/PIN injury on EMG with her injury previously. Review of Systems Objective: BP 113/77 Pulse 81 Temp 36.3 C (97.3 F) Ht 5' 9 (1.753 m) Wt 245 lb (111 kg) BMI 36.18 kg/m Incision: healed. There is no drainage or erythema. Skin is warm, dry and intact. Elbow ROM shows flexion: 130, extension: 10, pronation: 80, supination: 80. Wrist and finger ROM full. Sensation is grossly intact to all digits. Motor strength intact from shoulder to fingers. Capillary refill is brisk to all digits. XRAYS: 2v right elbow show the fracture remains well-aligned and unchanged from intra-operative films. Hardware/implants remain intact with loosening of the radial head prosthesis. There is HO about the elbow. 3v right wrist show no acute findings. Assessment 1. Closed fracture of distal ends of right radius and ulna with routine healing, subsequent encounter 2. Closed fracture dislocation of right elbow with routine healing, subsequent encounter Plan Orders Placed This Encounter Procedures XR wrist 3+ views right Irene may be having symptoms related to the loos radial head implant. We discussed there really isn't a reliable way to test for this other than remove it to see how much it helps her symptoms. She likely is having some residual nerve pain as well. Her motor function has completely returned. We discussed repeating EMG/NCS but she eants to try to remove the implant to see how much this helps her pain. Follow up if symptoms worsen or fail to improve. with 2v elbow. Electronically signed by Seven Gutierrez M.D. 12/22/2022 at 7:55 PM. Surgery Scheduling Instructions Location: [facility] Duration: 60 minutes Type: Outpatient Anesthesia: GA Position: supine Table: Regular Radiology: Large C-Arm CPT Code: 58030 Procedure: Removal Synthes radial head replacement from right elbow Follow-up: 2wks 2v elbow documented in this [facility]04-25-2023 Instructions* Patient Instructions* Jesus Cantor MA - 12/22/2022 8:20 AM EDT Charlotte will call with surgical scheduling instructions documented in this [facility]12-01-2022 History of Present illness Narrative* Marlena Mitchell PA-C - 07/30/2022 11:30 AM EST Images from the original note were not included. [facility] Dr. Brennan Pineda MD, FAANS Board Certified in Neurological Surgery Printing Sign Machine Operator, Department of Neurological Surgery Associate Manufacturing Supervisor 2Nd Shift, Skull Base Surgery Clinical Fellowship Co-Director (Neurosurgery), [employer] [facility] and Research Fellowship [facility] [place] [address] Clinic: Admin: NEW PATIENT VISIT NOTES I. HISTORY OF PRESENT ILLNESS Irene Villagran is a 51 y.o. female whom presents to [facility] for evaluation of a pituitary adenoma as well as incidental meningioma. Pt reports that she recently established care w/ a new PCP and mentioned a multitude of vague symptoms. + 50 lb weight gain in past 5 yrs despite pt report of good nutrition and increased activity. + increased foot size though feels mostly swelling. + multiple 'cracked teeth' and other dental concerns that she hadn't had until recently. She also notes infertility concerns and has no biological children. S/p hysterectomy. Occasional headaches, none severe. Generally takes tylenol @ home. No hx of neuro imaging. PCP obtained 'pituitary' bloodwork w/ elevated PTH (no others noted). MRI was suggestive of pituitarymicroadenoma as well as suspected left middle fossa lesion. Thus [facility] for further evaluation and treatment recommendations. II. PAST MEDICAL / SURGICAL HISTORY Past Medical History: Diagnosis Date Anxiety Insomnia Past Surgical History: Procedure Laterality Date REPAIR BLEPHAROPTOSIS SUPERIOR RECTUS SLING Bilateral 2021 COLONOSCOPY DIAGNOSTIC 2021 EGD/colonoscopy ELBOW SURGERY Right 2020 ORIF HYSTERECTOMY 2020 APPENDECTOMY 2016 Social History Socioeconomic History Marital status: Spouse name: Not on file Number of children: Not on file Years of education: Not on file Highest education level: Not on file Occupational History Not on file Tobacco Use Smoking status: Never Smokeless tobacco: Never Substance and Sexual Activity Alcohol use: Not Currently Drug use: Never Sexual activity: Yes Partners: Male Other Topics Concern Not on file Social History Narrative Not on file Social Determinants of Health Financial Resource Strain: Not on file Food Insecurity: Not on file Transportation Needs: Not on file Physical Activity: Not on file Stress: Not on file Social Connections: Not on file Intimate Partner Violence: Not on file Housing Stability: Not on file Family History Problem Relation Age of Onset Breast Cancer Maternal Aunt Prostate Cancer Paternal Grandmother III. ALLERGIES/ MEDICATIONS ALLERGIES: Oxycodone-acetaminophen, Sulfa antibiotics, and Phenazopyridine MEDICATIONS: Current Outpatient Medications Medication Sig FLUoxetine 10 MG capsule Take 10 mg by mouth daily. gabapentin 300 MG capsule Take 1 capsule by mouth at bedtime as needed. LORazepam 0.5 MG tablet Take 1 tablet by mouth daily as needed. zolpidem 10 MG tablet Take 10 mg by mouth at bedtime as needed. doxepin 100 MG capsule Take 100 mg by mouth Every night. (Patient not taking: Reported on 07/30/2022) traZODone 50 MG tablet Take 50 mg by mouth at bedtime. (Patient not taking: Reported on 07/30/2022) IV. IMAGING A. OUTSIDE MRI BRAIN WITH AND WITHOUT CONTRAST, ([facility]) 07/06/2022 V. LABS Labs have not been ordered by this Neurosurgery service prior to this consult. . CURRENT CLINIC VISIT FINDINGS, EVALUATION, AND PLAN OF CARE A. REVIEW OF SYSTEMS: Constitutional: Negative for weight loss. + fatigue, weight gain, generalized body aches, multiple dental concerns HENT: Negative for hearing loss, nosebleeds, congestion and rhinorrhea Eyes: Negative for blurred vision and double vision Neurological: Negative for dizziness, tingling, tremors, sensory change, focal weakness, seizures Psychiatric: Negative for depression and memory loss. + anxiety Endocrine: Negative for polyuria/polydipsia or enlargement of soft tissue spaces. + infertility, abnormal menses s/p IUD removal B. ASSESSMENT AND PHYSICAL EXAM: BP 132/73 Pulse 88 Temp 97.8 F (36.6 C) (Temporal) Resp 20 Ht 1.727 m (5' 8) Wt 115.7 kg(255 lb) SpO2 98% Comment: room air BMI 38.77 kg/m Smoking Status Never Constitutional: Obese. Interactive, speech fluent Head: Normocephalic, and atraumatic. + round face, no frontal bossing Eyes: Conjunctivae normal. Further exam listed below. Neck: Grossly normal range of motion. Neck supple. Pulm/Chest: Effort normal. No respiratory distress MSK: Grossly normal range of motion. No dependent edema in arms/legs. Psychiatric: Mood and affect normal during conversation PERRL. EOMI, VFFTC Sensation intact to fine and crude touch in bilateral V1-3 distributions Facies symmetric. Hears finger rubbing bilaterally Shoulder shrug is symmetric and full strength bilaterally Tongue protrudes well to command without deviation, no macroglossia Strength 5/5 throughout Gait normal Cerebellar normal, no dysmetria Minimal abdominal striae C. IMPRESSION AND PLAN OF CARE: Mrs Irene Villagran is a 51 yo female whom presented to clinic for new pt consultation and evaluation of pituitary microadenoma as well as left frontal meningioma. Imaging findings were recently discovered as part of ongoing evaluation of a multitude of symptoms including generalized fatigue, weight gait and elevated PTH. She is overall clinically well appearing, neurologically intact on exam. MRI demonstrates presence of perhaps very small pituitary adenoma though imaging is overall equivocal. Also noted is ~ 2.3 x 1 cm lesion of left middle cranial fossa, most consistent w/ a benign meningioma. No significant mass effect and/or edema. No surgical intervention indicated at this time. 1. MRI Pituitary w/ and w/o 2. RTC 1 mo or following imaging to discuss further treatment planning 3. Will obtain baseline pituitary panel today NEUROSURGERY ATTENDING ATTESTATION: I saw and examined the patient concurrently with Mrs. Stephen PA-C. The documented history, physical exam, review of imaging, and plan were all performed together at the time of the visit. The entirenote has been reviewed and I agree with the complete assessment and plan. 51 yr old lady with pit lesion and small meningioma in middle fossa, seems incidental in setting ofworkup for frustrating but vague symptoms. Intact on exam. MRI is poor quality, will reorder MRI pituitary protocol here at [facility] to delineate lesion better. Check pit labs. RTC pending workup. Brennan Pineda MD FAANS Printing Sign Machine Operator, Neurological Surgery [facility] documented [facility] Instructions* Patient Instructions* Vern Feng RN - 07/30/2022 11:30 AM EST WELCOME TO THE [facility] We are here to assist you through your care at the [facility] and [facility] [place]. Dr. Brennan Pineda is your Neurosurgeon. You may also have other doctors to assist with your care. Albert Giraldo APRN/LAUREN is our nurse practitioner who works with Dr. Pineda. She will see you post-operatively and may alternate follow up appointments with Dr. Pineda throughout your care. Dr. Pineda's Primary Nurse is Dallin Langston, RN. He can be reached at . When calling, if unable to reach her, please leave a message and she will return your call within 24 hours orless. For any questions, comments or concerns during after hours (past 4:00 pm), on weekends and/or during a holiday, please call and speak with the after hours service. You will be connected to the Neurosurgery Resident mission worker. Any scheduling issues will be addressed by the scheduling department at phone number . Family Medical Leave paperwork is available through your human resources department. Please call human resources and have them fax paperwork to Vern Feng RN . Please allow up to 15 calendar days for completion and return of this paperwork. In most cases, paperwork will be returned sooner. In order to care for you in the best possible way it is very important that you have a relationshipwith a Primary Care Physician. If you do not have a Primary Care Physician, please establish care with one in your area or at [facility]. Please call [phone] make an appointment with a Primary Care Physician at [facility]: [facility]. OTHER RESOURCES AVAILABLE: Social Workers - FRANCESCO Boyd and/or JASON Wylie are able to assist you with community resources, counseling, or transportation. You may contact Yulia at or Rebeka at . Please let the staff know if you are in need of these services and we would be happy to contact a psychotherapist social worker for you. Financial Services - Saul Vizcarra and Dahiana Villanueva are our financial counselor who can assist you at your appointments or call them at [phone]. Pastoral Care- Caster Operator Ruby Orozco-is able to assist your with your spiritual needs. If you wish to see the equipment manager please let your oncology team know to arrange this. Integrative Medicine Therapy -these are complementary therapies used in addition to your cancer treatment to assist with anxiety, pain, nausea, poor sleep, and exhaustion. If you wish this additional therapy please contact [email or web address] to set up an appointment. Youmay also request this in the same way if you are inpatient or ask your nurse. THERE IS NO COST FOR THIS SERVICE. [facility] - It is conveniently located on the [facility] campus on the conference level (CL) of the [facility] and [facility],next door to [facility] and near [facility]. To learn more about [facility], you can visit it on weekdays from 8 a.m. - 9 p.m. and on weekends from 9 a.m. - 6 p.m. [facility] My Chart- This is a communication tool used through the Internet to communicate NON-URGENT medical information with your [facility] doctors. You may ask questions, receive results and get notification of appointments. The results will be released to the [facility] My Chart by your doctors and will only be results that do not need additional explanation. If a discussion of the result is important your doctor or nurse will call you. If you wish to sign up this must be done in person. Our human resources receptionist staff can assist you to get a password that can be changed when after you log on the first time. IMPORTANT REMINDER: This portal is only for NON-URGENT information. If you have urgent information about your condition please call the clinic at phone number . You will need to download the jose juan and follow the prompts to set up the an account. By using [facility], you will be able to look at test results, send messages to your providers, view upcoming appointments and do much more. [facility] Oncology Distress Questionnaire - You will be receiving this questionnaire via [facility] My chart every 6 months. This is a psychosocial distress screening tool that allows us to help improve your quality of life in the context of your particular diagnosis and treatment. Even though this questionnaire uses the word oncology, this DOES NOT necessarily mean that your particular diagnosis is cancer. This tool is used for both cancer and non- cancer diagnosis and allows us to screen your quality of life while under our care by giving us opportunities to find resources that may help you at any pointin your plan of care. documented [facility] Discharge instructions* Instructions* Aileen March RN - 01/01/2022 Images from the original note were not included. Upper GI Endoscopy and Colonoscopy: What to expect at home ACTIVITY: DO NOT DRIVE, OPERATE MACHINERY, OR DRINK ANY ALCOHOL TODAY. Avoid making critical decisions, signing legal documents, or performing any activity that requires alertness for the rest of the day. You may be bloated or have gas pains since air was introduced into the stomach for the procedure. You may need to pass the gas throughout the day. You may experience a mild sore throat. You may use an aulr-hhl-[id number] chloraseptic spray, gargle with warm salt water, or use throat lozenges. Notify your physician if this feeling lasts more than 48 hours. You may experience a small amount of rectal bleeding; this can be normal after your colonoscopy. Notify your physician if the bleeding is enough to saturate your clothes. Rest the remainder of the day. Rest the remainder of the day. You may resume normal activity tomorrow. You may return to work tomorrow. DIET: You may resume a normal diet unless notified or recommended by your physician. You may be eager to eat a large meal after fasting, but it is a good idea to start with light mealsand ease into solid foods the first day. (*) If your stomach is upset, try clear liquids and bland, low-fat foods like plain toast or rice. Drink plenty of fluids for the first 24 hours (unless your physician states otherwise). MEDICATION: Resume your normal home medications unless notified or recommended by your physician. If you take blood thinners (such as Coumadin, Eliquis, Plavix, Aspirin, etc.) or anti-inflammatory medications (Advil, Motrin, Aleve, etc.), ask your physician when you may resume these medications. FOLLOW-UP APPOINTMENT: Follow up with or call your physician as needed. When to call for help: Call your doctor IMMEDIATELY or seek medical care if you experience: Severe pain or vomiting Coughing up more than a teaspoon of blood You pass a large amount of tar-like stools A large amount (filling the toilet) of maroon, bloody stools Your belly is swollen and firm with severe pain A fever greater than 101 degrees Redness or swelling of arm from the IV site for more than 48 hours Sudden onset of chest pain or shortness of breath If you become extremely dizzy or pass out (lose consciousness) IF YOU ARE UNABLE TO REACH YOUR PHYSICIAN GO TO NEAREST EMERGENCY DEPARTMENT Colon Polyps You must carefully read the Consumer Information Use and Disclaimer below in order to understand and correctly use this information The Basics Written by the doctors and editors at [facility] What are colon polyps? Colon polyps are tiny growths that form on the inside of the large intestine(also known as the colon) (figure 1). Polyps are very common. Roughly one-third to one-half of all adults have them. They do not usually cause symptoms. But some polyps can be or become cancer, so doctors sometimes remove them. What are the symptoms of colon polyps? Colon polyps do not usually cause symptoms. How do doctors find colon polyps? Doctors usually find colon polyps when they are doing screening tests to check for colon or rectal cancer. Cancer screening tests are tests that are done to try and find cancer early, before a person has symptoms. The screening tests for colon and rectal cancer include: ?Colonoscopy Before having a colonoscopy, you will get medicine to help you relax. Then a doctor will put a thin tube into your anus and advance it into your colon (figure 2). The tube has a camera attached to it, so the doctor can look inside your colon. The tube also has tools on the end, so the doctor can remove pieces of tissue, including polyps. After polyps are removed, they usually go to [facility] to be tested for cancer and other problems. ?Sigmoidoscopy A sigmoidoscopy is very similar to a colonoscopy. The only difference is that this test looks only at the first part of the colon, and a colonoscopy looks at the whole colon. ?CT colonography (also known as virtual colonoscopy) For a virtual colonoscopy, you have a special kind of X-ray taken, called a CT scan. This test creates pictures of the colon. ?Barium enema During a barium enema, a doctor or nurse squirts a fluid that shows up on X-rays intoyour rectum. Then he or she takes X-rays to create pictures of the colon. ?Stool test Stool is another word for bowel movements. Stool tests check for blood or abnormal genes in samples of stool. If a stool test indicates that something might be wrong with the colon, doctors usually follow up with a colonoscopy. Then doctors find polyps, if they are there. How are colon polyps treated? Doctors remove polyps using the same tools they use for a colonoscopy. They can remove polyps either by snipping them off with a special cutting tool, or by catching thepolyps in a noose (figure 3). Most polyps can be removed during a colonoscopy. But sometimes, largepolyps need to be removed at a later time. What happens after I have polyps removed? You might need to have a colonoscopy every few years to check for more polyps. In some people polyps come back. And if you had the kind of polyps that could become cancer, your doctor will want to remove them as they appear. Also, if the polyps you had removed were the kind that could become cancer, people in your family might need to be checked for polyps and colon cancer, too. Can colon polyps be prevented? To reduce your chances of getting (more) polyps or colon cancer: ?Eat a diet that is low in fat and high in fruits, vegetables, and fiber ?Lose weight, if you are overweight ?Do not smoke ?Limit the amount of alcohol you drink All topics are updated as new evidence becomes available and our peer review process is complete. Topic 81603 Version 5.0 Release: 25.3 - C25.127 2017 [employer]. All rights reserved. documented in this encounterSUMTexert Work Phone: [phone]) 237-880607-26-2021 History of Present illness Narrative* Jennifer Malloy RN - 03/24/2021 10:32 AM EDT Discharge instructions given to pt and at bedside. All questions answered. All belongings at bedside. VSS. Pt resting comfortably with tolerable pain documented in this encounterSUMTexert Work Phone: [phone] 197-370706-23-2021 History of Present illness Narrative* Corie Hernandez RN - 02/19/2021 12:05 PM EDT Pt free from pain and nausea.. Ambulated to bathroom, discharge instructions reviewed with spouse at bedside documented in this encounterSUMMA Work Phone: [phone] History of Present illness Narrative* 51-year-old here for f/u weight gain fatty liver and hyperglycemia. Since last visit in 11/2019 wentoff qsymia. Now up 20 lbs and very frustrated. Saw Silviano Loya CNP and was sent for basic labs that showed elevated PTH....advised to have pit mri for ? reason. MRI showed asymmetry....ref[facility] to [facility] cancer NS.....MRI repeated and negative and full pituitary labs all normal. 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 Tracked eating but still no success. .She denies any chest pain, shortness of breath, nausea, vomiting, diarrhea, constipation, f linda, or chills * I have personally reviewed the [place]AR[place] report for Tamara Villagran. This report is scanned into the electronicmedical record. I have considered the risks of abuse, dependence, addiction and diversion. I believe that it is clinically appropriate for Tamara Villagran to be prescribed this medication. * I have reviewed her OARRS that includes Vape/THC products. I do not feel this will interfere with her appropriate usage of qsymia. [facility] Work Phone: Evaluation note* Diagnosis Closed fracture dislocation of right elbow with routine healing, subsequent encounter- Primary documented in this encounter [facility] Work Phone: Evaluation note* Diagnosis Closed fracture dislocation of right elbow with routine healing, subsequent encounter- Primary documented in this encounter [facility] Work Phone: Evaluation note* Diagnosis Onset Date Resolution Status Adenoma of pituitary acute Elevated BP without diagnosis of hypertension acute Weight gain, abnormal acute [facility] Work Phone: Evaluation note* Diagnosis Pituitary lesion- Primary Unspecified disorder of the pituitary gland and its hypothalamic control [facility] Diagnosis Pituitary lesion Unspecified disorder of the pituitary gland and its hypothalamic control [facility] Diagnosis Closed fracture of distal ends of right radius and ulna with routine healing, subsequent encounter- Primary Closed fracture dislocation of right elbow with routine healing, subsequent encounter [facility] Diagnosis Closed fracture dislocation of right elbow joint, sequela- Primary [facility] Diagnosis Meningioma Benign neoplasm of cerebral meninges [facility] Diagnosis Obesity without serious comorbidity, unspecified classification, unspecified obesity type- Primary Vitamin D deficiency Prediabetes Other abnormal glucose documented in this encounter [facility] Work Phone: Evaluation note* Diagnosis Obesity without serious comorbidity, unspecified classification, unspecified obesity type- Primary Prediabetes- Primary Other abnormal glucose Vitamin D deficiency Class 1 obesity due to excess calories without serious comorbidity with body mass index (BMI) of 30.0 to 30.9 in adult documented in this encounter [facility] Work Phone: Evaluation note* Diagnosis Obesity without serious comorbidity, unspecified classification, unspecified obesity type- Primary documented in this encounter [facility] Work Phone: History of Present illness Narrative* 52-year-old here for f/u weight gain fatty liver Pre dm and d def. Since last visit doing great on qsymia....really intensified eating efforts....down 13 lbs. Doing fine on the qsymia, tolerating it much better lately. On d 1999 iu a day .She denies any chest pain, shortness of breath, nausea, vomiting, diarrhea, constipation, fevers, or chills * I have personally reviewed the OARRS report for Tamara Villagran. This report is scanned into the electronicmedical record. I have considered the risks of abuse, dependence, addiction and diversion. I believe that it is clinically appropriate for Tamara Villagran to be prescribed this medication. * I have reviewed her OARRS that includes Vape/THC products. I do not feel this will interfere with her appropriate usage of qsymia. [facility] Work Phone: Hospital Discharge instructions* Instructions* Aleksey Catherine PA-C - 02/19/2021 General Orthopedic Discharge Instructions The following instructions have been prepared to help you when you leave the hospital. These guidelines are for the post-surgery period. Activity: Ease into normal activity as tolerated. Medications: see medication instructions. Please be sure to read and understand the information provided by your pharmacy. Ask your Pharmacist if any questions. Wound Care and Hygiene: -Wash hands before touching or changing dressings -Do Not touch incision -Leave dressing until post-op day 2 and reapply dressing if wound is draining. If wound is dry, youmay leave dressing off -Start daily pin site care 2 days post-op -Daily Pin Site Care: Using warm soap and water or 50/50 saline/peroxide mix clean each pin site. Be sure to take down any crusting that begins to form around pins to allow for drainage. Milk any drainage from pin sites. This should be done at least once per day. -May shower starting post-op day 3 Call Your Doctor for: -Excessive bleeding/swelling of incision -Fever with temperature above 100 F Anesthesia Precautions: -Do Not operate any vehicle (automobile, bicycle, motorcycle) or power tools for 24 hours -Do Not drink alcoholic beverages for 24 hours -As precaution to prevent post-operative nausea and vomiting, start your diet with liquids, then progress to light foods. If tolerated, resume normal diet. Additional Instructions: -Weight bearing status: Non weightbearing with right arm. No lifting, pushing, or pulling. -Ok for shoulder, wrist, and finger range of motion -Sling as needed for comfort -Daily pin site care to begin 2 days post operatively. -Daily Pin Site Care: Using warm soap and water or 50/50 saline/peroxide mix clean each pin site. Be sure to take down any crusting that begins to form around pins to allow for drainage. Milk any drainage from pin sites. This should be done at least once per day. -Your nerve block should wear off in 1-2 days -Ice/elevate extremity -Pain control: Alternate Tylenol and Ibuprofen every 4 hours. For example, take Tylenol at 7am and Ibuprofen at 11am. Then take Tylenol at 3pm and Ibuprofen at 7pm. Take Oxycodone for breakthrough pain only. Contact your surgeon's office (Dr. Gutierrez), to set up an appointment in 2 weeks, or if you have anyproblems or questions. documented in this encounterSUMMA Work Phone: Hospital Discharge instructions* Instructions* Aleksey Catherine PA-C - 03/24/2021 General Orthopedic Discharge Instructions The following instructions have been prepared to help you when you leave the hospital. These guidelines are for the post-surgery period. Activity: Ease into normal activity as tolerated. Medications: see medication instructions. Please be sure to read and understand the information provided by your pharmacy. Ask your Pharmacist if any questions. Wound Care and Hygiene: -Wash hands before touching or changing dressings -Do Not touch incision -Leave dressing until post-op day 2 and reapply dressing if wound is draining. If wound is dry, youmay leave dressing off -May shower starting post-op day 3 Call Your Doctor for: -Excessive bleeding/swelling of incision -Fever with temperature above 100 F Anesthesia Precautions: -Do Not operate any vehicle (automobile, bicycle, motorcycle) or power tools for 24 hours -Do Not drink alcoholic beverages for 24 hours -As precaution to prevent post-operative nausea and vomiting, start your diet with liquids, then progress to light foods. If tolerated, resume normal diet. Additional Instructions: -Weight bearing status: Non weightbearing with right arm. -Ok for elbow, wrist, and finger range of motion -Sling as needed for comfort -Ice/elevate extremity -Pain control: Alternate Tylenol and Ibuprofen every 4 hours. For example, take Tylenol at 7am and Ibuprofen at 11am. Then take Tylenol at 3pm and Ibuprofen at 7pm. Take Oxycodone for breakthrough pain only. Contact your surgeon's office (Dr. Gutierrez), to set up an appointment in 2 weeks, or if you have anyproblems or questions. documented in this encounterSUMTexert Work Phone: Reason for referral (narrative)No reason for referral information availableWKettering Health Hamilton Work Phone: Summary Purpose Family History Grandmother Name Dates Details Family history of Type 2 jaspal betes mellitus with other ophthalmic complication(250.50, E11.39) Status:Active Mother Name Dates Details No pertinent family history( V49.89, Z78.9) Status:Active Father Name Dates Details No pertinent family history( V49.89, Z78.9) Status:Active Grandmother Name Dates Details Family history of Type 2 jaspal betes mellitus with other ophthalmic complication(250.50, E11.39) Status:Active Mother Name Dates Details No pertinent family history( V49.89, Z78.9) Status:Active Father Name Dates Details No pertinent family history( V49.89, Z78.9) Status:Active Grandmother Name Dates Details Family history of Type 2 jaspal betes mellitus with other ophthalmic complication(250.50, E11.39) Status:Active Mother Name Dates Details No pertinent family history( V49.89, Z78.9) Status:Active Father Name Dates Details No pertinent family history( V49.89, Z78.9) Status:Active Relationship Condition Age at Onset Recorded Date/T jb mother Diabetes mellitus Unknown father Diabetes mellitus Unknown Malignant neoplasm Unknown aunt Malignant neoplasm of breast Unknown Unknown Family Member Name Dates Details No pertinent family history: Mother, Father(V49.89, Z78.9) Status:Active Type 2 diabetes mellitus wit h other ophthalmic complication: Maternal Grandmother Status:Active Unknown Family Member Name Dates Details No pertinent family history: Mother, Father(V49.89, Z78.9) Status:Active Type 2 diabetes mellitus wit h other ophthalmic complication: Maternal Grandmother Status:Active Unknown Family Member Name Dates Details No pertinent family history: Mother, Father(V49.89, Z78.9) Status:Active Type 2 diabetes mellitus wit h other ophthalmic complication: Maternal Grandmother Status:Active Unknown Family Member Name Dates Details No pertinent family history: Mother, Father(V49.89, Z78.9) Status:Active Type 2 diabetes mellitus wit h other ophthalmic complication: Maternal Grandmother Status:Active Unknown Family Member Name Dates Details No pertinent family history: Mother, Father(V49.89, Z78.9) Status:Active Type 2 diabetes mellitus wit h other ophthalmic complication: Maternal Grandmother Status:Active Unknown Family Member Name Dates Details No pertinent family history: Mother, Father(V49.89, Z78.9) Status:Active Type 2 diabetes mellitus wit h other ophthalmic complication: Maternal Grandmother Status:Active Unknown Family Member Name Dates Details No pertinent family history: Mother, Father(V49.89, Z78.9) Status:Active Type 2 diabetes mellitus wit h other ophthalmic complication: Maternal Grandmother Status:Active Unknown Family Member Name Dates Details No pertinent family history: Mother, Father(V49.89, Z78.9) Status:Active Type 2 diabetes mellitus wit h other ophthalmic complication: Maternal Grandmother Status:Active Advance Directives Documents on File Type Date Recorded Patient Trade Recruiter Expl anation Advance Directive(s) 08/17/2017 6:19 PM Latest Code Status on File Code Status Date Activated Date Inactivated Comments Full Code 02/19/2021 8:11 AM Documents on File Type Date Recorded Patient Trade Recruiter Expl anation ACP-Advance Directive ACP-Power of Corporate Real Estate Specialist Latest Code Status on File Code Status Date Activated Date Inactivated Comments Full Code 03/24/2021 8:51 AM Full Code 02/22/2021 12:24 PM 02/23/2021 7:07 PM Full Code 02/19/2021 8:11 AM 02/19/2021 2:08 PM Full Code 02/06/2021 6:57 AM 02/06/2021 12:34 PM Healthcare Agents on File Name Relationship Healthcare Agent Relationshi p Communication Vern Villagran Spouse Primary Decision Maker Documents on File Type Date Recorded Patient Trade Recruiter Expl anation ACP-Advance Directive ACP-Power of Corporate Real Estate Specialist Latest Code Status on File Code Status Date Activated Date Inactivated Comments Full Code 01/01/2022 10:02 AM Full Code 03/24/2021 8:51 AM 03/24/2021 1:25 PM Full Code 02/22/2021 12:24 PM 02/23/2021 7:07 PM Full Code 02/19/2021 8:11 AM 02/19/2021 2:08 PM Full Code 02/06/2021 6:57 AM 02/06/2021 12:34 PM Healthcare Agents on File Name Relationship Healthcare Agent Relationshi p Communication Vern Villagran Spouse Primary Decision Maker Advance Directive Response Recorded Date/ Time Living Will No June 26 1:58pm Power of Corporate Real Estate Specialist No June 26, 2022 1:58pm Reason for Referral Status Reason Specialty Diagnoses / Procedures Referred By Contact Referred To Contact Open Physical Therapy Diagnoses Closed fracture dislocation of right elbow with routine healing, subsequent encounter Aleksey Catherine PA-C [address] [id number] Scheduling Instructions Evaluate and Treat: JOHN PHELPS. Ok for shoulder, elbow, wrist, finger ROM. Specialty Diagnoses / Procedures Referred By Beth t Referred To Contact Diagnoses Pituitary lesion Procedures MRI PITUITARY WITH AND WITHOUT CONTRAST [place] [facility] Brennan Mirza MD [address] [place] [address] Referral ID Status Reason Start Date Expiration Date Visits Requested Visits Authorized [id number] Authorized - 07/30/2022 08/24/2023 1 1 Referral ID Status Reason Start Date Expiration Date Visits Re quested Visits Authorized [id number] Closed 07/30/2022 08/24/2023 1 1 Specialty Diagnoses / Procedures Referred By Beth garrison Referred To Contact Diagnoses Meningioma Procedures MRI BRAIN WITH AND WITHOUT CONTRAST [facility] Brennan Mirza MD [address] [place] [id number] Referral ID Status Reason Start Date Expiration Date Visits Re quested Visits Authorized [id number] Closed 08/20/2022 09/14/2023 1 1 Specialty Diagnoses / Procedures Referred By Beth t Referred To Contact Diagnoses Obesity without serious comorbidity, unspecified classification, unspecified obesity type Samreen Perea MD [address] [facility], [facility] [address] [place] [address] Referral ID Status Reason Start Date Expiration Date V isits Requested Visits Authorized [id number] Pending Review 1 1 Referral ID Status Reason Start Date Expiration Date V isits Requested Visits Authorized [id number] Pending Review 1 1 Chief Complaint and Reason for Visit Chief Complaint medication refills ELEVATED PTHIN, LG WT GAIN, HTN, N&V Reason for Visit Adenoma of pituitary Elevated BP without diagnosis of hypertension Weight gain, abnormal Chief Complaint Admit Date Urinary tract infection November 24, 2024 3:18pm LABWORK November 24, 2024 11: 37pm HAIR COLLECTION DRUG SCREEN/SELF PAY Nov 8:30am Reason for Visit Admit Date Anxiety November 24, 2024 3:1 8pm Cystitis November 24, 2024 3:1 8pm Chief Complaint Admit Date Urinary tract infection November 24, 2024 3:18pm LABWORK November 24, 2024 11: 37pm HAIR COLLECTION DRUG SCREEN/SELF PAY Nov 8:30am Urinary tract infection December 11, 2024 5:57pm Reason for Visit Admit Date Anxiety November 24, 2024 3:1 8pm Cystitis November 24, 2024 3:1 8pm Cystitis December 11, 2024 5:5 7pm Frequency of urination December 11, 2024 5:57pm Chief Complaint Admit Date Urinary tract infection November 24, 2024 3:18pm LABWORK November 24, 2024 11: 37pm HAIR COLLECTION DRUG SCREEN/SELF PAY Nov 8:30am Urinary tract infection December 11, 2024 5:57pm medication refills January 30, 2025 5:45p m Reason for Visit Admit Date Anxiety November 24, 2024 3:1 8pm Cystitis November 24, 2024 3:1 8pm Cystitis December 11, 2024 5:5 7pm Frequency of urination December 11, 2024 5:57pm Anxiety January 30, 2025 5:45p m Insomnia January 30, 2025 5:45p m Chief Complaint Patient is here for weight gain--cmbpatient is here for a follow up to weight gain--cmb Additional Source Comments INFORMATION SOURCE (unrecogn ized section and content) DATE CREATED AUTHOR 02/17/2018 [facility] DATE CREATED AUTHOR AUTHOR'S ORGANIZ ATION 02/22/2018 [facility] DATE CREATED AUTHOR AUTHOR'S ORGANIZ ATION 05/11/2019 [facility] DATE CREATED AUTHOR AUTHOR'S ORGANIZ ATION 03/26/2021 [facility] DATE CREATED AUTHOR AUTHOR'S ORGANIZ ATION 04/13/2021 [facility] ([place]) DATE CREATED AUTHOR AUTHOR'S ORGANIZ ATION 01/09/2022 [facility] DATE CREATED AUTHOR AUTHOR'S ORGANIZ ATION 03/17/2023 [facility] DATE CREATED AUTHOR AUTHOR'S ORGANIZ ATION 03/17/2023 [facility] DATE CREATED AUTHOR AUTHOR'S ORGANIZ ATION 06/20/2023 [facility] DATE CREATED AUTHOR AUTHOR'S ORGANIZ ATION 08/16/2023 [facility] DATE CREATED AUTHOR AUTHOR'S ORGANIZ ATION 08/15/2024 [facility] DATE CREATED AUTHOR AUTHOR'S ORGANIZ ATION 08/31/2024 [facility] DATE CREATED AUTHOR AUTHOR'S ORGANIZ ATION 12/15/2024 [facility] Source Comments (unrecognize d section and content) In the event this informatio n is protected by the Federal Confidentiality of Alcohol and Drug Abuse Patient Records regulations: The Federal rules restrict any use of the information to criminally investigate or prosecute any alcohol or drug abuse patient.[facility] Ordered Prescriptions (unrec ognized section and content) Prescription Sig Dispensed Refills Start Date End Da te oxyCODONE (ROXICODONE) 5 MG immediate release tabletIndications:Close d fracture dislocation of right elbow with routine healing, subsequent encounter Take 1 tablet by mouth every 6 hours as needed for Pain for up to 7 days. Intended supply: 7 days. Take lowest dose possible to manage pain 28 tablet 0 02/19/2021 02/26/2021 ibuprofen (ADVIL;MOTRIN) 600 MG tablet Take 1 tablet by mouth 3 times daily as needed for Pain 90 tablet 0 02/19/2021 acetaminophen (TYLENOL) 500 MG tablet Take 2 tablets by mouth 3 times daily as needed for Pain 180 tablet 0 02/19/2021 Scheduled Active and Recently Administ ered Medications (unrecognized section and content) Medication Order 02/17/2021 02/18/2021 02/19/2021 acetaminophen (TYLENOL) tablet 1,000 mg (COMPLETED) 1,000 mg, Oral, ONCE, On Wed02/19/21 at 0830, For 1 dose, Maximum dose of acetaminophen is 4000 mg from all sources in 24 hours. Do not administer if patient has taken tylenol <4 hours earlier. Do not give if contraindicated ie. patient has active liver disease or cirrhosis., Pre-op (day of surgery) 0818 (Given - Provid er: Umm Mercedes RN) ceFAZolin (ANCEF) 2000 mg in dextrose 4 % 100 mL IVPB (premix) 2,000 mg, Intravenous, BALLISTICS TEACHER TO O.R., 1 dose, On Wed02/19/21 at 0830, Administer within 1 hour prior to incision. Recommend to repeat in 3-4 hours after initial dose if still intra-op., Pre-op (day of surgery) 829 (Due) famotidine (PEPCID) tablet 20 mg (COMPLETED) 20 mg, Oral, ONCE, On Wed02/19/21 at 0830, For 1 dose, Pre-op (day of surgery) 817 (Given - Provid er: Umm Mercedes RN) sodium chloride flush 0.9 % injection 5-40 mL 5-40 mL, Intravenous, EVERY 12 HOURS SCHEDULED (2 times per day), First dose on Wed02/19/21 at 0900, For Line Patency: Peripheral IV = 5 mL; Midline or Central Line = 10 mL/lumen. If following IV push medication, administer flush at same rate as the IV push. Flush volume is determined by type of infusion therapy being given. For non-viscous solutions use: Peripheral IV = 5 mL Midline or Central Line = 10 mL/lumen For viscous solutions (i.e. blood components, parenteral nutrition, contrast media, or after obtaining blood sample) use: Peripheral IV = 10 mL Midline or Central Line = 20 mL/lumen, Pre-op (day of surgery) 0900 (Due)2100 (Due) Continuous Medication Order 02/17/2021 02/18/2021 02/19/2021 lactated ringers infusion Intravenous, at 50 mL/hr, CONTINUOUS, Starting on Wed02/19/21 at 0800, Upon admission to sameday - please start iv if patient does not have iv access. Use 500ml NS for patients on dialysis., Pre-op (day of surgery) 817 (New Bag - Prov ider: Umm Mercedes RN) PRN Medication Order 02/17/2021 02/18/2021 02/19/2021 0.9 % sodium chloride bolus 500 mL (4.79 mL/kg), Intravenous, at 250 mL/hr, Administer over 2 Hours, ONCE PRN, Nausea, Starting on Wed02/19/21 at 0831, For 1 dose, PACU only 0.9 % sodium chloride infusion 25 mL, Intravenous, at 100 mL/hr, PRN, If patient receiving piggyback infusions without ordered maintenance IV fluids or with frequent/long duration piggyback infusions, Starting on Wed02/19/21 at 0804, Administer at the same rate as the piggyback being infused., Pre-op (day of surgery) diphenhydrAMINE (BENADRYL) injection 12.5 mg 12.5 mg, Intravenous, ONCE PRN, Itching, Starting on Wed02/19/21 at 0831, For 1 dose, PACU only hydrALAZINE (APRESOLINE) injection 5 mg 5 mg, Intravenous, EVERY 10 MIN PRN, High Blood Pressure, Starting on Wed02/19/21 at 0831, PRN for SBP > 160 for 2 consecutive measurements, and if one of the following conditions is met: 1) If IV labetolol is ineffective. 2) If HR is under 60. 3) If patient has heart block, COPD or asthma. If both labetalol and hydralazine ineffective, notify anesthesiologist., PACU only labetalol (NORMODYNE;TRANDATE) injection 5 mg 5 mg, Intravenous, EVERY 10 MIN PRN, High Blood Pressure, Starting on Wed02/19/21 at 0831, PRN for SBP >160 for 2 consecutive measurements, if HR is 60 or greater. If beta jacky is contraindicated (HR less than 60, heart block, COPD or asthma) use hydralazine IV order., PACU only lidocaine PF 1 % injection 1 mL 1 mL, Intradermal, ONCE PRN, IV start, Starting on Wed02/19/21 at 0730, For 1 dose, Pre-op (day of surgery) LORazepam (ATIVAN) injection 0.5 mg 0.5 mg, Intravenous, EVERY 10 MIN PRN, Anxiety, Starting on Wed02/19/21 at 0831, For 2 doses, PACU only ondansetron (ZOFRAN) injection 4 mg 4 mg, Intravenous, ONCE PRN, Nausea, Starting on Wed02/19/21 at 0831, For 1 dose, Initial antiemetic therapy., PACU only promethazine (PHENERGAN) injection 6.25 mg 6.25 mg, Intravenous, ONCE PRN, Nausea, Starting on Wed02/19/21 at 0831, For 1 dose, Caution if used IV:Check IV site for infiltrate prior to and during administration. Secondary antiemetic therapy. For IV administration, dilute to 10ml with normal saline. Must be administered over at least 10 minutes., PACU only sodium chloride flush 0.9 % injection 5-40 mL 5-40 mL, Intravenous, PRN, Line Care, Starting on Wed02/19/21 at 0804, For Line Patency: Peripheral IV = 5 mL; Midline or Central Line = 10 mL/lumen. If following IV push medication, administer flush at same rate as the IV push. Flush volume is determined by type of infusion therapy being given. For non-viscous solutions use: Peripheral IV = 5 mL Midline or Central Line = 10 mL/lumen For viscous solutions (i.e. blood components, parenteral nutrition, contrast media, or after obtaining blood sample) use: Peripheral IV = 10 mL Midline or Central Line = 20 mL/lumen, Pre-op (day of surgery) No Frequency Medication Order 02/17/2021 02/18/2021 02/19/2021 xeroform petrolat gauze 1X8 external pads Starting on Wed02/19/21 at 1020, For 1 dose, Alyssa Funez: cabinet override 1030 (Due) Scheduled Medication Order 03/22/2021 03/23/2021 03/24/2021 acetaminophen (TYLENOL) tablet 1,000 mg (COMPLETED) 1,000 mg, Oral, ONCE, On 03/24/21 at 0915, For 1 dose, Maximum dose of acetaminophen is 4000 mg from all sources in 24 hours. Do not administer if patient has taken tylenol <4 hours earlier. Do not give if contraindicated ie. patient has active liver disease or cirrhosis., Pre-op (day of surgery) 0914 (Given - Provid er: Marcela Frye RN) ceFAZolin (ANCEF) 2000 mg in dextrose 4 % 100 mL IVPB (premix) (COMPLETED) 2,000 mg, Intravenous, BALLISTICS TEACHER TO O.R., 1 dose, On Wed03/24/21 at 0915, Administer within 1 hour prior to incision. Recommend to repeat in 3-4 hours after initial dose if still intra-op., Pre-op (day of surgery) 0933 (Given by Other Clinician - Provider: Jennifer Malloy RN - Comment: Given by [employer]PENTER in OR) famotidine (PEPCID) tablet 20 mg (COMPLETED) 20 mg, Oral, ONCE, On Wed03/24/21 at 0915, For 1 dose, Pre-op (day of surgery) 913 (Given - Provid er: Marcela Frye RN) gabapentin (NEURONTIN) capsule 100 mg (COMPLETED) 100 mg, Oral, ONCE, On Wed03/24/21 at 0915, For 1 dose, For Age >69, or Low GFR, Pre-op (day of surgery) 913 (Given - Provid er: Marcela Frye RN) sodium chloride flush 0.9 % injection 5-40 mL 5-40 mL, Intravenous, EVERY 12 HOURS SCHEDULED (2 times per day), First dose on Wed03/24/21 at 0915, For Line Patency: Peripheral IV = 5 mL; Midline or Central Line = 10 mL/lumen. If following IV push medication, administer flush at same rate as the IV push. Flush volume is determined by type of infusion therapy being given. For non-viscous solutions use: Peripheral IV = 5 mL Midline or Central Line = 10 mL/lumen For viscous solutions (i.e. blood components, parenteral nutrition, contrast media, or after obtaining blood sample) use: Peripheral IV = 10 mL Midline or Central Line = 20 mL/lumen, Pre-op (day of surgery) 0915 (Due)2100 (Due) Continuous Medication Order 03/22/2021 03/23/2021 03/24/2021 lactated ringers infusion Intravenous, at 50 mL/hr, CONTINUOUS, Starting on Wed03/24/21 at 0915, Upon admission to sameday - please start iv if patient does not have iv access. Use 500ml NS for patients on dialysis., Pre-op (day of surgery) 913 (New Bag - Prov ider: Marcela Frye RN) PRN Medication Order 03/22/2021 03/23/2021 03/24/2021 0.9 % sodium chloride bolus 500 mL (4.81 mL/kg), Intravenous, at 250 mL/hr, Administer over 2 Hours, ONCE PRN, Nausea, Starting on Wed03/24/21 at 0919, For 1 dose, PACU only 0.9 % sodium chloride infusion 25 mL, Intravenous, at 100 mL/hr, PRN, If patient receiving piggyback infusions without ordered maintenance IV fluids or with frequent/long duration piggyback infusions, Starting on Wed03/24/21 at 0851, Administer at the same rate as the piggyback being infused., Pre-op (day of surgery) ALPRAZolam (NIRAVAM) dissolvable tablet 0.25 mg 0.25 mg, Oral, PRN, Anxiety, Starting on Wed03/24/21 at 0851, Pre-op (day of surgery) 0918 (Given - Provid er: Marcela Frye RN) diphenhydrAMINE (BENADRYL) injection 12.5 mg 12.5 mg, Intravenous, ONCE PRN, Itching, Starting on Wed03/24/21 at 0919, For 1 dose, for use Sameday and, PACU only fentaNYL (SUBLIMAZE) injection 25 mcg 25 mcg, Intravenous, EVERY 5 MIN PRN, Pain Moderate (4-6), Starting on Wed03/24/21 at 0919, For 3 doses, Phase I and Phase II- Initial therapy for moderate pain (4-6). Restricted to a 50 minute time frame starting when the patient can verbally state their pain score. If after 2 doses the pain score does not decrease by more than one point, then go to secondary medication. Ifsecondary medications are utilized, do not return to initial therapy medications. SDS and, PACU only fentaNYL (SUBLIMAZE) injection 50 mcg 50 mcg, Intravenous, EVERY 5 MIN PRN, Pain Severe (7-10), Starting on Wed03/24/21 at 0919, For 3 doses, Phase I or Phase II- Initial therapy for severe pain (7-10). Restricted to a 50 minute time frame starting when the patient can verbally state their pain score. If after 2 doses the pain score does not decrease by more than one point, then go to secondary medication. If secondary medications are utilized, do not return to initial therapy medications.Sameday and, PACU only hydrALAZINE (APRESOLINE) injection 5 mg 5 mg, Intravenous, EVERY 10 MIN PRN, High Blood Pressure, Starting on Wed03/24/21 at 0919, PRN for SBP > 160 for 2 consecutive measurements, and if one of the following conditions is met: 1) If IV labetolol is ineffective. 2) If HR is under 60. 3) If patient has heart block, COPD or asthma. If both labetalol and hydralazine ineffective, notify anesthesiologist. for use Sameday and, PACU only HYDROmorphone (DILAUDID) injection 0.25 mg 0.25 mg, Intravenous, EVERY 5 MIN PRN, Pain Moderate (4-6), Starting on Wed03/24/21 at 0919, For 4 doses, Phase I - Secondary therapy to be used after initial therapy medication doses are ineffective (pain score does not decrease by more than 1 point). If secondary medications are utilized, do not return to initial therapy medications., PACU only HYDROmorphone (DILAUDID) injection 0.5 mg 0.5 mg, Intravenous, EVERY 5 MIN PRN, Pain Severe (7-10), Starting on Wed03/24/21 at 0919, For 4 doses, Phase I - Secondary therapy to be used after initial therapy medication doses are ineffective (pain score does not decrease by more than 1 point). If secondary medications are utilized, do not return to initial therapy medications., PACU only labetalol (NORMODYNE;TRANDATE) injection 5 mg 5 mg, Intravenous, EVERY 10 MIN PRN, High Blood Pressure, Starting on Wed03/24/21 at 0919, PRN for SBP >160 for 2 consecutive measurements, if HR is 60 or greater. If beta jacky is contraindicated (HR less than 60, heart block, COPD or asthma) use hydralazine IV order. for use Sameday and, PACU only lidocaine PF 1 % injection 1 mL 1 mL, Intradermal, ONCE PRN, IV start, Starting on Wed03/24/21 at 0851, For 1 dose, Pre-op (day of surgery) meperidine (DEMEROL) injection 12.5 mg 12.5 mg, Intravenous, EVERY 5 MIN PRN, Shivering, , Starting on Wed03/24/21 at 0919, May give every 5 minutes to max of 50mg. for use Sameday and, PACU only midazolam (VERSED) injection 2 mg 2 mg, Intravenous, PRN, Anxiety, administration per anesthesiologist direction. Up to two mg., Starting on Wed03/24/21 at 0832, Pull 2 mg vial of midazolam draw up in PACU for anesthesia block placement with administration per anesthesiologist direction. Up to two mg., PACU only ondansetron (ZOFRAN) injection 4 mg 4 mg, Intravenous, ONCE PRN, Nausea, Starting on Wed03/24/21 at 0919, For 1 dose, Initial antiemetic therapy. For use sameday and, PACU only oxyCODONE (ROXICODONE) immediate release tablet 10 mg (COMPLETED) 10 mg, Oral, PRN, Pain Severe (7-10), Starting on Wed03/24/21 at 0919, For 1 dose, PHASE II, PACU only 1028 (Given - Provid er: Jennifer Malloy RN) promethazine (PHENERGAN) injection 6.25 mg 6.25 mg, Intravenous, ONCE PRN, Nausea, Starting on Wed03/24/21 at 0919, For 1 dose, Caution if used IV:Check IV site for infiltrate prior to and during administration. Secondary antiemetic therapy. For use same and For IV administration, dilute to 10ml with normal saline. Must be administered over at least 10 minutes., PACU only sodium chloride flush 0.9 % injection 5-40 mL 5-40 mL, Intravenous, PRN, Line Care, Starting on Wed03/24/21 at 0851, For Line Patency: Peripheral IV = 5 mL; Midline or Central Line = 10 mL/lumen. If following IV push medication, administer flush at same rate as the IV push. Flush volume is determined by type of infusion therapy being given. For non-viscous solutions use: Peripheral IV = 5 mL Midline or Central Line = 10 mL/lumen For viscous solutions (i.e. blood components, parenteral nutrition, contrast media, or after obtaining blood sample) use: Peripheral IV = 10 mL Midline or Central Line = 20 mL/lumen, Pre-op (day of surgery) Scheduled Medication Order 01/05/2023 01/06/2023 01/07/2023 ceFAZolin in dextrose 4% (Ancef) IVPB 2,000 mg (COMPLETED) 2,000 mg, IntraVENous, Administer over 30 Minutes, Once, On Lucretia 01/07/23 at 0615, For 1 dose, Preprocedure, Administer within 1 hour prior to incision. Recommend to repeat in 3-4 hours after initial dose if still intra-op. premix bag, Suspected Indication (Select all that apply): Surgical Prophylaxis 0743 (Given - Provid er: Hoa Norton, SILVERWARE CLE[employer]ER - [employer]) famotidine (Pepcid) tablet 20 mg (COMPLETED) 20 mg, Oral, Once, On Lucretia 01/07/23 at 0615, For 1 dose, Preprocedure 0618 (Given - Provid er: Giselle Claros RN) gabapentin (Neurontin) capsule 100 mg (COMPLETED) 100 mg, Oral, Once, On Lucretia 01/07/23 at 0615, For 1 dose, Preprocedure, For Age >69 or Low GFR. 0618 (Given - Provid er: Giselle Claros RN) sodium chloride 0.9% (NS) flush 10 mL 10 mL, IntraVENous, Every 12 hours scheduled (2 times per day), First dose on Lucretia 01/07/23 at 0900, Preprocedure 0900 (Canceled Entry - Provider: Automatic Discharge Provider - Comment: Automatically canceled at discontinue of medication order) sodium chloride 0.9% (NS) flush 10 mL 10 mL, IntraVENous, Every 12 hours scheduled (2 times per day), First dose on Lucretia 01/07/23 at 0900, Recovery (only) 0900 (Canceled Entry - Provider: Automatic Discharge Provider - Comment: Automatically canceled at discontinue of medication order) sodium chloride 0.9% (NS) flush 5-40 mL 5-40 mL, IntraVENous, Every 12 hours, First dose on Lucretia 01/07/23 at 0615, Preprocedure, For Line Patency: Peripheral IV = 5 mL; Midline or Central Line = 10 mL/lumen. If following IV push medication, administer flush at same rate as the IV push. Flush volume is determined by type of infusion therapy being given. For non-viscous solutions use: Peripheral IV = 5 mL Midline or Central Line = 10 mL/lumen For viscous solutions (i.e. blood components, parenteral nutrition, contrast media, or after obtaining blood sample) use: Peripheral IV = 10 mL Midline or Central Line = 20 mL/lumen 0615 (Canceled Entry - Provider: Automatic Discharge Provider - Comment: Automatically canceled at discontinue of medication order) Continuous Medication Order 01/05/2023 01/06/2023 01/07/2023 lactated Ringer's (LR) infusion 50 mL/hr, IntraVENous, Continuous, Starting on Lucretia 01/07/23 at 0615, Preprocedure, Upon admission to sameday - please start iv if patient does not have iv access. Use 500ml NS for patients on dialysis. 0621 (New Bag - Prov ider: Giselle Claros RN)0728 (Continued by Anesthesia - Provider: ANATOLIY Gayle CRNA)0729 (Rate/Dose Change - Provider: ANATOLIY Gayle CRNA)0816 (Stopped - Provider: ANATOLIY Gayle CRNA) lactated ringers infusion 125 mL/hr, IntraVENous, Continuous, Starting on Lucretia 01/07/23 at 0815, Recovery (only) 0815 (Canceled Entry - Provider: Automatic Discharge Provider - Comment: Automatically canceled at discontinue of medication order) PRN Medication Order 01/05/2023 01/06/2023 01/07/2023 ALPRAZolam (Xanax) disintegrating tablet 0.25 mg (COMPLETED) 0.25 mg, Oral, PRN, anxiety, Starting on Lucretia 01/07/23 at 0602, For 1 dose, Preprocedure, Using dry hands, place tablet on top of tongue and allow to disintegrate. Administration with water is not necessary. 0618 (Given - Provid er: Giselle Claros RN) diphenhydrAMINE (BENADryl) injection 12.5 mg 12.5 mg, IntraVENous, Once PRN, itching, Starting on Lucretia 01/07/23 at 0810, For 1 dose, Recovery (only) fentaNYL (Sublimaze) injection 25 mcg 25 mcg, IntraVENous, Every 5 min PRN, moderate pain (4-6), Starting on Lucretia 01/07/23 at 0810, For 3 doses, Recovery (only), Phase I and Phase II- Initial therapy for moderate pain (4-6). Restricted to a 90 minute time frame starting when the patient can verbally state their pain score. If after 2 doses the pain score does not decrease by more than one point, then call the provider. If oral meds are utilized, do not return to initial therapy medications. fentaNYL (Sublimaze) injection 50 mcg 50 mcg, IntraVENous, Every 5 min PRN, severe pain (7-10), Starting on Lucretia 01/07/23 at 0810, For 3 doses, Recovery (only), Phase I and Phase II- Initial therapy for severe pain (7-10). Restricted to a 90 minute time frame starting when the patient can verbally state their pain score. If after 2 doses the pain score does not decrease by more than one point, then call the provider. If oral meds are utilized, do not return to initial therapy medications. 09 (Given - Provid er: Maximino Ayon RN)09 (Given - Provider: Maximino Ayon RN) hydrALAZINE (Apresoline) injection 5 mg(Linked Group 1) 5 mg, IntraVENous, Every 15 min PRN, high blood pressure, for SBP greater than 160 mmHg for 2 consecutive measurements taken from different sites, Starting on Lucretia 01/07/23 at 0810, For 2 doses, Recovery (only), PRN for SBP > 160 for 2 consecutive measurements, and if one of the following conditions is met: 1) If IV labetolol is ineffective. 2) If HR is under 60. 3) If patient has heart block, COPD or asthma. If both labetalol and hydralazine ineffective, notify anesthesia provider. HYDROmorphone (Dilaudid) injection 0.5 mg (COMPLETED) 0.5 mg, IntraVENous, Every 5 min PRN, severe pain (7-10), Starting on Lucretia 01/07/23 at 0945, For 2 doses, Recovery (only), Phase I and Phase II- Initial therapy for severe pain (7-10). Restricted to a 90 minute time frame starting when the patient can verbally state their pain score. If after 2 doses the pain score does not decrease by more than one point, then call the provider. If oral meds are utilized, do not return to initial therapy medications. 0948 (Given - Provid er: Maximino Ayon, LILIANE)1012 (Given - Provider: Maximino Ayon RN) labetalol (Normodyne,Trandate) injection 5 mg(Linked Group 1) 5 mg, IntraVENous, Every 10 min PRN, high blood pressure, for SBP greater than 160 mmHg for 2 consecutive measurements taken from different sites., Starting on Lucretia 01/07/23 at 0810, For 2 doses, Recovery (only), PRN for SBP >160 for 2 consecutive measurements, if HR is 60 or greater. If beta jacky is contraindicated (HR less than 60, heart block, COPD or asthma) use hydralazine IV order. LORazepam (Ativan) injection 0.5 mg 0.5 mg, IntraVENous, Once PRN, for anxiety or muscle spasm., Starting on Lucretia 01/07/23 at 0810, For 1 dose, Recovery (only), For IV doses dilute dose with 1ml NS. meperidine (Demerol) injection 12.5 mg 12.5 mg, IntraVENous, Every 5 min PRN, shivering, Starting on Lucretia 01/07/23 at 0810, For 4 doses, Recovery (only), May give every 5 minutes to max of 50mg. ondansetron (Zofran) injection 4 mg 4 mg, IntraVENous, Once PRN, nausea, Starting on Lucretia 01/07/23 at 0810, For 1 dose, Recovery (only), Initial antiemetic therapy. sodium chloride 0.9 % bolus 500 mL 500 mL, IntraVENous, at 1,000 mL/hr, Administer over 0.5 Hours, PRN, Anti-nausea, Starting on Lucretia 01/07/23 at 0810, Recovery (only), Indications: Anti-nausea sodium chloride 0.9 % infusion 5-250 mL/hr, IntraVENous, PRN, if patient receiving piggyback infusions and maintenance fluids are not ordered OR KVO fluids to protect IV site / prevent frequent line interruptions / long duration, Starting on Lucretia 01/07/23 at 0602, Preprocedure, For piggyback infusion, administer at same rate as piggyback for a total of 25 mL. Enter 25 mL into dose field and piggyback rate into rate field of order. If piggyback is infusing at a rate less than 100 mL/hr, enter 25 mL into dose field and 100 mL/hr into rate field of order. For KVO fluids, enter rate of 20 mL/hr or less into rate field of order. sodium chloride 0.9 % infusion 5-250 mL/hr, IntraVENous, PRN, if patient receiving piggyback infusions and maintenance fluids are not ordered OR KVO fluids to protect IV site / prevent frequent line interruptions/ long duration, Starting on Lucretia 01/07/23 at 0602, Preprocedure, For piggyback infusion, administer at same rate as piggyback for a total of 25 mL. Enter 25 mL into dose field and piggyback rate into rate field of order. If piggyback is infusing at a rate less than 100 mL/hr, enter 25 mL into dose field and 100 mL/hr into rate field of order. For KVO fluids, enter rate of 20 mL/hr or less into rate field of order. sodium chloride 0.9 % infusion 5-250 mL/hr, IntraVENous, PRN, if patient receiving piggyback infusions and maintenance fluids are not ordered OR KVO fluids to protect IV site / prevent frequent line interruptions/ long duration, Starting on Lucretia 01/07/23 at 0810, Recovery (only), For piggyback infusion, administer at same rate as piggyback for a total of 25 mL. Enter 25 mL into dose field and piggyback rate into rate field of order. If piggyback is infusing at a rate less than 100 mL/hr, enter 25 mL into dose field and 100 mL/hr into rate field of order. For KVO fluids, enter rate of 20 mL/hr or less into rate field of order. sodium chloride 0.9 % irrigation solution (CANCELED) As needed, Starting on Lucretia 01/07/23 at 0659, Intraprocedure 0659 (Given - Provid er: Seven Gutierrez MD) sodium chloride 0.9% (NS) flush 10 mL 10 mL, IntraVENous, PRN, line care, Starting on Lucretia 01/07/23 at 0602, Preprocedure, After every IV line use sodium chloride 0.9% (NS) flush 10 mL 10 mL, IntraVENous, PRN, line care, Starting on Lucretia 01/07/23 at 0810, Recovery (only), After every IV line use sodium chloride 0.9% (NS) flush 5-40 mL 5-40 mL, IntraVENous, PRN, line care, After every IV line use, Starting on Lucretia 01/07/23 at 0602, Preprocedure, For Line Patency: Peripheral IV = 5 mL; Midline or Central Line = 10 mL/lumen. If following IV push medication, administer flush at same rate as the IV push. Flush volume is determined by type of infusion therapy being given. For non-viscous solutions use: Peripheral IV = 5 mL Midline or Central Line = 10 mL/lumen For viscous solutions (i.e. blood components, parenteral nutrition, contrast media, or after obtaining blood sample) use: Peripheral IV = 10 mL Midline or Central Line = 20 mL/lumen Xeroform Petrolat Gauze 1x8 pad (CANCELED) As needed, Starting on Lucretia 01/07/23 at 0659, Intraprocedure 0659 (Given - Provid er: Seven Gutierrez MD) No Frequency Medication Order 01/05/2023 01/06/2023 01/07/2023 HYDROmorphone (Dilaudid) 1 MG/ML injection - Pyxis ADS Override Pull (COMPLETED) Starting on Lucretia 01/07/23 at 0946, For 1 dose, Maximino Ayon: cabinet override 0948 (Given - Provid er: Maximino Ayon RN) Linked Groups Order Group 1: labetalol (Normodyne,Trandate) injection 5 mgJump to med 5 mg, IntraVENous, Every 10 min PRN, high blood pressure, for SBP greater than 160 mmHg for 2 consecutive measurements taken from different sites., Starting on Lucretia 01/07/23 at 0810, For 2 doses, Recovery (only)
PRN for SBP >160 for 2 consecutive measurements, if HR is 60 or greater. If beta jacky is contraindicated (HR less than 60, heart block, COPD or asthma) use hydralazine IV order.
Or hydrALAZINE (Apresoline) injection 5 mgJump to med 5 mg, IntraVENous, Every 15 min PRN, high blood pressure, for SBP greater than 160 mmHg for 2 consecutive measurements taken from different sites, Starting on Lucretia 01/07/23 at 0810, For 2 doses, Recovery (only)
PRN for SBP > 160 for 2 consecutive measurements, and if one of the following conditions is met: 1) If IV labetolol is ineffective. 2) If HR is under 60. 3) If patient has heart block, COPD or asthma. If both labetalol and hydralazine ineffective, notify anesthesia provider.
Care Teams (unrecognized sec tion and content) Slide Fastener Repairer Relationship Specialty Start Date End Date Michael Barragan MD [address] [facility], [address] [place], [place] [id number] PCP - General Family Medicine 10/28/20 Slide Fastener Repairer Relationship Specialty Start Date End Date Rojas Loya, USER EXPERIENCE TEAM LEAD [address] [place] [id number] PCP - General Certified Nurse Practitioner 07/30/22 Slide Fastener Repairer Relationship Specialty Start Date End Date Rojas Loya, USER EXPERIENCE TEAM LEAD [address] [place] [address] PCP - General Certified Nurse Practitioner 07/30/22 Slide Fastener Repairer Relationship Specialty Start Date End Date Nikhil Wetzel MD [address] [place] [id number] PCP - General 02/19/21 Slide Fastener Repairer Relationship Specialty Start Date End Date Nikhil Wetzel MD [address] [place] [id number] PCP - General 02/19/21 Slide Fastener Repairer Relationship Specialty Start Date End Date Nikhil Wetzel MD [address] [place] [id number] PCP - General 02/19/21 Slide Fastener Repairer Relationship Specialty Start Date End Date Nikhil Wetzel MD [address] [place] [id number] PCP - General 02/19/21 Slide Fastener Repairer Relationship Specialty Start Date End Date Nikhil Wetzel MD [address] [facility] [address] [place] [address] PCP - General 02/19/21 Slide Fastener Repairer Relationship Specialty Start Date End Date Rojas Loya CNP [address] [id number] PCP - General Certified Nurse Practitioner 07/30/22 Slide Fastener Repairer Relationship Specialty Start Date End Date Rojas Loya CNP [address] [address] PCP - General Certified Nurse Practitioner 07/30/22 Slide Fastener Repairer Relationship Specialty Start Date End Date Nikhil Wetzel MD PCP - General 05/21/16 Slide Fastener Repairer Relationship Specialty Start Date End Date Nikhil Wetzel MD PCP - General 05/21/16 Slide Fastener Repairer Relationship Specialty Start Date End Date Nikhil Wetzel MD PCP - General 05/21/16 Slide Fastener Repairer Relationship Specialty Start Date End Date Nikhil Wetzel MD PCP - General 02/19/21 Team Status: Active Member Role Status Dates Dr. Nikhil Munguia , DO Family Provider Active Rojas Loya WASHCLOTH FOLDER, WASHCLOTH FOLDER-C Primary Care Provider Active Team Status: Inactive Member Role Status Dates Rojas Loya WASHCLOTH FOLDER, WASHCLOTH FOLDER-C Primary Care Provider Active Start: November 24, 2024 End: November 24, 2024 Rojas Loya WASHCLOTH FOLDER, WASHCLOTH FOLDER-C Attending Provider Active Start: November 24, 2024 End: November 24, 2024 Rojas Loya WASHCLOTH FOLDER, WASHCLOTH FOLDER-C Referring Provider Active Start: November 24, 2024 End: November 24, 2024 Team Status: Inactive Member Role Status Dates Rojas Loya NP, WASHCLOTH FOLDER-C Primary Care Provider Active Start: November 28, 2024 End: November 28, 2024 Rojas Loya NP, WASHCLOTH FOLDER-C Referring Provider Active Start: November 28, 2024 End: November 28, 2024 Ayaz DESIR, PA Attending Provider Active Start: November 28, 2024 End: November 28, 2024 Team Status: Inactive Member Role Status Dates Rojas Loya NP, WASHCLOTH FOLDER-C Primary Care Provider Active Start: December 11, 2024 End: December 11, 2024 Rojas Loya NP, WASHCLOTH FOLDER-C Attending Provider Active Start: December 11, 2024 End: December 11, 2024 Rojas Loya NP, WASHCLOTH FOLDER-C Referring Provider Active Start: December 11, 2024 End: December 11, 2024 Team Status: Inactive Member Role Status Dates Rojas Loya NP, WASHCLOTH FOLDER-C Primary Care Provider Active Start: January 30, 2025 End: January 30, 2025 Rojas Loya NP, WASHCLOTH FOLDER-C Attending Provider Active Start: January 30, 2025 End: January 30, 2025 Rojas Loya NP, WASHCLOTH FOLDER-C Referring Provider Active Start: January 30, 2025 End: January 30, 2025 Goals (unrecognized section and content) Goals may be documented in a n alternate sectionGoals may be documented in an alternate sectionGoals may be documented in an alternate sectionGoals may be documented in an alternate section Reason for Visit (unrecogniz ed section and content) Reason Comments New Patient Specialty Diagnoses / Procedures Referred By Beth t Referred To Contact Diagnoses Pituitary lesion Procedures MRI PITUITARY WITH AND WITHOUT CONTRAST [facility] Brennan Mirza MD [address] [place] [address] [address] [place] [address] Referral ID Status Reason Start Date Expiration Date Visits Re quested Visits Authorized [id number] Closed 07/30/2022 08/24/2023 1 1 Reason Comments Elbow Pain ORIF right olecranon fracture dislocation. DOS: 03/24/2021. Reason Onset Date Comments Surgery Scheduling 12/23/2022 Specialty Diagnoses / Procedures Referred By Beth t Referred To Contact Diagnoses Unspecified fracture of the lower end of right radius, subsequent encounter for closed fracture with routine healing Unspecified fracture of lower end of right humerus, subsequent encounter for fracture with routine healing Unspecified fracture of the lower end of right radius, subsequent encounter for closed fracture with routine healing [S52.501D] Unspecified fracture of lower end of right humerus, subsequent encounter for fracture with routine healing [S42.401D] Procedures [place] REMOVAL IMPLANT DEEP REMOVAL SYNTHES RADIAL HEAD REPLACEMENT FROM RIGHT ELBOW Seven Gutierrez MD [address] [facility] [address] [place] [address] [address] [place] [address] Referral ID Status Reason Start Date Expiration Date Visits Re quested Visits Authorized [id number] 1 1 Reason Comments Post-op Sx 01/07/23 Removal r ight radial head replacement Specialty Diagnoses / Procedures Referred By Beth garrison Referred To Contact Diagnoses Meningioma Procedures MRI BRAIN WITH AND WITHOUT CONTRAST [facility] Brennan Mirza MD [address] [place] [address] Referral ID Status Reason Start Date Expiration Date Visits Re quested Visits Authorized [id number] Closed 08/20/2022 09/14/2023 1 1 Reason Comments Prediabetes Obesity Reason Onset Date Comments Nasal Congestion 08/29/2024 Earache 08/29/2024 FOR RECORDS PERTAINING TO PATIENTS WHO ARE OR HAVE BEEN ENROLLED IN A CHEMICAL DEPENDENCY/SUBSTANCEABUSE PROGRAM, SOME INFORMATION MAY BE OMITTED. This clinical summary was aggregated from multiple sources. Caution should be exercised in using it in the provision of clinical care. This summary normalizes information from multiple sources, and as a consequence, information in this document may materially change the coding, format and clinical context of patient data. In addition, data may be omitted in some cases. CLINICAL DECISIONS SHOULD BE BASED ON THE PRIMARY CLINICAL RECORDS. [facility] provides no warranty or guarantee of the accuracy or completeness of information in this document.
[2025-07-11 22:49] LABS: Hematocrit 41.5 % (37-47); Hemoglobin 14.0 g/dL (12.0-15.0); Immature Granulocytes Count 0.010 X10^3/uL (0.0-0.0); Mean Corp Hgb Conc 33.7 g/dL (32-36); Mean Corpuscular Volume 84.5 fL (81-99); Mean Platelet Vol. 11.5 fl (6.2-12.0); NRBC Flagged by Analyzer 0 % (0-5); Platelet Count 345 K/mm3 (150-450); RBC Distribution Width CV 12.6 % (11.6-14.6); RBC Distribution Width SD 38.2 fl (35.1-43.9); Red Blood Count 4.91 M/mm3 (4.2-5.4); White Blood Count 8.7 K/mm3 (4.4-11.0)
[2025-07-11 23:34] LABS: AST(SGOT) 20 U/L (<=31); Alanine Aminotransfer ALT/SGPT 17 U/L (<=34); Albumin, Serum 4.7 g/dL (3.5-5.0); Alkaline Phosphatase 69 U/L (35-104); Anion Gap 11 (5-15); BUN 8 mg/dL (4-19); BUN/Creat Ratio 11.3 RATIO (10-20); Calcium,Total 9.8 mg/dL (7.6-11.0); Carbon Dioxide 25.7 mmol/L (21.0-32.0); Chloride 104 mmol/L (98-108); Cholesterol 178 mg/dL (<=200); Globulin 2.9 g/dL (2.2-4.2); Glucose 92 mg/dL (70-99); Low Density Lipoprotein Calc. 100 mg/dL; Potassium 4.1 mmol/L (3.3-5.1); Triglycerides 169 mg/dL; Very Low Density Lipoprotein 34 mg/dL (5-40); cholesterol:hdl ratio screen 3.62
== END | disposition home or self-care (01) ==
PROVIDERS: PCP Nurse Practitioner; Referring Provider Nurse Practitioner; Visit Provider Nurse Practitioner
DX: E78.00 Pure hypercholesterolemia, unspecified (principal); G47.00 Insomnia, unspecified; F41.9 Anxiety disorder, unspecified; T14.8XXA Other injury of unspecified body region, initial encounter; X58.XXXA Exposure to other specified factors, initial encounter; R53.83 Other fatigue; R73.9 Hyperglycemia, unspecified
CPT/HCPCS: 80053; 80061; 85025; 87070; 87205